=== PATIENT | female | born 1945 | race Caucasian/White ===

== ENCOUNTER 2020-11-10 02:08 | Observation (INO) | payer MEDICARE ==
[~2020-11-10] VITALS: Ht 170.2 cm; Wt 83.6 kg
[2020-11-10 05:17] VITALS: BP 124/60
[2020-11-10] MEDS ORDERED: MULT-245 PO (06:04)
[2020-11-10] MEDS ORDERED: CEPH500C PO (06:04)
[2020-11-10] MEDS ORDERED: ACET325T9 PO (06:04)
[2020-11-10] MEDS ORDERED: IBUP400T99 PO (06:04)
[2020-11-10] MEDS ORDERED: CLOT15CR53 TP (06:04)
[2020-11-10] MEDS ORDERED: OMEG1CAP50 PO (06:04)
[2020-11-10 06:42] LABS: ALBUMIN/GLOBULIN RATIO 1.2 (1.0-1.7); CREATININE 0.8 mg/dL (0.6-1.0); GFR 69.7; MAGNESIUM 2.2 mg/dL (1.8-2.4); POTASSIUM 3.7 mmol/L (3.5-5.1); TOTAL BILIRUBIN 0.5 mg/dL (0.2-1.0); TOTAL PROTEIN 7.3 g/dL (6.4-8.2)
[2020-11-10 06:56] LABS: BASO % 1 % (0-3); EOS # 0.2 x10^3/uL (0.0-0.7); EOS % 4 % (0-3); HEMOGLOBIN 12.4 g/dL (12.0-15.5); LYMPH # 1.2 x10^3/uL (1.0-4.8); LYMPH % 23 % (24-48); MEAN CORPUSCULAR HEMOGLOBIN 31 pg (25-35); MEAN CORPUSCULAR HGB CONC 34 g/dL (31-37); MEAN CORPUSCULAR VOLUME 92 fL (79-100); MONO # 0.7 x10^3/uL (0.0-1.1); MONO % 13 % (0-9); NEUT # 3.1 x10^3uL (1.8-7.7); NEUT % 59 % (31-73); PLATELET COUNT 214 x10^3/uL (140-400); WHITE BLOOD COUNT 5.3 x10^3/uL (4.0-11.0)
--- NOTE | 2020-11-10 09:34 | HP ---
ADMIT DATE: 11/10/2020 ATTENDING PHYSICIAN: Dr. Macias. We are asked to see this patient for admission prior to going to the [facility]. HISTORY OF PRESENT ILLNESS: The patient is a 75-year-old female with profound dementia. She originally resided in [place], [place]. Daughter lives in [place]. I got an address area, which appears to be a longterm in [place]. She was sent to [facility] and then eventually contacted here for a Geriatric Neuropsych evaluation. The patient has been asking for parents hallucinating, repetitive speech, not oriented, incontinence, smearing her stool on the wall and tried to leave the house. Symptoms have been ongoing for at least 6 months now. PAST MEDICAL HISTORY: Gleaned from the chart. She has no history of diabetes or high blood pressure. CURRENT MEDICATIONS: Include cephalexin for UTI, clotrimazole, p.r.n. ibuprofen, multivitamin, omega 3 acid. ALLERGIES: She has no known drug allergies. SOCIAL HISTORY: She is a nonsmoker, nondrinker. FAMILY HISTORY: Unobtainable. REVIEW OF SYSTEMS: Unobtainable. PHYSICAL EXAMINATION: GENERAL: When I saw her, this is a pleasant, but confused female. She is not aware of where she is. INITIAL VITAL SIGNS: Showed a blood pressure 124/60, pulse is 78 and regular. She is afebrile. Oxygen saturation 97% on room air. HEENT: Head is without trauma. Pupils are reactive. Sclerae nonicteric. Oropharynx clear. NECK: Supple, no bruits. LUNGS: Clear. CARDIOVASCULAR: Showed regular heart tones. No gallops. ABDOMEN: Soft. EXTREMITIES: Without edema. NEUROLOGIC: Pleasantly confused. LABORATORY DATA: The hemoglobin is 12.4 g/dL with a white count 5300. Her chemistry panel is unremarkable with a nonfasting blood sugar 114. Electrolytes, BUN, creatinine, liver panel all within normal range. ASSESSMENT: 1. A 75-year-old female with profound dementia. 2. Behavioral issues. 3. Generalized debilitation. PLAN: 1. Admit to the medical floor. 2. We are awaiting her coronavirus swab. 3. Diet as tolerated. 4. Minimal home meds continued. 5. We will finish her antibiotic therapy for UTI. 6. She will be discharged to the [facility] Unit when the swab returns. DENG DR: Olivia TID: [id number] CC: KANDY WADE MD
[2020-11-10] MEDS ORDERED: MAGNESIUM CITRATE 296 ML SOLUTION. PO PRN (10:00)
--- NOTE | 2020-11-10 10:08 | EKG ---
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
[2020-11-10 10:49] VITALS: BP 100/57
[2020-11-10 12:55] LABS: FREE T4 0.82 ng/dL (0.76-1.46); THYROID STIM HORMONE (TSH) 2.024 uIU/mL (0.358-3.740)
[2020-11-10] MEDS ORDERED: HYDR-2155 PO (16:59)
--- NOTE | 2020-11-10 20:28 | DS ---
ATTENDING PHYSICIAN: Dr. Macias. FINAL DISCHARGE DIAGNOSES: 1. Profound dementia. 2. Aggressive behavior. 3. Mild hypertension. 4. Degenerative arthritis. HISTORY AND PHYSICAL: The patient had been in a facility in [place], [place]. She was becoming more agitated, forgetful, smearing her own stool on the acosta, escaping from her home at night. She was slated to go to the [facility] Behavioral Unit. She was sent here for observation and to rule out COVID infection. PHYSICAL EXAMINATION: Please see the dictated note. PERTINENT LABORATORY AND X-RAY STUDIES: Normal CBC, chemistry panel, and electrolytes. Her COVID coronavirus swab came back as negative. COURSE IN THE HOSPITAL: The patient was admitted. She had her labs drawn, screened for COVID. Diet advanced. She had very little home meds except for p.r.n. psych meds including Seroquel and risperidone. When the report was negative, she was discharged from the medical floor and sent to the [facility] Unit for further treatment and evaluation. She was discharged in stable condition with explicit and followup care. JOHANNE/LIGIA/THIERRY DR: Olivia TID: [id number] CC: KANDY WADE MD
[2020-11-11 05:37] LABS: HEMOGLOBIN A1C 5.4 % (4.8-5.6)
== END 2020-11-10 14:40 ==
LOC: 1 SOUTH 04:27
PROVIDERS: ADMIT Hospitalist; ATTEND Hospitalist
DX: F03.91 Unspecified dementia, unspecified severity, with behavioral disturbance (principal); Z20.822 Contact with and (suspected) exposure to COVID-19; I10 Essential (primary) hypertension; M19.90 Unspecified osteoarthritis, unspecified site; R53.81 Other malaise; Z79.899 Other long term (current) drug therapy; Z98.890 Other specified postprocedural states
CPT/HCPCS: 36415; 80053; 80061; 82306; 82607; 83036; 83540; 83550; 83735; 84439; 84443; 84481; 85025; 93005; G0378; G0379; U0003

== ENCOUNTER 2020-11-10 14:40 | Inpatient (IN) | payer MEDICARE ==
[~2020-11-10] VITALS: Ht 172.7 cm; Wt 80.7 kg
[~2020-11-10 14:40] MED LIST: ACET325T9 PO; CEPH500C PO; CLOT15CR53 TP; IBUP400T99 PO; MULT-245 PO; OMEG1CAP50 PO
[2020-11-10] MEDS ORDERED: METHYL SALICYLATE/MENTHOL TOPICAL OINTMENT 57GM TUBE. TP PRN (15:30)
[2020-11-10] MEDS ORDERED: MAG HYDROX/AL HYDROX/SIMETH 30 ML ORAL.SUSP PO PRN (15:30)
[2020-11-10] MEDS ORDERED: MAGNESIUM HYDROXIDE 2,400 MG/30 ML ORAL.SUSP. PO PRN (15:30)
[2020-11-10 16:06] VITALS: BP 116/76
--- NOTE | 2020-11-10 16:41 | NUR ---
Admission Note with Justification for Admission to [facility] Patient admitted to [facility] for protective oversight for emergency stabilization of acute psychiatric crisis. Pt admitted from: [address] Mode of arrival: Ambulate Accompanied By: [facility] Staff Precipitating behaviors that initiated intake and admission: AMS, hallucinating, asking for parents, repetitive, STM defect, taking off clothes, incontinent, smearing feces on wall, attempting to leave house at night, poor hygiene Description of failure of out patient attempts at stabilization in previous setting list behavior and medication trials: ER visit, ABT for UTI, CT scan Behaviors and assessment findings upon admission: Cooperative and polite. Confused, forgetful, anxiety. A&O to self only. Wandering. Asking to use phone to call her parents who are "on a trip overseas." Delusional. Wants to leave and go home. Plan: Admit for protective oversight for adjustment and stabilization of medications, behaviors and mood. Intense treatment regimen including groups, medication adjustments, therapy, consistent regimen for ADL's, self care, and sleep hygiene. Daily monitoring by Inpatient staff, Psychiatry, and Medical Physician.
[2020-11-10] MEDS ORDERED: HYDR-2155 PO (16:59)
--- NOTE | 2020-11-10 17:07 | NUR ---
Pt was admitted with home medications (Cephalexin and Clortimazole cream). Medications bagged and sent to Pharmacy for storage.
[2020-11-10] MEDS: CEPHALEXIN 250 MG CAPSULE PO SCH (20:22)
[2020-11-10] MEDS: CLOTRIMAZOLE 1% TOPICAL CREAM 30GM TUBE. TP SCH (20:35)
[2020-11-10] MEDS: traZODone 50 MG TABLET. PO PRN ×2 (22:30→23:33)
--- NOTE | 2020-11-10 23:38 | NUR ---
Pt highly anxious and disorganized this evening. Pt wandering unit, door checking, and exit seeking. 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 PRN Zyprexa administered with HS medications. Pt continued to be restless once placed in bed. Pt witnessed having a full blown conversation with herself in the mirror. When asked who she was talking to, pt stated "we go to middle school together." Dr. Sue paged and orders received. PRN Trazodone administered at 2230. PRN not effective. Pt continues to be restless and was found in her room going through her trash bag. Repeat Trazodone and Zydis administered at 2330. Pt currently awake in bed. Will continue to monitor.
[2020-11-11 06:47] VITALS: BP 135/74
[2020-11-11] MEDS: ACETAMINOPHEN 325 MG TABLET PO PRN (08:40)
[2020-11-11] MEDS: CEPHALEXIN 250 MG CAPSULE PO SCH ×2 (08:40→14:00)
[2020-11-11] MEDS: CLOTRIMAZOLE 1% TOPICAL CREAM 30GM TUBE. TP SCH ×2 (08:42→21:00)
--- NOTE | 2020-11-11 12:48 | HP ---
ADMIT DATE: 11/10/2020 PSYCHIATRIC ADMISSION HISTORY/EVALUATION This is a late entry, date of service 11/10/2020, covers elements not covered in my initial note of 11/10/2020. I met with the patient on the evening of 11/10/2020 for this evaluation. Previously discussed with nursing staff and Steph Cox veterans' coordinator IDENTIFYING DATA: The patient is a 75-year-old female referred to us from [facility] where she was referred from home after she presented due to increased confusion, hallucinations, asking for her parents. She was extremely repetitive, persistent, having acute mental status changes, short short-term memory deficits. She was undressing herself, incontinence, smearing feces on the wall. She tried to leave the house at night. Behaviors were deemed dangerous, unmanageable. Hygiene was extremely poor. She had failed outpatient psychiatric interventions, referred for inpatient psychiatric stabilization. CHIEF COMPLAINT: "I don't know." The patient responded after I attempted to gather historical information from her. HISTORY OF PRESENT ILLNESS: The patient has a history of dementia, Alzheimer's, vascular type. She has been residing at home, progressively getting more confused, agitated, paranoid, psychotic, attempting to elope from the house. She has failed outpatient psychiatric interventions. No clear history of bipolar disorder. PAST PSYCHIATRIC HISTORY: As above. MEDICAL HISTORY: Bladder prolapse. She does have a UTI, history of shingles, history of migraines. Ambulates up ad iron. CODE STATUS: Full code. ALLERGIES: Negative. Takes medications ___. Diet is regular. Accu-Cheks not applicable. UA is positive on Keflex from [facility]. CURRENT PSYCHOTROPICS: Zyprexa was added p.r.n. 2.5 mg every 2 hours, max 7.5 mg in 24 hours. FAMILY HISTORY: Noncontributory. SOCIAL HISTORY: No history of alcohol, drug abuse, physical, sexual or elder abuse. She is not known to be a perpetrator. Reaction to hospitalization, the patient oblivious of this. ASSETS: Supportive family. REVIEW OF SYSTEMS: No CV, , pulmonary, eyes, ENT system symptoms on review. Reliability poor. MENTAL STATUS EXAM: Oriented to herself. Insight, judgment, recent and remote memory, attention, concentration, fund of knowledge poor, consistent with her diagnosis. IMPRESSION: Major neurocognitive disorder, Alzheimer, vascular with delusion, depression, behavioral disturbance, anxiety disorder, unspecified; impulse control disorder, unspecified. Rest unchanged from above. PLAN: Admit to Geropsychiatry unit, [facility]. I will see the patient daily individually from a psychiatric standpoint. Medical followup with Dr. Graham/Dr. Macias. Continue current psychotropics. Observe baseline, stabilize sleep. Treat the UTI. Adjust psychotropics as clinically indicated. Consider SSRIs for mood and anxiety symptoms. ESTIMATED LENGTH OF STAY: 10 to 12 days. DISPOSITION PLANS: Either home or may need placement depending on her progress during the stabilization. JESSICA DR: Timur TID: [id number]
[2020-11-11 15:55] VITALS: BP 104/60
[2020-11-12] MEDS: CEPHALEXIN 250 MG CAPSULE PO SCH ×4 (00:28→19:22)
[2020-11-12] MEDS: MIRTAZAPINE 7.5 MG TABLET. PO SCH ×2 (00:28→19:21)
--- NOTE | 2020-11-12 00:44 | NUR ---
Pt sleeping soundly in bed at shift change and throughout the evening. It was reported by day shift that pt fell asleep at breakfast and slept through the entire day. Pt did not eat any meals. Pt awoke this evening and was highly disorganized, anxious, tearful and delusional. Pt stated that she needs to get home to her mom and dad. Pt had been incontinent of urine so bedding and gown were changed. Pt irritable, sarcastic and argumentative during ADLs. Pt resistive to HS medications at this time, however was eventually compliant with coaxing. Pt currently laying in bed awake with bed alarm on. Will continue to monitor.
[2020-11-12 06:05] VITALS: BP 105/64
[2020-11-12] MEDS: CLOTRIMAZOLE 1% TOPICAL CREAM 30GM TUBE. TP SCH ×2 (09:00→19:38)
--- NOTE | 2020-11-12 10:37 | NUR ---
Call placed to [facility] to obtain authorization. MIK spoke to Nehemias who reported Cara to have a "Medicare PFFS" plan that does not require an authorization or concurrent reviews. Call reference number is [id number].
--- NOTE | 2020-11-12 11:35 | NUR ---
WEEKLY ACTIVITY THERAPY NOTE Date of Admission: 11/10/20 Date of AT Assessment: TBD Precipitating behaviors that initiated intake and admission: AMS, hallucinating, asking for parents, repetitive, STM defect, taking off clothes, incontinent, smearing feces on wall, attempting to leave house at night, poor hygiene Goal aimed: TBD Initial Goal: TBD Weekly progress towards goal: NA Group participation level: NA Weekly highlights: arrived on [facility] Behaviors observed: new patient Plan: meet/assess pt Beneficial adaptations:
--- NOTE | 2020-11-12 13:43 | NUR ---
Nursing Note Patient has been calm in the morning but after lunch became more irritable asking around for her children, pacing hallway, hitting chair in day room, then hit CALL OUT CLERK with magazine. Patient was escorted to her room to de-escalate. PRN medication administered. Patient otherwise medication compliant.
[2020-11-12 15:46] VITALS: BP 126/78
--- NOTE | 2020-11-12 15:58 | NUR ---
PSYCHOSOCIAL ASSESSMENT ADMISSION DATE: 11/10/20 CONTACT INFORMATION: DPOA/Guardian Contact Name: Janeen Lovelace Contact Address: [address] [place] [address]; [place] [address] Contact Phone #: ETHNIC ORIGIN: REASONS FOR ADMISSION: Confusion/Disoriented Hallucinations Poor impulse control Other ADDITIONAL ADMISSION COMMENTS: According to the intake, pt is hallucinating, asking to see her parents, repetitive, altered mental status (displaying STM deficits), taking off her clothes, smearing feces on the wall, tried to leave the house at night and poor hygiene. REASON FOR ADMISSION IN PATIENT/FAMILY'S OWN WORDS: Assuming this is the UTI because this has all happened so sudden PATIENT/FAMILY EXPECTATIONS FOR ADMISSION: Medication and behavioral management; diagnosis clarification LIVING SITUATION: Patient lives with: Child/children Other living arrangements: Lives with dtr and her family Contact Name: Janeen Lovelace Contact Address: [address] [place] [address]; [place] [address] Contact Phone #: Contact Fax #: FAMILY RELATIONS: Marital Status: # of Marriages: 1 # of Children: 1 [facility] Family Support: Concerned Cooperative Involved in DC Planning Additional Comments r/t Family: Pt had been to her for over 25 years; however, their relationship in the beginning was very tumultuous. Pt heavily used ETOH to the point where he would not come home or would come home so inebriated and belligerent. Together the two had one child (Janeen). Pt in 2014. SIGNIFICANT PSYCHIATRIC/MEDICAL HISTORY: Psychiatric/Treatment History: This is pt first psychiatric stay to [facility]. Pt does not have any previous dx according to the dtr. Pertinent Family History: Pt mother had Dementia; paternal grandfather also had Dementia. HISTORICAL DATA: Childhood Environment: Supportive Childhood Environment Additional Comments: Pt dtr reports that pt grew up in a loving and supportive home. The passing of her parents hit pt really hard; especially her mother as her mother was her best friend who in 2012. Trauma History: None Is Trauma: Additional Comments: No abuse noted per dtr. 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 Pt does have an associates degree Past/Present Interests/Hobbies: Pt loves reading, music, being around kids, movies Financial support/resources: Longterm/Pension Social Security Monthly income: Person handling finances: Pt handles her own finances with dtr oversight Do you have a history of legal problems: N Cultural considerations: None SOCIAL RELATIONSHIPS-CURRENT/PAST: Psychiatrist: [facility] PCP: Chris Lowry Counselor/Therapist: None Veterans' Administration: None Support Group: None Therapeutic Radiologist/Mgmt Specialist: None Other relationships: None STRENGTHS & WEAKNESSES: Patient's strengths: Good family support Ambulatory Other patient strengths: Patient's weaknesses: Lack of resources Impulsive Other patient weaknesses: PRELIMINARY PLAN OF TREATMENT: Preliminary plan: Dec. Hallucination/Delus Promote Coping Skill Medication Stabilization Control abnormal behavior Other preliminary treatment comments: DISCHARGE PLANNING: Discharge planning/disposition: Current Living Arrange. Additional discharge needs identified: Resources for continued mental health services ADDITIONAL INFORMATION: Other Pertinent Data: MIK completed PSA with pt dtr, Janeen, who had a few questions about the process and how the evaluation is completed. Pt dtr reports that pt has never been diagnosed with Dementia. Pt dtr did note that in the last 6 months pt hygiene has declined in not wanting to shower as often, or do her hair. Pt dtr mentioned trying to get pt to cut her toenails and she refused to do them or let her daughter cut them. Pt dtr then noted in the last 3 months pt appeared to be more depressed. However, it has been within the last couple weeks pt has started talking to herself in the mirror and mentioning the loss of her parents and . In the beginning of October pt had finalized the sale of her mother's estate 8 years after her passing and reports pt took care of everything with no assistance to needing assistance with everything. Pt dtr is concerned that pt would be labeled with Dementia but in her training, there has not been anything indicative such as HBP, CVA, diabetes. Pt is in great health overall. MIK questioned pt migraines in which pt dtr mentioned she hasn't had migraines in over 20 years and have been controlled. Pt does not have a fall history. SW questioned the potential of MDD with psychosis and pt dtr would like for the psychiatrist to explore that option versus her admitting diagnosis of Dementia as pt has never been evaluated for Dementia.
[2020-11-12] MEDS: SERTRALINE 25 MG TABLET. PO SCH (17:16)
--- NOTE | 2020-11-12 22:15 | PDOC ---
Exam Note: Abdirashid Note: Please also refer to the separate dictated note~for this date of service dictated separately.~Patient seen individually. Discussed the patient with Nursing staff reviewed the chart.~Reviewed interim history and current functioning. Reviewed vital signs,~Labs/ Radiology~and current medications noted below. Continue current treatment with the changes noted in the dictated addendum note Assessment: Vital Signs/I&O: Vital Signs Date Time Temp Pulse Resp B/P (MAP) Pulse Ox O2 Delivery O2 Flow Rate FiO2 11/12/20 15:46 98.4 92 18 126/78 (94) 98 11/11/20 15:55 Room Air I & O 11/11/20 11/11/20 11/12/20 15:00 23:00 07:00 Intake Total 0 ml 0 ml Balance 0 ml 0 ml Current Medications: Meds: Current Medications Medications (Trade) Dose Ordered Sig/Rach Route PRN Reason Start Time Stop Time Status Last Admin Dose Admin Clotrimazole (Lotrimin) 1 kathi BID TP 11/10/20 21:00 Cephalexin HCl (Keflex) 500 mg TID PO 11/10/20 21:00 11/13/20 22:00 11/12/20 19:22 Acetaminophen (Tylenol) 650 mg PRN Q6HRS PRN PO MILD PAIN / TEMP > 100.3'F 11/10/20 15:30 11/11/20 08:40 Multi-Ingredient Ointment (Analgesic [place]) 1 kathi PRN QID PRN TP MUSCLE PAIN 11/10/20 15:30 Al Hydroxide/Mg Hydroxide (Mylanta Plus Xs) 15 ml PRN AFTMEALHC PRN PO DYSPEPSIA 11/10/20 15:30 Magnesium Hydroxide (Milk Of Magnesia) 2,400 mg PRN QHS PRN PO CONSTIPATION 11/10/20 15:30 Acetaminophen/ Hydrocodone Bitart (Lortab 5/325) 1 tab PRN Q6HRS PRN PO PAIN 11/10/20 17:00 Olanzapine (ZyPREXA ZYDIS) 2.5 mg PRN Q2HR PRN PO PSYCHOSIS 11/10/20 17:15 11/12/20 19:22 Trazodone HCl (Desyrel) 50 mg QHS PRN PO INSOMNIA, MAY REPEAT X1 11/10/20 22:30 11/10/20 23:33 Mirtazapine (Remeron) 7.5 mg QHS PO 11/11/20 21:00 11/12/20 19:21 Sertraline HCl (Zoloft) 25 mg DAILY PO 11/12/20 17:00 11/14/20 18:00 11/12/20 17:16 Sertraline HCl (Zoloft) 50 mg DAILY PO 11/15/20 17:00 Current Medications Medications (Trade) Dose Ordered Sig/Rach Route PRN Reason Start Time Stop Time Status Last Admin Dose Admin Sertraline HCl (Zoloft) 25 mg DAILY PO 11/12/20 17:00 11/14/20 18:00 11/12/20 17:16 I have reviewed the current psychotropics carefully including drug interactions. Risk benefit ratio favors no change other than as noted in my dictated progress note. Diagnosis: Problems: (1) Major neurocognitive disorder (2) Dementia in Alzheimer's disease with delusions (3) Dementia in Alzheimer's disease with depression (4) Dementia of the Alzheimer's type with early onset with behavioral distur bance (5) Dementia, vascular, with depression (6) Dementia, vascular, with delusions (7) Anxiety disorder, unspecified (8) Impulse control disorder, unspecified KANDY WADE MD Nov 12, 2020 22:15
--- NOTE | 2020-11-12 22:37 | NUR ---
Pt located in dayroom this evening. Pt highly anxious, restless and delusional. Pt stating that the troops are downstairs. Her is coming home so she needs to go downstairs and greet him. Pt repeatedly looking out the window for her mom and dad's car because they don't know where she is. Pt seen trying to sampler pickup invisible items off of the floor. Pt witnessed carrying on a conversation with herself in the mirror, stating she was talking to her daughter. Pt compliant with whole medications. PRN Zyprexa administered with HS medications.
[2020-11-12] MEDS: traZODone 50 MG TABLET. PO PRN (23:48)
[2020-11-13 05:55] VITALS: BP 128/94
[2020-11-13] MEDS: SERTRALINE 25 MG TABLET. PO SCH (08:15)
[2020-11-13] MEDS: CEPHALEXIN 250 MG CAPSULE PO SCH ×3 (08:15→20:55)
[2020-11-13] MEDS: CLOTRIMAZOLE 1% TOPICAL CREAM 30GM TUBE. TP SCH ×2 (08:34→20:56)
--- NOTE | 2020-11-13 09:50 | PDOC ---
Exam Note: Abdirashid Note: This note is a late entry for 11/11/2020 covers elements not covered in my initial note. Subjective: The patient was seen on telehealth rounds in the afternoon of 11/11/2020 with the nursing staff taking the telehealth camera to each patient, which was on a secure portal, discussed and reviewed the chart with Issac DAILY. The patient slept poorly 3-1/4 hours previous night. The day before the patient was actively hallucinating, talking to her parents, somewhat delusional. Review of Systems: No CV, , pulmonary, eye, ENT system symptoms on review. Reliability poor. Mental Status Exam: The patient is oriented to herself. Insight and judgment, recent and remote memory, attention and concentration is poor consistent with her diagnoses. Laboratory Data: Reviewed. Impression: Major neurocognitive disorder, Alzheimer vascular with depression, delusions, behavioral disturbance. Impulse control disorder. Anxiety disorder unspecified. Plan: The patient slept poorly and so we will go ahead and start Remeron 7.5 mg p.o. h.s. Maintain rest of the psychotropics unchanged and she remains on Zyprexa p.r.n. Assessment: Vital Signs/I&O: Vital Signs Date Time Temp Pulse Resp B/P (MAP) Pulse Ox O2 Delivery O2 Flow Rate FiO2 11/13/20 05:55 97.4 96 20 128/94 (105) 98 11/11/20 15:55 Room Air I & O 11/12/20 11/12/20 11/13/20 15:00 23:00 07:00 Intake Total 1140 ml 460 ml Balance 1140 ml 460 ml Current Medications: Meds: Current Medications Medications (Trade) Dose Ordered Sig/Rach Route PRN Reason Start Time Stop Time Status Last Admin Dose Admin Clotrimazole (Lotrimin) 1 kathi BID TP 11/10/20 21:00 11/13/20 08:34 Cephalexin HCl (Keflex) 500 mg TID PO 11/10/20 21:00 11/13/20 22:00 11/13/20 08:15 Acetaminophen (Tylenol) 650 mg PRN Q6HRS PRN PO MILD PAIN / TEMP > 100.3'F 11/10/20 15:30 11/11/20 08:40 Multi-Ingredient Ointment (Analgesic [place]) 1 kathi PRN QID PRN TP MUSCLE PAIN 11/10/20 15:30 Al Hydroxide/Mg Hydroxide (Mylanta Plus Xs) 15 ml PRN AFTMEALHC PRN PO DYSPEPSIA 11/10/20 15:30 Magnesium Hydroxide (Milk Of Magnesia) 2,400 mg PRN QHS PRN PO CONSTIPATION 11/10/20 15:30 Acetaminophen/ Hydrocodone Bitart (Lortab 5/325) 1 tab PRN Q6HRS PRN PO PAIN 11/10/20 17:00 Olanzapine (ZyPREXA ZYDIS) 2.5 mg PRN Q2HR PRN PO PSYCHOSIS 11/10/20 17:15 11/12/20 19:22 Trazodone HCl (Desyrel) 50 mg QHS PRN PO INSOMNIA, MAY REPEAT X1 11/10/20 22:30 11/12/20 23:48 Mirtazapine (Remeron) 7.5 mg QHS PO 11/11/20 21:00 11/12/20 19:21 Sertraline HCl (Zoloft) 25 mg DAILY PO 11/12/20 17:00 11/14/20 18:00 11/13/20 08:15 Sertraline HCl (Zoloft) 50 mg DAILY PO 11/15/20 17:00 Current Medications Medications (Trade) Dose Ordered Sig/Rach Route PRN Reason Start Time Stop Time Status Last Admin Dose Admin Sertraline HCl (Zoloft) 25 mg DAILY PO 11/12/20 17:00 11/14/20 18:00 11/13/20 08:15 I have reviewed the current psychotropics carefully including drug interactions. Risk benefit ratio favors no change other than as noted in my dictated progress note. Diagnosis: Problems: (1) Impulse control disorder, unspecified (2) Anxiety disorder, unspecified (3) Dementia, vascular, with depression (4) Dementia, vascular, with delusions (5) Dementia in Alzheimer's disease with depression (6) Dementia in Alzheimer's disease with delusions (7) Dementia of the Alzheimer's type with early onset with behavioral disturbance (8) Major neurocognitive disorder KANDY WADE MD Nov 13, 2020 09:50
--- NOTE | 2020-11-13 10:19 | PDOC ---
Exam Note: Abdirashid Note: This note is a late entry for 11/12/2020 covers elements not covered in my initial note. Subjective: The patient was reviewed on telehealth rounds in the afternoon of 11/12/2020 for a treatment team meeting with Steph Myers, Chio Menchaca (social welfare research worker), Anamaria, activity therapy and Tee DAILY, discussed and reviewed the chart. The patient slept 9 hours previous night. She is compliant with medications, remains confused, frequently talking to her mother and father. Review of Systems: No CV, , pulmonary, eye, ENT system symptoms on review. Reliability poor. Mental Status Exam: The patient is oriented to herself. During the individual rounds, I asked her how she was doing and she said she was on vacation from school and when I questioned her about which grade she was in she said 10th grad e and on further questioning she said she was restudying literature and other subjects. Insight and judgment, recent and remote memory, attention and concentration is poor consistent with her diagnoses. Laboratory Data: Reviewed. Impression: Major neurocognitive disorder, Alzheimer vascular with depression, delusions, behavioral disturbance. Impulse control disorder. Anxiety disorder unspecified. UTI. Plan: Maintain rest of the psychotropics unchanged. We will start the patient on Zoloft 25 mg a day for 3 days and 50 mg a day for her mood and anxiety symptoms. Maintain Remeron 7.5 mg h.s. Once the UTI resolves and if paranoia persists, we may add low dose Risperdal. Adjust further as clinically indicated. Assessment: Vital Signs/I&O: Vital Signs Date Time Temp Pulse Resp B/P (MAP) Pulse Ox O2 Delivery O2 Flow Rate FiO2 11/13/20 05:55 97.4 96 20 128/94 (105) 98 11/11/20 15:55 Room Air I & O 11/12/20 11/12/20 11/13/20 15:00 23:00 07:00 Intake Total 1140 ml 460 ml Balance 1140 ml 460 ml Current Medications: Meds: Current Medications Medications (Trade) Dose Ordered Sig/Rach Route PRN Reason Start Time Stop Time Status Last Admin Dose Admin Clotrimazole (Lotrimin) 1 kathi BID TP 11/10/20 21:00 11/13/20 08:34 Cephalexin HCl (Keflex) 500 mg TID PO 11/10/20 21:00 11/13/20 22:00 11/13/20 08:15 Acetaminophen (Tylenol) 650 mg PRN Q6HRS PRN PO MILD PAIN / TEMP > 100.3'F 11/10/20 15:30 11/11/20 08:40 Multi-Ingredient Ointment (Analgesic [place]) 1 kathi PRN QID PRN TP MUSCLE PAIN 11/10/20 15:30 Al Hydroxide/Mg Hydroxide (Mylanta Plus Xs) 15 ml PRN AFTMEALHC PRN PO DYSPEPSIA 11/10/20 15:30 Magnesium Hydroxide (Milk Of Magnesia) 2,400 mg PRN QHS PRN PO CONSTIPATION 11/10/20 15:30 Acetaminophen/ Hydrocodone Bitart (Lortab 5/325) 1 tab PRN Q6HRS PRN PO PAIN 11/10/20 17:00 Olanzapine (ZyPREXA ZYDIS) 2.5 mg PRN Q2HR PRN PO PSYCHOSIS 11/10/20 17:15 11/12/20 19:22 Trazodone HCl (Desyrel) 50 mg QHS PRN PO INSOMNIA, MAY REPEAT X1 11/10/20 22:30 11/12/20 23:48 Mirtazapine (Remeron) 7.5 mg QHS PO 11/11/20 21:00 11/12/20 19:21 Sertraline HCl (Zoloft) 25 mg DAILY PO 11/12/20 17:00 11/14/20 18:00 11/13/20 08:15 Sertraline HCl (Zoloft) 50 mg DAILY PO 11/15/20 17:00 Current Medications Medications (Trade) Dose Ordered Sig/Rach Route PRN Reason Start Time Stop Time Status Last Admin Dose Admin Sertraline HCl (Zoloft) 25 mg DAILY PO 11/12/20 17:00 11/14/20 18:00 11/13/20 08:15 I have reviewed the current psychotropics carefully including drug interactions. Risk benefit ratio favors no change other than as noted in my dictated progress note. Diagnosis: Problems: (1) Impulse control disorder, unspecified (2) Anxiety disorder, unspecified (3) Dementia, vascular, with depression (4) Dementia, vascular, with delusions (5) Dementia in Alzheimer's disease with depression (6) Dementia in Alzheimer's disease with delusions (7) Dementia of the Alzheimer's type with early onset with behavioral disturbance (8) Major neurocognitive disorder KANDY WADE MD Nov 13, 2020 10:19
--- NOTE | 2020-11-13 12:28 | TX PLAN ---
Interdisciplinary Tx Plan Admission Information Nov 10, 2020 at 14:40 Legal Status (on Admission): Voluntary DPOA/Guardian Name: Janeen Lovelace Contact Other Contact Name: Janeen Lovelace Other Contact Verified Code Status: Full Code Allergies: Coded Allergies: No Known Drug Allergies (Unverified , 11/10/20) Diagnoses Primary Diagnosis: Dementia with BD Reasons for Admission: Hallucinations, Confusion/Disoriented, Poor impulse control, Other Problem in Patient's Words: Assuming this is the UTI because this has all happened so sudden Additional Admission Comments: According to the intake, pt is hallucinating, asking to see her parents, repetitive, altered mental status (displaying STM deficits), taking off her clothes, smearing feces on the wall, tried to leave the house at night and poor hygeine. Problems Active Problems: delusional restless/anxious hallucinating Inactive Problems: medication compliant Pt Strengths/Limitations Ability for [place]: Poor Cognitive Functioning/Ability: Fair Communication Skills/Ability: Fair Financial Resources: Fair Insight/Judgement: Poor Intellectual Ability: Fair Physical Health: Fair Social Skills: Fair Stability in Family: Good Stability in School/Work: Poor Verbal Skills: Fair Discharge Criteria Discharge Criteria: No need for close observ., Adequate arrangements @DC, Impr mary behavior, Improved mood/thought Preliminary Discharge Plan Preliminary DC Plan: Current Living Arrange. Special Precautions Fall Risk: Low Initial D/C Plan Pt will plan to discharge back home with family. Identified Discharge Needs: Resources for continued mental health services Currently Utilized Resources Currently Utilized Resources/P: Primary care physician Referrals Community Resources: referrals for psychiatry Identified Problems/Hx/Goals Objectives/Short-Term Goals Short Term Goals: Control abnormal behavior, Dec. Hallucination/Delus, Medication Stabilization, Promote Coping Skill Short Term Goals in Patient's: N/a Interventions/Frequency Staff Interventions/Frequency&: Psychiatrist to assess pt at least 3x per week for medication management. Social Work to assess pt at least 2x per week to identify barriers to care and discharge planning. Nursing to assess medication effects, behavior modification and completion of 15 minute checks daily. Encourage participation in group activities (if applicable) or 1:1 engagement based off activity dept goals. 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 Pt does have an associates degree Community Follow-up PCP psychiatry referral Community Provider/Family Inpu: She has never been diagnosed with anything and I worry about a Dementia diagnosis as this is a sudden onset and she had not issues until this month or <6 weeks ago. Treatment Plan Explained Patient/Airbrush Artist had this treatment plan explained to him/her as indicated by the signature below and has been given the opportunity to ask questions and make suggestions: Date: Patient/Airbrush Artist Signature: Patient/Airbrush Artist Decline: No (Pt dtr is highly involved in pt care.) ONUR RAMOS Nov 13, 2020 12:28
--- NOTE | 2020-11-13 13:45 | NUR ---
ACTIVITY THERAPY ASSESSMENT completed based on notes, observation and interview. Pt was sitting in the day room amongst peers. Pt was willing to answer assessment questions. Pt was calm and pleasant during time of assessment. AT asked pt what activities she enjoyed and she said kids, magic, arts/crafts,and music. Pt said that she took piano lessons as a kid. Pt needed some assistance when naming leisure activities. Pt was able to recall some facts and details. Pt said it was the 60s or 70s. Throughout assessment pt referred to her parents and said that she lived with them. Pt needed some redirection at times as she struggles to stay on topic. AT asked pt about her family and she said that she was and had six children. Per notes pt only has one child. Pt said that she has good contact with her family. Pt believes she is still young as she said that her and her friends go to school and sometimes go to the [employer]. AT redirected pt and asked pt if she was stressed. Pt said that she does not feel stress at this time but she parish with stress by watching TV for awhile. Pt said that she can sometimes be a brat when she is stressed as she laughed. AT asked pt if she gets around okay or has any pain. Pt did not report any pain. Per notes pt has been restless at times, and is looking for children. Pt has participated in Activity Therapy groups and was pleasant and appropriate. Initial goal aimed to increase engagement and socialization. Pt will participate in at least three individual or group Activity Therapy sessions per week. Addendum: 11/20/20 at 1358 by GORDON FAUST ACT Goal changed 11/20: Pt will participate in at least five individual or group Activity Therapy sessions per week Addendum: 11/26/20 at 1558 by GORDON FAUST ACT Goal changed 11/26:Pt will participate in at all Activity Therapy groups per week. Addendum: 12/17/20 at 1322 by GORDON FAUST ACT Goal changed 12/17:Pt will participate in at least three group Activity Therapy a sessions fully per week.
--- NOTE | 2020-11-13 14:41 | NUR ---
NURSING NOTE Alert and oriented x2. Able to make needs known. Affect flat early in the day, but by lunch is conversational with proper tone and inflection. Denies pain in any location. Wandering behavior present, but no exit seeking behavior seen. Compliant with medications, calm et cooperative with cares.
[2020-11-13 16:09] VITALS: BP 137/77
--- NOTE | 2020-11-13 17:22 | NUR ---
MIK returned call to pt dtr who had concerns about not being able to speak to pt. Pt dtr, Janeen, reports that she was finally able to speak with pt but noted that the phone consistently rang or was told to call back. MIK informed Janeen of good times to call back for phone calls. Janeen is very appreciative of the care pt is getting and noted that her mother seemed a bit more alert. She was less delusional and noted that she is a bit confused and was a bit made for coming in but doing better. Janeen also noted that her mother was able to process her behaviors which lead her to come on [facility]. MIK tentatively scheduled a visit for November 15 at 1030. Pt dtr will plan to confirm that with MIK tomorrow.
[2020-11-13] MEDS: QUEtiapine 25 MG TABLET. PO SCH (20:55)
--- NOTE | 2020-11-13 22:12 | PDOC ---
Exam Note: Abdirashid Note: Please also refer to the separate dictated note~for this date of service dictated separately.~Patient seen individually. Discussed the patient with Nursing staff reviewed the chart.~Reviewed interim history and current functioning. Reviewed vital signs,~Labs/ Radiology~and current medications noted below. Continue current treatment with the changes noted in the dictated addendum note Assessment: Vital Signs/I&O: Vital Signs Date Time Temp Pulse Resp B/P (MAP) Pulse Ox O2 Delivery O2 Flow Rate FiO2 11/13/20 16:09 98.1 71 18 137/77 (97) 95 11/11/20 15:55 Room Air I & O 11/12/20 11/12/20 11/13/20 15:00 23:00 07:00 Intake Total 1140 ml 460 ml Balance 1140 ml 460 ml Current Medications: Meds: Current Medications Medications (Trade) Dose Ordered Sig/Rach Route PRN Reason Start Time Stop Time Status Last Admin Dose Admin Clotrimazole (Lotrimin) 1 kathi BID TP 11/10/20 21:00 11/13/20 20:56 Cephalexin HCl (Keflex) 500 mg TID PO 11/10/20 21:00 11/13/20 22:00 DC 11/13/20 20:55 Acetaminophen (Tylenol) 650 mg PRN Q6HRS PRN PO MILD PAIN / TEMP > 100.3'F 11/10/20 15:30 11/11/20 08:40 Multi-Ingredient Ointment (Analgesic [place]) 1 kathi PRN QID PRN TP MUSCLE PAIN 11/10/20 15:30 Al Hydroxide/Mg Hydroxide (Mylanta Plus Xs) 15 ml PRN AFTMEALHC PRN PO DYSPEPSIA 11/10/20 15:30 Magnesium Hydroxide (Milk Of Magnesia) 2,400 mg PRN QHS PRN PO CONSTIPATION 11/10/20 15:30 Acetaminophen/ Hydrocodone Bitart (Lortab 5/325) 1 tab PRN Q6HRS PRN PO PAIN 11/10/20 17:00 Olanzapine (ZyPREXA ZYDIS) 2.5 mg PRN Q2HR PRN PO PSYCHOSIS 11/10/20 17:15 11/12/20 19:22 Trazodone HCl (Desyrel) 50 mg QHS PRN PO INSOMNIA, MAY REPEAT X1 11/10/20 22:30 11/12/20 23:48 Mirtazapine (Remeron) 7.5 mg QHS PO 11/11/20 21:00 11/13/20 15:41 DC 11/12/20 19:21 Sertraline HCl (Zoloft) 25 mg DAILY PO 11/12/20 17:00 11/14/20 18:00 11/13/20 08:15 Sertraline HCl (Zoloft) 50 mg DAILY PO 11/15/20 17:00 Quetiapine Fumarate (SEROquel) 25 mg QHS PO 11/13/20 21:00 11/13/20 20:55 Current Medications Medications (Trade) Dose Ordered Sig/Rach Route PRN Reason Start Time Stop Time Status Last Admin Dose Admin Quetiapine Fumarate (SEROquel) 25 mg QHS PO 11/13/20 21:00 11/13/20 20:55 I have reviewed the current psychotropics carefully including drug interactions. Risk benefit ratio favors no change other than as noted in my dictated progress note. Diagnosis: Problems: (1) Impulse control disorder, unspecified (2) Anxiety disorder, unspecified (3) Dementia, vascular, with depression (4) Dementia, vascular, with delusions (5) Dementia in Alzheimer's disease with depression (6) Dementia in Alzheimer's disease with delusions (7) Dementia of the Alzheimer's type with early onset with behavioral disturbance (8) Major neurocognitive disorder KANDY WADE MD Nov 13, 2020 22:12
--- NOTE | 2020-11-14 05:28 | NUR ---
Patient is confused with a labile mood that changes easily without warning. She is alert to self and spent time talking to herself believing she is talking with her son and . She was compliant with her medications and ate some snacks with no signs of nausea and/or vomiting. She denies pain. After staying in the TV room for about three hours, patient was helped to her room and her wet and dirty diaper was changed, and that triggered a change in her mood, making her agitated and angry. Patient was also leaving her room and trying to go into other residents' rooms, and was reported to have attempted lashing out on staff who tried re-directing her. Nurse was notified and a dose of prn Zyprexa was administered after nurse helped re-direct patient back to her room. Nurse then helped patient into bed, where she remained for the remainder of the night, resting with eyes closed and breathing normally. Patient has edema in her bilateral lower extremities and her left leg is red and warm to the touch. She has been added to the consult list for Dr. Graham in the morning.
[2020-11-14 05:58] VITALS: BP 127/70
[2020-11-14] MEDS: SERTRALINE 25 MG TABLET. PO SCH (08:44)
[2020-11-14] MEDS: CLOTRIMAZOLE 1% TOPICAL CREAM 30GM TUBE. TP SCH ×2 (08:44→21:00)
--- NOTE | 2020-11-14 14:13 | RAD ---
EXAM: CT HEAD WITHOUT CONTRAST. HISTORY: Dementia. TECHNIQUE: Computed tomography of the head was performed without intravenous contrast. One or more of the following individualized dose reduction techniques were utilized for this examination: 1. Automated exposure control. 2. Adjustment of the mA and/or kV according to patient size. 3. Use of iterative reconstruction technique. COMPARISON: None. FINDINGS: There is no intracranial hemorrhage. Hypoattenuation within the periventricular white matte r indicates mild to moderate chronic microangiopathic change. Moderate atrophy appears to most severe ly involve the temporal and parietal lobes. The visualized paranasal sinuses appear clear. The orbits are unremarkable. The temporal bones are un remarkable. The calvarium reveals no suspicious lesions. IMPRESSION: 1. Moderate atrophy most severely involves the temporal and parietal lobes. 2. Mild to moderate chronic microangiopathic white matter change. Electronically signed by: Mihir Browne MD (11/14/2020 2:11 PM) [id number]
[2020-11-14 16:23] VITALS: BP 120/72
[2020-11-14] MEDS: QUEtiapine 25 MG TABLET. PO SCH (21:00)
--- NOTE | 2020-11-14 22:51 | PDOC ---
Exam Note: Abdirashid Note: Please also refer to the separate dictated note~for this date of service dictated separately.~Patient seen individually. Discussed the patient with Nursing staff reviewed the chart.~Reviewed interim history and current functioning. Reviewed vital signs,~Labs/ Radiology~and current medications noted below. Continue current treatment with the changes noted in the dictated addendum note Assessment: Vital Signs/I&O: Vital Signs Date Time Temp Pulse Resp B/P (MAP) Pulse Ox O2 Delivery O2 Flow Rate FiO2 11/14/20 16:23 97.9 86 16 120/72 (88) 94 Room Air I & O 11/13/20 11/13/20 11/14/20 15:00 23:00 07:00 Intake Total 480 ml 600 ml Balance 480 ml 600 ml Current Medications: Meds: Current Medications Medications (Trade) Dose Ordered Sig/Rach Route PRN Reason Start Time Stop Time Status Last Admin Dose Admin Clotrimazole (Lotrimin) 1 kathi BID TP 11/10/20 21:00 11/14/20 08:44 Cephalexin HCl (Keflex) 500 mg TID PO 11/10/20 21:00 11/13/20 22:00 DC 11/13/20 20:55 Acetaminophen (Tylenol) 650 mg PRN Q6HRS PRN PO MILD PAIN / TEMP > 100.3'F 11/10/20 15:30 11/11/20 08:40 Multi-Ingredient Ointment (Analgesic [place]) 1 kathi PRN QID PRN TP MUSCLE PAIN 11/10/20 15:30 Al Hydroxide/Mg Hydroxide (Mylanta Plus Xs) 15 ml PRN AFTMEALHC PRN PO DYSPEPSIA 11/10/20 15:30 Magnesium Hydroxide (Milk Of Magnesia) 2,400 mg PRN QHS PRN PO CONSTIPATION 11/10/20 15:30 Acetaminophen/ Hydrocodone Bitart (Lortab 5/325) 1 tab PRN Q6HRS PRN PO MOD-SEV PAIN 11/10/20 17:00 Olanzapine (ZyPREXA ZYDIS) 2.5 mg PRN Q2HR PRN PO PSYCHOSIS 11/10/20 17:15 11/12/20 19:22 Trazodone HCl (Desyrel) 50 mg QHS PRN PO INSOMNIA, MAY REPEAT X1 6/26/21 22:30 11/12/20 23:48 Mirtazapine (Remeron) 7.5 mg QHS PO 11/11/20 21:00 11/13/20 15:41 DC 11/12/20 19:21 Sertraline HCl (Zoloft) 25 mg DAILY PO 11/12/20 17:00 11/14/20 18:00 DC 11/14/20 08:44 Sertraline HCl (Zoloft) 50 mg DAILY PO 11/15/20 17:00 Quetiapine Fumarate (SEROquel) 25 mg QHS PO 11/13/20 21:00 11/14/20 21:00 I have reviewed the current psychotropics carefully including drug interactions. Risk benefit ratio favors no change other than as noted in my dictated progress note. Diagnosis: Problems: (1) Impulse control disorder, unspecified (2) Anxiety disorder, unspecified (3) Dementia, vascular, with depression (4) Dementia, vascular, with delusions (5) Dementia in Alzheimer's disease with depression (6) Dementia in Alzheimer's disease with delusions (7) Dementia of the Alzheimer's type with early onset with behavioral disturbance (8) Major neurocognitive disorder KANDY WADE MD Nov 14, 2020 22:51
--- NOTE | 2020-11-15 02:05 | PN ---
DATE: 11/14/2020 SUBJECTIVE: The patient is a 75-year-old female patient who was seen today as the nursing staff are concerned about swelling and redness involving her left leg. The patient has herself denied any pain. Denied any chills, rigors or fever. Apparently, she has only recently completed a course of Keflex for UTI. PHYSICAL EXAMINATION: GENERAL: When I examined her, she looked well and was clearly in no apparent respiratory distress. No pallor, jaundice, cyanosis, or thyromegaly. No jugular venous distention with mild bilateral lower limb edema. VITAL SIGNS: Her heart rate was 84, blood pressure 127/70, temperature was 98.1, respiratory rate was 18 and oxygen saturation was 94%. HEAD, EYES, EARS, NOSE, AND THROAT: Normocephalic, atraumatic. NECK: Supple. HEART: Showed normal first and second heart sounds, no gallop or murmur. CHEST: Clear to auscultation, no crepitation or rhonchi. ABDOMEN: Distended, soft, nontender. NEUROLOGIC: She seems to be grossly intact. ASSESSMENT: Left lower extremity cellulitis. PLAN: My plan is to check her lab work including CBC, CMP and procalcitonin and I will start her also on oral doxycycline. Follow her closely. ZAKI/EKT DR: ZAKI/abigail TID: [id number]
--- NOTE | 2020-11-15 05:40 | NUR ---
Patient was delusional, talking to herself and believing she is discussing with her son and . Her mood is labile and changes without warning. Patient spent her awake time on a wheelchair, wheeling herself around the hallways and TV room, intermittently agitated, but calm for the most part. She had a shower at night and showed some resistance during the process, shouting at staff helping her, but the process was tolerated well. Patient returned to her room after shower and remained in bed resting, breathing normally and showing no signs of distress.
[2020-11-15 06:04] VITALS: BP 123/73
[2020-11-15] MEDS: ACETAMINOPHEN 325 MG TABLET PO PRN (06:37)
[2020-11-15] MEDS: CLOTRIMAZOLE 1% TOPICAL CREAM 30GM TUBE. TP SCH ×2 (09:00→21:10)
--- NOTE | 2020-11-15 09:29 | PDOC ---
Exam Note: Abdirashid Note: This note is a late entry for 11/13/2020 covers elements not covered in my initial note. Subjective: The patient was seen on telehealth rounds in the afternoon of 11/13/2020 with the nursing staff taking the telehealth camera to each patient, which was on a secure portal, discussed and reviewed the chart with Ava DAILY. The patient did not sleep at all previous night ambulating on her own, agitated in the evening. Appetite is 75%. She is pleasant. I received an email from [facility], social service staff that family denies there was any prior history of dementia. The patient had acute mental status changes with depression and the UTI. Her UTI is being treated last year with Keflex. Confusion persists and we may need CT head as further workup of incipient dementia which could have been worsened with the UTI or perhaps primary mood disorder and major depressive disorder with psychotic features. I responded back to Chio regarding the differential diagnosis via email. Review of Systems: No CV, , pulmonary, eye, ENT system symptoms on review. Reliability poor. Mental Status Exam: The patient is oriented to herself. She is quite pleasant, cooperative, smiling but forgetful, distractible. No suicidal or homicidal ideation. Attention span short. Language function intact. Laboratory Data: Reviewed. Impression: Major depressive disorder with psychotic features versus major neurocognitive disorder, Alzheimer vascular with depression, delusions, behavioral disturbance versus psychotic disorder unspecified. UTI. Plan: We will start the patient on Seroquel 25 mg h.s. to help with insomnia and some of her psychotic symptoms. Zoloft is being increase to 50 mg a day on 11/15. We will make further adjustments as clinically indicated. Consider CT head. Assessment: Vital Signs/I&O: Vital Signs Date Time Temp Pulse Resp B/P (MAP) Pulse Ox O2 Delivery O2 Flow Rate FiO2 11/15/20 06:04 98.0 97 16 123/73 (90) 98 Room Air I & O 11/14/20 11/14/20 11/15/20 15:00 23:00 07:00 Intake Total 120 ml 360 ml Balance 120 ml 360 ml Current Medications: Meds: Current Medications Medications (Trade) Dose Ordered Sig/Rach Route PRN Reason Start Time Stop Time Status Last Admin Dose Admin Clotrimazole (Lotrimin) 1 kathi BID TP 11/10/20 21:00 11/14/20 08:44 Cephalexin HCl (Keflex) 500 mg TID PO 11/10/20 21:00 11/13/20 22:00 DC 11/13/20 20:55 Acetaminophen (Tylenol) 650 mg PRN Q6HRS PRN PO MILD PAIN / TEMP > 100.3'F 11/10/20 15:30 11/15/20 06:37 Multi-Ingredient Ointment (Analgesic [place]) 1 kathi PRN QID PRN TP MUSCLE PAIN 11/10/20 15:30 Al Hydroxide/Mg Hydroxide (Mylanta Plus Xs) 15 ml PRN AFTMEALHC PRN PO DYSPEPSIA 11/10/20 15:30 Magnesium Hydroxide (Milk Of Magnesia) 2,400 mg PRN QHS PRN PO CONSTIPATION 11/10/20 15:30 Acetaminophen/ Hydrocodone Bitart (Lortab 5/325) 1 tab PRN Q6HRS PRN PO MOD-SEV PAIN 11/10/20 17:00 Olanzapine (ZyPREXA ZYDIS) 2.5 mg PRN Q2HR PRN PO PSYCHOSIS 11/10/20 17:15 11/12/20 19:22 Trazodone HCl (Desyrel) 50 mg QHS PRN PO INSOMNIA, MAY REPEAT X1 11/10/20 22:30 11/12/20 23:48 Mirtazapine (Remeron) 7.5 mg QHS PO 11/11/20 21:00 11/13/20 15:41 DC 11/12/20 19:21 Sertraline HCl (Zoloft) 25 mg DAILY PO 11/12/20 17:00 11/14/20 18:00 DC 11/14/20 08:44 Sertraline HCl (Zoloft) 50 mg DAILY PO 11/15/20 17:00 Quetiapine Fumarate (SEROquel) 25 mg QHS PO 11/13/20 21:00 11/14/20 21:00 I have reviewed the current psychotropics carefully including drug interactions. Risk benefit ratio favors no change other than as noted in my dictated progress note. Diagnosis: Problems: (1) Impulse control disorder, unspecified (2) Anxiety disorder, unspecified (3) Dementia, vascular, with depression (4) Dementia, vascular, with delusions (5) Dementia in Alzheimer's disease with depression (6) Dementia in Alzheimer's disease with delusions (7) Dementia of the Alzheimer's type with early onset with behavioral disturbance (8) Major neurocognitive disorder KANDY WADE MD Nov 15, 2020 09:29
--- NOTE | 2020-11-15 12:53 | RAD ---
Left Leg Venous Doppler Ultrasound, 11/15/2020 11:19 AM Indication: Left lower extremity swelling Comparison: None available Procedure: Real-time grayscale, color flow color duplex Doppler and spectral analysis are obtained w ith and without compression in the area of the common femoral vein, superficial femoral vein - femora l vein junction, main femoral vein (superficial femoral vein) and popliteal vein. Veins of the proxim al calf are also imaged. Findings: There is normal duplex flow, color flow and compressibility of all visualized vein segment s. No evidence of deep venous thrombus is present. There is a 2.6 x 2.0 x 1.5 cm left groin lymph nod e. Impression: Negative venous Doppler of left lower extremity Electronically signed by: Gogo Srinivasan MD (11/15/2020 12:51 PM) [facility]
--- NOTE | 2020-11-15 16:40 | NUR ---
PATIENT IS AWAKE WONDERING THE HALLWAY UPON ASSESSMENT, DENIED ANY PAIN CURRENTLY, PLEASANTLY CONFUSED, STATED SHE WOULD NEED TO GET TO THE MIDDLE SCHOOL WHERE HER PARENTS SHOULD PICK HER UP. PATIENT OBSERVED LATER THIS AFTERNOON IN A HALLWAY CONVERSING WITH PEERS, NO ADVERSE BEHAVIOR NOTED.
[2020-11-15 16:52] VITALS: BP 99/65
[2020-11-15 16:57] VITALS: BP 127/84
[2020-11-15] MEDS: SERTRALINE 50 MG TABLET. PO SCH (17:19)
[2020-11-15] MEDS: DOXYCYCLINE HYCLATE 100 MG TABLET PO SCH (21:09)
[2020-11-15] MEDS: QUEtiapine 25 MG TABLET. PO SCH (21:09)
[2020-11-15] MEDS: LACTOBACILLUS RHAMNOSUS GG 1 CAPSULE. PO SCH (21:09)
[2020-11-15] MEDS: traZODone 50 MG TABLET. PO PRN (21:09)
--- NOTE | 2020-11-15 22:16 | PDOC ---
Exam Note: Abdirashid Note: Please also refer to the separate dictated note~for this date of service dictated separately.~Patient seen individually. Discussed the patient with Nursing staff reviewed the chart.~Reviewed interim history and current functioning. Reviewed vital signs,~Labs/ Radiology~and current medications noted below. Continue current treatment with the changes noted in the dictated addendum note Assessment: Vital Signs/I&O: Vital Signs Date Time Temp Pulse Resp B/P (MAP) Pulse Ox O2 Delivery O2 Flow Rate FiO2 11/15/20 16:57 98.1 108 18 127/84 (98) 98 Room Air I & O 11/14/20 11/14/20 11/15/20 15:00 23:00 07:00 Intake Total 120 ml 360 ml Balance 120 ml 360 ml Current Medications: Meds: Current Medications Medications (Trade) Dose Ordered Sig/Rach Route PRN Reason Start Time Stop Time Status Last Admin Dose Admin Clotrimazole (Lotrimin) 1 kathi BID TP 11/10/20 21:00 11/15/20 21:10 Cephalexin HCl (Keflex) 500 mg TID PO 11/10/20 21:00 11/13/20 22:00 DC 11/13/20 20:55 Acetaminophen (Tylenol) 650 mg PRN Q6HRS PRN PO MILD PAIN / TEMP > 100.3'F 11/10/20 15:30 11/15/20 06:37 Multi-Ingredient Ointment (Analgesic [place]) 1 kathi PRN QID PRN TP MUSCLE PAIN 11/10/20 15:30 Al Hydroxide/Mg Hydroxide (Mylanta Plus Xs) 15 ml PRN AFTMEALHC PRN PO DYSPEPSIA 11/10/20 15:30 Magnesium Hydroxide (Milk Of Magnesia) 2,400 mg PRN QHS PRN PO CONSTIPATION 11/10/20 15:30 Acetaminophen/ Hydrocodone Bitart (Lortab 5/325) 1 tab PRN Q6HRS PRN PO MOD-SEV PAIN 11/10/20 17:00 Olanzapine (ZyPREXA ZYDIS) 2.5 mg PRN Q2HR PRN PO PSYCHOSIS 11/10/20 17:15 11/12/20 19:22 Trazodone HCl (Desyrel) 50 mg QHS PRN PO INSOMNIA, MAY REPEAT X1 11/10/20 22:30 11/15/20 21:09 Mirtazapine (Remeron) 7.5 mg QHS PO 11/11/20 21:00 11/13/20 15:41 DC 11/12/20 19:21 Sertraline HCl (Zoloft) 25 mg DAILY PO 11/12/20 17:00 11/14/20 18:00 DC 11/14/20 08:44 Sertraline HCl (Zoloft) 50 mg DAILY PO 11/15/20 17:00 11/15/20 17:19 Quetiapine Fumarate (SEROquel) 25 mg QHS PO 11/13/20 21:00 11/15/20 21:09 Doxycycline Hyclate (Vibra-Tab) 100 mg BID PO 11/15/20 21:00 11/24/20 22:00 11/15/20 21:09 Lactobacillus Rhamnosus (Culturelle) 1 cap BID PO 11/15/20 21:00 11/15/20 21:09 Current Medications Medications (Trade) Dose Ordered Sig/Rach Route PRN Reason Start Time Stop Time Status Last Admin Dose Admin Sertraline HCl (Zoloft) 50 mg DAILY PO 11/15/20 17:00 11/15/20 17:19 Doxycycline Hyclate (Vibra-Tab) 100 mg BID PO 11/15/20 21:00 11/24/20 22:00 11/15/20 21:09 Lactobacillus Rhamnosus (Culturelle) 1 cap BID PO 11/15/20 21:00 11/15/20 21:09 I have reviewed the current psychotropics carefully including drug interactions. Risk benefit ratio favors no change other than as noted in my dictated progress note. Diagnosis: Problems: (1) Impulse control disorder, unspecified (2) Anxiety disorder, unspecified (3) Dementia, vascular, with depression (4) Dementia, vascular, with delusions (5) Dementia in Alzheimer's disease with depression (6) Dementia in Alzheimer's disease with delusions (7) Dementia of the Alzheimer's type with early onset with behavioral disturbance (8) Major neurocognitive disorder KANDY WADE MD Nov 15, 2020 22:16
[2020-11-16 05:50] VITALS: BP 134/77
[2020-11-16] MEDS: LACTOBACILLUS RHAMNOSUS GG 1 CAPSULE. PO SCH ×2 (08:31→20:53)
[2020-11-16] MEDS: DOXYCYCLINE HYCLATE 100 MG TABLET PO SCH ×2 (08:31→20:53)
[2020-11-16] MEDS: SERTRALINE 50 MG TABLET. PO SCH (08:32)
[2020-11-16] MEDS: CLOTRIMAZOLE 1% TOPICAL CREAM 30GM TUBE. TP SCH ×2 (08:33→20:53)
[2020-11-16 16:10] VITALS: BP 127/76
--- NOTE | 2020-11-16 16:54 | NUR ---
PATIENT HAD A GOOD DAY , OBSERVED BY THIS NURSE SITTING IN A DAY ROOM VISITING WITH OTHER PEERS, WONDERING IN THE HALLWAY, COOPERATIVE AND PLEASANT, COMPLIANT WITH MEDS TAKEN WHOLE, SMILES TALKING ABOUT HER CHILDREN OR PARENTS, NO AGITATED BEHAVIOR NOTED.
[2020-11-16] MEDS: QUEtiapine 25 MG TABLET. PO SCH (20:53)
--- NOTE | 2020-11-16 22:20 | PDOC ---
Exam Note: Abdirashid Note: This note is a late entry for 11/14/2020 covers elements not covered in my initial note. Subjective: The patient was seen on telehealth rounds in the afternoon of 11/14/2020 as an option during the COVID-19 pandemic period with Cynthia DAILY, discussed and reviewed the chart. The patient slept 6-1/4 hours previous night. No behaviors noted. She remains confused, somewhat anxious previous night, slept through breakfast. We will check her CT head. Review of Systems: No CV, , pulmonary, eye, ENT system symptoms on review. Reliability poor. Mental Status Exam: The patient is oriented to herself. I assessed her memory during individual visit. She felt the year was 1999, was unaware of who the President was. Appetite is fair. She is asking for her mother and father. Family had noted that she would have never been diagnosed with dementia. Nevertheless, she did have UTI which could explain the worsening confusion but she probably had early onset of dementia worsened by the above but we will continue to reassess and see how she does as the UTI totally stays resolved. No suicidal or homicidal ideation. Attention span short. Language function intact. Laboratory Data: Reviewed. Impression: Major depressive disorder with psychotic features versus major neurocognitive disorder, Alzheimer vascular with depression, delusions, behavioral disturbance versus psychotic disorder unspecified. Plan: As mentioned above. Assessment: Vital Signs/I&O: Vital Signs Date Time Temp Pulse Resp B/P (MAP) Pulse Ox O2 Delivery O2 Flow Rate FiO2 11/16/20 16:10 98.0 80 20 127/76 (93) 98 11/16/20 05:50 Room Air I & O 0 11/15/20 11/15/20 11/16/20 15:00 23:00 07:00 Intake Total 480 ml 240 ml 240 ml Balance 480 ml 240 ml 240 ml Current Medications: Meds: Current Medications Medications (Trade) Dose Ordered Sig/Rach Route PRN Reason Start Time Stop Time Status Last Admin Dose Admin Clotrimazole (Lotrimin) 1 kathi BID TP 11/10/20 21:00 11/16/20 20:53 Cephalexin HCl (Keflex) 500 mg TID PO 11/10/20 21:00 11/13/20 22:00 DC 11/13/20 20:55 Acetaminophen (Tylenol) 650 mg PRN Q6HRS PRN PO MILD PAIN / TEMP > 100.3'F 11/10/20 15:30 11/15/20 06:37 Multi-Ingredient Ointment (Analgesic [place]) 1 kathi PRN QID PRN TP MUSCLE PAIN 11/10/20 15:30 Al Hydroxide/Mg Hydroxide (Mylanta Plus Xs) 15 ml PRN AFTMEALHC PRN PO DYSPEPSIA 11/10/20 15:30 Magnesium Hydroxide (Milk Of Magnesia) 2,400 mg PRN QHS PRN PO CONSTIPATION 11/10/20 15:30 Acetaminophen/ Hydrocodone Bitart (Lortab 5/325) 1 tab PRN Q6HRS PRN PO MOD-SEV PAIN 11/10/20 17:00 Olanzapine (ZyPREXA ZYDIS) 2.5 mg PRN Q2HR PRN PO PSYCHOSIS 11/10/20 17:15 11/12/20 19:22 Trazodone HCl (Desyrel) 50 mg QHS PRN PO INSOMNIA, MAY REPEAT X1 11/10/20 22:30 11/15/20 21:09 Mirtazapine (Remeron) 7.5 mg QHS PO 11/11/20 21:00 11/13/20 15:41 DC 11/12/20 19:21 Sertraline HCl (Zoloft) 25 mg DAILY PO 11/12/20 17:00 11/14/20 18:00 DC 11/14/20 08:44 Sertraline HCl (Zoloft) 50 mg DAILY PO 11/15/20 17:00 11/16/20 08:32 Quetiapine Fumarate (SEROquel) 25 mg QHS PO 11/13/20 21:00 11/16/20 20:53 Doxycycline Hyclate (Vibra-Tab) 100 mg BID PO 11/15/20 21:00 11/24/20 22:00 11/16/20 20:53 Lactobacillus Rhamnosus (Culturelle) 1 cap BID PO 11/15/20 21:00 11/16/20 20:53 I have reviewed the current psychotropics carefully including drug interactions. Risk benefit ratio favors no change other than as noted in my dictated progress note. Diagnosis: Problems: (1) Impulse control disorder, unspecified (2) Anxiety disorder, unspecified (3) Dementia, vascular, with depression (4) Dementia, vascular, with delusions (5) Dementia in Alzheimer's disease with depression (6) Dementia in Alzheimer's disease with delusions (7) Dementia of the Alzheimer's type with early onset with behavioral dis turbance (8) Major neurocognitive disorder KANDY WADE MD Nov 16, 2020 22:20
--- NOTE | 2020-11-16 22:46 | PDOC ---
Exam Note: Abdirashid Note: This note is a late entry for 11/15/2020 covers elements not covered in my initial note. Subjective: The patient was seen on telehealth rounds in the afternoon of 11/15/2020 as an option during the COVID-19 pandemic period with Cynthia DAILY, discussed and reviewed the chart. The patient slept 7 hours previous night. She remains confused. She has cellulitis in left lower extremity and is on antibiotics. She feels she has got to go to middle school and has her parents pick her up there. She states she is from [place] as I met with her on telehealth rounds. Review of Systems: No CV, , pulmonary, eye, ENT system symptoms on review. Reliability poor. Mental Status Exam: The patient is oriented to herself. Speech coherent. Abstraction fair. Computation impaired. No suicidal or homicidal ideation. Attention span short. Language function intact. Laboratory Data: Reviewed. Impression: Major depressive disorder with psychotic features versus major neurocognitive disorder, Alzheimer vascular with depression, delusions, behavioral disturbance versus psychotic disorder unspecified. Assessment: Vital Signs/I&O: Vital Signs Date Time Temp Pulse Resp B/P (MAP) Pulse Ox O2 Delivery O2 Flow Rate FiO2 11/16/20 16:10 98.0 80 20 127/76 (93) 98 11/16/20 05:50 Room Air I & O 11/15/20 11/15/20 11/16/20 14:59 22:59 06:59 Intake Total 480 ml 240 ml 240 ml Balance 480 ml 240 ml 240 ml Current Medications: Meds: Current Medications Medications (Trade) Dose Ordered Sig/Rach Route PRN Reason Start Time Stop Time Status Last Admin Dose Admin Clotrimazole (Lotrimin) 1 kathi BID TP 11/10/20 21:00 11/16/20 20:53 Cephalexin HCl (Keflex) 500 mg TID PO 11/10/20 21:00 11/13/20 22:00 DC 11/13/20 20:55 Acetaminophen (Tylenol) 650 mg PRN Q6HRS PRN PO MILD PAIN / TEMP > 100.3'F 11/10/20 15:30 11/15/20 06:37 Multi-Ingredient Ointment (Analgesic [place]) 1 kathi PRN QID PRN TP MUSCLE PAIN 11/10/20 15:30 Al Hydroxide/Mg Hydroxide (Mylanta Plus Xs) 15 ml PRN AFTMEALHC PRN PO DYSPEPSIA 11/10/20 15:30 Magnesium Hydroxide (Milk Of Magnesia) 2,400 mg PRN QHS PRN PO CONSTIPATION 11/10/20 15:30 Acetaminophen/ Hydrocodone Bitart (Lortab 5/325) 1 tab PRN Q6HRS PRN PO MOD-SEV PAIN 11/10/20 17:00 Olanzapine (ZyPREXA ZYDIS) 2.5 mg PRN Q2HR PRN PO PSYCHOSIS 11/10/20 17:15 11/12/20 19:22 Trazodone HCl (Desyrel) 50 mg QHS PRN PO INSOMNIA, MAY REPEAT X1 11/10/20 22:30 11/15/20 21:09 Mirtazapine (Remeron) 7.5 mg QHS PO 11/11/20 21:00 11/13/20 15:41 DC 11/12/20 19:21 Sertraline HCl (Zoloft) 25 mg DAILY PO 11/12/20 17:00 11/14/20 18:00 DC 11/14/20 08:44 Sertraline HCl (Zoloft) 50 mg DAILY PO 11/15/20 17:00 11/16/20 08:32 Quetiapine Fumarate (SEROquel) 25 mg QHS PO 11/13/20 21:00 11/16/20 20:53 Doxycycline Hyclate (Vibra-Tab) 100 mg BID PO 11/15/20 21:00 11/24/20 22:00 11/16/20 20:53 Lactobacillus Rhamnosus (Culturelle) 1 cap BID PO 11/15/20 21:00 11/16/20 20:53 I have reviewed the current psychotropics carefully including drug interactions. Risk benefit ratio favors no change other than as noted in my dictated progress note. Diagnosis: Problems: (1) Impulse control disorder, unspecified (2) Anxiety disorder, unspecified (3) Dementia, vascular, with depression (4) Dementia, vascular, with delusions (5) Dementia in Alzheimer's disease with depression (6) Dementia in Alzheimer's disease with delusions (7) Dementia of the Alzheimer's type with early onset with behavioral disturbance (8) Major neurocognitive disorder KANDY WADE MD Nov 16, 2020 22:46
--- NOTE | 2020-11-16 22:57 | PDOC ---
Exam Note: Abdirashid Note: Please also refer to the separate dictated note~for this date of service dictated separately.~Patient seen individually. Discussed the patient with Nursing staff reviewed the chart.~Reviewed interim history and current functioning. Reviewed vital signs,~Labs/ Radiology~and current medications noted below. Continue current treatment with the changes noted in the dictated addendum note Assessment: Vital Signs/I&O: Vital Signs Date Time Temp Pulse Resp B/P (MAP) Pulse Ox O2 Delivery O2 Flow Rate FiO2 11/16/20 16:10 98.0 80 20 127/76 (93) 98 11/16/20 05:50 Room Air I & O 11/15/20 11/15/20 11/16/20 14:59 22:59 06:59 Intake Total 480 ml 240 ml 240 ml Balance 480 ml 240 ml 240 ml Current Medications: I have reviewed the current psychotropics carefully including drug interactions. Risk benefit ratio favors no change other than as noted in my dictated progress note. Diagnosis: Problems: (1) Impulse control disorder, unspecified (2) Anxiety disorder, unspecified (3) Dementia, vascular, with depression (4) Dementia, vascular, with delusions (5) Dementia in Alzheimer's disease with depression (6) Dementia in Alzheimer's disease with delusions (7) Dementia of the Alzheimer's type with early onset with behavioral disturbance (8) Major neurocognitive disorder KANDY WADE MD Nov 16, 2020 22:57
--- NOTE | 2020-11-17 04:57 | NUR ---
Nursing Note The patient was located in the day room for her assessment and medication pass. The patient took her medication whole and was pleasant and interactive with peers and staff. The patient was alert to self only. The patient is currently sleeping in her room.
[2020-11-17 06:21] VITALS: BP 145/78
[2020-11-17] MEDS: LACTOBACILLUS RHAMNOSUS GG 1 CAPSULE. PO SCH ×2 (08:50→20:55)
[2020-11-17] MEDS: SERTRALINE 50 MG TABLET. PO SCH (08:50)
[2020-11-17] MEDS: DOXYCYCLINE HYCLATE 100 MG TABLET PO SCH ×2 (08:50→20:55)
[2020-11-17] MEDS: CLOTRIMAZOLE 1% TOPICAL CREAM 30GM TUBE. TP SCH ×2 (09:00→20:56)
[2020-11-17 15:51] VITALS: BP 111/71
--- NOTE | 2020-11-17 18:04 | NUR ---
Pt up adl for meals and in day room. Very disorganized. Tearful this jonas. Thinks her parent are about to . Has been compliant with meds and cares.
[2020-11-17] MEDS: QUEtiapine 25 MG TABLET. PO SCH (20:55)
--- NOTE | 2020-11-17 22:37 | PDOC ---
Exam Note: Abdirashid Note: Please also refer to the separate dictated note~for this date of service dictated separately.~Patient seen individually. Discussed the patient with Nursing staff reviewed the chart.~Reviewed interim history and current functioning. Reviewed vital signs,~Labs/ Radiology~and current medications noted below. Continue current treatment with the changes noted in the dictated addendum note Assessment: Vital Signs/I&O: Vital Signs Date Time Temp Pulse Resp B/P (MAP) Pulse Ox O2 Delivery O2 Flow Rate FiO2 11/17/20 15:51 97.6 79 17 111/71 (84) 97 11/17/20 06:21 Room Air I & O 11/16/20 11/16/20 11/17/20 15:00 23:00 07:00 Intake Total 840 ml 360 ml Balance 840 ml 360 ml Labs: Laboratory Tests Test 11/17/20 05:42 SARS-CoV-2 (PCR) Negative (NEGATIVE) Current Medications: I have reviewed the current psychotropics carefully including drug interactions. Risk benefit ratio favors no change other than as noted in my dictated progress note. Diagnosis: Problems: (1) Impulse control disorder, unspecified (2) Anxiety disorder, unspecified (3) Dementia, vascular, with depression (4) Dementia, vascular, with delusions (5) Dementia in Alzheimer's disease with depression (6) Dementia in Alzheimer's disease with delusions (7) Dementia of the Alzheimer's type with early onset with behavioral disturbance (8) Major neurocognitive disorder KANDY WADE MD Nov 17, 2020 22:37
[2020-11-18] MEDS: traZODone 50 MG TABLET. PO PRN ×2 (01:05→20:13)
--- NOTE | 2020-11-18 02:39 | NUR ---
Nursing Note The patient was located in her room for her assessment. The patient took her medications whole. The patient was alert to name only during her assessment. The patient remains delusional at this time. The patient continues to have delusions in which she is a child in school. The patient awoke after HS and declined to accept that it was night time and instead stated that it was time for breakfast. The patient was given PRN Trazodone per PRN order. The patient is currently sleeping in her room.
[2020-11-18 05:54] VITALS: BP 130/72
[2020-11-18 07:21] LABS: BASO % 1 % (0-3); EOS # 0.2 x10^3/uL (0.0-0.7); EOS % 5 % (0-3); HEMATOCRIT 36.1 % (36.0-47.0); HEMOGLOBIN 12.1 g/dL (12.0-15.5); LYMPH # 0.8 x10^3/uL (1.0-4.8); LYMPH % 26 % (24-48); MEAN CORPUSCULAR HEMOGLOBIN 31 pg (25-35); MEAN CORPUSCULAR HGB CONC 33 g/dL (31-37); MEAN CORPUSCULAR VOLUME 93 fL (79-100); MONO # 0.4 x10^3/uL (0.0-1.1); MONO % 14 % (0-9); NEUT # 1.7 x10^3uL (1.8-7.7); NEUT % 54 % (31-73); PLATELET COUNT 255 x10^3/uL (140-400); RED CELL DISTRIBUTION WIDTH 13.8 % (11.5-14.5); WHITE BLOOD COUNT 3.1 x10^3/uL (4.0-11.0)
[2020-11-18 07:48] LABS: ALBUMIN 3.6 g/dL (3.4-5.0); CALCIUM 9.3 mg/dL (8.5-10.1); CREATININE 0.8 mg/dL (0.6-1.0); GFR 69.7; TOTAL BILIRUBIN 0.2 mg/dL (0.2-1.0); TOTAL PROTEIN 7.3 g/dL (6.4-8.2)
[2020-11-18] MEDS: SERTRALINE 50 MG TABLET. PO SCH (08:33)
[2020-11-18] MEDS: DOXYCYCLINE HYCLATE 100 MG TABLET PO SCH ×2 (08:33→20:13)
[2020-11-18] MEDS: CLOTRIMAZOLE 1% TOPICAL CREAM 30GM TUBE. TP SCH ×2 (08:33→20:14)
[2020-11-18] MEDS: LACTOBACILLUS RHAMNOSUS GG 1 CAPSULE. PO SCH ×2 (08:33→20:13)
--- NOTE | 2020-11-18 09:38 | PDOC ---
Exam Note: Abdirashid Note: This note is a late entry for 11/16/2020 covers elements not covered in my initial note. Subjective: The patient was seen on telehealth rounds in the afternoon of 11/16/2020 as an option during the COVID-19 pandemic period with Cynthia DAILY, discussed and reviewed the chart. The patient slept 3-1/2 hours previous night. She remains confused, talking about children, stating her daughter is 15 years old, sits frequently in wheelchair with eyes closed, talking to herself. Her vision is poor. Review of Systems: No CV, , pulmonary, eye, ENT system symptoms on review. Reliability poor. Mental Status Exam: The patient is oriented to herself. Speech coherent. Abstraction fair. Computation impaired. No suicidal or homicidal ideation. Attention span short. Language function intact. Mood and affect anxious. Laboratory Data: Reviewed. Impression: Major depressive disorder with psychotic features versus major neurocognitive disorder, Alzheimer vascular with depression, delusions, behavioral disturbance versus psychotic disorder unspecified. Plan: No change from initial note. Assessment: Vital Signs/I&O: Vital Signs Date Time Temp Pulse Resp B/P (MAP) Pulse Ox O2 Delivery O2 Flow Rate FiO2 11/18/20 05:54 97.6 63 20 130/72 (91) 97 11/17/20 06:21 Room Air I & O 11/17/20 11/17/20 11/18/20 14:59 22:59 06:59 Intake Total 960 ml 600 ml Balance 960 ml 600 ml Labs: Laboratory Tests Test 11/18/20 06:55 White Blood Count 3.1 x10^3/uL (4.0-11.0) L Red Blood Count 3.90 x10^6/uL (3.50-5.40) Hemoglobin 12.1 g/dL (12.0-15.5) Hematocrit 36.1 % (36.0-47.0) Mean Corpuscular Volume 93 fL (79-100) Mean Corpuscular Hemoglobin 31 pg (25-35) Mean Corpuscular Hemoglobin Concent 33 g/dL (31-37) Red Cell Distribution Width 13.8 % (11.5-14.5) Platelet Count 255 x10^3/uL (140-400) Neutrophils (%) (Auto) 54 % (31-73) Lymphocytes (%) (Auto) 26 % (24-48) Monocytes (%) (Auto) 14 % (0-9) H Eosinophils (%) (Auto) 5 % (0-3) H Basophils (%) (Auto) 1 % (0-3) Neutrophils # (Auto) 1.7 x10^3uL (1.8-7.7) L Lymphocytes # (Auto) 0.8 x10^3/uL (1.0-4.8) L Monocytes # (Auto) 0.4 x10^3/uL (0.0-1.1) Eosinophils # (Auto) 0.2 x10^3/uL (0.0-0.7) Basophils # (Auto) 0.0 x10^3/uL (0.0-0.2) Sodium Level 144 mmol/L (136-145) Potassium Level 4.0 mmol/L (3.5-5.1) Chloride Level 106 mmol/L (98-107) Carbon Dioxide Level 29 mmol/L (21-32) Anion Gap 9 (6-14) Blood Urea Nitrogen 26 mg/dL (7-20) H Creatinine 0.8 mg/dL (0.6-1.0) Estimated GFR (Cockcroft-Gault) 69.7 BUN/Creatinine Ratio 33 (6-20) H Glucose Level 92 mg/dL (70-99) Calcium Level 9.3 mg/dL (8.5-10.1) Total Bilirubin 0.2 mg/dL (0.2-1.0) Aspartate Amino Transferase (AST) 20 U/L (15-37) Alanine Aminotransferase (ALT) 28 U/L (14-59) Alkaline Phosphatase 54 U/L (46-116) Total Protein 7.3 g/dL (6.4-8.2) Albumin 3.6 g/dL (3.4-5.0) Albumin/Globulin Ratio 1.0 (1.0-1.7) Current Medications: Meds: Laboratory Tests Test 11/18/20 06:55 White Blood Count 3.1 x10^3/uL Red Blood Count 3.90 x10^6/uL Hemoglobin 12.1 g/dL Hematocrit 36.1 % Mean Corpuscular Volume 93 fL Mean Corpuscular Hemoglobin 31 pg Mean Corpuscular Hemoglobin Concent 33 g/dL Red Cell Distribution Width 13.8 % Platelet Count 255 x10^3/uL Neutrophils (%) (Auto) 54 % Lymphocytes (%) (Auto) 26 % Monocytes (%) (Auto) 14 % Eosinophils (%) (Auto) 5 % Basophils (%) (Auto) 1 % Neutrophils # (Auto) 1.7 x10^3uL Lymphocytes # (Auto) 0.8 x10^3/uL Monocytes # (Auto) 0.4 x10^3/uL Eosinophils # (Auto) 0.2 x10^3/uL Basophils # (Auto) 0.0 x10^3/uL Sodium Level 144 mmol/L Potassium Level 4.0 mmol/L Chloride Level 106 mmol/L Carbon Dioxide Level 29 mmol/L Anion Gap 9 Blood Urea Nitrogen 26 mg/dL Creatinine 0.8 mg/dL Estimated GFR (Cockcroft-Gault) 69.7 BUN/Creatinine Ratio 33 Glucose Level 92 mg/dL Calcium Level 9.3 mg/dL Total Bilirubin 0.2 mg/dL Aspartate Amino Transf (AST/SGOT) 20 U/L Alanine Aminotransferase (ALT/SGPT) 28 U/L Alkaline Phosphatase 54 U/L Total Protein 7.3 g/dL Albumin 3.6 g/dL Albumin/Globulin Ratio 1.0 Current Medications Medications (Trade) Dose Ordered Sig/Rach Route PRN Reason Start Time Stop Time Status Last Admin Dose Admin Clotrimazole (Lotrimin) 1 kathi BID TP 11/10/20 21:00 11/18/20 08:33 Cephalexin HCl (Keflex) 500 mg TID PO 11/10/20 21:00 11/13/20 22:00 DC 11/13/20 20:55 Acetaminophen (Tylenol) 650 mg PRN Q6HRS PRN PO MILD PAIN / TEMP > 100.3'F 11/10/20 15:30 11/15/20 06:37 Multi-Ingredient Ointment (Analgesic [place]) 1 kathi PRN QID PRN TP MUSCLE PAIN 11/10/20 15:30 Al Hydroxide/Mg Hydroxide (Mylanta Plus Xs) 15 ml PRN AFTMEALHC PRN PO DYSPEPSIA 11/10/20 15:30 Magnesium Hydroxide (Milk Of Magnesia) 2,400 mg PRN QHS PRN PO CONSTIPATION 11/10/20 15:30 Acetaminophen/ Hydrocodone Bitart (Lortab 5/325) 1 tab PRN Q6HRS PRN PO MOD-SEV PAIN 11/10/20 17:00 Olanzapine (ZyPREXA ZYDIS) 2.5 mg PRN Q2HR PRN PO PSYCHOSIS 11/10/20 17:15 11/12/20 19:22 Trazodone HCl (Desyrel) 50 mg QHS PRN PO INSOMNIA, MAY REPEAT X1 11/10/20 22:30 11/18/20 01:05 Mirtazapine (Remeron) 7.5 mg QHS PO 11/11/20 21:00 11/13/20 15:41 DC 11/12/20 19:21 Sertraline HCl (Zoloft) 25 mg DAILY PO 11/12/20 17:00 11/14/20 18:00 DC 11/14/20 08:44 Sertraline HCl (Zoloft) 50 mg DAILY PO 11/15/20 17:00 11/18/20 08:33 Quetiapine Fumarate (SEROquel) 25 mg QHS PO 11/13/20 21:00 11/17/20 20:55 Doxycycline Hyclate (Vibra-Tab) 100 mg BID PO 11/15/20 21:00 11/24/20 22:00 11/18/20 08:33 Lactobacillus Rhamnosus (Culturelle) 1 cap BID PO 11/15/20 21:00 11/18/20 08:33 I have reviewed the current psychotropics carefully including drug interactions. Risk benefit ratio favors no change other than as noted in my dictated progress note. Diagnosis: Problems: (1) Impulse control disorder, unspecified (2) Anxiety disorder, unspecified (3) Dementia, vascular, with depression (4) Dementia, vascular, with delusions (5) Dementia in Alzheimer's disease with depression (6) Dementia in Alzheimer's disease with delusions (7) Dementia of the Alzheimer's type with early onset with behavioral disturbance (8) Major neurocognitive disorder KANDY WADE MD Nov 18, 2020 09:38
--- NOTE | 2020-11-18 09:57 | PDOC ---
Exam Note: Abdirashid Note: This note is a late entry for 11/17/2020 covers elements not covered in my initial note. Subjective: The patient was seen on telehealth rounds in the afternoon of 11/17/2020 as an option during the COVID-19 pandemic period with [place] DAILY, discussed and reviewed the chart. The patient slept 7 hours previous night. She remains disorganized, not aggressive. Family had expressed concern that she has never had diagnosis of dementia. She has been treated for UTI but this has been completed and level of confusion persists which might well be reflective of her dementia. Review of Systems: No CV, , pulmonary, eye, ENT system symptoms on review. Reliability poor. Mental Status Exam: The patient is oriented to herself. During individual visit I specifically questioned her about orientation, she was unaware of the year or who the President was. He was getting confused, between her sister and her daughters and confusing their names. Speech coherent. Abstraction fair. Computation impaired. No suicidal or homicidal ideation. Attention span short. Language function intact. Laboratory Data: Reviewed. Impression: Major depressive disorder with psychotic features versus major neurocognitive disorder, Alzheimer vascular with depression, delusions, behavioral disturbance versus psychotic disorder unspecified. Plan: No change from initial note. Assessment: Vital Signs/I&O: Vital Signs Date Time Temp Pulse Resp B/P (MAP) Pulse Ox O2 Delivery O2 Flow Rate FiO2 11/18/20 05:54 97.6 63 20 130/72 (91) 97 11/17/20 06:21 Room Air I & O 11/17/20 11/17/20 11/18/20 14:59 22:59 06:59 Intake Total 960 ml 600 ml Balance 960 ml 600 ml Labs: Laboratory Tests Test 11/18/20 06:55 White Blood Count 3.1 x10^3/uL (4.0-11.0) L Red Blood Count 3.90 x10^6/uL (3.50-5.40) Hemoglobin 12.1 g/dL (12.0-15.5) Hematocrit 36.1 % (36.0-47.0) Mean Corpuscular Volume 93 fL (79-100) Mean Corpuscular Hemoglobin 31 pg (25-35) Mean Corpuscular Hemoglobin Concent 33 g/dL (31-37) Red Cell Distribution Width 13.8 % (11.5-14.5) Platelet Count 255 x10^3/uL (140-400) Neutrophils (%) (Auto) 54 % (31-73) Lymphocytes (%) (Auto) 26 % (24-48) Monocytes (%) (Auto) 14 % (0-9) H Eosinophils (%) (Auto) 5 % (0-3) H Basophils (%) (Auto) 1 % (0-3) Neutrophils # (Auto) 1.7 x10^3uL (1.8-7.7) L Lymphocytes # (Auto) 0.8 x10^3/uL (1.0-4.8) L Monocytes # (Auto) 0.4 x10^3/uL (0.0-1.1) Eosinophils # (Auto) 0.2 x10^3/uL (0.0-0.7) Basophils # (Auto) 0.0 x10^3/uL (0.0-0.2) Sodium Level 144 mmol/L (136-145) Potassium Level 4.0 mmol/L (3.5-5.1) Chloride Level 106 mmol/L (98-107) Carbon Dioxide Level 29 mmol/L (21-32) Anion Gap 9 (6-14) Blood Urea Nitrogen 26 mg/dL (7-20) H Creatinine 0.8 mg/dL (0.6-1.0) Estimated GFR (Cockcroft-Gault) 69.7 BUN/Creatinine Ratio 33 (6-20) H Glucose Level 92 mg/dL (70-99) Calcium Level 9.3 mg/dL (8.5-10.1) Total Bilirubin 0.2 mg/dL (0.2-1.0) Aspartate Amino Transferase (AST) 20 U/L (15-37) Alanine Aminotransferase (ALT) 28 U/L (14-59) Alkaline Phosphatase 54 U/L (46-116) Total Protein 7.3 g/dL (6.4-8.2) Albumin 3.6 g/dL (3.4-5.0) Albumin/Globulin Ratio 1.0 (1.0-1.7) Current Medications: Meds: Laboratory Tests Test 11/18/20 06:55 White Blood Count 3.1 x10^3/uL Red Blood Count 3.90 x10^6/uL Hemoglobin 12.1 g/dL Hematocrit 36.1 % Mean Corpuscular Volume 93 fL Mean Corpuscular Hemoglobin 31 pg Mean Corpuscular Hemoglobin Concent 33 g/dL Red Cell Distribution Width 13.8 % Platelet Count 255 x10^3/uL Neutrophils (%) (Auto) 54 % Lymphocytes (%) (Auto) 26 % Monocytes (%) (Auto) 14 % Eosinophils (%) (Auto) 5 % Basophils (%) (Auto) 1 % Neutrophils # (Auto) 1.7 x10^3uL Lymphocytes # (Auto) 0.8 x10^3/uL Monocytes # (Auto) 0.4 x10^3/uL Eosinophils # (Auto) 0.2 x10^3/uL Basophils # (Auto) 0.0 x10^3/uL Sodium Level 144 mmol/L Potassium Level 4.0 mmol/L Chloride Level 106 mmol/L Carbon Dioxide Level 29 mmol/L Anion Gap 9 Blood Urea Nitrogen 26 mg/dL Creatinine 0.8 mg/dL Estimated GFR (Cockcroft-Gault) 69.7 BUN/Creatinine Ratio 33 Glucose Level 92 mg/dL Calcium Level 9.3 mg/dL Total Bilirubin 0.2 mg/dL Aspartate Amino Transf (AST/SGOT) 20 U/L Alanine Aminotransferase (ALT/SGPT) 28 U/L Alkaline Phosphatase 54 U/L Total Protein 7.3 g/dL Albumin 3.6 g/dL Albumin/Globulin Ratio 1.0 Current Medications Medications (Trade) Dose Ordered Sig/Rach Route PRN Reason Start Time Stop Time Status Last Admin Dose Admin Clotrimazole (Lotrimin) 1 kathi BID TP 11/10/20 21:00 11/18/20 08:33 Cephalexin HCl (Keflex) 500 mg TID PO 11/10/20 21:00 11/13/20 22:00 DC 11/13/20 20:55 Acetaminophen (Tylenol) 650 mg PRN Q6HRS PRN PO MILD PAIN / TEMP > 100.3'F 11/10/20 15:30 11/15/20 06:37 Multi-Ingredient Ointment (Analgesic [place]) 1 kathi PRN QID PRN TP MUSCLE PAIN 11/10/20 15:30 Al Hydroxide/Mg Hydroxide (Mylanta Plus Xs) 15 ml PRN AFTMEALHC PRN PO DYSPEPSIA 11/10/20 15:30 Magnesium Hydroxide (Milk Of Magnesia) 2,400 mg PRN QHS PRN PO CONSTIPATION 11/10/20 15:30 Acetaminophen/ Hydrocodone Bitart (Lortab 5/325) 1 tab PRN Q6HRS PRN PO MOD-SEV PAIN 11/10/20 17:00 Olanzapine (ZyPREXA ZYDIS) 2.5 mg PRN Q2HR PRN PO PSYCHOSIS 11/10/20 17:15 11/12/20 19:22 Trazodone HCl (Desyrel) 50 mg QHS PRN PO INSOMNIA, MAY REPEAT X1 11/10/20 22:30 11/18/20 01:05 Mirtazapine (Remeron) 7.5 mg QHS PO 11/11/20 21:00 11/13/20 15:41 DC 11/12/20 19:21 Sertraline HCl (Zoloft) 25 mg DAILY PO 11/12/20 17:00 11/14/20 18:00 DC 11/14/20 08:44 Sertraline HCl (Zoloft) 50 mg DAILY PO 11/15/20 17:00 11/18/20 08:33 Quetiapine Fumarate (SEROquel) 25 mg QHS PO 11/13/20 21:00 11/17/20 20:55 Doxycycline Hyclate (Vibra-Tab) 100 mg BID PO 11/15/20 21:00 11/24/20 22:00 11/18/20 08:33 Lactobacillus Rhamnosus (Culturelle) 1 cap BID PO 11/15/20 21:00 11/18/20 08:33 I have reviewed the current psychotropics carefully including drug interactions. Risk benefit ratio favors no change other than as noted in my dictated progress note. Diagnosis: Problems: (1) Impulse control disorder, unspecified (2) Anxiety disorder, unspecified (3) Dementia, vascular, with depression (4) Dementia, vascular, with delusions (5) Dementia in Alzheimer's disease with depression (6) Dementia in Alzheimer's disease with delusions (7) Dementia of the Alzheimer's type with early onset with behavioral disturbance (8) Major neurocognitive disorder KANDY WADE MD Nov 18, 2020 09:57
--- NOTE | 2020-11-18 16:20 | NUR ---
Patient has been increasingly agitated and delusional, believing that her parents have left her alone in [place] and leaving the country with a group of girl pivot end polisher. Patient also believes that she is still in school. prn medication provided per eMAR, will continue to monitor.
[2020-11-18 16:42] VITALS: BP 119/73
[2020-11-18] MEDS: QUEtiapine 25 MG TABLET. PO SCH (20:13)
--- NOTE | 2020-11-18 22:06 | PDOC ---
Exam Note: Abdirashid Note: Please also refer to the separate dictated note~for this date of service dictated separately.~Patient seen individually. Discussed the patient with Nursing staff reviewed the chart.~Reviewed interim history and current functioning. Reviewed vital signs,~Labs/ Radiology~and current medications noted below. Continue current treatment with the changes noted in the dictated addendum note Assessment: Vital Signs/I&O: Vital Signs Date Time Temp Pulse Resp B/P (MAP) Pulse Ox O2 Delivery O2 Flow Rate FiO2 11/18/20 16:42 98.3 86 16 119/73 (88) 96 11/17/20 06:21 Room Air I & O 11/17/20 11/17/20 11/18/20 15:00 23:00 07:00 Intake Total 960 ml 600 ml Balance 960 ml 600 ml Labs: Laboratory Tests Test 11/18/20 06:55 White Blood Count 3.1 x10^3/uL (4.0-11.0) L Red Blood Count 3.90 x10^6/uL (3.50-5.40) Hemoglobin 12.1 g/dL (12.0-15.5) Hematocrit 36.1 % (36.0-47.0) Mean Corpuscular Volume 93 fL (79-100) Mean Corpuscular Hemoglobin 31 pg (25-35) Mean Corpuscular Hemoglobin Concent 33 g/dL (31-37) Red Cell Distribution Width 13.8 % (11.5-14.5) Platelet Count 255 x10^3/uL (140-400) Neutrophils (%) (Auto) 54 % (31-73) Lymphocytes (%) (Auto) 26 % (24-48) Monocytes (%) (Auto) 14 % (0-9) H Eosinophils (%) (Auto) 5 % (0-3) H Basophils (%) (Auto) 1 % (0-3) Neutrophils # (Auto) 1.7 x10^3uL (1.8-7.7) L Lymphocytes # (Auto) 0.8 x10^3/uL (1.0-4.8) L Monocytes # (Auto) 0.4 x10^3/uL (0.0-1.1) Eosinophils # (Auto) 0.2 x10^3/uL (0.0-0.7) Basophils # (Auto) 0.0 x10^3/uL (0.0-0.2) Sodium Level 144 mmol/L (136-145) Potassium Level 4.0 mmol/L (3.5-5.1) Chloride Level 106 mmol/L (98-107) Carbon Dioxide Level 29 mmol/L (21-32) Anion Gap 9 (6-14) Blood Urea Nitrogen 26 mg/dL (7-20) H Creatinine 0.8 mg/dL (0.6-1.0) Estimated GFR (Cockcroft-Gault) 69.7 BUN/Creatinine Ratio 33 (6-20) H Glucose Level 92 mg/dL (70-99) Calcium Level 9.3 mg/dL (8.5-10.1) Total Bilirubin 0.2 mg/dL (0.2-1.0) Aspartate Amino Transferase (AST) 20 U/L (15-37) Alanine Aminotransferase (ALT) 28 U/L (14-59) Alkaline Phosphatase 54 U/L (46-116) Total Protein 7.3 g/dL (6.4-8.2) Albumin 3.6 g/dL (3.4-5.0) Albumin/Globulin Ratio 1.0 (1.0-1.7) Current Medications: Meds: Laboratory Tests Test 11/18/20 06:55 White Blood Count 3.1 x10^3/uL Red Blood Count 3.90 x10^6/uL Hemoglobin 12.1 g/dL Hematocrit 36.1 % Mean Corpuscular Volume 93 fL Mean Corpuscular Hemoglobin 31 pg Mean Corpuscular Hemoglobin Concent 33 g/dL Red Cell Distribution Width 13.8 % Platelet Count 255 x10^3/uL Neutrophils (%) (Auto) 54 % Lymphocytes (%) (Auto) 26 % Monocytes (%) (Auto) 14 % Eosinophils (%) (Auto) 5 % Basophils (%) (Auto) 1 % Neutrophils # (Auto) 1.7 x10^3uL Lymphocytes # (Auto) 0.8 x10^3/uL Monocytes # (Auto) 0.4 x10^3/uL Eosinophils # (Auto) 0.2 x10^3/uL Basophils # (Auto) 0.0 x10^3/uL Sodium Level 144 mmol/L Potassium Level 4.0 mmol/L Chloride Level 106 mmol/L Carbon Dioxide Level 29 mmol/L Anion Gap 9 Blood Urea Nitrogen 26 mg/dL Creatinine 0.8 mg/dL Estimated GFR (Cockcroft-Gault) 69.7 BUN/Creatinine Ratio 33 Glucose Level 92 mg/dL Calcium Level 9.3 mg/dL Total Bilirubin 0.2 mg/dL Aspartate Amino Transf (AST/SGOT) 20 U/L Alanine Aminotransferase (ALT/SGPT) 28 U/L Alkaline Phosphatase 54 U/L Total Protein 7.3 g/dL Albumin 3.6 g/dL Albumin/Globulin Ratio 1.0 Current Medications Medications (Trade) Dose Ordered Sig/Rach Route PRN Reason Start Time Stop Time Status Last Admin Dose Admin Clotrimazole (Lotrimin) 1 kathi BID TP 11/10/20 21:00 11/18/20 20:14 Cephalexin HCl (Keflex) 500 mg TID PO 11/10/20 21:00 11/13/20 22:00 DC 11/13/20 20:55 Acetaminophen (Tylenol) 650 mg PRN Q6HRS PRN PO MILD PAIN / TEMP > 100.3'F 11/10/20 15:30 11/15/20 06:37 Multi-Ingredient Ointment (Analgesic [place]) 1 kathi PRN QID PRN TP MUSCLE PAIN 11/10/20 15:30 Al Hydroxide/Mg Hydroxide (Mylanta Plus Xs) 15 ml PRN AFTMEALHC PRN PO DYSPEPSIA 11/10/20 15:30 Magnesium Hydroxide (Milk Of Magnesia) 2,400 mg PRN QHS PRN PO CONSTIPATION 11/10/20 15:30 Acetaminophen/ Hydrocodone Bitart (Lortab 5/325) 1 tab PRN Q6HRS PRN PO MOD-SEV PAIN 11/10/20 17:00 Olanzapine (ZyPREXA ZYDIS) 2.5 mg PRN Q2HR PRN PO PSYCHOSIS 11/10/20 17:15 11/18/20 16:20 Trazodone HCl (Desyrel) 50 mg QHS PRN PO INSOMNIA, MAY REPEAT X1 11/10/20 22:30 11/18/20 20:13 Mirtazapine (Remeron) 7.5 mg QHS PO 11/11/20 21:00 11/13/20 15:41 DC 11/12/20 19:21 Sertraline HCl (Zoloft) 25 mg DAILY PO 11/12/20 17:00 11/14/20 18:00 DC 11/14/20 08:44 Sertraline HCl (Zoloft) 50 mg DAILY PO 11/15/20 17:00 11/18/20 08:33 Quetiapine Fumarate (SEROquel) 25 mg QHS PO 11/13/20 21:00 11/18/20 20:13 Doxycycline Hyclate (Vibra-Tab) 100 mg BID PO 11/15/20 21:00 11/24/20 22:00 11/18/20 20:13 Lactobacillus Rhamnosus (Culturelle) 1 cap BID PO 11/15/20 21:00 11/18/20 20:13 I have reviewed the current psychotropics carefully including drug interactions. Risk benefit ratio favors no change other than as noted in my dictated progress note. Diagnosis: Problems: (1) Impulse control disorder, unspecified (2) Anxiety disorder, unspecified (3) Dementia, vascular, with depression (4) Dementia, vascular, with delusions (5) Dementia in Alzheimer's disease with depression (6) Dementia in Alzheimer's disease with delusions (7) Dementia of the Alzheimer's type with early onset with behavioral disturbance (8) Major neurocognitive disorder KANDY WADE MD Nov 18, 2020 22:06
--- NOTE | 2020-11-18 23:54 | NUR ---
Pt wandering in the day room when approached. Pt confused, disorganized, and delusional. Pt stated, "these chairs belong to my mom and dad" referring to chairs in the day room. Pt cooperative with assessment and compliant with medications administered whole. Pt became resistive and argumentative when approached for her shower this evening. Staff x3 needed to assist with showering pt. Afterwards, pt stated, "I'm not going to school tomorrow". PRN Trazodone administered with HS medications.
[2020-11-19 05:35] VITALS: BP 120/75
[2020-11-19] MEDS: LACTOBACILLUS RHAMNOSUS GG 1 CAPSULE. PO SCH ×2 (07:45→20:37)
[2020-11-19] MEDS: DOXYCYCLINE HYCLATE 100 MG TABLET PO SCH ×2 (07:45→20:37)
[2020-11-19] MEDS: SERTRALINE 50 MG TABLET. PO SCH (07:45)
[2020-11-19] MEDS: CLOTRIMAZOLE 1% TOPICAL CREAM 30GM TUBE. TP SCH ×2 (07:48→20:37)
--- NOTE | 2020-11-19 09:09 | PDOC ---
Exam Note: Abdirashid Note: This note is a late entry for 11/18/2020 covers elements not covered in my initial note. Subjective: The patient was seen individually in the evening of 11/18/2020 with [place] DAILY, discussed and reviewed the chart. The patient slept 3-1/2 hours previous night. She remains confused. She believes she is in middle school. She states she needs to get back home to a [place]. She did receive trazodone [address] head shows moderate atrophy in the temporal parietal lobe with microangiopathy, small-vessel ischemic disease. She is compliant with her medications. Prior to my visit she was on the phone with her family. Review of Systems: No CV, , pulmonary, eye, ENT system symptoms on review. Reliability poor. Mental Status Exam: The patient is oriented to herself. Speech coherent. Abstraction fair. Computation impaired. No suicidal or homicidal ideation. Attention span short. Language function intact. Laboratory Data: Reviewed. Impression: Major depressive disorder with psychotic features versus major neurocognitive disorder, Alzheimer vascular with depression, delusions, behavioral disturbance versus psychotic disorder unspecified. Plan: No change from initial note. Assessment: Vital Signs/I&O: Vital Signs Date Time Temp Pulse Resp B/P (MAP) Pulse Ox O2 Delivery O2 Flow Rate FiO2 11/19/20 05:35 97.7 82 18 120/75 (90) 97 11/17/20 06:21 Room Air I & O 11/18/20 11/18/20 11/19/20 15:00 23:00 07:00 Intake Total 840 ml 720 ml Balance 840 ml 720 ml Current Medications: Meds: Current Medications Medications (Trade) Dose Ordered Sig/Rach Route PRN Reason Start Time Stop Time Status Last Admin Dose Admin Clotrimazole (Lotrimin) 1 kathi BID TP 11/10/20 21:00 11/19/20 07:48 Cephalexin HCl (Keflex) 500 mg TID PO 11/10/20 21:00 11/13/20 22:00 DC 11/13/20 20:55 Acetaminophen (Tylenol) 650 mg PRN Q6HRS PRN PO MILD PAIN / TEMP > 100.3'F 11/10/20 15:30 11/15/20 06:37 Multi-Ingredient Ointment (Analgesic [place]) 1 kathi PRN QID PRN TP MUSCLE PAIN 11/10/20 15:30 Al Hydroxide/Mg Hydroxide (Mylanta Plus Xs) 15 ml PRN AFTMEALHC PRN PO DYSPEPSIA 11/10/20 15:30 Magnesium Hydroxide (Milk Of Magnesia) 2,400 mg PRN QHS PRN PO CONSTIPATION 11/10/20 15:30 Acetaminophen/ Hydrocodone Bitart (Lortab 5/325) 1 tab PRN Q6HRS PRN PO MOD-SEV PAIN 11/10/20 17:00 Olanzapine (ZyPREXA ZYDIS) 2.5 mg PRN Q2HR PRN PO PSYCHOSIS 11/10/20 17:15 11/18/20 16:20 Trazodone HCl (Desyrel) 50 mg QHS PRN PO INSOMNIA, MAY REPEAT X1 11/10/20 22:30 11/18/20 20:13 Mirtazapine (Remeron) 7.5 mg QHS PO 11/11/20 21:00 11/13/20 15:41 DC 11/12/20 19:21 Sertraline HCl (Zoloft) 25 mg DAILY PO 11/12/20 17:00 11/14/20 18:00 DC 11/14/20 08:44 Sertraline HCl (Zoloft) 50 mg DAILY PO 11/15/20 17:00 11/19/20 07:45 Quetiapine Fumarate (SEROquel) 25 mg QHS PO 11/13/20 21:00 11/18/20 20:13 Doxycycline Hyclate (Vibra-Tab) 100 mg BID PO 11/15/20 21:00 11/24/20 22:00 11/19/20 07:45 Lactobacillus Rhamnosus (Culturelle) 1 cap BID PO 11/15/20 21:00 11/19/20 07:45 I have reviewed the current psychotropics carefully including drug interactions. Risk benefit ratio favors no change other than as noted in my dictated progress note. Diagnosis: Problems: (1) Impulse control disorder, unspecified (2) Anxiety disorder, unspecified (3) Dementia, vascular, with depression (4) Dementia, vascular, with delusions (5) Dementia in Alzheimer's disease with depression (6) Dementia in Alzheimer's disease with delusions (7) Dementia of the Alzheimer's type with early onset with behavioral disturbance (8) Major neurocognitive disorder KANDY WADE MD Nov 19, 2020 09:09
[2020-11-19 16:20] VITALS: BP 102/77
--- NOTE | 2020-11-19 16:45 | NUR ---
Patient has been becoming more agitated, tearful, and delusional. Patient is asking when the troops will be returning because her dad is suppose dto be with them. PRN medication provided per eMAR, will continue to monitor.
[2020-11-19] MEDS: traZODone 50 MG TABLET. PO PRN (20:37)
[2020-11-19] MEDS: QUEtiapine 25 MG TABLET. PO SCH (20:37)
--- NOTE | 2020-11-19 22:07 | PDOC ---
Exam Note: Abdirashid Note: Please also refer to the separate dictated note~for this date of service dictated separately.~Patient seen individually. Discussed the patient with Nursing staff reviewed the chart.~Reviewed interim history and current functioning. Reviewed vital signs,~Labs/ Radiology~and current medications noted below. Continue current treatment with the changes noted in the dictated addendum note Assessment: Vital Signs/I&O: Vital Signs Date Time Temp Pulse Resp B/P (MAP) Pulse Ox O2 Delivery O2 Flow Rate FiO2 11/19/20 16:20 98.4 90 20 102/77 (85) 98 11/17/20 06:21 Room Air I & O 11/18/20 11/18/20 11/19/20 14:59 22:59 06:59 Intake Total 840 ml 720 ml Balance 840 ml 720 ml Current Medications: Meds: Current Medications Medications (Trade) Dose Ordered Sig/Rach Route PRN Reason Start Time Stop Time Status Last Admin Dose Admin Clotrimazole (Lotrimin) 1 kathi BID TP 11/10/20 21:00 11/19/20 20:37 Cephalexin HCl (Keflex) 500 mg TID PO 11/10/20 21:00 11/13/20 22:00 DC 11/13/20 20:55 Acetaminophen (Tylenol) 650 mg PRN Q6HRS PRN PO MILD PAIN / TEMP > 100.3'F 11/10/20 15:30 11/15/20 06:37 Multi-Ingredient Ointment (Analgesic [place]) 1 kathi PRN QID PRN TP MUSCLE PAIN 11/10/20 15:30 Al Hydroxide/Mg Hydroxide (Mylanta Plus Xs) 15 ml PRN AFTMEALHC PRN PO DYSPEPSIA 11/10/20 15:30 Magnesium Hydroxide (Milk Of Magnesia) 2,400 mg PRN QHS PRN PO CONSTIPATION 11/10/20 15:30 Acetaminophen/ Hydrocodone Bitart (Lortab 5/325) 1 tab PRN Q6HRS PRN PO MOD-SEV PAIN 11/10/20 17:00 Olanzapine (ZyPREXA ZYDIS) 2.5 mg PRN Q2HR PRN PO PSYCHOSIS 11/10/20 17:15 11/19/20 17:01 Trazodone HCl (Desyrel) 50 mg QHS PRN PO INSOMNIA, MAY REPEAT X1 11/10/20 22:30 11/19/20 20:37 Mirtazapine (Remeron) 7.5 mg QHS PO 11/11/20 21:00 11/13/20 15:41 DC 11/12/20 19:21 Sertraline HCl (Zoloft) 25 mg DAILY PO 11/12/20 17:00 11/14/20 18:00 DC 11/14/20 08:44 Sertraline HCl (Zoloft) 50 mg DAILY PO 11/15/20 17:00 11/19/20 07:45 Quetiapine Fumarate (SEROquel) 25 mg QHS PO 11/13/20 21:00 11/19/20 20:37 Doxycycline Hyclate (Vibra-Tab) 100 mg BID PO 11/15/20 21:00 11/24/20 22:00 11/19/20 20:37 Lactobacillus Rhamnosus (Culturelle) 1 cap BID PO 11/15/20 21:00 11/19/20 20:37 I have reviewed the current psychotropics carefully including drug interactions. Risk benefit ratio favors no change other than as noted in my dictated progress note. Diagnosis: Problems: (1) Impulse control disorder, unspecified (2) Anxiety disorder, unspecified (3) Dementia, vascular, with depression (4) Dementia, vascular, with delusions (5) Dementia in Alzheimer's disease with depression (6) Dementia in Alzheimer's disease with delusions (7) Dementia of the Alzheimer's type with early onset with behavioral disturbance (8) Major neurocognitive disorder KANDY WADE MD Nov 19, 2020 22:07
--- NOTE | 2020-11-19 23:20 | NUR ---
Pt sitting in day room, socializing with peer when approached. Pt calm, pleasantly confused, and disorganized. Pt cooperative with assessment and compliant with medications administered whole. No delusions, agitation, or aggression noted thus far this evening.
[2020-11-20 05:56] VITALS: BP 149/89
--- NOTE | 2020-11-20 06:40 | PDOC ---
Exam Note: Abdirashid Note: This note is a late entry for 11/19/2020 covers elements not covered in my initial note. Subjective: The patient was seen individually in the evening of 11/19/2020 with [place] DAILY, discussed and reviewed the chart. The patient slept 6 hours previous night. She has been calm , cooperative. No aggression noted. I met with her in the dayroom. Review of Systems: Ambulation impaired in wheelchair. No CV, , pulmonary, eye system symptoms on review. Mental Status Exam: The patient is oriented to herself and situation. Speech coherent. Abstraction fair. Computation impaired. Language function intact. Attention span short. Mood and affect withdrawn. Laboratory Data: Reviewed. Impression: Major depressive disorder recurrent with psychotic features. Mild cognitive impairment versus major neurocognitive disorder, probably vascular with depression, delusions. Impulse control disorder. Plan: Continue current psychotropics. Assessment: Vital Signs/I&O: Vital Signs Date Time Temp Pulse Resp B/P (MAP) Pulse Ox O2 Delivery O2 Flow Rate FiO2 11/20/20 05:56 97.5 82 18 149/89 (109) 99 Room Air I & O 11/19/20 11/19/20 11/20/20 15:00 23:00 07:00 Intake Total 600 ml 240 ml Balance 600 ml 240 ml Current Medications: Meds: Current Medications Medications (Trade) Dose Ordered Sig/Rach Route PRN Reason Start Time Stop Time Status Last Admin Dose Admin Clotrimazole (Lotrimin) 1 kathi BID TP 11/10/20 21:00 11/19/20 20:37 Cephalexin HCl (Keflex) 500 mg TID PO 11/10/20 21:00 11/13/20 22:00 DC 11/13/20 20:55 Acetaminophen (Tylenol) 650 mg PRN Q6HRS PRN PO MILD PAIN / TEMP > 100.3'F 11/10/20 15:30 11/15/20 06:37 Multi-Ingredient Ointment (Analgesic [place]) 1 kathi PRN QID PRN TP MUSCLE PAIN 11/10/20 15:30 Al Hydroxide/Mg Hydroxide (Mylanta Plus Xs) 15 ml PRN AFTMEALHC PRN PO DYSPEPSIA 11/10/20 15:30 Magnesium Hydroxide (Milk Of Magnesia) 2,400 mg PRN QHS PRN PO CONSTIPATION 11/10/20 15:30 Acetaminophen/ Hydrocodone Bitart (Lortab 5/325) 1 tab PRN Q6HRS PRN PO MOD-SEV PAIN 11/10/20 17:00 Olanzapine (ZyPREXA ZYDIS) 2.5 mg PRN Q2HR PRN PO PSYCHOSIS 11/10/20 17:15 11/19/20 17:01 Trazodone HCl (Desyrel) 50 mg QHS PRN PO INSOMNIA, MAY REPEAT X1 11/10/20 22:30 11/19/20 20:37 Mirtazapine (Remeron) 7.5 mg QHS PO 11/11/20 21:00 11/13/20 15:41 DC 11/12/20 19:21 Sertraline HCl (Zoloft) 25 mg DAILY PO 11/12/20 17:00 11/14/20 18:00 DC 11/14/20 08:44 Sertraline HCl (Zoloft) 50 mg DAILY PO 11/15/20 17:00 11/19/20 07:45 Quetiapine Fumarate (SEROquel) 25 mg QHS PO 11/13/20 21:00 11/19/20 20:37 Doxycycline Hyclate (Vibra-Tab) 100 mg BID PO 11/15/20 21:00 11/24/20 22:00 11/19/20 20:37 Lactobacillus Rhamnosus (Culturelle) 1 cap BID PO 11/15/20 21:00 11/19/20 20:37 I have reviewed the current psychotropics carefully including drug interactions. Risk benefit ratio favors no change other than as noted in my dictated progress note. Diagnosis: Problems: (1) Impulse control disorder, unspecified (2) Anxiety disorder, unspecified (3) Dementia, vascular, with depression (4) Dementia, vascular, with delusions (5) Dementia in Alzheimer's disease with depression (6) Dementia in Alzheimer's disease with delusions (7) Dementia of the Alzheimer's type with early onset with behavioral disturbance (8) Major neurocognitive disorder KANDY WADE MD Nov 20, 2020 06:40
--- NOTE | 2020-11-20 06:47 | PDOC ---
Exam Note: Abdirashid Note: The note for 11/19/2020 is an error, please ignore. The corrected noted will follow..Please also refer to the separate dictated note~for this date of service dictated separately.~Patient seen individually. Discussed the patient with Nursing staff reviewed the chart.~Reviewed interim history and current functioning. Reviewed vital signs,~Labs/ Radiology~and current medications noted below. Continue current treatment with the changes noted in the dictated addendum note Assessment: Vital Signs/I&O: Vital Signs Date Time Temp Pulse Resp B/P (MAP) Pulse Ox O2 Delivery O2 Flow Rate FiO2 11/20/20 05:56 97.5 82 18 149/89 (109) 99 Room Air I & O 11/19/20 11/19/20 11/20/20 15:00 23:00 07:00 Intake Total 600 ml 240 ml Balance 600 ml 240 ml Current Medications: I have reviewed the current psychotropics carefully including drug interactions. Risk benefit ratio favors no change other than as noted in my dictated progress note. Diagnosis: Problems: (1) Impulse control disorder, unspecified (2) Anxiety disorder, unspecified (3) Dementia, vascular, with depression (4) Dementia, vascular, with delusions (5) Dementia in Alzheimer's disease with depression (6) Dementia in Alzheimer's disease with delusions (7) Dementia of the Alzheimer's type with early onset with behavioral disturb ance (8) Major neurocognitive disorder KANDY WADE MD Nov 20, 2020 06:47
--- NOTE | 2020-11-20 06:48 | PDOC ---
Exam Note: Abdirashid Note: This is the corrected noted for 11/19/2020. This note is a late entry for 11/19/2020 covers elements not covered in my initial note. Subjective: The patient was seen individually in the evening of 11/19/2020 with Brown DAILY, discussed and reviewed the chart. The patient slept 4-1/4 hours previous night. She is resistive to medications and in showers. She is delusional, believes she needs to go to school in [place]. Reportedly daughter spoke to the patient yesterday and per nursing staff is coming around to the fact of the patients dementia. Review of Systems: No CV, , pulmonary, eye, ENT system symptoms on review. Reliability poor. Mental Status Exam: The patient is oriented to herself. She is quite animated, verbal. Speech coherent. Abstraction fair. Computation impaired. No suicidal or homicidal ideation. Attention span short. Language function intact. Laboratory Data: Reviewed. Impression: Major depressive disorder with psychotic features versus major neurocognitive disorder, Alzheimer vascular with depression, delusions, behavioral disturbance versus psychotic disorder unspecified. Plan: No change from initial note. Assessment: Vital Signs/I&O: Vital Signs Date Time Temp Pulse Resp B/P (MAP) Pulse Ox O2 Delivery O2 Flow Rate FiO2 11/20/20 05:56 97.5 82 18 149/89 (109) 99 Room Air I & O 11/19/20 11/19/20 11/20/20 15:00 23:00 07:00 Intake Total 600 ml 240 ml Balance 600 ml 240 ml Current Medications: Meds: Current Medications Medications (Trade) Dose Ordered Sig/Rach Route PRN Reason Start Time Stop Time Status Last Admin Dose Admin Clotrimazole (Lotrimin) 1 kathi BID TP 11/10/20 21:00 11/19/20 20:37 Cephalexin HCl (Keflex) 500 mg TID PO 11/10/20 21:00 11/13/20 22:00 DC 11/13/20 20:55 Acetaminophen (Tylenol) 650 mg PRN Q6HRS PRN PO MILD PAIN / TEMP > 100.3'F 11/10/20 15:30 11/15/20 06:37 Multi-Ingredient Ointment (Analgesic [place]) 1 kathi PRN QID PRN TP MUSCLE PAIN 11/10/20 15:30 Al Hydroxide/Mg Hydroxide (Mylanta Plus Xs) 15 ml PRN AFTMEALHC PRN PO DYSPEPSIA 11/10/20 15:30 Magnesium Hydroxide (Milk Of Magnesia) 2,400 mg PRN QHS PRN PO CONSTIPATION 11/10/20 15:30 Acetaminophen/ Hydrocodone Bitart (Lortab 5/325) 1 tab PRN Q6HRS PRN PO MOD-SEV PAIN 11/10/20 17:00 Olanzapine (ZyPREXA ZYDIS) 2.5 mg PRN Q2HR PRN PO PSYCHOSIS 11/10/20 17:15 11/19/20 17:01 Trazodone HCl (Desyrel) 50 mg QHS PRN PO INSOMNIA, MAY REPEAT X1 11/10/20 22:30 11/19/20 20:37 Mirtazapine (Remeron) 7.5 mg QHS PO 11/11/20 21:00 11/13/20 15:41 DC 11/12/20 19:21 Sertraline HCl (Zoloft) 25 mg DAILY PO 11/12/20 17:00 11/14/20 18:00 DC 11/14/20 08:44 Sertraline HCl (Zoloft) 50 mg DAILY PO 11/15/20 17:00 11/19/20 07:45 Quetiapine Fumarate (SEROquel) 25 mg QHS PO 11/13/20 21:00 11/19/20 20:37 Doxycycline Hyclate (Vibra-Tab) 100 mg BID PO 11/15/20 21:00 11/24/20 22:00 11/19/20 20:37 Lactobacillus Rhamnosus (Culturelle) 1 cap BID PO 11/15/20 21:00 11/19/20 20:37 I have reviewed the current psychotropics carefully including drug interactions. Risk benefit ratio favors no change other than as noted in my dictated progress note. Diagnosis: Problems: (1) Impulse control disorder, unspecified (2) Anxiety disorder, unspecified (3) Dementia, vascular, with depression (4) Dementia, vascular, with delusions (5) Dementia in Alzheimer's disease with depression (6) Dementia in Alzheimer's disease with delusions (7) Dementia of the Alzheimer's type with early onset with behavioral disturbance (8) Major neurocognitive disorder KANDY WADE MD Nov 20, 2020 06:48
[2020-11-20] MEDS: LACTOBACILLUS RHAMNOSUS GG 1 CAPSULE. PO SCH ×2 (08:30→19:57)
[2020-11-20] MEDS: DOXYCYCLINE HYCLATE 100 MG TABLET PO SCH ×2 (08:31→19:57)
[2020-11-20] MEDS: SERTRALINE 50 MG TABLET. PO SCH (08:31)
[2020-11-20] MEDS: CLOTRIMAZOLE 1% TOPICAL CREAM 30GM TUBE. TP SCH ×2 (09:00→19:57)
--- NOTE | 2020-11-20 13:46 | NUR ---
WEEKLY ACTIVITY THERAPY NOTE Date of Admission: 11/10/20 Date of AT Assessment: 11/13 Precipitating behaviors that initiated intake and admission: AMS, hallucinating, asking for parents, repetitive, STM defect, taking off clothes, incontinent, smearing feces on wall, attempting to leave house at night, poor hygiene Goal aimed: increase engagement and socialization Initial Goal: Pt will participate in at least three individual or group Activity Therapy sessions per week Weekly progress towards goal: achieved, 09/17 Group participation level: 3 min, 2 mod Weekly highlights: exercises Thursday, dancing and singing during music group Thursday, pool noodle exercise , 18 of November snack Thursday Behaviors observed: pleasant, wandering, encouragement needed, anxious Plan: change goal to: Pt will participate in at least five individual or group Activity Therapy sessions per week Beneficial adaptations: music
[2020-11-20 13:55] LABS: BILIRUBIN,URINE NEG (NEG); CLARITY,URINE CLEAR; COLOR,URINE YELLOW; GLUCOSE,URINE NEG (NEG); NITRITE,URINE NEG (NEG); UROBILINOGEN,URINE 0.2 mg/dL (0.2 mg/dL)
[2020-11-20 13:57] LABS: BACTERIA,URINE FEW /HPF (0-FEW); RBC,URINE OCC /HPF (0-2); SQUAMOUS EPITHELIAL CELL,UR OCC /LPF; WBC,URINE OCC /HPF (0-4)
--- NOTE | 2020-11-20 14:50 | NUR ---
Treatment team update: Pt dtr, Janeen, participated in tx team via phone. Pt is eating 100% of meals and sleeping on average 5 hours per night. Pt is mostly calm and compliant with staff direction, cares and medications. Pt continues to be very delusional in that she waiting for the troops to come home because she is waiting for her Dad. Pt will have her UA checked to ensure the UTI has been officially treated. Pt has attended 5 groups this last week with encouragement and did need redirection for some noted anxious behavior. Pt dtr asked multiple questions concerning pt diagnosis and next steps as pt lives as home with her dtr. Setting pt up with neurocognitive testing on an outpt basis once released from the hospital was discussed. SW will continue to work with pt family on all discharge plans.
--- NOTE | 2020-11-20 15:07 | TX PLAN ---
Interdisciplinary Tx Plan Admission Information Nov 10, 2020 at 14:40 Legal Status (on Admission): Voluntary DPOA/Guardian Name: Janeen Lovelace Contact Other Contact Name: Janeen Lovelace Other Contact Verified Code Status: Full Code Allergies: Coded Allergies: No Known Drug Allergies (Unverified , 11/10/20) Diagnoses Primary Diagnosis: Dementia with BD Reasons for Admission: Hallucinations, Confusion/Disoriented, Poor impulse control, Other Problem in Patient's Words: Assuming this is the UTI because this has all happened so sudden Additional Admission Comments: According to the intake, pt is hallucinating, asking to see her parents, repetitive, altered mental status (displaying STM deficits), taking off her clothes, smearing feces on the wall, tried to leave the house at night and poor hygeine. Problems Active Problems: delusional restless/anxious hallucinating Inactive Problems: medication compliant Pt Strengths/Limitations Ability for [place]: Poor Cognitive Functioning/Ability: Fair Communication Skills/Ability: Fair Financial Resources: Fair Insight/Judgement: Poor Intellectual Ability: Fair Physical Health: Fair Social Skills: Fair Stability in Family: Good Stability in School/Work: Poor Verbal Skills: Fair Discharge Criteria Discharge Criteria: No need for close observ., Adequate arrangements @DC, Impr mary behavior, Improved mood/thought Preliminary Discharge Plan Preliminary DC Plan: Current Living Arrange. Special Precautions Fall Risk: Low Initial D/C Plan Pt will plan to discharge back home with family. Identified Discharge Needs: Resources for continued mental health services Currently Utilized Resources Currently Utilized Resources/P: Primary care physician Referrals Community Resources: referrals for psychiatry Identified Problems/Hx/Goals Objectives/Short-Term Goals Short Term Goals: Control abnormal behavior, Dec. Hallucination/Delus, Medication Stabilization, Promote Coping Skill Short Term Goals in Patient's: N/a Interventions/Frequency Staff Interventions/Frequency&: Psychiatrist to assess pt at least 3x per week for medication management. Social Work to assess pt at least 2x per week to identify barriers to care and discharge planning. Nursing to assess medication effects, behavior modification and completion of 15 minute checks daily. Encourage participation in group activities (if applicable) or 1:1 engagement based off activity dept goals. 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 Pt does have an associates degree Community Follow-up PCP psychiatry referral Community Provider/Family Inpu: She has never been diagnosed with anything and I worry about a Dementia diagnosis as this is a sudden onset and she had not issues until this month or <6 weeks ago. 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 Pt is eating 100% of meals and sleeping on average 5 hours per night. Pt is mostly calm and compliant with staff direction, cares and medications. Pt continues to be very delusional in that she waiting for the troops to come home because she is waiting for her Dad. Pt will have her UA checked to ensure the UTI has been officially treated. Pt has attended 5 groups this last week with encouragement and did need redirection for some noted anxious behavior. Pt dtr asked multiple questions concerning pt diagnosis and next steps as pt lives as home with her dtr. Setting pt up with neurocognitive testing on an outpt basis once released from the hospital was discussed. SW will continue to work with pt family on all discharge plans. ONUR RAMOS Nov 20, 2020 15:07
[2020-11-20 15:55] VITALS: BP 110/65
--- NOTE | 2020-11-20 15:59 | NUR ---
Patient sitting in the day room when she became agitated with her peers and staff. She has continued to talk about the troops coming home.Patient continue to be aggressive and was given Zydis 2.5 mg prn
[2020-11-20] MEDS: traZODone 50 MG TABLET. PO PRN (19:57)
[2020-11-20] MEDS: QUEtiapine 25 MG TABLET. PO SCH (19:57)
--- NOTE | 2020-11-20 22:11 | PDOC ---
Exam Note: Abdirashid Note: Please also refer to the separate dictated note~for this date of service dictated separately.~Patient seen individually. Discussed the patient with Nursing staff reviewed the chart.~Reviewed interim history and current functioning. Reviewed vital signs,~Labs/ Radiology~and current medications noted below. Continue current treatment with the changes noted in the dictated addendum note Assessment: Vital Signs/I&O: Vital Signs Date Time Temp Pulse Resp B/P (MAP) Pulse Ox O2 Delivery O2 Flow Rate FiO2 11/20/20 15:55 97.6 83 18 110/65 (80) 93 Room Air I & O 11/19/20 11/19/20 11/20/20 14:59 22:59 06:59 Intake Total 600 ml 240 ml Balance 600 ml 240 ml Labs: Laboratory Tests Test 11/20/20 13:40 Urine Collection Type Unknown Urine Color Yellow Urine Clarity Clear Urine pH 5.5 Urine Specific [place] 1.010 Urine Protein Neg (NEG-TRACE) Urine Glucose (UA) Neg mg/dL (NEG) Urine Ketones (Stick) Neg mg/dL (NEG) Urine Blood Neg (NEG) Urine Nitrite Neg (NEG) Urine Bilirubin Neg (NEG) Urine Urobilinogen Dipstick 0.2 mg/dL (0.2 mg/dL) Urine Leukocyte Esterase Neg (NEG) Urine RBC Occ /HPF (0-2) Urine WBC Occ /HPF (0-4) Urine Squamous Epithelial Cells Occ /LPF Urine Bacteria Few /HPF (0-FEW) Urine Mucus Slight /LPF Current Medications: Meds: Laboratory Tests Test 11/20/20 13:40 Urine Collection Type Unknown Urine Color Yellow Urine Clarity Clear Urine pH 5.5 Urine Specific [place] 1.010 Urine Protein Neg Urine Glucose (UA) Neg mg/dL Urine Ketones (Stick) Neg mg/dL Urine Blood Neg Urine Nitrite Neg Urine Bilirubin Neg Urine Urobilinogen Dipstick 0.2 mg/dL Urine Leukocyte Esterase Neg Urine RBC Occ /HPF Urine WBC Occ /HPF Urine Squamous Epithelial Cells Occ /LPF Urine Bacteria Few /HPF Urine Mucus Slight /LPF Current Medications Medications (Trade) Dose Ordered Sig/Rach Route PRN Reason Start Time Stop Time Status Last Admin Dose Admin Clotrimazole (Lotrimin) 1 kathi BID TP 11/10/20 21:00 11/20/20 09:00 Cephalexin HCl (Keflex) 500 mg TID PO 11/10/20 21:00 11/13/20 22:00 DC 11/13/20 20:55 Acetaminophen (Tylenol) 650 mg PRN Q6HRS PRN PO MILD PAIN / TEMP > 100.3'F 11/10/20 15:30 11/15/20 06:37 Multi-Ingredient Ointment (Analgesic [place]) 1 kathi PRN QID PRN TP MUSCLE PAIN 11/10/20 15:30 Al Hydroxide/Mg Hydroxide (Mylanta Plus Xs) 15 ml PRN AFTMEALHC PRN PO DYSPEPSIA 11/10/20 15:30 Magnesium Hydroxide (Milk Of Magnesia) 2,400 mg PRN QHS PRN PO CONSTIPATION 11/10/20 15:30 Acetaminophen/ Hydrocodone Bitart (Lortab 5/325) 1 tab PRN Q6HRS PRN PO MOD-SEV PAIN 11/10/20 17:00 Olanzapine (ZyPREXA ZYDIS) 2.5 mg PRN Q2HR PRN PO PSYCHOSIS 11/10/20 17:15 11/20/20 19:57 Trazodone HCl (Desyrel) 50 mg QHS PRN PO INSOMNIA, MAY REPEAT X1 11/10/20 22:30 11/20/20 19:57 Mirtazapine (Remeron) 7.5 mg QHS PO 11/11/20 21:00 11/13/20 15:41 DC 11/12/20 19:21 Sertraline HCl (Zoloft) 25 mg DAILY PO 11/12/20 17:00 11/14/20 18:00 DC 11/14/20 08:44 Sertraline HCl (Zoloft) 50 mg DAILY PO 11/15/20 17:00 11/20/20 08:31 Quetiapine Fumarate (SEROquel) 25 mg QHS PO 11/13/20 21:00 11/20/20 19:57 Doxycycline Hyclate (Vibra-Tab) 100 mg BID PO 11/15/20 21:00 11/24/20 22:00 11/20/20 19:57 Lactobacillus Rhamnosus (Culturelle) 1 cap BID PO 11/15/20 21:00 11/20/20 19:57 I have reviewed the current psychotropics carefully including drug interactions. Risk benefit ratio favors no change other than as noted in my dictated progress note. Diagnosis: Problems: (1) Impulse control disorder, unspecified (2) Anxiety disorder, unspecified (3) Dementia, vascular, with depression (4) Dementia, vascular, with delusions (5) Dementia in Alzheimer's disease with depression (6) Dementia in Alzheimer's disease with delusions (7) Dementia of the Alzheimer's type with early onset with behavioral disturbance (8) Major neurocognitive disorder KANDY WADE MD Nov 20, 2020 22:10
--- NOTE | 2020-11-20 23:22 | NUR ---
Pt wandering halls with peers when approached. Pt irritable, tearful, and delusional. Pt looking for her parents, states that they are helping the troops. Pt cooperative with assessment and compliant with medications administered whole. After her shower, pt agitation increased. Pt wandering into other pt rooms and becoming resistive and combative, trying to strike staff, when removed. PRN Trazodone and Zydis administered as ordered.
[2020-11-21 06:00] VITALS: BP 155/78
[2020-11-21] MEDS: SERTRALINE 50 MG TABLET. PO SCH (08:38)
[2020-11-21] MEDS: LACTOBACILLUS RHAMNOSUS GG 1 CAPSULE. PO SCH ×2 (08:38→20:20)
[2020-11-21] MEDS: DOXYCYCLINE HYCLATE 100 MG TABLET PO SCH ×2 (08:38→20:20)
[2020-11-21] MEDS: CLOTRIMAZOLE 1% TOPICAL CREAM 30GM TUBE. TP SCH ×2 (09:00→20:20)
--- NOTE | 2020-11-21 09:02 | PDOC ---
Exam Note: Abdirashid Note: This note is a late entry for 11/20/2020 covers elements not covered in my initial note. Subjective: The patient was seen individually in the morning of 11/20/2020 for a treatment team meeting with Cyndi Manuel (social media marketing specialist), Anamaria, activity therapy and Brown discussed and reviewed the chart. The patient slept 5-3/4 hours previous night. The patients daughter Stephanie who is an elder law civil rights attorney also joined the treatment team meeting. She remains confused. Daughter explained how the patients cognition had deteriorated very rapidly in just a few weeks. There is nothing clearly to account for this but we will go ahead and repeat UA to make sure the UTI is resolved and at the time of this dictation UA returned is normal. She has had no crying spells today but as I met with her she was waiting for troops to come home. She was agitated in the morning, had to be from another patient who she felt was her sister. She has attended 5 groups in the past one week. At 3.30 she was upset, delusional. Received Zyprexa p.r.n. Review of Systems: No CV, , pulmonary, eye, ENT system symptoms on review. Reliability poor. Mental Status Exam: The patient is oriented to herself. She is quite animated, verbal. Speech coherent. Abstraction fair. Computation impaired. No suicidal or homicidal ideation. Attention span short. Language function intact. Laboratory Data: Reviewed. Impression: Major depressive disorder with psychotic features versus major neurocognitive disorder, Alzheimer vascular with depression, delusions, behavioral disturbance versus psychotic disorder unspecified. Plan: No change from initial note. We will increase Zoloft gradually currently at 50 mg a day. Assessment: Vital Signs/I&O: Vital Signs Date Time Temp Pulse Resp B/P (MAP) Pulse Ox O2 Delivery O2 Flow Rate FiO2 11/21/20 06:00 97.6 67 18 155/78 (103) 97 Room Air I & O 11/20/20 11/20/20 11/21/20 15:00 23:00 07:00 Intake Total 720 ml 240 ml 120 ml Balance 720 ml 240 ml 120 ml Labs: Laboratory Tests Test 11/20/20 13:40 Urine Collection Type Unknown Urine Color Yellow Urine Clarity Clear Urine pH 5.5 Urine Specific [place] 1.010 Urine Protein Neg (NEG-TRACE) Urine Glucose (UA) Neg mg/dL (NEG) Urine Ketones (Stick) Neg mg/dL (NEG) Urine Blood Neg (NEG) Urine Nitrite Neg (NEG) Urine Bilirubin Neg (NEG) Urine Urobilinogen Dipstick 0.2 mg/dL (0.2 mg/dL) Urine Leukocyte Esterase Neg (NEG) Urine RBC Occ /HPF (0-2) Urine WBC Occ /HPF (0-4) Urine Squamous Epithelial Cells Occ /LPF Urine Bacteria Few /HPF (0-FEW) Urine Mucus Slight /LPF Current Medications: Meds: Laboratory Tests Test 11/20/20 13:40 Urine Collection Type Unknown Urine Color Yellow Urine Clarity Clear Urine pH 5.5 Urine Specific [place] 1.010 Urine Protein Neg Urine Glucose (UA) Neg mg/dL Urine Ketones (Stick) Neg mg/dL Urine Blood Neg Urine Nitrite Neg Urine Bilirubin Neg Urine Urobilinogen Dipstick 0.2 mg/dL Urine Leukocyte Esterase Neg Urine RBC Occ /HPF Urine WBC Occ /HPF Urine Squamous Epithelial Cells Occ /LPF Urine Bacteria Few /HPF Urine Mucus Slight /LPF Current Medications Medications (Trade) Dose Ordered Sig/Rach Route PRN Reason Start Time Stop Time Status Last Admin Dose Admin Clotrimazole (Lotrimin) 1 kathi BID TP 11/10/20 21:00 11/20/20 09:00 Cephalexin HCl (Keflex) 500 mg TID PO 11/10/20 21:00 11/13/20 22:00 DC 11/13/20 20:55 Acetaminophen (Tylenol) 650 mg PRN Q6HRS PRN PO MILD PAIN / TEMP > 100.3'F 11/10/20 15:30 11/15/20 06:37 Multi-Ingredient Ointment (Analgesic [place]) 1 kathi PRN QID PRN TP MUSCLE PAIN 11/10/20 15:30 Al Hydroxide/Mg Hydroxide (Mylanta Plus Xs) 15 ml PRN AFTMEALHC PRN PO DYSPEPSIA 11/10/20 15:30 Magnesium Hydroxide (Milk Of Magnesia) 2,400 mg PRN QHS PRN PO CONSTIPATION 11/10/20 15:30 Acetaminophen/ Hydrocodone Bitart (Lortab 5/325) 1 tab PRN Q6HRS PRN PO MOD-SEV PAIN 11/10/20 17:00 Olanzapine (ZyPREXA ZYDIS) 2.5 mg PRN Q2HR PRN PO PSYCHOSIS 11/10/20 17:15 11/20/20 19:57 Trazodone HCl (Desyrel) 50 mg QHS PRN PO INSOMNIA, MAY REPEAT X1 11/10/20 22:30 11/20/20 19:57 Mirtazapine (Remeron) 7.5 mg QHS PO 11/11/20 21:00 11/13/20 15:41 DC 11/12/20 19:21 Sertraline HCl (Zoloft) 25 mg DAILY PO 11/12/20 17:00 11/14/20 18:00 DC 11/14/20 08:44 Sertraline HCl (Zoloft) 50 mg DAILY PO 11/15/20 17:00 11/21/20 08:38 Quetiapine Fumarate (SEROquel) 25 mg QHS PO 11/13/20 21:00 11/20/20 19:57 Doxycycline Hyclate (Vibra-Tab) 100 mg BID PO 11/15/20 21:00 11/24/20 22:00 11/21/20 08:38 Lactobacillus Rhamnosus (Culturelle) 1 cap BID PO 11/15/20 21:00 11/21/20 08:38 I have reviewed the current psychotropics carefully including drug interactions. Risk benefit ratio favors no change other than as noted in my dictated progress note. Diagnosis: Problems: (1) Impulse control disorder, unspecified (2) Anxiety disorder, unspecified (3) Dementia, vascular, with depression (4) Dementia, vascular, with delusions (5) Dementia in Alzheimer's disease with depression (6) Dementia in Alzheimer's disease with delusions (7) Dementia of the Alzheimer's type with early onset with behavioral disturbance (8) Major neurocognitive disorder KANDY WADE MD Nov 21, 2020 09:02
--- NOTE | 2020-11-21 10:47 | NUR ---
This patient wandering in hallway, compliant with medication. Pleasantly confused, alert o self. Continue to be delirious at times looking for her " small kids" and repeating he troops ae coming home soon. Appetite adequate and moderate asist with ADLs.
[2020-11-21 16:26] VITALS: BP 132/80
[2020-11-21] MEDS: traZODone 50 MG TABLET. PO PRN (20:20)
[2020-11-21] MEDS: QUEtiapine 25 MG TABLET. PO SCH (20:20)
--- NOTE | 2020-11-21 21:49 | PDOC ---
Exam Note: Abdirashid Note: Please also refer to the separate dictated note~for this date of service dictated separately.~Patient seen individually. Discussed the patient with Nursing staff reviewed the chart.~Reviewed interim history and current functioning. Reviewed vital signs,~Labs/ Radiology~and current medications noted below. Continue current treatment with the changes noted in the dictated addendum note Assessment: Vital Signs/I&O: Vital Signs Date Time Temp Pulse Resp B/P (MAP) Pulse Ox O2 Delivery O2 Flow Rate FiO2 11/21/20 16:26 98.2 101 18 132/80 (97) 98 11/21/20 06:00 Room Air I & O 11/20/20 11/20/20 11/21/20 15:00 23:00 07:00 Intake Total 720 ml 240 ml 120 ml Balance 720 ml 240 ml 120 ml Current Medications: Meds: Current Medications Medications (Trade) Dose Ordered Sig/Rach Route PRN Reason Start Time Stop Time Status Last Admin Dose Admin Clotrimazole (Lotrimin) 1 kathi BID TP 11/10/20 21:00 11/21/20 20:20 Cephalexin HCl (Keflex) 500 mg TID PO 11/10/20 21:00 11/13/20 22:00 DC 11/13/20 20:55 Acetaminophen (Tylenol) 650 mg PRN Q6HRS PRN PO MILD PAIN / TEMP > 100.3'F 11/10/20 15:30 11/15/20 06:37 Multi-Ingredient Ointment (Analgesic [place]) 1 kathi PRN QID PRN TP MUSCLE PAIN 11/10/20 15:30 Al Hydroxide/Mg Hydroxide (Mylanta Plus Xs) 15 ml PRN AFTMEALHC PRN PO DYSPEPSIA 11/10/20 15:30 Magnesium Hydroxide (Milk Of Magnesia) 2,400 mg PRN QHS PRN PO CONSTIPATION 11/10/20 15:30 Acetaminophen/ Hydrocodone Bitart (Lortab 5/325) 1 tab PRN Q6HRS PRN PO MOD-SEV PAIN 11/10/20 17:00 Olanzapine (ZyPREXA ZYDIS) 2.5 mg PRN Q2HR PRN PO PSYCHOSIS 11/10/20 17:15 11/20/20 19:57 Trazodone HCl (Desyrel) 50 mg QHS PRN PO INSOMNIA, MAY REPEAT X1 11/10/20 22:30 11/21/20 20:20 Mirtazapine (Remeron) 7.5 mg QHS PO 11/11/20 21:00 11/13/20 15:41 DC 11/12/20 19:21 Sertraline HCl (Zoloft) 25 mg DAILY PO 11/12/20 17:00 11/14/20 18:00 DC 11/14/20 08:44 Sertraline HCl (Zoloft) 50 mg DAILY PO 11/15/20 17:00 11/21/20 17:12 DC 11/21/20 08:38 Quetiapine Fumarate (SEROquel) 25 mg QHS PO 11/13/20 21:00 11/21/20 20:20 Doxycycline Hyclate (Vibra-Tab) 100 mg BID PO 11/15/20 21:00 11/24/20 22:00 11/21/20 20:20 Lactobacillus Rhamnosus (Culturelle) 1 cap BID PO 11/15/20 21:00 11/21/20 20:20 Sertraline HCl (Zoloft) 75 mg DAILY PO 11/22/20 09:00 I have reviewed the current psychotropics carefully including drug interactions. Risk benefit ratio favors no change other than as noted in my dictated progress note. Diagnosis: Problems: (1) Impulse control disorder, unspecified (2) Anxiety disorder, unspecified (3) Dementia, vascular, with depression (4) Dementia, vascular, with delusions (5) Dementia in Alzheimer's disease with depression (6) Dementia in Alzheimer's disease with delusions (7) Dementia of the Alzheimer's type with early onset with behavioral disturbance (8) Major neurocognitive disorder KANDY WADE MD Nov 21, 2020 21:49
--- NOTE | 2020-11-22 00:58 | NUR ---
Pt sitting in day room, interacting with peer when approached. Pt calm, pleasantly confused, disorganized, and delusional- pt believes that she is leaving tonight and does not believe that she is in the hospital. Pt cooperative with assessment and compliant with medications administered whole. Pt became agitated, combative, and was yelling and screaming during HS cares, however was able to calm once she was escorted to her bed.
[2020-11-22 06:06] VITALS: BP 132/75
--- NOTE | 2020-11-22 06:48 | PDOC ---
Exam Note: Abdirashid Note: This note is a late entry for 11/21/2020 covers elements not covered in my initial note. Subjective: The patient was seen individually in the evening of 11/21/2020 with Nydia DAILY, discussed and reviewed the chart. The patient slept 5-1/4 hours previous night. She remains confused, agitated at times, wandering the hallways, looking for her children. She received trazodone and Zyprexa p.r.n. previous night to help with insomnia and agitation but more redirectable today. Review of Systems: No CV, , pulmonary, eye, ENT system symptoms on review. Reliability poor. Mental Status Exam: The patient is oriented to herself. Speech coherent. Abstraction fair. Computation impaired. No suicidal or homicidal ideation. Attention span short. Language function intact. Laboratory Data: Reviewed. Impression: Major depressive disorder with psychotic features versus major neurocognitive disorder, Alzheimer vascular with depression, delusions, behavioral disturbance versus psychotic disorder unspecified. Plan: No change from initial note. We will go ahead and increase Zoloft from 50 mg a day to 75 mg a day. Continue rest psychotropics unchanged. Assessment: Vital Signs/I&O: Vital Signs Date Time Temp Pulse Resp B/P (MAP) Pulse Ox O2 Delivery O2 Flow Rate FiO2 11/22/20 06:06 97.3 84 20 132/75 (94) 100 Room Air I & O 11/21/20 11/21/20 11/22/20 15:00 23:00 07:00 Intake Total 560 ml 360 ml Balance 560 ml 360 ml Current Medications: Meds: Current Medications Medications (Trade) Dose Ordered Sig/Rach Route PRN Reason Start Time Stop Time Status Last Admin Dose Admin Clotrimazole (Lotrimin) 1 kathi BID TP 11/10/20 21:00 11/21/20 20:20 Cephalexin HCl (Keflex) 500 mg TID PO 11/10/20 21:00 11/13/20 22:00 DC 11/13/20 20:55 Acetaminophen (Tylenol) 650 mg PRN Q6HRS PRN PO MILD PAIN / TEMP > 100.3'F 11/10/20 15:30 11/15/20 06:37 Multi-Ingredient Ointment (Analgesic [place]) 1 kathi PRN QID PRN TP MUSCLE PAIN 11/10/20 15:30 Al Hydroxide/Mg Hydroxide (Mylanta Plus Xs) 15 ml PRN AFTMEALHC PRN PO DYSPEPSIA 11/10/20 15:30 Magnesium Hydroxide (Milk Of Magnesia) 2,400 mg PRN QHS PRN PO CONSTIPATION 11/10/20 15:30 Acetaminophen/ Hydrocodone Bitart (Lortab 5/325) 1 tab PRN Q6HRS PRN PO MOD-SEV PAIN 11/10/20 17:00 Olanzapine (ZyPREXA ZYDIS) 2.5 mg PRN Q2HR PRN PO PSYCHOSIS 11/10/20 17:15 11/20/20 19:57 Trazodone HCl (Desyrel) 50 mg QHS PRN PO INSOMNIA, MAY REPEAT X1 11/10/20 22:30 11/21/20 20:20 Mirtazapine (Remeron) 7.5 mg QHS PO 11/11/20 21:00 11/13/20 15:41 DC 11/12/20 19:21 Sertraline HCl (Zoloft) 25 mg DAILY PO 11/12/20 17:00 11/14/20 18:00 DC 11/14/20 08:44 Sertraline HCl (Zoloft) 50 mg DAILY PO 11/15/20 17:00 11/21/20 17:12 DC 11/21/20 08:38 Quetiapine Fumarate (SEROquel) 25 mg QHS PO 11/13/20 21:00 11/21/20 20:20 Doxycycline Hyclate (Vibra-Tab) 100 mg BID PO 11/15/20 21:00 11/24/20 22:00 11/21/20 20:20 Lactobacillus Rhamnosus (Culturelle) 1 cap BID PO 11/15/20 21:00 11/21/20 20:20 Sertraline HCl (Zoloft) 75 mg DAILY PO 11/22/20 09:00 I have reviewed the current psychotropics carefully including drug interactions. Risk benefit ratio favors no change other than as noted in my dictated progress note. Diagnosis: Problems: (1) Impulse control disorder, unspecified (2) Anxiety disorder, unspecified (3) Dementia, vascular, with depression (4) Dementia, vascular, with delusions (5) Dementia in Alzheimer's disease with depression (6) Dementia in Alzheimer's disease with delusions (7) Dementia of the Alzheimer's type with early onset with behavioral disturbance (8) Major neurocognitive disorder KANDY WADE MD Nov 22, 2020 06:48
[2020-11-22] MEDS: LACTOBACILLUS RHAMNOSUS GG 1 CAPSULE. PO SCH ×2 (08:19→20:58)
[2020-11-22] MEDS: DOXYCYCLINE HYCLATE 100 MG TABLET PO SCH ×2 (08:19→20:58)
[2020-11-22] MEDS: SERTRALINE 50 MG TABLET. PO SCH (08:19)
[2020-11-22] MEDS: CLOTRIMAZOLE 1% TOPICAL CREAM 30GM TUBE. TP SCH ×2 (08:21→21:10)
--- NOTE | 2020-11-22 13:59 | NUR ---
PATIENT IS AWAKE EATING BREAKFAST UPON ASSESSMENT. PATIENT IS COOPERATIVE WITH ASSESSMENT, COMPLIANT WITH MEDS TAKEN WHOLE. PATIENT IS CONFUSED, TALKING ABOUT HER PARENT ARE HERE SOMEWHERE AND SHE NEEDS TO FIND THEM. PATIENT WAS IN A DAY ROOM LATER CONVERSING WITH PEERS DURING GROUP SESSION. PATIENT IS CURRENTLY WONDERING THE HALLWAY ALONG WITH OTHER FEMALE RESIDENT.
[2020-11-22 16:17] VITALS: BP 121/76
--- NOTE | 2020-11-22 18:14 | NUR ---
PATIENT WONDERING THE HALLWAY , ANXIOUS AND TEARFUL, LOOKING FOR HIS PARENTS. ZYDIS PRN GIVEN TO DECREASE ANXIETY.
[2020-11-22] MEDS: QUEtiapine 25 MG TABLET. PO SCH (20:58)
--- NOTE | 2020-11-22 22:21 | PDOC ---
Exam Note: Abdirashid Note: Please also refer to the separate dictated note~for this date of service dictated separately.~Patient seen individually. Discussed the patient with Nursing staff reviewed the chart.~Reviewed interim history and current functioning. Reviewed vital signs,~Labs/ Radiology~and current medications noted below. Continue current treatment with the changes noted in the dictated addendum note Assessment: Vital Signs/I&O: Vital Signs Date Time Temp Pulse Resp B/P (MAP) Pulse Ox O2 Delivery O2 Flow Rate FiO2 11/22/20 16:17 97.9 77 15 121/76 (91) 98 11/22/20 06:06 Room Air I & O 11/21/20 11/21/20 11/22/20 15:00 23:00 07:00 Intake Total 560 ml 360 ml Balance 560 ml 360 ml Current Medications: Meds: Current Medications Medications (Trade) Dose Ordered Sig/Rach Route PRN Reason Start Time Stop Time Status Last Admin Dose Admin Clotrimazole (Lotrimin) 1 kathi BID TP 11/10/20 21:00 11/22/20 21:10 Cephalexin HCl (Keflex) 500 mg TID PO 11/10/20 21:00 11/13/20 22:00 DC 11/13/20 20:55 Acetaminophen (Tylenol) 650 mg PRN Q6HRS PRN PO MILD PAIN / TEMP > 100.3'F 11/10/20 15:30 11/15/20 06:37 Multi-Ingredient Ointment (Analgesic [place]) 1 kathi PRN QID PRN TP MUSCLE PAIN 11/10/20 15:30 Al Hydroxide/Mg Hydroxide (Mylanta Plus Xs) 15 ml PRN AFTMEALHC PRN PO DYSPEPSIA 11/10/20 15:30 Magnesium Hydroxide (Milk Of Magnesia) 2,400 mg PRN QHS PRN PO CONSTIPATION 11/10/20 15:30 Acetaminophen/ Hydrocodone Bitart (Lortab 5/325) 1 tab PRN Q6HRS PRN PO MOD-SEV PAIN 11/10/20 17:00 Olanzapine (ZyPREXA ZYDIS) 2.5 mg PRN Q2HR PRN PO PSYCHOSIS 11/10/20 17:15 11/22/20 17:56 Trazodone HCl (Desyrel) 50 mg QHS PRN PO INSOMNIA, MAY REPEAT X1 11/10/20 22:30 11/21/20 20:20 Mirtazapine (Remeron) 7.5 mg QHS PO 11/11/20 21:00 11/13/20 15:41 DC 11/12/20 19:21 Sertraline HCl (Zoloft) 25 mg DAILY PO 11/12/20 17:00 11/14/20 18:00 DC 11/14/20 08:44 Sertraline HCl (Zoloft) 50 mg DAILY PO 11/15/20 17:00 11/21/20 17:12 DC 11/21/20 08:38 Quetiapine Fumarate (SEROquel) 25 mg QHS PO 11/13/20 21:00 11/22/20 20:58 Doxycycline Hyclate (Vibra-Tab) 100 mg BID PO 11/15/20 21:00 11/24/20 22:00 11/22/20 20:58 Lactobacillus Rhamnosus (Culturelle) 1 cap BID PO 11/15/20 21:00 11/22/20 20:58 Sertraline HCl (Zoloft) 75 mg DAILY PO 11/22/20 09:00 11/22/20 08:19 Current Medications Medications (Trade) Dose Ordered Sig/Rach Route PRN Reason Start Time Stop Time Status Last Admin Dose Admin Sertraline HCl (Zoloft) 75 mg DAILY PO 11/22/20 09:00 11/22/20 08:19 I have reviewed the current psychotropics carefully including drug interactions. Risk benefit ratio favors no change other than as noted in my dictated progress note. Diagnosis: Problems: (1) Impulse control disorder, unspecified (2) Anxiety disorder, unspecified (3) Dementia, vascular, with depression (4) Dementia, vascular, with delusions (5) Dementia in Alzheimer's disease with depression (6) Dementia in Alzheimer's disease with delusions (7) Dementia of the Alzheimer's type with early onset with behavioral disturbance (8) Major neurocognitive disorder KANDY WADE MD Nov 22, 2020 22:21
--- NOTE | 2020-11-23 00:56 | NUR ---
Last evening pt was in the day room and was social with peers. After going to bed HS meds were given and she took them whole without difficulty. She has been labile with staff demanding to see her parents.
[2020-11-23 06:39] VITALS: BP 130/64
--- NOTE | 2020-11-23 07:09 | PDOC ---
Exam Note: Abdirashid Note: This note is a late entry for 11/22/2020 covers elements not covered in my initial note. Subjective: The patient was seen individually in the evening of 11/22/2020 with Cynthia DAILY, discussed and reviewed the chart. The patient slept 5 hours previous night. She remains pleasant, confused, more anxious in the evening, attending groups. Review of Systems: No CV, , pulmonary, eye, ENT system symptoms on review. Reliability poor. Mental Status Exam: The patient is oriented to herself. Speech coherent. Abstraction fair. Computation impaired. No suicidal or homicidal ideation. Attention span short. Language function intact. Laboratory Data: Reviewed. Impression: Major depressive disorder with psychotic features versus major neurocognitive disorder, Alzheimer vascular with depression, delusions, behavior al disturbance versus psychotic disorder unspecified. Plan: No change from initial note. Assessment: Vital Signs/I&O: Vital Signs Date Time Temp Pulse Resp B/P (MAP) Pulse Ox O2 Delivery O2 Flow Rate FiO2 11/23/20 06:39 97.4 86 16 130/64 (86) 97 11/22/20 06:06 Room Air I & O 11/22/20 11/22/20 11/23/20 15:00 23:00 07:00 Intake Total 600 ml 720 ml Balance 600 ml 720 ml Current Medications: Meds: Current Medications Medications (Trade) Dose Ordered Sig/Rach Route PRN Reason Start Time Stop Time Status Last Admin Dose Admin Clotrimazole (Lotrimin) 1 kathi BID TP 11/10/20 21:00 11/22/20 21:10 Cephalexin HCl (Keflex) 500 mg TID PO 11/10/20 21:00 11/13/20 22:00 DC 11/13/20 20:55 Acetaminophen (Tylenol) 650 mg PRN Q6HRS PRN PO MILD PAIN / TEMP > 100.3'F 11/10/20 15:30 11/15/20 06:37 Multi-Ingredient Ointment (Analgesic [place]) 1 kathi PRN QID PRN TP MUSCLE PAIN 11/10/20 15:30 Al Hydroxide/Mg Hydroxide (Mylanta Plus Xs) 15 ml PRN AFTMEALHC PRN PO DYSPEPSIA 11/10/20 15:30 Magnesium Hydroxide (Milk Of Magnesia) 2,400 mg PRN QHS PRN PO CONSTIPATION 11/10/20 15:30 Acetaminophen/ Hydrocodone Bitart (Lortab 5/325) 1 tab PRN Q6HRS PRN PO MOD-SEV PAIN 11/10/20 17:00 Olanzapine (ZyPREXA ZYDIS) 2.5 mg PRN Q2HR PRN PO PSYCHOSIS 11/10/20 17:15 11/22/20 17:56 Trazodone HCl (Desyrel) 50 mg QHS PRN PO INSOMNIA, MAY REPEAT X1 11/10/20 22:30 11/21/20 20:20 Mirtazapine (Remeron) 7.5 mg QHS PO 11/11/20 21:00 11/13/20 15:41 DC 11/12/20 19:21 Sertraline HCl (Zoloft) 25 mg DAILY PO 11/12/20 17:00 11/14/20 18:00 DC 11/14/20 08:44 Sertraline HCl (Zoloft) 50 mg DAILY PO 11/15/20 17:00 11/21/20 17:12 DC 11/21/20 08:38 Quetiapine Fumarate (SEROquel) 25 mg QHS PO 11/13/20 21:00 11/22/20 20:58 Doxycycline Hyclate (Vibra-Tab) 100 mg BID PO 11/15/20 21:00 11/24/20 22:00 11/22/20 20:58 Lactobacillus Rhamnosus (Culturelle) 1 cap BID PO 11/15/20 21:00 11/22/20 20:58 Sertraline HCl (Zoloft) 75 mg DAILY PO 11/22/20 09:00 11/22/20 08:19 Current Medications Medications (Trade) Dose Ordered Sig/Rach Route PRN Reason Start Time Stop Time Status Last Admin Dose Admin Sertraline HCl (Zoloft) 75 mg DAILY PO 11/22/20 09:00 11/22/20 08:19 I have reviewed the current psychotropics carefully including drug interactions. Risk benefit ratio favors no change other than as noted in my dictated progress note. Diagnosis: Problems: (1) Impulse control disorder, unspecified (2) Anxiety disorder, unspecified (3) Dementia, vascular, with depression (4) Dementia, vascular, with delusions (5) Dementia in Alzheimer's disease with depression (6) Dementia in Alzheimer's disease with delusions (7) Dementia of the Alzheimer's type with early onset with behavioral disturbance (8) Major neurocognitive disorder KANDY WADE MD Nov 23, 2020 07:09
[2020-11-23] MEDS: SERTRALINE 50 MG TABLET. PO SCH (08:26)
[2020-11-23] MEDS: DOXYCYCLINE HYCLATE 100 MG TABLET PO SCH ×2 (08:26→21:26)
[2020-11-23] MEDS: LACTOBACILLUS RHAMNOSUS GG 1 CAPSULE. PO SCH ×2 (08:26→21:26)
[2020-11-23] MEDS: CLOTRIMAZOLE 1% TOPICAL CREAM 30GM TUBE. TP SCH ×2 (08:27→21:26)
[2020-11-23 15:59] VITALS: BP 107/68
--- NOTE | 2020-11-23 16:20 | NUR ---
Nursing note: Pt is disorganized, med compliant and cooperative. She was delusional and tearful after lunch stating "I'm going to be late for school if my parents don't hurry up and come back." She was unable to be redirected and was beginning to get other pt's worked up. PRN given with good effect. She is currently sitting quietly in the day room. Will continue to monitor.
[2020-11-23] MEDS: QUEtiapine 25 MG TABLET. PO SCH (21:26)
--- NOTE | 2020-11-23 22:08 | PDOC ---
Exam Note: Abdirashid Note: Please also refer to the separate dictated note~for this date of service dictated separately.~Patient seen individually. Discussed the patient with Nursing staff reviewed the chart.~Reviewed interim history and current functioning. Reviewed vital signs,~Labs/ Radiology~and current medications noted below. Continue current treatment with the changes noted in the dictated addendum note Assessment: Vital Signs/I&O: Vital Signs Date Time Temp Pulse Resp B/P (MAP) Pulse Ox O2 Delivery O2 Flow Rate FiO2 11/23/20 15:59 97.6 87 20 107/68 (81) 96 11/22/20 06:06 Room Air I & O 11/22/20 11/22/20 11/23/20 15:00 23:00 07:00 Intake Total 600 ml 720 ml Balance 600 ml 720 ml Current Medications: Meds: Current Medications Medications (Trade) Dose Ordered Sig/Rach Route PRN Reason Start Time Stop Time Status Last Admin Dose Admin Clotrimazole (Lotrimin) 1 kathi BID TP 11/10/20 21:00 11/23/20 21:26 Cephalexin HCl (Keflex) 500 mg TID PO 11/10/20 21:00 11/13/20 22:00 DC 11/13/20 20:55 Acetaminophen (Tylenol) 650 mg PRN Q6HRS PRN PO MILD PAIN / TEMP > 100.3'F 11/10/20 15:30 11/15/20 06:37 Multi-Ingredient Ointment (Analgesic [place]) 1 kathi PRN QID PRN TP MUSCLE PAIN 11/10/20 15:30 Al Hydroxide/Mg Hydroxide (Mylanta Plus Xs) 15 ml PRN AFTMEALHC PRN PO DYSPEPSIA 11/10/20 15:30 Magnesium Hydroxide (Milk Of Magnesia) 2,400 mg PRN QHS PRN PO CONSTIPATION 11/10/20 15:30 Acetaminophen/ Hydrocodone Bitart (Lortab 5/325) 1 tab PRN Q6HRS PRN PO MOD-SEV PAIN 11/10/20 17:00 Olanzapine (ZyPREXA ZYDIS) 2.5 mg PRN Q2HR PRN PO PSYCHOSIS 11/10/20 17:15 11/23/20 13:07 Trazodone HCl (Desyrel) 50 mg QHS PRN PO INSOMNIA, MAY REPEAT X1 11/10/20 22:30 11/21/20 20:20 Mirtazapine (Remeron) 7.5 mg QHS PO 11/11/20 21:00 11/13/20 15:41 DC 11/12/20 19:21 Sertraline HCl (Zoloft) 25 mg DAILY PO 11/12/20 17:00 11/14/20 18:00 DC 11/14/20 08:44 Sertraline HCl (Zoloft) 50 mg DAILY PO 11/15/20 17:00 11/21/20 17:12 DC 11/21/20 08:38 Quetiapine Fumarate (SEROquel) 25 mg QHS PO 11/13/20 21:00 11/23/20 21:26 Doxycycline Hyclate (Vibra-Tab) 100 mg BID PO 11/15/20 21:00 11/24/20 22:00 11/23/20 21:26 Lactobacillus Rhamnosus (Culturelle) 1 cap BID PO 11/15/20 21:00 11/23/20 21:26 Sertraline HCl (Zoloft) 75 mg DAILY PO 11/22/20 09:00 11/23/20 08:26 I have reviewed the current psychotropics carefully including drug interactions. Risk benefit ratio favors no change other than as noted in my dictated progress note. Diagnosis: Problems: (1) Impulse control disorder, unspecified (2) Anxiety disorder, unspecified (3) Dementia, vascular, with depression (4) Dementia, vascular, with delusions (5) Dementia in Alzheimer's disease with depression (6) Dementia in Alzheimer's disease with delusions (7) Dementia of the Alzheimer's type with early onset with behavioral disturbance (8) Major neurocognitive disorder KANDY WADE MD Nov 23, 2020 22:08
--- NOTE | 2020-11-24 02:58 | NUR ---
Nursing Note The patient was disorganized but interactive with peers and staff. The patient was compliant with her medication and was able to take them whole. The patient was able to answer name only during her assessment. The patient is currently sleeping in her room.
[2020-11-24 06:29] VITALS: BP 155/81
[2020-11-24] MEDS: LACTOBACILLUS RHAMNOSUS GG 1 CAPSULE. PO SCH ×2 (08:35→19:47)
[2020-11-24] MEDS: DOXYCYCLINE HYCLATE 100 MG TABLET PO SCH ×2 (08:35→19:47)
[2020-11-24] MEDS: SERTRALINE 50 MG TABLET. PO SCH (08:35)
[2020-11-24] MEDS: CLOTRIMAZOLE 1% TOPICAL CREAM 30GM TUBE. TP SCH ×2 (09:00→19:48)
--- NOTE | 2020-11-24 09:24 | NUR ---
Pt has been present and visible on the unit. She is disorganized and confused, A&O to name. Her interactions with others are appropriate, no verbal/physical aggression noted. Absent of SI/HI/VH/AH/delusions at this time. She denies pain when asked. She is compliant with whole medications. Plan of care continues, will pass to next shift.
[2020-11-24 16:05] VITALS: BP 121/75
[2020-11-24] MEDS: traZODone 50 MG TABLET. PO PRN (19:47)
[2020-11-24] MEDS: QUEtiapine 25 MG TABLET. PO SCH (19:47)
[2020-11-24] MEDS: HYDROcodone/APAP 5/325MG 1 TAB TABLET PO PRN (21:18)
--- NOTE | 2020-11-24 22:20 | PDOC ---
Exam Note: Abdirashid Note: Please also refer to the separate dictated note~for this date of service dictated separately.~Patient seen individually. Discussed the patient with Nursing staff reviewed the chart.~Reviewed interim history and current functioning. Reviewed vital signs,~Labs/ Radiology~and current medications noted below. Continue current treatment with the changes noted in the dictated addendum note Assessment: Vital Signs/I&O: Vital Signs Date Time Temp Pulse Resp B/P (MAP) Pulse Ox O2 Delivery O2 Flow Rate FiO2 11/24/20 21:18 98 11/24/20 16:05 98.0 81 20 121/75 (90) 11/22/20 06:06 Room Air I & O 11/23/20 11/23/20 11/24/20 15:00 23:00 07:00 Intake Total 720 ml 480 ml Balance 720 ml 480 ml Current Medications: Meds: Current Medications Medications (Trade) Dose Ordered Sig/Rach Route PRN Reason Start Time Stop Time Status Last Admin Dose Admin Clotrimazole (Lotrimin) 1 kathi BID TP 11/10/20 21:00 11/24/20 19:48 Cephalexin HCl (Keflex) 500 mg TID PO 11/10/20 21:00 11/13/20 22:00 DC 11/13/20 20:55 Acetaminophen (Tylenol) 650 mg PRN Q6HRS PRN PO MILD PAIN / TEMP > 100.3'F 11/10/20 15:30 11/15/20 06:37 Multi-Ingredient Ointment (Analgesic [place]) 1 kathi PRN QID PRN TP MUSCLE PAIN 11/10/20 15:30 Al Hydroxide/Mg Hydroxide (Mylanta Plus Xs) 15 ml PRN AFTMEALHC PRN PO DYSPEPSIA 11/10/20 15:30 Magnesium Hydroxide (Milk Of Magnesia) 2,400 mg PRN QHS PRN PO CONSTIPATION 11/10/20 15:30 Acetaminophen/ Hydrocodone Bitart (Lortab 5/325) 1 tab PRN Q6HRS PRN PO MOD-SEV PAIN 11/10/20 17:00 11/24/20 21:18 Olanzapine (ZyPREXA ZYDIS) 2.5 mg PRN Q2HR PRN PO PSYCHOSIS 11/10/20 17:15 11/23/20 13:07 Trazodone HCl (Desyrel) 50 mg QHS PRN PO INSOMNIA, MAY REPEAT X1 11/10/20 22:30 11/24/20 19:47 Mirtazapine (Remeron) 7.5 mg QHS PO 11/11/20 21:00 11/13/20 15:41 DC 11/12/20 19:21 Sertraline HCl (Zoloft) 25 mg DAILY PO 11/12/20 17:00 11/14/20 18:00 DC 11/14/20 08:44 Sertraline HCl (Zoloft) 50 mg DAILY PO 11/15/20 17:00 11/21/20 17:12 DC 11/21/20 08:38 Quetiapine Fumarate (SEROquel) 25 mg QHS PO 11/13/20 21:00 11/24/20 19:47 Doxycycline Hyclate (Vibra-Tab) 100 mg BID PO 11/15/20 21:00 11/24/20 22:00 DC 11/24/20 19:47 Lactobacillus Rhamnosus (Culturelle) 1 cap BID PO 11/15/20 21:00 11/24/20 19:47 Sertraline HCl (Zoloft) 75 mg DAILY PO 11/22/20 09:00 11/24/20 08:35 I have reviewed the current psychotropics carefully including drug interactions. Risk benefit ratio favors no change other than as noted in my dictated progress note. Diagnosis: Problems: (1) Impulse control disorder, unspecified (2) Anxiety disorder, unspecified (3) Dementia, vascular, with depression (4) Dementia, vascular, with delusions (5) Dementia in Alzheimer's disease with depression (6) Dementia in Alzheimer's disease with delusions (7) Dementia of the Alzheimer's type with early onset with behavioral disturbance (8) Major neurocognitive disorder KANDY WADE MD Nov 24, 2020 22:20
--- NOTE | 2020-11-24 22:49 | NUR ---
Pt restless and disorganized this evening. Pt intrusive with other pts, attempting to "help" peers. Pt delusional; stating she is at work and is waiting for her parents. Compliant with whole medications. PRN Oxycodone administered r/t pt stating her R knee hurt. Pt currently sleeping in bed.
[2020-11-25 05:55] VITALS: BP 122/66
[2020-11-25 07:06] LABS: BASO % 1 % (0-3); EOS # 0.2 x10^3/uL (0.0-0.7); EOS % 3 % (0-3); HEMATOCRIT 35.4 % (36.0-47.0); HEMOGLOBIN 11.7 g/dL (12.0-15.5); LYMPH # 1.2 x10^3/uL (1.0-4.8); LYMPH % 22 % (24-48); MEAN CORPUSCULAR HEMOGLOBIN 31 pg (25-35); MEAN CORPUSCULAR HGB CONC 33 g/dL (31-37); MEAN CORPUSCULAR VOLUME 93 fL (79-100); MONO # 0.7 x10^3/uL (0.0-1.1); MONO % 13 % (0-9); NEUT # 3.4 x10^3uL (1.8-7.7); NEUT % 62 % (31-73); PLATELET COUNT 291 x10^3/uL (140-400); RED BLOOD COUNT 3.83 x10^6/uL (3.50-5.40); RED CELL DISTRIBUTION WIDTH 14.2 % (11.5-14.5); WHITE BLOOD COUNT 5.5 x10^3/uL (4.0-11.0)
[2020-11-25] MEDS: SERTRALINE 50 MG TABLET. PO SCH (07:44)
[2020-11-25] MEDS: CLOTRIMAZOLE 1% TOPICAL CREAM 30GM TUBE. TP SCH ×2 (07:44→19:58)
[2020-11-25] MEDS: LACTOBACILLUS RHAMNOSUS GG 1 CAPSULE. PO SCH ×2 (07:44→19:58)
--- NOTE | 2020-11-25 08:20 | PDOC ---
Exam Note: Abdirashid Note: This note is a late entry for 11/23/2020 covers elements not covered in my initial note. Subjective: The patient was seen individually in the evening of 11/23/2020 with Samira DAILY, discussed and reviewed the chart. The patient slept 7-1/4 hours previous night. She has been confused, remains on antibiotics for her UTI, takes medications whole. She was tearful after lunch. She was upset and anxious that parents were not back in time to get her to school. Review of Systems: No CV, , pulmonary, eye, ENT system symptoms on review. Reliability poor. Mental Status Exam: The patient is oriented to herself. She was quite pleasant, verbal, interactive, confused, was smiling and very surprised that I knew her name. Speech coherent. Abstraction fair. Computation impaired. No suicidal or homicidal ideation. Attention span short. Language function intact. Laboratory Data: Reviewed. Impression: Major depressive disorder with psychotic features versus major neurocognitive disorder, Alzheimer vascular with depression, delusions, behavioral disturbance versus psychotic disorder unspecified. Plan: No change from initial note. Assessment: Vital Signs/I&O: Vital Signs Date Time Temp Pulse Resp B/P (MAP) Pulse Ox O2 Delivery O2 Flow Rate FiO2 11/25/20 05:55 97.6 80 16 122/66 (84) 95 11/22/20 06:06 Room Air I & O 11/24/20 11/24/20 11/25/20 15:00 23:00 07:00 Intake Total 570 ml 240 ml Balance 570 ml 240 ml Labs: Laboratory Tests Test 11/24/20 14:50 11/25/20 06:30 SARS-CoV-2 (PCR) Negative (NEGATIVE) White Blood Count 5.5 x10^3/uL (4.0-11.0) Red Blood Count 3.83 x10^6/uL (3.50-5.40) Hemoglobin 11.7 g/dL (12.0-15.5) L Hematocrit 35.4 % (36.0-47.0) L Mean Corpuscular Volume 93 fL (79-100) Mean Corpuscular Hemoglobin 31 pg (25-35) Mean Corpuscular Hemoglobin Concent 33 g/dL (31-37) Red Cell Distribution Width 14.2 % (11.5-14.5) Platelet Count 291 x10^3/uL (140-400) Neutrophils (%) (Auto) 62 % (31-73) Lymphocytes (%) (Auto) 22 % (24-48) L Monocytes (%) (Auto) 13 % (0-9) H Eosinophils (%) (Auto) 3 % (0-3) Basophils (%) (Auto) 1 % (0-3) Neutrophils # (Auto) 3.4 x10^3uL (1.8-7.7) Lymphocytes # (Auto) 1.2 x10^3/uL (1.0-4.8) Monocytes # (Auto) 0.7 x10^3/uL (0.0-1.1) Eosinophils # (Auto) 0.2 x10^3/uL (0.0-0.7) Basophils # (Auto) 0.0 x10^3/uL (0.0-0.2) Current Medications: Meds: Laboratory Tests Test 11/24/20 14:50 11/25/20 06:30 Coronavirus (COVID-19)(PCR) Negative White Blood Count 5.5 x10^3/uL Red Blood Count 3.83 x10^6/uL Hemoglobin 11.7 g/dL Hematocrit 35.4 % Mean Corpuscular Volume 93 fL Mean Corpuscular Hemoglobin 31 pg Mean Corpuscular Hemoglobin Concent 33 g/dL Red Cell Distribution Width 14.2 % Platelet Count 291 x10^3/uL Neutrophils (%) (Auto) 62 % Lymphocytes (%) (Auto) 22 % Monocytes (%) (Auto) 13 % Eosinophils (%) (Auto) 3 % Basophils (%) (Auto) 1 % Neutrophils # (Auto) 3.4 x10^3uL Lymphocytes # (Auto) 1.2 x10^3/uL Monocytes # (Auto) 0.7 x10^3/uL Eosinophils # (Auto) 0.2 x10^3/uL Basophils # (Auto) 0.0 x10^3/uL Current Medications Medications (Trade) Dose Ordered Sig/Rach Route PRN Reason Start Time Stop Time Status Last Admin Dose Admin Clotrimazole (Lotrimin) 1 kathi BID TP 11/10/20 21:00 11/25/20 07:44 Cephalexin HCl (Keflex) 500 mg TID PO 11/10/20 21:00 6/29/21 22:00 DC 11/13/20 20:55 Acetaminophen (Tylenol) 650 mg PRN Q6HRS PRN PO MILD PAIN / TEMP > 100.3'F 11/10/20 15:30 11/15/20 06:37 Multi-Ingredient Ointment (Analgesic [place]) 1 kathi PRN QID PRN TP MUSCLE PAIN 11/10/20 15:30 Al Hydroxide/Mg Hydroxide (Mylanta Plus Xs) 15 ml PRN AFTMEALHC PRN PO DYSPEPSIA 11/10/20 15:30 Magnesium Hydroxide (Milk Of Magnesia) 2,400 mg PRN QHS PRN PO CONSTIPATION 11/10/20 15:30 Acetaminophen/ Hydrocodone Bitart (Lortab 5/325) 1 tab PRN Q6HRS PRN PO MOD-SEV PAIN 11/10/20 17:00 11/24/20 21:18 Olanzapine (ZyPREXA ZYDIS) 2.5 mg PRN Q2HR PRN PO PSYCHOSIS 11/10/20 17:15 11/23/20 13:07 Trazodone HCl (Desyrel) 50 mg QHS PRN PO INSOMNIA, MAY REPEAT X1 11/10/20 22:30 11/24/20 19:47 Mirtazapine (Remeron) 7.5 mg QHS PO 11/11/20 21:00 11/13/20 15:41 DC 11/12/20 19:21 Sertraline HCl (Zoloft) 25 mg DAILY PO 11/12/20 17:00 11/14/20 18:00 DC 11/14/20 08:44 Sertraline HCl (Zoloft) 50 mg DAILY PO 11/15/20 17:00 11/21/20 17:12 DC 11/21/20 08:38 Quetiapine Fumarate (SEROquel) 25 mg QHS PO 11/13/20 21:00 11/24/20 19:47 Doxycycline Hyclate (Vibra-Tab) 100 mg BID PO 11/15/20 21:00 11/24/20 22:00 DC 11/24/20 19:47 Lactobacillus Rhamnosus (Culturelle) 1 cap BID PO 11/15/20 21:00 11/25/20 07:44 Sertraline HCl (Zoloft) 75 mg DAILY PO 11/22/20 09:00 11/25/20 07:44 I have reviewed the current psychotropics carefully including drug interactions. Risk benefit ratio favors no change other than as noted in my dictated progress note. Diagnosis: Problems: (1) Impulse control disorder, unspecified (2) Anxiety disorder, unspecified (3) Dementia, vascular, with depression (4) Dementia, vascular, with delusions (5) Dementia in Alzheimer's disease with depression (6) Dementia in Alzheimer's disease with delusions (7) Dementia of the Alzheimer's type with early onset with behavioral disturbance (8) Major neurocognitive disorder KANDY WADE MD Nov 25, 2020 08:19
--- NOTE | 2020-11-25 08:42 | PDOC ---
Exam Note: Abdirashid Note: This note is a late entry for 11/24/2020 covers elements not covered in my initial note. Subjective: The patient was seen individually in the evening of 11/24/2020 with Emi DAILY, discussed and reviewed the chart. The patient slept 7-1/4 hours previous night. She has been confused, calm, compliant with medications, somewhat delusional in the evening, refused her medications, looking for her parents. Review of Systems: No CV, , pulmonary, eye, ENT system symptoms on review. Reliability poor. Gait is steady. Mental Status Exam: The patient is oriented to herself. Insight and judgment, recent and remote memory, attention and concentration is poor consistent with her diagnoses. Laboratory Data: Reviewed. Impression: Major depressive disorder with psychotic features versus major neurocognitive disorder, Alzheimer vascular with depression, delusions, behavioral disturbance versus psychotic disorder unspecified. Plan: No change from initial note. Assessment: Vital Signs/I&O: Vital Signs Date Time Temp Pulse Resp B/P (MAP) Pulse Ox O2 Delivery O2 Flow Rate FiO2 11/25/20 05:55 97.6 80 16 122/66 (84) 95 11/22/20 06:06 Room Air I & O 11/24/20 11/24/20 11/25/20 15:00 23:00 07:00 Intake Total 570 ml 240 ml Balance 570 ml 240 ml Labs: Laboratory Tests Test 11/24/20 14:50 11/25/20 06:30 SARS-CoV-2 (PCR) Negative (NEGATIVE) White Blood Count 5.5 x10^3/uL (4.0-11.0) Red Blood Count 3.83 x10^6/uL (3.50-5.40) Hemoglobin 11.7 g/dL (12.0-15.5) L Hematocrit 35.4 % (36.0-47.0) L Mean Corpuscular Volume 93 fL (79-100) Mean Corpuscular Hemoglobin 31 pg (25-35) Mean Corpuscular Hemoglobin Concent 33 g/dL (31-37) Red Cell Distribution Width 14.2 % (11.5-14.5) Platelet Count 291 x10^3/uL (140-400) Neutrophils (%) (Auto) 62 % (31-73) Lymphocytes (%) (Auto) 22 % (24-48) L Monocytes (%) (Auto) 13 % (0-9) H Eosinophils (%) (Auto) 3 % (0-3) Basophils (%) (Auto) 1 % (0-3) Neutrophils # (Auto) 3.4 x10^3uL (1.8-7.7) Lymphocytes # (Auto) 1.2 x10^3/uL (1.0-4.8) Monocytes # (Auto) 0.7 x10^3/uL (0.0-1.1) Eosinophils # (Auto) 0.2 x10^3/uL (0.0-0.7) Basophils # (Auto) 0.0 x10^3/uL (0.0-0.2) Current Medications: Meds: Laboratory Tests Test 11/24/20 14:50 11/25/20 06:30 Coronavirus (COVID-19)(PCR) Negative White Blood Count 5.5 x10^3/uL Red Blood Count 3.83 x10^6/uL Hemoglobin 11.7 g/dL Hematocrit 35.4 % Mean Corpuscular Volume 93 fL Mean Corpuscular Hemoglobin 31 pg Mean Corpuscular Hemoglobin Concent 33 g/dL Red Cell Distribution Width 14.2 % Platelet Count 291 x10^3/uL Neutrophils (%) (Auto) 62 % Lymphocytes (%) (Auto) 22 % Monocytes (%) (Auto) 13 % Eosinophils (%) (Auto) 3 % Basophils (%) (Auto) 1 % Neutrophils # (Auto) 3.4 x10^3uL Lymphocytes # (Auto) 1.2 x10^3/uL Monocytes # (Auto) 0.7 x10^3/uL Eosinophils # (Auto) 0.2 x10^3/uL Basophils # (Auto) 0.0 x10^3/uL Current Medications Medications (Trade) Dose Ordered Sig/Rach Route PRN Reason Start Time Stop Time Status Last Admin Dose Admin Clotrimazole (Lotrimin) 1 kathi BID TP 11/10/20 21:00 11/25/20 07:44 Cephalexin HCl (Keflex) 500 mg TID PO 11/10/20 21:00 11/13/20 22:00 DC 11/13/20 20:55 Acetaminophen (Tylenol) 650 mg PRN Q6HRS PRN PO MILD PAIN / TEMP > 100.3'F 11/10/20 15:30 11/15/20 06:37 Multi-Ingredient Ointment (Analgesic [place]) 1 kathi PRN QID PRN TP MUSCLE PAIN 11/10/20 15:30 Al Hydroxide/Mg Hydroxide (Mylanta Plus Xs) 15 ml PRN AFTMEALHC PRN PO DYSPEPSIA 11/10/20 15:30 Magnesium Hydroxide (Milk Of Magnesia) 2,400 mg PRN QHS PRN PO CONSTIPATION 11/10/20 15:30 Acetaminophen/ Hydrocodone Bitart (Lortab 5/325) 1 tab PRN Q6HRS PRN PO MOD-SEV PAIN 11/10/20 17:00 11/24/20 21:18 Olanzapine (ZyPREXA ZYDIS) 2.5 mg PRN Q2HR PRN PO PSYCHOSIS 11/10/20 17:15 11/23/20 13:07 Trazodone HCl (Desyrel) 50 mg QHS PRN PO INSOMNIA, MAY REPEAT X1 11/10/20 22:30 11/24/20 19:47 Mirtazapine (Remeron) 7.5 mg QHS PO 11/11/20 21:00 11/13/20 15:41 DC 11/12/20 19:21 Sertraline HCl (Zoloft) 25 mg DAILY PO 11/12/20 17:00 11/14/20 18:00 DC 11/14/20 08:44 Sertraline HCl (Zoloft) 50 mg DAILY PO 11/15/20 17:00 11/21/20 17:12 DC 11/21/20 08:38 Quetiapine Fumarate (SEROquel) 25 mg QHS PO 11/13/20 21:00 11/24/20 19:47 Doxycycline Hyclate (Vibra-Tab) 100 mg BID PO 11/15/20 21:00 11/24/20 22:00 DC 11/24/20 19:47 Lactobacillus Rhamnosus (Culturelle) 1 cap BID PO 11/15/20 21:00 11/25/20 07:44 Sertraline HCl (Zoloft) 75 mg DAILY PO 11/22/20 09:00 11/25/20 07:44 I have reviewed the current psychotropics carefully including drug interactions. Risk benefit ratio favors no change other than as noted in my dictated progress note. Diagnosis: Problems: (1) Impulse control disorder, unspecified (2) Anxiety disorder, unspecified (3) Dementia, vascular, with depression (4) Dementia, vascular, with delusions (5) Dementia in Alzheimer's disease with depression (6) Dementia in Alzheimer's disease with delusions (7) Dementia of the Alzheimer's type with early onset with behavioral disturbance (8) Major neurocognitive disorder KANDY WADE MD Nov 25, 2020 08:42
[2020-11-25 09:13] LABS: TOTAL PROTEIN 6.5 g/dL (6.4-8.2)
[2020-11-25 09:14] LABS: ALBUMIN 3.2 g/dL (3.4-5.0); CALCIUM 8.8 mg/dL (8.5-10.1); CREATININE 0.7 mg/dL (0.6-1.0); GFR 81.4; POTASSIUM 4.3 mmol/L (3.5-5.1); TOTAL BILIRUBIN 0.3 mg/dL (0.2-1.0)
--- NOTE | 2020-11-25 12:19 | NUR ---
Nursing note: Pt in day room at time of AM med pass and assessment. She was med compliant and cooperative. Pt has been very tearful this shift because "my parents left me here". Pt has also been looking for a couple kids that "have been running around here". She is currently in the dining room for lunch. Will continue to monitor.
--- NOTE | 2020-11-25 15:15 | NUR ---
Nursing note: Pt becoming increasingly tearful and agitated about not finding her parents. She has begun to get other pt's worked up. PRN administered. Will continue to monitor.
[2020-11-25 16:09] VITALS: BP 127/73
[2020-11-25] MEDS: traZODone 50 MG TABLET. PO PRN (19:58)
[2020-11-25] MEDS: QUEtiapine 25 MG TABLET. PO SCH (19:58)
--- NOTE | 2020-11-25 22:14 | PDOC ---
Exam Note: Abdirashid Note: Please also refer to the separate dictated note~for this date of service dictated separately.~Patient seen individually. Discussed the patient with Nursing staff reviewed the chart.~Reviewed interim history and current functioning. Reviewed vital signs,~Labs/ Radiology~and current medications noted below. Continue current treatment with the changes noted in the dictated addendum note Assessment: Vital Signs/I&O: Vital Signs Date Time Temp Pulse Resp B/P (MAP) Pulse Ox O2 Delivery O2 Flow Rate FiO2 11/25/20 16:09 97.6 85 18 127/73 (91) 96 11/22/20 06:06 Room Air I & O 11/24/20 11/24/20 11/25/20 14:59 22:59 06:59 Intake Total 570 ml 240 ml Balance 570 ml 240 ml Labs: Laboratory Tests Test 11/25/20 06:30 White Blood Count 5.5 x10^3/uL (4.0-11.0) Red Blood Count 3.83 x10^6/uL (3.50-5.40) Hemoglobin 11.7 g/dL (12.0-15.5) L Hematocrit 35.4 % (36.0-47.0) L Mean Corpuscular Volume 93 fL (79-100) Mean Corpuscular Hemoglobin 31 pg (25-35) Mean Corpuscular Hemoglobin Concent 33 g/dL (31-37) Red Cell Distribution Width 14.2 % (11.5-14.5) Platelet Count 291 x10^3/uL (140-400) Neutrophils (%) (Auto) 62 % (31-73) Lymphocytes (%) (Auto) 22 % (24-48) L Monocytes (%) (Auto) 13 % (0-9) H Eosinophils (%) (Auto) 3 % (0-3) Basophils (%) (Auto) 1 % (0-3) Neutrophils # (Auto) 3.4 x10^3uL (1.8-7.7) Lymphocytes # (Auto) 1.2 x10^3/uL (1.0-4.8) Monocytes # (Auto) 0.7 x10^3/uL (0.0-1.1) Eosinophils # (Auto) 0.2 x10^3/uL (0.0-0.7) Basophils # (Auto) 0.0 x10^3/uL (0.0-0.2) Sodium Level 144 mmol/L (136-145) Potassium Level 4.3 mmol/L (3.5-5.1) Chloride Level 105 mmol/L (98-107) Carbon Dioxide Level 29 mmol/L (21-32) Anion Gap 10 (6-14) Blood Urea Nitrogen 24 mg/dL (7-20) H Creatinine 0.7 mg/dL (0.6-1.0) Estimated GFR (Cockcroft-Gault) 81.4 BUN/Creatinine Ratio 34 (6-20) H Glucose Level 79 mg/dL (70-99) Calcium Level 8.8 mg/dL (8.5-10.1) Total Bilirubin 0.3 mg/dL (0.2-1.0) Aspartate Amino Transferase (AST) 19 U/L (15-37) Alanine Aminotransferase (ALT) 25 U/L (14-59) Alkaline Phosphatase 53 U/L (46-116) Total Protein 6.5 g/dL (6.4-8.2) Albumin 3.2 g/dL (3.4-5.0) L Albumin/Globulin Ratio 1.0 (1.0-1.7) Current Medications: Meds: Laboratory Tests Test 11/25/20 06:30 White Blood Count 5.5 x10^3/uL Red Blood Count 3.83 x10^6/uL Hemoglobin 11.7 g/dL Hematocrit 35.4 % Mean Corpuscular Volume 93 fL Mean Corpuscular Hemoglobin 31 pg Mean Corpuscular Hemoglobin Concent 33 g/dL Red Cell Distribution Width 14.2 % Platelet Count 291 x10^3/uL Neutrophils (%) (Auto) 62 % Lymphocytes (%) (Auto) 22 % Monocytes (%) (Auto) 13 % Eosinophils (%) (Auto) 3 % Basophils (%) (Auto) 1 % Neutrophils # (Auto) 3.4 x10^3uL Lymphocytes # (Auto) 1.2 x10^3/uL Monocytes # (Auto) 0.7 x10^3/uL Eosinophils # (Auto) 0.2 x10^3/uL Basophils # (Auto) 0.0 x10^3/uL Sodium Level 144 mmol/L Potassium Level 4.3 mmol/L Chloride Level 105 mmol/L Carbon Dioxide Level 29 mmol/L Anion Gap 10 Blood Urea Nitrogen 24 mg/dL Creatinine 0.7 mg/dL Estimated GFR (Cockcroft-Gault) 81.4 BUN/Creatinine Ratio 34 Glucose Level 79 mg/dL Calcium Level 8.8 mg/dL Total Bilirubin 0.3 mg/dL Aspartate Amino Transf (AST/SGOT) 19 U/L Alanine Aminotransferase (ALT/SGPT) 25 U/L Alkaline Phosphatase 53 U/L Total Protein 6.5 g/dL Albumin 3.2 g/dL Albumin/Globulin Ratio 1.0 Current Medications Medications (Trade) Dose Ordered Sig/Rach Route PRN Reason Start Time Stop Time Status Last Admin Dose Admin Clotrimazole (Lotrimin) 1 kathi BID TP 11/10/20 21:00 11/25/20 19:58 Cephalexin HCl (Keflex) 500 mg TID PO 11/10/20 21:00 11/13/20 22:00 DC 11/13/20 20:55 Acetaminophen (Tylenol) 650 mg PRN Q6HRS PRN PO MILD PAIN / TEMP > 100.3'F 11/10/20 15:30 11/15/20 06:37 Multi-Ingredient Ointment (Analgesic [place]) 1 kathi PRN QID PRN TP MUSCLE PAIN 11/10/20 15:30 Al Hydroxide/Mg Hydroxide (Mylanta Plus Xs) 15 ml PRN AFTMEALHC PRN PO DYSPEPSIA 11/10/20 15:30 Magnesium Hydroxide (Milk Of Magnesia) 2,400 mg PRN QHS PRN PO CONSTIPATION 11/10/20 15:30 Acetaminophen/ Hydrocodone Bitart (Lortab 5/325) 1 tab PRN Q6HRS PRN PO MOD-SEV PAIN 11/10/20 17:00 11/24/20 21:18 Olanzapine (ZyPREXA ZYDIS) 2.5 mg PRN Q2HR PRN PO PSYCHOSIS 11/10/20 17:15 11/25/20 15:14 Trazodone HCl (Desyrel) 50 mg QHS PRN PO INSOMNIA, MAY REPEAT X1 11/10/20 22:30 11/25/20 19:58 Mirtazapine (Remeron) 7.5 mg QHS PO 11/11/20 21:00 11/13/20 15:41 DC 11/12/20 19:21 Sertraline HCl (Zoloft) 25 mg DAILY PO 11/12/20 17:00 11/14/20 18:00 DC 11/14/20 08:44 Sertraline HCl (Zoloft) 50 mg DAILY PO 11/15/20 17:00 11/21/20 17:12 DC 11/21/20 08:38 Quetiapine Fumarate (SEROquel) 25 mg QHS PO 11/13/20 21:00 11/25/20 19:58 Doxycycline Hyclate (Vibra-Tab) 100 mg BID PO 11/15/20 21:00 11/24/20 22:00 DC 11/24/20 19:47 Lactobacillus Rhamnosus (Culturelle) 1 cap BID PO 11/15/20 21:00 11/25/20 19:58 Sertraline HCl (Zoloft) 75 mg DAILY PO 11/22/20 09:00 11/25/20 07:44 Quetiapine Fumarate (SEROquel) 12.5 mg DAILY PO 11/26/20 09:00 I have reviewed the current psychotropics carefully including drug interactions. Risk benefit ratio favors no change other than as noted in my dictated progress note. Diagnosis: Problems: (1) Impulse control disorder, unspecified (2) Anxiety disorder, unspecified (3) Dementia, vascular, with depression (4) Dementia, vascular, with delusions (5) Dementia in Alzheimer's disease with depression (6) Dementia in Alzheimer's disease with delusions (7) Dementia of the Alzheimer's type with early onset with behavioral disturbance (8) Major neurocognitive disorder KANDY WADE MD Nov 25, 2020 22:14
--- NOTE | 2020-11-25 22:20 | NUR ---
Pt anxious and disorganized this evening. Pt looking for her parents, stating she needs to leave. Pt tearful, unable to redirect. Compliant with whole medications. Pt very combative and agitated with shower. Pt yelling and attempting to hit throughout the shower. Pt currently awake in her room.
[2020-11-26 06:11] VITALS: BP 122/75
--- NOTE | 2020-11-26 06:57 | PDOC ---
Exam Note: Abdirashid Note: This note is a late entry for 11/25/2020 covers elements not covered in my initial note. Subjective: The patient was seen individually in the evening of 11/25/2020 with Samira DAILY, discussed and reviewed the chart. The patient slept 5-1/2 hours previous night. The patient has been delusional, tearful, looking for her parents. Received Seroquel at 12.59 p.m. She was fixated on the fact that she has to find her parents because she was rushed here and she was getting ready to go to school. Compliant with medications. Her daughter called her and she confused her daughter with her sister. Review of Systems: No CV, , pulmonary, eye, ENT system symptoms on review. Reliability poor. Mental Status Exam: The patient is oriented to herself. Insight and judgment, recent and remote memory, attention and concentration is poor consistent with her diagnoses. Laboratory Data: Reviewed. Impression: Major depressive disorder with psychotic features versus major neurocognitive disorder, Alzheimer vascular with depression, delusions, behavioral disturbance versus psychotic disorder unspecified. Plan: No change from initial note. Start Seroquel 12.5 mg at 9 a.m. Assessment: Vital Signs/I&O: Vital Signs Date Time Temp Pulse Resp B/P (MAP) Pulse Ox O2 Delivery O2 Flow Rate FiO2 11/26/20 06:11 98.4 73 18 122/75 (91) 97 11/22/20 06:06 Room Air I & O 11/25/20 11/25/20 11/26/20 15:00 23:00 07:00 Intake Total 720 ml 600 ml Balance 720 ml 600 ml Current Medications: Meds: Current Medications Medications (Trade) Dose Ordered Sig/Rach Route PRN Reason Start Time Stop Time Status Last Admin Dose Admin Clotrimazole (Lotrimin) 1 kathi BID TP 11/10/20 21:00 11/25/20 19:58 Cephalexin HCl (Keflex) 500 mg TID PO 11/10/20 21:00 11/13/20 22:00 DC 11/13/20 20:55 Acetaminophen (Tylenol) 650 mg PRN Q6HRS PRN PO MILD PAIN / TEMP > 100.3'F 11/10/20 15:30 11/15/20 06:37 Multi-Ingredient Ointment (Analgesic [place]) 1 kathi PRN QID PRN TP MUSCLE PAIN 11/10/20 15:30 Al Hydroxide/Mg Hydroxide (Mylanta Plus Xs) 15 ml PRN AFTMEALHC PRN PO DYSPEPSIA 11/10/20 15:30 Magnesium Hydroxide (Milk Of Magnesia) 2,400 mg PRN QHS PRN PO CONSTIPATION 11/10/20 15:30 Acetaminophen/ Hydrocodone Bitart (Lortab 5/325) 1 tab PRN Q6HRS PRN PO MOD-SEV PAIN 11/10/20 17:00 11/24/20 21:18 Olanzapine (ZyPREXA ZYDIS) 2.5 mg PRN Q2HR PRN PO PSYCHOSIS 11/10/20 17:15 11/25/20 15:14 Trazodone HCl (Desyrel) 50 mg QHS PRN PO INSOMNIA, MAY REPEAT X1 11/10/20 22:30 11/25/20 19:58 Mirtazapine (Remeron) 7.5 mg QHS PO 11/11/20 21:00 11/13/20 15:41 DC 11/12/20 19:21 Sertraline HCl (Zoloft) 25 mg DAILY PO 11/12/20 17:00 11/14/20 18:00 DC 11/14/20 08:44 Sertraline HCl (Zoloft) 50 mg DAILY PO 11/15/20 17:00 11/21/20 17:12 DC 11/21/20 08:38 Quetiapine Fumarate (SEROquel) 25 mg QHS PO 11/13/20 21:00 11/25/20 19:58 Doxycycline Hyclate (Vibra-Tab) 100 mg BID PO 11/15/20 21:00 11/24/20 22:00 DC 11/24/20 19:47 Lactobacillus Rhamnosus (Culturelle) 1 cap BID PO 11/15/20 21:00 11/25/20 19:58 Sertraline HCl (Zoloft) 75 mg DAILY PO 11/22/20 09:00 11/25/20 07:44 Quetiapine Fumarate (SEROquel) 12.5 mg DAILY PO 11/26/20 09:00 I have reviewed the current psychotropics carefully including drug interactions. Risk benefit ratio favors no change other than as noted in my dictated progress note. Diagnosis: Problems: (1) Impulse control disorder, unspecified (2) Anxiety disorder, unspecified (3) Dementia, vascular, with depression (4) Dementia, vascular, with delusions (5) Dementia in Alzheimer's disease with depression (6) Dementia in Alzheimer's disease with delusions (7) Dementia of the Alzheimer's type with early onset with behavioral disturbance (8) Major neurocognitive disorder KANDY WADE MD Nov 26, 2020 06:57
[2020-11-26] MEDS: SERTRALINE 50 MG TABLET. PO SCH (07:27)
[2020-11-26] MEDS: LACTOBACILLUS RHAMNOSUS GG 1 CAPSULE. PO SCH ×2 (07:27→20:02)
--- NOTE | 2020-11-26 07:37 | NUR ---
Nursing note: Pt in day room wandering around this AM. SAFETY INVESTIGATOR asked for pt's to sit back down and watch TV since breakfast was not quite ready yet. Cara was crying and screaming about having to sit back down as another pt was becoming combative with staff. Shoes were taken off other pt when she began kicking and Cara grabbed the shoes and began throwing them at staff. As staff was discussing incident, Cara was interrupting everything staff was saying and claiming "I said no such things." Cara was able to calm slightly and sit down in a chair in the day room. PRN administered with AM meds which she was compliant in taking. Will continue to monitor.
[2020-11-26] MEDS ORDERED: QUEtiapine 25 MG TABLET. PO SCH (09:00)
[2020-11-26] MEDS: CLOTRIMAZOLE 1% TOPICAL CREAM 30GM TUBE. TP SCH ×2 (09:00→20:02)
--- NOTE | 2020-11-26 12:20 | NUR ---
Treatment team note: Pt dtr Janeen participated in treatment team via phone. Pt is eating 100% of meals and sleeping on average 5.5 hours per night. Pt continues to be delusional looking for her parents and disorganized; she continues to be tearful at times but is able to be redirected. Pt was agitated this morning and threw her shoes at staff in which staff reports that pt may have been overstimulated with everything going on prior to breakfast. During group, pt appeared to be in better spirits and was dancing. Pt will have her Seroquel adjusted to 12.5mg at AM, noon and 25mg at HS. Pt dtr and SW will follow up on next steps (e.g. home vs placement) and what that will look like. GINA 7 days.
--- NOTE | 2020-11-26 14:33 | NUR ---
WEEKLY ACTIVITY THERAPY NOTE Date of Admission: 11/10/20 Date of AT Assessment: 11/13 Precipitating behaviors that initiated intake and admission: AMS, hallucinating, asking for parents, repetitive, STM defect, taking off clothes, incontinent, smearing feces on wall, attempting to leave house at night, poor hygiene Goal aimed: increase engagement and socialization Initial Goal: Pt will participate in at least three individual or group Activity Therapy sessions per week Goal changed 11/20: Pt will participate in at least five individual or group Activity Therapy sessions per week Weekly progress towards goal: achieved, 12/20 Group participation level: 1 min, 1 mod, 6 full Weekly highlights: clapped to music Thursday, exercises and finish the phrase Thursday, chocolate fun facts and milkshakes Thursday, horseshoes afternoon Behaviors observed: pleasant and calm, thought another pt was her daughter and was trying to leave afternoon Plan: change goal to: Pt will participate in at all Activity Therapy groups per week. Beneficial adaptations: music
[2020-11-26] MEDS: QUEtiapine 25 MG TABLET. PO SCH ×2 (14:40→20:02)
[2020-11-26 15:49] VITALS: BP 120/71
[2020-11-26] MEDS: traZODone 50 MG TABLET. PO PRN (20:02)
--- NOTE | 2020-11-26 22:18 | PDOC ---
Exam Note: Abdirashid Note: Please also refer to the separate dictated note~for this date of service dictated separately.~Patient seen individually. Discussed the patient with Nursing staff reviewed the chart.~Reviewed interim history and current functioning. Reviewed vital signs,~Labs/ Radiology~and current medications noted below. Continue current treatment with the changes noted in the dictated addendum note Assessment: Vital Signs/I&O: Vital Signs Date Time Temp Pulse Resp B/P (MAP) Pulse Ox O2 Delivery O2 Flow Rate FiO2 11/26/20 15:49 98.2 68 20 120/71 (87) 97 11/22/20 06:06 Room Air I & O 11/25/20 11/25/20 11/26/20 15:00 23:00 07:00 Intake Total 720 ml 600 ml Balance 720 ml 600 ml Current Medications: Meds: Current Medications Medications (Trade) Dose Ordered Sig/Rach Route PRN Reason Start Time Stop Time Status Last Admin Dose Admin Clotrimazole (Lotrimin) 1 kathi BID TP 11/10/20 21:00 11/26/20 09:00 Cephalexin HCl (Keflex) 500 mg TID PO 11/10/20 21:00 11/13/20 22:00 DC 11/13/20 20:55 Acetaminophen (Tylenol) 650 mg PRN Q6HRS PRN PO MILD PAIN / TEMP > 100.3'F 11/10/20 15:30 11/15/20 06:37 Multi-Ingredient Ointment (Analgesic [place]) 1 kathi PRN QID PRN TP MUSCLE PAIN 11/10/20 15:30 Al Hydroxide/Mg Hydroxide (Mylanta Plus Xs) 15 ml PRN AFTMEALHC PRN PO DYSPEPSIA 11/10/20 15:30 Magnesium Hydroxide (Milk Of Magnesia) 2,400 mg PRN QHS PRN PO CONSTIPATION 11/10/20 15:30 Acetaminophen/ Hydrocodone Bitart (Lortab 5/325) 1 tab PRN Q6HRS PRN PO MOD-SEV PAIN 11/10/20 17:00 11/24/20 21:18 Olanzapine (ZyPREXA ZYDIS) 2.5 mg PRN Q2HR PRN PO PSYCHOSIS 11/10/20 17:15 11/26/20 07:28 Trazodone HCl (Desyrel) 50 mg QHS PRN PO INSOMNIA, MAY REPEAT X1 11/10/20 22:30 11/26/20 20:02 Mirtazapine (Remeron) 7.5 mg QHS PO 11/11/20 21:00 11/13/20 15:41 DC 11/12/20 19:21 Sertraline HCl (Zoloft) 25 mg DAILY PO 11/12/20 17:00 11/14/20 18:00 DC 11/14/20 08:44 Sertraline HCl (Zoloft) 50 mg DAILY PO 11/15/20 17:00 11/21/20 17:12 DC 11/21/20 08:38 Quetiapine Fumarate (SEROquel) 25 mg QHS PO 11/13/20 21:00 11/26/20 20:02 Doxycycline Hyclate (Vibra-Tab) 100 mg BID PO 11/15/20 21:00 11/24/20 22:00 DC 11/24/20 19:47 Lactobacillus Rhamnosus (Culturelle) 1 cap BID PO 11/15/20 21:00 11/26/20 20:02 Sertraline HCl (Zoloft) 75 mg DAILY PO 11/22/20 09:00 11/26/20 07:27 Quetiapine Fumarate (SEROquel) 12.5 mg DAILY PO 11/26/20 09:00 11/26/20 14:20 DC 11/26/20 07:30 Quetiapine Fumarate (SEROquel) 12.5 mg 0900,1200 PO 11/26/20 14:30 11/26/20 14:40 Current Medications Medications (Trade) Dose Ordered Sig/Rach Route PRN Reason Start Time Stop Time Status Last Admin Dose Admin Quetiapine Fumarate (SEROquel) 12.5 mg DAILY PO 11/26/20 09:00 11/26/20 14:20 DC 11/26/20 07:30 Quetiapine Fumarate (SEROquel) 12.5 mg 0900,1200 PO 11/26/20 14:30 11/26/20 14:40 I have reviewed the current psychotropics carefully including drug interactions. Risk benefit ratio favors no change other than as noted in my dictated progress note. Diagnosis: Problems: (1) Impulse control disorder, unspecified (2) Anxiety disorder, unspecified (3) Dementia, vascular, with depression (4) Dementia, vascular, with delusions (5) Dementia in Alzheimer's disease with depression (6) Dementia in Alzheimer's disease with delusions (7) Dementia of the Alzheimer's type with early onset with behavioral disturbance (8) Major neurocognitive disorder KANDY WADE MD Nov 26, 2020 22:18
--- NOTE | 2020-11-26 23:42 | NUR ---
Pt wandering unit this evening. Pt restless and intrusive with other patients. Compliant with whole medications. No agitation or aggression.
--- NOTE | 2020-11-27 07:22 | PDOC ---
Exam Note: Abdirashid Note: This note is a late entry for 11/26/2020 covers elements not covered in my initial note. Subjective: The patient was seen individually in the morning of 11/26/2020 for a treatment team meeting with Steph Myers, Cyndi Manuel (perinatal social worker), Anamaria, activity therapy and Samira DAILY, discussed and reviewed the chart. The patient slept 6-1/2 hours previous night. The patients daughter Janeen attended the meeting. We had a lengthy discussion about the patients disorganization. Appetite is 100%. Average sleep 5-1/2 hours. She is restless, looking for her parents, more so in the evening. At times not very cooperative with cares. Previous night it took 4 staff to shower her. This morning she was tearful, screaming. There is lot of excess stimulation on the unit and a shoe was thrown by one of the demented patients and she picked it up and threw it back in the dayroom. Later she attended groups and has attended 8 in the past week including excise groups and was dancing in the group as well. Review of Systems: No CV, , pulmonary, eye, ENT system symptoms on review. Reliability poor. Mental Status Exam: The patient is oriented to herself. I met with her in the dayroom in the evening. Insight and judgment, recent and remote memory, attention and concentration is poor consistent with her diagnoses. Laboratory Data: Reviewed. Impression: Major depressive disorder with psychotic features versus major neurocognitive disorder, Alzheimer vascular with depression, delusions, behavioral disturbance versus psychotic disorder unspecified. Plan: I had lengthy discussion with the daughter about the patients diagnoses. UTI has resolved. Delusions persists, but she does have cellulitis for which she is on doxycycline which could explain some of this. We will go ahead and add an extra dosage of Seroquel to help with mood stability. Rest psychotropics unchanged for now. Assessment: Vital Signs/I&O: Vital Signs Date Time Temp Pulse Resp B/P (MAP) Pulse Ox O2 Delivery O2 Flow Rate FiO2 11/26/20 15:49 98.2 68 20 120/71 (87) 97 11/22/20 06:06 Room Air I & O 11/26/20 11/26/20 11/27/20 15:00 23:00 07:00 Intake Total 600 ml 360 ml Balance 600 ml 360 ml Current Medications: Meds: Current Medications Medications (Trade) Dose Ordered Sig/Rach Route PRN Reason Start Time Stop Time Status Last Admin Dose Admin Clotrimazole (Lotrimin) 1 kathi BID TP 11/10/20 21:00 11/26/20 09:00 Cephalexin HCl (Keflex) 500 mg TID PO 11/10/20 21:00 11/13/20 22:00 DC 11/13/20 20:55 Acetaminophen (Tylenol) 650 mg PRN Q6HRS PRN PO MILD PAIN / TEMP > 100.3'F 11/10/20 15:30 11/15/20 06:37 Multi-Ingredient Ointment (Analgesic [place]) 1 kathi PRN QID PRN TP MUSCLE PAIN 11/10/20 15:30 Al Hydroxide/Mg Hydroxide (Mylanta Plus Xs) 15 ml PRN AFTMEALHC PRN PO DYSPEPSIA 11/10/20 15:30 Magnesium Hydroxide (Milk Of Magnesia) 2,400 mg PRN QHS PRN PO CONSTIPATION 11/10/20 15:30 Acetaminophen/ Hydrocodone Bitart (Lortab 5/325) 1 tab PRN Q6HRS PRN PO MOD-SEV PAIN 11/10/20 17:00 11/24/20 21:18 Olanzapine (ZyPREXA ZYDIS) 2.5 mg PRN Q2HR PRN PO PSYCHOSIS 11/10/20 17:15 11/26/20 07:28 Trazodone HCl (Desyrel) 50 mg QHS PRN PO INSOMNIA, MAY REPEAT X1 11/10/20 22:30 11/26/20 20:02 Mirtazapine (Remeron) 7.5 mg QHS PO 11/11/20 21:00 11/13/20 15:41 DC 11/12/20 19:21 Sertraline HCl (Zoloft) 25 mg DAILY PO 11/12/20 17:00 11/14/20 18:00 DC 11/14/20 08:44 Sertraline HCl (Zoloft) 50 mg DAILY PO 11/15/20 17:00 11/21/20 17:12 DC 11/21/20 08:38 Quetiapine Fumarate (SEROquel) 25 mg QHS PO 11/13/20 21:00 7/12/21 20:02 Doxycycline Hyclate (Vibra-Tab) 100 mg BID PO 11/15/20 21:00 11/24/20 22:00 DC 11/24/20 19:47 Lactobacillus Rhamnosus (Culturelle) 1 cap BID PO 11/15/20 21:00 11/26/20 20:02 Sertraline HCl (Zoloft) 75 mg DAILY PO 11/22/20 09:00 11/26/20 07:27 Quetiapine Fumarate (SEROquel) 12.5 mg DAILY PO 11/26/20 09:00 11/26/20 14:20 DC 11/26/20 07:30 Quetiapine Fumarate (SEROquel) 12.5 mg 0900,1200 PO 11/26/20 14:30 11/26/20 14:40 Current Medications Medications (Trade) Dose Ordered Sig/Rach Route PRN Reason Start Time Stop Time Status Last Admin Dose Admin Quetiapine Fumarate (SEROquel) 12.5 mg DAILY PO 11/26/20 09:00 11/26/20 14:20 DC 11/26/20 07:30 Quetiapine Fumarate (SEROquel) 12.5 mg 0900,1200 PO 11/26/20 14:30 11/26/20 14:40 I have reviewed the current psychotropics carefully including drug interactions. Risk benefit ratio favors no change other than as noted in my dictated progress note. Diagnosis: Problems: (1) Impulse control disorder, unspecified (2) Anxiety disorder, unspecified (3) Dementia, vascular, with depression (4) Dementia, vascular, with delusions (5) Dementia in Alzheimer's disease with depression (6) Dementia in Alzheimer's disease with delusions (7) Dementia of the Alzheimer's type with early onset with behavioral disturbance (8) Major neurocognitive disorder KANDY WADE MD Nov 27, 2020 07:22
[2020-11-27] MEDS: LACTOBACILLUS RHAMNOSUS GG 1 CAPSULE. PO SCH ×2 (08:38→20:39)
[2020-11-27] MEDS: SERTRALINE 50 MG TABLET. PO SCH (08:38)
[2020-11-27] MEDS: QUEtiapine 25 MG TABLET. PO SCH ×3 (08:39→20:38)
[2020-11-27] MEDS: CLOTRIMAZOLE 1% TOPICAL CREAM 30GM TUBE. TP SCH ×2 (08:46→20:38)
[2020-11-27 09:28] VITALS: BP 134/82
--- NOTE | 2020-11-27 09:41 | NUR ---
MIK returned call to Janeen, pt dtr/DPOA, to go over next steps for discharge. MIK informed Janeen that she would need to look at if they would be able to maintain pt at home with and private duty or if looking towards SNF/Memory Care would be the safer option. Along with this is pt finances, in which pt dtr believes that pt has too many assets still to qualify for Medicaid. Janeen will look further into that option as well as look into her current [employer] coverage for SNF. MIK recommended a few placement options for discharge in the event she chooses Memory care and mentioned having a neuropsych appt scheduled at the time of discharge so that it can be followed up and Janeen could have more detailed information on pt diagnosis. Janeen will double check a few things and get back to MIK on options.
--- NOTE | 2020-11-27 10:51 | TX PLAN ---
Interdisciplinary Tx Plan Admission Information Nov 10, 2020 at 14:40 Legal Status (on Admission): Voluntary DPOA/Guardian Name: Janeen Lovelace Contact Other Contact Name: Janeen Lovelace Other Contact Verified Code Status: Full Code Allergies: Coded Allergies: No Known Drug Allergies (Unverified , 11/10/20) Diagnoses Primary Diagnosis: Dementia with BD Reasons for Admission: Hallucinations, Confusion/Disoriented, Poor impulse control, Other Problem in Patient's Words: Assuming this is the UTI because this has all happened so sudden Additional Admission Comments: According to the intake, pt is hallucinating, asking to see her parents, repetitive, altered mental status (displaying STM deficits), taking off her clothes, smearing feces on the wall, tried to leave the house at night and poor hygeine. Problems Active Problems: delusional restless/anxious hallucinating Inactive Problems: medication compliant Pt Strengths/Limitations Ability for [place]: Poor Cognitive Functioning/Ability: Fair Communication Skills/Ability: Fair Financial Resources: Fair Insight/Judgement: Poor Intellectual Ability: Fair Physical Health: Fair Social Skills: Fair Stability in Family: Good Stability in School/Work: Poor Verbal Skills: Fair Discharge Criteria Discharge Criteria: No need for close observ., Adequate arrangements @DC, Impr mary behavior, Improved mood/thought Preliminary Discharge Plan Preliminary DC Plan: Current Living Arrange. Special Precautions Fall Risk: Low Initial D/C Plan Pt will plan to discharge back home with family. Identified Discharge Needs: Resources for continued mental health services Currently Utilized Resources Currently Utilized Resources/P: Primary care physician Referrals Community Resources: referrals for psychiatry Identified Problems/Hx/Goals Objectives/Short-Term Goals Short Term Goals: Control abnormal behavior, Dec. Hallucination/Delus, Medication Stabilization, Promote Coping Skill Short Term Goals in Patient's: N/a Interventions/Frequency Staff Interventions/Frequency&: Psychiatrist to assess pt at least 3x per week for medication management. Social Work to assess pt at least 2x per week to identify barriers to care and discharge planning. Nursing to assess medication effects, behavior modification and completion of 15 minute checks daily. Encourage participation in group activities (if applicable) or 1:1 engagement based off activity dept goals. 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 Pt does have an associates degree Community Follow-up PCP psychiatry referral Community Provider/Family Inpu: She has never been diagnosed with anything and I worry about a Dementia diagnosis as this is a sudden onset and she had not issues until this month or <6 weeks ago. Treatment Plan Explained Patient/Samples And Repairs Preparer had this treatment plan explained to him/her as indicated by the signature below and has been given the opportunity to ask questions and make suggestions: Date: Patient/Samples And Repairs Preparer Signature: Status Update Update Pt dtr Janeen participated in treatment team via phone. Pt is eating 100% of meals and sleeping on average 5.5 hours per night. Pt continues to be delusional looking for her parents and disorganized; she continues to be tearful at times but is able to be redirected. Pt was agitated this morning and threw her shoes at staff in which staff reports that pt may have been overstimulated with everything going on prior to breakfast. During group, pt appeared to be in better spirits and was dancing. Pt will have her Seroquel adjusted to 12.5mg at AM, noon and 25mg at HS. Pt dtr and SW will follow up on next steps (e.g. home vs placement) and what that will look like. GINA 7 days. ONUR RAMOS Nov 27, 2020 10:51
--- NOTE | 2020-11-27 12:22 | NUR ---
Nursing note: Pt in dining room for AM med pass and assessment. She is pleasant, med compliant and cooperative. Pt denies having any pain/concerns. Pt has not been tearful this shift, though she does continue to mention that she needs to find her parents. She has been up walking around this shift, occasionally sitting in the day room. She is currently in the dining room for lunch. Will continue to monitor.
[2020-11-27 16:11] VITALS: BP 103/62
--- NOTE | 2020-11-27 18:02 | NUR ---
Nursing note: Pt very tearful, looking for her parents. Pt threatening to other pt's "I'm going to punch the fuck out of you." PRN administered with much encouragement. Will continue to monitor.
--- NOTE | 2020-11-27 22:11 | PDOC ---
Exam Note: Abdirashid Note: Please also refer to the separate dictated note~for this date of service dictated separately.~Patient seen individually. Discussed the patient with Nursing staff reviewed the chart.~Reviewed interim history and current functioning. Reviewed vital signs,~Labs/ Radiology~and current medications noted below. Continue current treatment with the changes noted in the dictated addendum note Assessment: Vital Signs/I&O: Vital Signs Date Time Temp Pulse Resp B/P (MAP) Pulse Ox O2 Delivery O2 Flow Rate FiO2 11/27/20 16:11 98.5 79 16 103/62 (76) 96 11/22/20 06:06 Room Air I & O 11/26/20 11/26/20 11/27/20 15:00 23:00 07:00 Intake Total 600 ml 360 ml Balance 600 ml 360 ml Current Medications: Meds: Current Medications Medications (Trade) Dose Ordered Sig/Rach Route PRN Reason Start Time Stop Time Status Last Admin Dose Admin Clotrimazole (Lotrimin) 1 kathi BID TP 11/10/20 21:00 11/27/20 20:38 Cephalexin HCl (Keflex) 500 mg TID PO 11/10/20 21:00 11/13/20 22:00 DC 11/13/20 20:55 Acetaminophen (Tylenol) 650 mg PRN Q6HRS PRN PO MILD PAIN / TEMP > 100.3'F 11/10/20 15:30 11/15/20 06:37 Multi-Ingredient Ointment (Analgesic [place]) 1 kathi PRN QID PRN TP MUSCLE PAIN 11/10/20 15:30 Al Hydroxide/Mg Hydroxide (Mylanta Plus Xs) 15 ml PRN AFTMEALHC PRN PO DYSPEPSIA 11/10/20 15:30 Magnesium Hydroxide (Milk Of Magnesia) 2,400 mg PRN QHS PRN PO CONSTIPATION 11/10/20 15:30 Acetaminophen/ Hydrocodone Bitart (Lortab 5/325) 1 tab PRN Q6HRS PRN PO MOD-SEV PAIN 11/10/20 17:00 11/24/20 21:18 Olanzapine (ZyPREXA ZYDIS) 2.5 mg PRN Q2HR PRN PO PSYCHOSIS 11/10/20 17:15 11/27/20 17:57 Trazodone HCl (Desyrel) 50 mg QHS PRN PO INSOMNIA, MAY REPEAT X1 11/10/20 22:30 11/26/20 20:02 Mirtazapine (Remeron) 7.5 mg QHS PO 11/11/20 21:00 11/13/20 15:41 DC 11/12/20 19:21 Sertraline HCl (Zoloft) 25 mg DAILY PO 11/12/20 17:00 11/14/20 18:00 DC 11/14/20 08:44 Sertraline HCl (Zoloft) 50 mg DAILY PO 11/15/20 17:00 11/21/20 17:12 DC 11/21/20 08:38 Quetiapine Fumarate (SEROquel) 25 mg QHS PO 11/13/20 21:00 11/27/20 20:38 Doxycycline Hyclate (Vibra-Tab) 100 mg BID PO 11/15/20 21:00 11/24/20 22:00 DC 11/24/20 19:47 Lactobacillus Rhamnosus (Culturelle) 1 cap BID PO 11/15/20 21:00 11/27/20 20:39 Sertraline HCl (Zoloft) 75 mg DAILY PO 11/22/20 09:00 11/27/20 08:38 Quetiapine Fumarate (SEROquel) 12.5 mg DAILY PO 11/26/20 09:00 11/26/20 14:20 DC 11/26/20 07:30 Quetiapine Fumarate (SEROquel) 12.5 mg 0900,1200 PO 11/26/20 14:30 11/27/20 12:10 I have reviewed the current psychotropics carefully including drug interactions. Risk benefit ratio favors no change other than as noted in my dictated progress note. Diagnosis: Problems: (1) Impulse control disorder, unspecified (2) Anxiety disorder, unspecified (3) Dementia, vascular, with depression (4) Dementia, vascular, with delusions (5) Dementia in Alzheimer's disease with depression (6) Dementia in Alzheimer's disease with delusions (7) Dementia of the Alzheimer's type with early onset with behavioral disturbance (8) Major neurocognitive disorder KANDY WADE MD Nov 27, 2020 22:11
--- NOTE | 2020-11-28 02:26 | NUR ---
Almas penn pt sa int he day room visiting with peers. She was pleasant and cooperative meds were taken whole and she has had no behaviors tonight.
[2020-11-28 06:33] VITALS: BP 135/79
--- NOTE | 2020-11-28 07:10 | PDOC ---
Exam Note: Abdirashid Note: This note is a late entry for 11/27/2020 covers elements not covered in my initial note. Subjective: The patient was seen individually in the evening of 11/27/2020 with Samira DAILY, discussed and reviewed the chart. The patient slept 3-1/4 hours previous night. Overall the patient is doing better, less tearful. She mentioned her parents that she had to go and meet them and post supper she was somewhat tearful. She went to the dayroom, agitated at times. Previously she had threatened to punch a staff. Received Zyprexa p.r.n. and did better after that. Review of Systems: No CV, , pulmonary, eye, ENT system symptoms on review. Reliability poor. Mental Status Exam: The patient is oriented to herself. Insight and judgment, recent and remote memory, attention and concentration is poor consistent with her diagnoses. Laboratory Data: Reviewed. Impression: Major depressive disorder with psychotic features versus major neurocognitive disorder, Alzheimer vascular with depression, delusions, behavioral disturbance versus psychotic disorder unspecified. Plan: Continue psychotropics unchanged for now. Assessment: Vital Signs/I&O: Vital Signs Date Time Temp Pulse Resp B/P (MAP) Pulse Ox O2 Delivery O2 Flow Rate FiO2 11/28/20 06:33 96.0 73 18 135/79 (97) 97 I & O 11/27/20 11/27/20 11/28/20 15:00 23:00 07:00 Intake Total 660 ml 360 ml 120 ml Balance 660 ml 360 ml 120 ml Current Medications: Meds: Current Medications Medications (Trade) Dose Ordered Sig/Rach Route PRN Reason Start Time Stop Time Status Last Admin Dose Admin Clotrimazole (Lotrimin) 1 kathi BID TP 11/10/20 21:00 11/27/20 20:38 Cephalexin HCl (Keflex) 500 mg TID PO 11/10/20 21:00 11/13/20 22:00 DC 11/13/20 20:55 Acetaminophen (Tylenol) 650 mg PRN Q6HRS PRN PO MILD PAIN / TEMP > 100.3'F 11/10/20 15:30 11/15/20 06:37 Multi-Ingredient Ointment (Analgesic [place]) 1 kathi PRN QID PRN TP MUSCLE PAIN 11/10/20 15:30 Al Hydroxide/Mg Hydroxide (Mylanta Plus Xs) 15 ml PRN AFTMEALHC PRN PO DYSPEPSIA 11/10/20 15:30 Magnesium Hydroxide (Milk Of Magnesia) 2,400 mg PRN QHS PRN PO CONSTIPATION 11/10/20 15:30 Acetaminophen/ Hydrocodone Bitart (Lortab 5/325) 1 tab PRN Q6HRS PRN PO MOD-SEV PAIN 11/10/20 17:00 11/24/20 21:18 Olanzapine (ZyPREXA ZYDIS) 2.5 mg PRN Q2HR PRN PO PSYCHOSIS 11/10/20 17:15 11/27/20 17:57 Trazodone HCl (Desyrel) 50 mg QHS PRN PO INSOMNIA, MAY REPEAT X1 11/10/20 22:30 11/26/20 20:02 Mirtazapine (Remeron) 7.5 mg QHS PO 11/11/20 21:00 11/13/20 15:41 DC 11/12/20 19:21 Sertraline HCl (Zoloft) 25 mg DAILY PO 11/12/20 17:00 11/14/20 18:00 DC 11/14/20 08:44 Sertraline HCl (Zoloft) 50 mg DAILY PO 11/15/20 17:00 11/21/20 17:12 DC 11/21/20 08:38 Quetiapine Fumarate (SEROquel) 25 mg QHS PO 11/13/20 21:00 11/27/20 20:38 Doxycycline Hyclate (Vibra-Tab) 100 mg BID PO 11/15/20 21:00 11/24/20 22:00 DC 11/24/20 19:47 Lactobacillus Rhamnosus (Culturelle) 1 cap BID PO 11/15/20 21:00 11/27/20 20:39 Sertraline HCl (Zoloft) 75 mg DAILY PO 11/22/20 09:00 11/27/20 08:38 Quetiapine Fumarate (SEROquel) 12.5 mg DAILY PO 11/26/20 09:00 11/26/20 14:20 DC 11/26/20 07:30 Quetiapine Fumarate (SEROquel) 12.5 mg 0900,1200 PO 11/26/20 14:30 7/13/21 12:10 I have reviewed the current psychotropics carefully including drug interactions. Risk benefit ratio favors no change other than as noted in my dictated progress note. Diagnosis: Problems: (1) Impulse control disorder, unspecified (2) Anxiety disorder, unspecified (3) Dementia, vascular, with depression (4) Dementia, vascular, with delusions (5) Dementia in Alzheimer's disease with depression (6) Dementia in Alzheimer's disease with delusions (7) Dementia of the Alzheimer's type with early onset with behavioral disturbance (8) Major neurocognitive disorder KANDY WADE MD Nov 28, 2020 07:10
[2020-11-28] MEDS: LACTOBACILLUS RHAMNOSUS GG 1 CAPSULE. PO SCH ×2 (08:34→20:06)
[2020-11-28] MEDS: SERTRALINE 50 MG TABLET. PO SCH (08:35)
[2020-11-28] MEDS: QUEtiapine 25 MG TABLET. PO SCH ×3 (08:35→20:07)
[2020-11-28] MEDS: CLOTRIMAZOLE 1% TOPICAL CREAM 30GM TUBE. TP SCH ×2 (08:36→20:07)
--- NOTE | 2020-11-28 13:51 | NUR ---
Nursing Note: Pt has been cooperative and medication compliant. She continues to have delusions stating she does not know where her parents are and that they left her here because of the war. She has been calm and in the day room in between meals. Pt has been visiting with others and watching a movie.
[2020-11-28 16:06] VITALS: BP 123/69
--- NOTE | 2020-11-28 18:14 | NUR ---
Nursing Note: Pt. became agitated and delusional before dinner time and started to yell at staff. She was being belligerent talking about all of the missing children and her missing parents that were [place]. She would not de-escalate with verbal cues, so nursing administered Zyprexa around 1600
--- NOTE | 2020-11-28 22:21 | PDOC ---
Exam Note: Abdirashid Note: Please also refer to the separate dictated note~for this date of service dictated separately.~Patient seen individually. Discussed the patient with Nursing staff reviewed the chart.~Reviewed interim history and current functioning. Reviewed vital signs,~Labs/ Radiology~and current medications noted below. Continue current treatment with the changes noted in the dictated addendum note Assessment: Vital Signs/I&O: Vital Signs Date Time Temp Pulse Resp B/P (MAP) Pulse Ox O2 Delivery O2 Flow Rate FiO2 11/28/20 16:06 97.8 101 18 123/69 (87) 97 I & O 11/27/20 11/27/20 11/28/20 15:00 23:00 07:00 Intake Total 660 ml 360 ml 120 ml Balance 660 ml 360 ml 120 ml Current Medications: Meds: Current Medications Medications (Trade) Dose Ordered Sig/Rach Route PRN Reason Start Time Stop Time Status Last Admin Dose Admin Clotrimazole (Lotrimin) 1 kathi BID TP 11/10/20 21:00 11/28/20 20:07 Cephalexin HCl (Keflex) 500 mg TID PO 11/10/20 21:00 11/13/20 22:00 DC 11/13/20 20:55 Acetaminophen (Tylenol) 650 mg PRN Q6HRS PRN PO MILD PAIN / TEMP > 100.3'F 11/10/20 15:30 11/15/20 06:37 Multi-Ingredient Ointment (Analgesic [place]) 1 kathi PRN QID PRN TP MUSCLE PAIN 11/10/20 15:30 Al Hydroxide/Mg Hydroxide (Mylanta Plus Xs) 15 ml PRN AFTMEALHC PRN PO DYSPEPSIA 11/10/20 15:30 Magnesium Hydroxide (Milk Of Magnesia) 2,400 mg PRN QHS PRN PO CONSTIPATION 11/10/20 15:30 Acetaminophen/ Hydrocodone Bitart (Lortab 5/325) 1 tab PRN Q6HRS PRN PO MOD-SEV PAIN 11/10/20 17:00 11/24/20 21:18 Olanzapine (ZyPREXA ZYDIS) 2.5 mg PRN Q2HR PRN PO PSYCHOSIS 11/10/20 17:15 11/27/20 17:57 Trazodone HCl (Desyrel) 50 mg QHS PRN PO INSOMNIA, MAY REPEAT X1 11/10/20 22:30 11/26/20 20:02 Mirtazapine (Remeron) 7.5 mg QHS PO 11/11/20 21:00 11/13/20 15:41 DC 11/12/20 19:21 Sertraline HCl (Zoloft) 25 mg DAILY PO 11/12/20 17:00 11/14/20 18:00 DC 11/14/20 08:44 Sertraline HCl (Zoloft) 50 mg DAILY PO 11/15/20 17:00 11/21/20 17:12 DC 11/21/20 08:38 Quetiapine Fumarate (SEROquel) 25 mg QHS PO 11/13/20 21:00 11/28/20 20:07 Doxycycline Hyclate (Vibra-Tab) 100 mg BID PO 11/15/20 21:00 11/24/20 22:00 DC 11/24/20 19:47 Lactobacillus Rhamnosus (Culturelle) 1 cap BID PO 11/15/20 21:00 11/28/20 20:06 Sertraline HCl (Zoloft) 75 mg DAILY PO 11/22/20 09:00 11/28/20 08:35 Quetiapine Fumarate (SEROquel) 12.5 mg DAILY PO 11/26/20 09:00 11/26/20 14:20 DC 11/26/20 07:30 Quetiapine Fumarate (SEROquel) 12.5 mg 0900,1200 PO 11/26/20 14:30 11/28/20 12:10 I have reviewed the current psychotropics carefully including drug interactions. Risk benefit ratio favors no change other than as noted in my dictated progress note. Diagnosis: Problems: (1) Impulse control disorder, unspecified (2) Anxiety disorder, unspecified (3) Dementia, vascular, with depression (4) Dementia, vascular, with delusions (5) Dementia in Alzheimer's disease with depression (6) Dementia in Alzheimer's disease with delusions (7) Dementia of the Alzheimer's type with early onset with behavioral disturbance (8) Major neurocognitive disorder KANDY WADE MD Nov 28, 2020 22:21
--- NOTE | 2020-11-29 00:39 | NUR ---
Last evening pt sat quietly in the day room and was social and cooperative. She took meds whole with some prompting. She remains very confused and asked that we make sure her parents know she is here. She has had no behaviors tonight.
[2020-11-29 06:39] VITALS: BP 132/71
[2020-11-29] MEDS: LACTOBACILLUS RHAMNOSUS GG 1 CAPSULE. PO SCH ×2 (08:12→20:08)
[2020-11-29] MEDS: SERTRALINE 50 MG TABLET. PO SCH (08:13)
[2020-11-29] MEDS: QUEtiapine 25 MG TABLET. PO SCH ×3 (08:13→20:08)
[2020-11-29] MEDS: CLOTRIMAZOLE 1% TOPICAL CREAM 30GM TUBE. TP SCH ×2 (08:13→20:08)
--- NOTE | 2020-11-29 08:24 | PDOC ---
Exam Note: Abdirashid Note: This note is a late entry for 11/28/2020 covers elements not covered in my initial note. Subjective: The patient was seen individually in the evening of 11/28/2020 with Isaías DAILY, discussed and reviewed the chart. The patient slept 4-3/4 hours previous night. She is looking for her parents, quite paranoid this evening, restless, anxious, verbally abrasive. Received Zyprexa at 6 p.m. and then was wandering less. Scheduled Seroquel was increased. We may have to increase it further depending on her paranoia. Review of Systems: No CV, , pulmonary, eye, ENT system symptoms on review. Reliability poor. Mental Status Exam: The patient is oriented to herself. Insight and judgment, recent and remote memory, attention and concentration is poor consistent with her diagnoses. Laboratory Data: Reviewed. Impression: Major depressive disorder with psychotic features versus major neurocognitive disorder, Alzheimer vascular with depression, delusions, behavioral disturbance versus psychotic disorder unspecified. Plan: Continue psychotropics unchanged for now. Assessment: Vital Signs/I&O: Vital Signs Date Time Temp Pulse Resp B/P (MAP) Pulse Ox O2 Delivery O2 Flow Rate FiO2 11/29/20 06:39 97.5 92 20 132/71 (91) 97 Room Air I & O 11/28/20 11/28/20 11/29/20 15:00 23:00 07:00 Intake Total 700 ml 360 ml Balance 700 ml 360 ml Current Medications: Meds: Current Medications Medications (Trade) Dose Ordered Sig/Rach Route PRN Reason Start Time Stop Time Status Last Admin Dose Admin Clotrimazole (Lotrimin) 1 kathi BID TP 11/10/20 21:00 11/29/20 08:13 Cephalexin HCl (Keflex) 500 mg TID PO 11/10/20 21:00 11/13/20 22:00 DC 11/13/20 20:55 Acetaminophen (Tylenol) 650 mg PRN Q6HRS PRN PO MILD PAIN / TEMP > 100.3'F 11/10/20 15:30 11/15/20 06:37 Multi-Ingredient Ointment (Analgesic [place]) 1 kathi PRN QID PRN TP MUSCLE PAIN 11/10/20 15:30 Al Hydroxide/Mg Hydroxide (Mylanta Plus Xs) 15 ml PRN AFTMEALHC PRN PO DYSPEPSIA 11/10/20 15:30 Magnesium Hydroxide (Milk Of Magnesia) 2,400 mg PRN QHS PRN PO CONSTIPATION 11/10/20 15:30 Acetaminophen/ Hydrocodone Bitart (Lortab 5/325) 1 tab PRN Q6HRS PRN PO MOD-SEV PAIN 11/10/20 17:00 11/24/20 21:18 Olanzapine (ZyPREXA ZYDIS) 2.5 mg PRN Q2HR PRN PO PSYCHOSIS 11/10/20 17:15 11/27/20 17:57 Trazodone HCl (Desyrel) 50 mg QHS PRN PO INSOMNIA, MAY REPEAT X1 11/10/20 22:30 11/26/20 20:02 Mirtazapine (Remeron) 7.5 mg QHS PO 11/11/20 21:00 11/13/20 15:41 DC 11/12/20 19:21 Sertraline HCl (Zoloft) 25 mg DAILY PO 11/12/20 17:00 11/14/20 18:00 DC 11/14/20 08:44 Sertraline HCl (Zoloft) 50 mg DAILY PO 11/15/20 17:00 11/21/20 17:12 DC 11/21/20 08:38 Quetiapine Fumarate (SEROquel) 25 mg QHS PO 11/13/20 21:00 11/28/20 20:07 Doxycycline Hyclate (Vibra-Tab) 100 mg BID PO 11/15/20 21:00 11/24/20 22:00 DC 11/24/20 19:47 Lactobacillus Rhamnosus (Culturelle) 1 cap BID PO 11/15/20 21:00 11/29/20 08:12 Sertraline HCl (Zoloft) 75 mg DAILY PO 11/22/20 09:00 11/29/20 08:13 Quetiapine Fumarate (SEROquel) 12.5 mg DAILY PO 11/26/20 09:00 11/26/20 14:20 DC 11/26/20 07:30 Quetiapine Fumarate (SEROquel) 12.5 mg 0900,1200 PO 11/26/20 14:30 11/29/20 08:13 I have reviewed the current psychotropics carefully including drug interactions. Risk benefit ratio favors no change other than as noted in my dictated progress note. Diagnosis: Problems: (1) Impulse control disorder, unspecified (2) Anxiety disorder, unspecified (3) Dementia, vascular, with depression (4) Dementia, vascular, with delusions (5) Dementia in Alzheimer's disease with depression (6) Dementia in Alzheimer's disease with delusions (7) Dementia of the Alzheimer's type with early onset with behavioral disturbance (8) Major neurocognitive disorder KANDY WADE MD Nov 29, 2020 08:24
--- NOTE | 2020-11-29 14:25 | NUR ---
Patient alert to self, ambulating in hallway and room. Patient pleasantly confused, asking everyone at breakfast " if we saw the little boy he needs a home." Patient redirected with minor attempts by patient. appetite adequate makes needs known. Take medication whole.
[2020-11-29 15:59] VITALS: BP 116/72
[2020-11-29] MEDS: QUEtiapine 50 MG TABLET. PO SCH (20:11)
--- NOTE | 2020-11-29 22:18 | PDOC ---
Exam Note: Abdirashid Note: Please also refer to the separate dictated note~for this date of service dictated separately.~Patient seen individually. Discussed the patient with Nursing staff reviewed the chart.~Reviewed interim history and current functioning. Reviewed vital signs,~Labs/ Radiology~and current medications noted below. Continue current treatment with the changes noted in the dictated addendum note Assessment: Vital Signs/I&O: Vital Signs Date Time Temp Pulse Resp B/P (MAP) Pulse Ox O2 Delivery O2 Flow Rate FiO2 11/29/20 15:59 98.1 85 16 116/72 (87) 96 11/29/20 06:39 Room Air I & O 11/28/20 11/28/20 11/29/20 15:00 23:00 07:00 Intake Total 700 ml 360 ml Balance 700 ml 360 ml Current Medications: Meds: Current Medications Medications (Trade) Dose Ordered Sig/Rach Route PRN Reason Start Time Stop Time Status Last Admin Dose Admin Clotrimazole (Lotrimin) 1 kathi BID TP 11/10/20 21:00 11/29/20 20:08 Cephalexin HCl (Keflex) 500 mg TID PO 11/10/20 21:00 11/13/20 22:00 DC 11/13/20 20:55 Acetaminophen (Tylenol) 650 mg PRN Q6HRS PRN PO MILD PAIN / TEMP > 100.3'F 11/10/20 15:30 11/15/20 06:37 Multi-Ingredient Ointment (Analgesic [place]) 1 kathi PRN QID PRN TP MUSCLE PAIN 11/10/20 15:30 Al Hydroxide/Mg Hydroxide (Mylanta Plus Xs) 15 ml PRN AFTMEALHC PRN PO DYSPEPSIA 11/10/20 15:30 Magnesium Hydroxide (Milk Of Magnesia) 2,400 mg PRN QHS PRN PO CONSTIPATION 11/10/20 15:30 Acetaminophen/ Hydrocodone Bitart (Lortab 5/325) 1 tab PRN Q6HRS PRN PO MOD-SEV PAIN 11/10/20 17:00 11/24/20 21:18 Olanzapine (ZyPREXA ZYDIS) 2.5 mg PRN Q2HR PRN PO PSYCHOSIS 11/10/20 17:15 11/27/20 17:57 Trazodone HCl (Desyrel) 50 mg QHS PRN PO INSOMNIA, MAY REPEAT X1 11/10/20 22:30 11/26/20 20:02 Mirtazapine (Remeron) 7.5 mg QHS PO 11/11/20 21:00 11/13/20 15:41 DC 11/12/20 19:21 Sertraline HCl (Zoloft) 25 mg DAILY PO 11/12/20 17:00 11/14/20 18:00 DC 11/14/20 08:44 Sertraline HCl (Zoloft) 50 mg DAILY PO 11/15/20 17:00 11/21/20 17:12 DC 11/21/20 08:38 Quetiapine Fumarate (SEROquel) 25 mg QHS PO 11/13/20 21:00 11/29/20 18:15 DC 11/28/20 20:07 Doxycycline Hyclate (Vibra-Tab) 100 mg BID PO 11/15/20 21:00 11/24/20 22:00 DC 11/24/20 19:47 Lactobacillus Rhamnosus (Culturelle) 1 cap BID PO 11/15/20 21:00 11/29/20 20:08 Sertraline HCl (Zoloft) 75 mg DAILY PO 11/22/20 09:00 11/29/20 08:13 Quetiapine Fumarate (SEROquel) 12.5 mg DAILY PO 11/26/20 09:00 11/26/20 14:20 DC 11/26/20 07:30 Quetiapine Fumarate (SEROquel) 12.5 mg 0900,1200 PO 11/26/20 14:30 11/29/20 12:24 Quetiapine Fumarate (SEROquel) 50 mg QHS PO 11/29/20 21:00 11/29/20 20:11 Current Medications Medications (Trade) Dose Ordered Sig/Rach Route PRN Reason Start Time Stop Time Status Last Admin Dose Admin Quetiapine Fumarate (SEROquel) 50 mg QHS PO 11/29/20 21:00 11/29/20 20:11 I have reviewed the current psychotropics carefully including drug interactions. Risk benefit ratio favors no change other than as noted in my dictated progress note. Diagnosis: Problems: (1) Impulse control disorder, unspecified (2) Anxiety disorder, unspecified (3) Dementia, vascular, with depression (4) Dementia, vascular, with delusions (5) Dementia in Alzheimer's disease with depression (6) Dementia in Alzheimer's disease with delusions (7) Dementia of the Alzheimer's type with early onset with behavioral disturbance (8) Major neurocognitive disorder KANDY WADE MD Nov 29, 2020 22:17
--- NOTE | 2020-11-30 02:51 | NUR ---
Last evening pt was in the day room until going to bed. She has been social and cooperative with staff and took meds whole. She said that her parents are on a overseas trip that she had known nothing about. She said she didn't understand why they had not told herabout their trip but swas not agitated or seem overly concerned. She has been cooperative with staff and has been sleeping .
[2020-11-30 06:34] VITALS: BP 137/73
[2020-11-30] MEDS: LACTOBACILLUS RHAMNOSUS GG 1 CAPSULE. PO SCH ×2 (08:12→21:17)
[2020-11-30] MEDS: QUEtiapine 25 MG TABLET. PO SCH ×2 (08:12→12:27)
[2020-11-30] MEDS: SERTRALINE 50 MG TABLET. PO SCH (08:12)
[2020-11-30] MEDS: CLOTRIMAZOLE 1% TOPICAL CREAM 30GM TUBE. TP SCH ×2 (08:13→21:17)
--- NOTE | 2020-11-30 14:56 | NUR ---
Nurse Note Patient in day room for group, socializing with patients and staff.Patient does say that she is look ing for her parents. Patient is cooperative with staff. Patient has not been tearful at this time, is confused and disorganized. Ambulates around hallway. Patient is medication compliant takes them whole.
[2020-11-30 16:16] VITALS: BP 115/67
[2020-11-30] MEDS: QUEtiapine 50 MG TABLET. PO SCH (21:17)
--- NOTE | 2020-11-30 22:11 | PDOC ---
Exam Note: Abdirashid Note: Please also refer to the separate dictated note~for this date of service dictated separately.~Patient seen individually. Discussed the patient with Nursing staff reviewed the chart.~Reviewed interim history and current functioning. Reviewed vital signs,~Labs/ Radiology~and current medications noted below. Continue current treatment with the changes noted in the dictated addendum note Assessment: Vital Signs/I&O: Vital Signs Date Time Temp Pulse Resp B/P (MAP) Pulse Ox O2 Delivery O2 Flow Rate FiO2 11/30/20 16:16 97.2 86 20 115/67 (83) 95 11/29/20 06:39 Room Air I & O 11/29/20 11/29/20 11/30/20 15:00 23:00 07:00 Intake Total 840 ml 360 ml Balance 840 ml 360 ml Current Medications: Meds: Current Medications Medications (Trade) Dose Ordered Sig/Rach Route PRN Reason Start Time Stop Time Status Last Admin Dose Admin Clotrimazole (Lotrimin) 1 kathi BID TP 11/10/20 21:00 11/30/20 21:17 Cephalexin HCl (Keflex) 500 mg TID PO 11/10/20 21:00 11/13/20 22:00 DC 11/13/20 20:55 Acetaminophen (Tylenol) 650 mg PRN Q6HRS PRN PO MILD PAIN / TEMP > 100.3'F 11/10/20 15:30 11/15/20 06:37 Multi-Ingredient Ointment (Analgesic [place]) 1 kathi PRN QID PRN TP MUSCLE PAIN 11/10/20 15:30 Al Hydroxide/Mg Hydroxide (Mylanta Plus Xs) 15 ml PRN AFTMEALHC PRN PO DYSPEPSIA 11/10/20 15:30 Magnesium Hydroxide (Milk Of Magnesia) 2,400 mg PRN QHS PRN PO CONSTIPATION 11/10/20 15:30 Acetaminophen/ Hydrocodone Bitart (Lortab 5/325) 1 tab PRN Q6HRS PRN PO MOD-SEV PAIN 11/10/20 17:00 11/24/20 21:18 Olanzapine (ZyPREXA ZYDIS) 2.5 mg PRN Q2HR PRN PO PSYCHOSIS 11/10/20 17:15 11/27/20 17:57 Trazodone HCl (Desyrel) 50 mg QHS PRN PO INSOMNIA, MAY REPEAT X1 11/10/20 22:30 11/26/20 20:02 Mirtazapine (Remeron) 7.5 mg QHS PO 11/11/20 21:00 11/13/20 15:41 DC 11/12/20 19:21 Sertraline HCl (Zoloft) 25 mg DAILY PO 11/12/20 17:00 11/14/20 18:00 DC 11/14/20 08:44 Sertraline HCl (Zoloft) 50 mg DAILY PO 11/15/20 17:00 11/21/20 17:12 DC 11/21/20 08:38 Quetiapine Fumarate (SEROquel) 25 mg QHS PO 11/13/20 21:00 11/29/20 18:15 DC 11/28/20 20:07 Doxycycline Hyclate (Vibra-Tab) 100 mg BID PO 11/15/20 21:00 11/24/20 22:00 DC 11/24/20 19:47 Lactobacillus Rhamnosus (Culturelle) 1 cap BID PO 11/15/20 21:00 11/30/20 21:17 Sertraline HCl (Zoloft) 75 mg DAILY PO 11/22/20 09:00 11/30/20 08:12 Quetiapine Fumarate (SEROquel) 12.5 mg DAILY PO 11/26/20 09:00 11/26/20 14:20 DC 11/26/20 07:30 Quetiapine Fumarate (SEROquel) 12.5 mg 0900,1200 PO 11/26/20 14:30 11/30/20 12:27 Quetiapine Fumarate (SEROquel) 50 mg QHS PO 11/29/20 21:00 11/30/20 21:17 I have reviewed the current psychotropics carefully including drug interactions. Risk benefit ratio favors no change other than as noted in my dictated progress note. Diagnosis: Problems: (1) Impulse control disorder, unspecified (2) Anxiety disorder, unspecified (3) Dementia, vascular, with depression (4) Dementia, vascular, with delusions (5) Dementia in Alzheimer's disease with depression (6) Dementia in Alzheimer's disease with delusions (7) Dementia of the Alzheimer's type with early onset with behavioral distu rbance (8) Major neurocognitive disorder MAURO,MAN M MD Nov 30, 2020 22:11
--- NOTE | 2020-12-01 04:30 | NUR ---
Patient spent most of the time she was awake in the TV room interacting pleasantly with staff and peers. she ate some snacks and did not complain of nausea, vomiting or pain. Patient was noticeably asking continuously for her parents and confused about where they were. She was delusional a few times about one of the peers or staff being in school with her, an inexistent relationship or that she was home and her parents were coming to see her. Patient retired to her room after a few hours and remained in bed where she rested with eyes closed, showing no signs of distress.
[2020-12-01 05:31] VITALS: BP 130/68
[2020-12-01] MEDS: SERTRALINE 50 MG TABLET. PO SCH (08:09)
[2020-12-01] MEDS: LACTOBACILLUS RHAMNOSUS GG 1 CAPSULE. PO SCH ×2 (08:09→20:43)
[2020-12-01] MEDS: QUEtiapine 25 MG TABLET. PO SCH ×2 (08:09→12:26)
[2020-12-01] MEDS: CLOTRIMAZOLE 1% TOPICAL CREAM 30GM TUBE. TP SCH ×2 (08:09→20:47)
--- NOTE | 2020-12-01 09:15 | PDOC ---
Exam Note: Abdirashid Note: This note is a late entry for 11/29/2020 covers elements not covered in my initial note. Subjective: The patient was seen individually in the evening of 11/29/2020 with Nydia DAILY, discussed and reviewed the chart. The patient slept 6-1/2 hours previous night. She has been intermittently tearful at times, looking for her parents, gets more confused in the evening but redirectable. Review of Systems: No CV, , pulmonary, eye, ENT system symptoms on review. Reliability poor. Mental Status Exam: The patient is oriented to herself. She was less tearful during the visit today but somewhat distractible, walking away almost as we talked. Insight and judgment, recent and remote memory, attention and concentration is poor consistent with her diagnoses. Laboratory Data: Reviewed. Impression: Major depressive disorder with psychotic features versus major neurocognitive disorder, Alzheimer vascular with depression, delusions, behavioral disturbance versus psychotic disorder unspecified. Plan: Increase the h.s. Seroquel from 25 mg to 50 mg to help with some of her paranoia, anxiety, and mood stabilization. Maintain Zoloft unchanged and rest of the psychotropics unchanged for now. Assessment: Vital Signs/I&O: Vital Signs Date Time Temp Pulse Resp B/P (MAP) Pulse Ox O2 Delivery O2 Flow Rate FiO2 12/01/20 05:31 98.1 84 18 130/68 (88) 99 Room Air I & O 0 11/30/20 11/30/20 12/01/20 15:00 23:00 07:00 Intake Total 720 ml 480 ml 240 ml Balance 720 ml 480 ml 240 ml Current Medications: Meds: Current Medications Medications (Trade) Dose Ordered Sig/Rach Route PRN Reason Start Time Stop Time Status Last Admin Dose Admin Clotrimazole (Lotrimin) 1 kathi BID TP 11/10/20 21:00 12/01/20 08:09 Cephalexin HCl (Keflex) 500 mg TID PO 11/10/20 21:00 11/13/20 22:00 DC 11/13/20 20:55 Acetaminophen (Tylenol) 650 mg PRN Q6HRS PRN PO MILD PAIN / TEMP > 100.3'F 11/10/20 15:30 11/15/20 06:37 Multi-Ingredient Ointment (Analgesic [place]) 1 kathi PRN QID PRN TP MUSCLE PAIN 11/10/20 15:30 Al Hydroxide/Mg Hydroxide (Mylanta Plus Xs) 15 ml PRN AFTMEALHC PRN PO DYSPEPSIA 11/10/20 15:30 Magnesium Hydroxide (Milk Of Magnesia) 2,400 mg PRN QHS PRN PO CONSTIPATION 11/10/20 15:30 Acetaminophen/ Hydrocodone Bitart (Lortab 5/325) 1 tab PRN Q6HRS PRN PO MOD-SEV PAIN 11/10/20 17:00 11/24/20 21:18 Olanzapine (ZyPREXA ZYDIS) 2.5 mg PRN Q2HR PRN PO PSYCHOSIS 11/10/20 17:15 11/27/20 17:57 Trazodone HCl (Desyrel) 50 mg QHS PRN PO INSOMNIA, MAY REPEAT X1 11/10/20 22:30 11/26/20 20:02 Mirtazapine (Remeron) 7.5 mg QHS PO 11/11/20 21:00 11/13/20 15:41 DC 11/12/20 19:21 Sertraline HCl (Zoloft) 25 mg DAILY PO 11/12/20 17:00 11/14/20 18:00 DC 11/14/20 08:44 Sertraline HCl (Zoloft) 50 mg DAILY PO 11/15/20 17:00 11/21/20 17:12 DC 11/21/20 08:38 Quetiapine Fumarate (SEROquel) 25 mg QHS PO 11/13/20 21:00 11/29/20 18:15 DC 11/28/20 20:07 Doxycycline Hyclate (Vibra-Tab) 100 mg BID PO 11/15/20 21:00 11/24/20 22:00 DC 11/24/20 19:47 Lactobacillus Rhamnosus (Culturelle) 1 cap BID PO 11/15/20 21:00 12/01/20 08:09 Sertraline HCl (Zoloft) 75 mg DAILY PO 11/22/20 09:00 12/01/20 08:09 Quetiapine Fumarate (SEROquel) 12.5 mg DAILY PO 11/26/20 09:00 11/26/20 14:20 DC 11/26/20 07:30 Quetiapine Fumarate (SEROquel) 12.5 mg 0900,1200 PO 11/26/20 14:30 12/01/20 08:09 Quetiapine Fumarate (SEROquel) 50 mg QHS PO 11/29/20 21:00 11/30/20 21:17 I have reviewed the current psychotropics carefully including drug interactions. Risk benefit ratio favors no change other than as noted in my dictated progress note. Diagnosis: Problems: (1) Impulse control disorder, unspecified (2) Anxiety disorder, unspecified (3) Dementia, vascular, with depression (4) Dementia, vascular, with delusions (5) Dementia in Alzheimer's disease with depression (6) Dementia in Alzheimer's disease with delusions (7) Dementia of the Alzheimer's type with early onset with behavioral disturbance (8) Major neurocognitive disorder KANDY WADE MD Dec 01, 2020 09:15
[2020-12-01 16:26] VITALS: BP 117/68
[2020-12-01] MEDS: QUEtiapine 50 MG TABLET. PO SCH (20:43)
[2020-12-01] MEDS: traZODone 50 MG TABLET. PO PRN (20:43)
--- NOTE | 2020-12-01 22:11 | PDOC ---
Exam Note: Abdirashid Note: Please also refer to the separate dictated note~for this date of service dictated separately.~Patient seen individually. Discussed the patient with Nursing staff reviewed the chart.~Reviewed interim history and current functioning. Reviewed vital signs,~Labs/ Radiology~and current medications noted below. Continue current treatment with the changes noted in the dictated addendum note Assessment: Vital Signs/I&O: Vital Signs Date Time Temp Pulse Resp B/P (MAP) Pulse Ox O2 Delivery O2 Flow Rate FiO2 12/01/20 16:26 98.0 80 16 117/68 (84) 96 12/01/20 05:31 Room Air I & O 11/30/20 11/30/20 12/01/20 14:59 22:59 06:59 Intake Total 720 ml 480 ml 240 ml Balance 720 ml 480 ml 240 ml Labs: Laboratory Tests Test 12/01/20 09:10 SARS-CoV-2 (PCR) Negative (NEGATIVE) Current Medications: Meds: Laboratory Tests Test 12/01/20 09:10 Coronavirus (COVID-19)(PCR) Negative Current Medications Medications (Trade) Dose Ordered Sig/Rach Route PRN Reason Start Time Stop Time Status Last Admin Dose Admin Clotrimazole (Lotrimin) 1 kathi BID TP 11/10/20 21:00 12/01/20 20:47 Cephalexin HCl (Keflex) 500 mg TID PO 11/10/20 21:00 11/13/20 22:00 DC 11/13/20 20:55 Acetaminophen (Tylenol) 650 mg PRN Q6HRS PRN PO MILD PAIN / TEMP > 100.3'F 11/10/20 15:30 11/15/20 06:37 Multi-Ingredient Ointment (Analgesic [place]) 1 kathi PRN QID PRN TP MUSCLE PAIN 11/10/20 15:30 Al Hydroxide/Mg Hydroxide (Mylanta Plus Xs) 15 ml PRN AFTMEALHC PRN PO DYSPEPSIA 11/10/20 15:30 Magnesium Hydroxide (Milk Of Magnesia) 2,400 mg PRN QHS PRN PO CONSTIPATION 11/10/20 15:30 Acetaminophen/ Hydrocodone Bitart (Lortab 5/325) 1 tab PRN Q6HRS PRN PO MOD-SEV PAIN 11/10/20 17:00 11/24/20 21:18 Olanzapine (ZyPREXA ZYDIS) 2.5 mg PRN Q2HR PRN PO PSYCHOSIS 11/10/20 17:15 11/27/20 17:57 Trazodone HCl (Desyrel) 50 mg QHS PRN PO INSOMNIA, MAY REPEAT X1 11/10/20 22:30 12/01/20 20:43 Mirtazapine (Remeron) 7.5 mg QHS PO 11/11/20 21:00 11/13/20 15:41 DC 11/12/20 19:21 Sertraline HCl (Zoloft) 25 mg DAILY PO 11/12/20 17:00 11/14/20 18:00 DC 11/14/20 08:44 Sertraline HCl (Zoloft) 50 mg DAILY PO 11/15/20 17:00 11/21/20 17:12 DC 11/21/20 08:38 Quetiapine Fumarate (SEROquel) 25 mg QHS PO 11/13/20 21:00 11/29/20 18:15 DC 11/28/20 20:07 Doxycycline Hyclate (Vibra-Tab) 100 mg BID PO 11/15/20 21:00 11/24/20 22:00 DC 11/24/20 19:47 Lactobacillus Rhamnosus (Culturelle) 1 cap BID PO 11/15/20 21:00 12/01/20 20:43 Sertraline HCl (Zoloft) 75 mg DAILY PO 11/22/20 09:00 12/01/20 08:09 Quetiapine Fumarate (SEROquel) 12.5 mg DAILY PO 11/26/20 09:00 11/26/20 14:20 DC 11/26/20 07:30 Quetiapine Fumarate (SEROquel) 12.5 mg 0900,1200 PO 11/26/20 14:30 12/01/20 12:26 Quetiapine Fumarate (SEROquel) 50 mg QHS PO 11/29/20 21:00 12/01/20 20:43 I have reviewed the current psychotropics carefully including drug interactions. Risk benefit ratio favors no change other than as noted in my dictated progress note. Diagnosis: Problems: (1) Impulse control disorder, unspecified (2) Anxiety disorder, unspecified (3) Dementia, vascular, with depression (4) Dementia, vascular, with delusions (5) Dementia in Alzheimer's disease with depression (6) Dementia in Alzheimer's disease with delusions (7) Dementia of the Alzheimer's type with early onset with behavioral disturbance (8) Major neurocognitive disorder KANDY WADE MD Dec 01, 2020 22:11
[2020-12-01] MEDS: HYDROcodone/APAP 5/325MG 1 TAB TABLET PO PRN (22:45)
--- NOTE | 2020-12-01 23:50 | NUR ---
Patient started the shift quiet and pleasant in the main [facility] and interacting with staff and peers appropriately. She denied any pain and did not indicate any nausea and/or vomiting. Patient was compliant with all her bedtime medications and had snacks with all her peers at the TV room, with no signs of tears or delusions. Patient retired to her room after a couple of hours stayed there for about an hour before coming back to the hallway holding two paper bags (Thrash bags from her room) and stating that she has to go to school. Patient got more agitated and exhibited frustration and anger each time staff tried to redirect her. At one point she started being tearful and asking for her parents or talking to herself. Upon assessment, patient also indicated to nurse she is having pain in her legs and feet with intensity of 6-7/10. Nurse administered PRN medications for pain and agitation with some chocolate pudding, and had a conversation with patient to calm her down. Patient eventually lay down on her bed, where she remained with eyes closed, breathing normally an showing no signs of distress. Addendum: 12/02/20 at 0300 by EZEKIEL WHEELER RN Patient has come out of her room and is quietly sitting on a chair beside her door and was noticed scratching her feet continuously. Upon assessment some dryness was noted. moisturizing cream was applied and patient was educated against scratching which may cause wounds and bruises.
[2020-12-02 05:29] VITALS: BP 127/76
[2020-12-02] MEDS: LACTOBACILLUS RHAMNOSUS GG 1 CAPSULE. PO SCH ×2 (08:29→21:23)
[2020-12-02] MEDS: SERTRALINE 50 MG TABLET. PO SCH (08:29)
[2020-12-02] MEDS: CLOTRIMAZOLE 1% TOPICAL CREAM 30GM TUBE. TP SCH ×2 (08:30→21:23)
[2020-12-02] MEDS: QUEtiapine 25 MG TABLET. PO SCH ×2 (08:30→13:13)
--- NOTE | 2020-12-02 09:17 | PDOC ---
Exam Note: Abdirashid Note: This note is a late entry for 11/30/2020 covers elements not covered in my initial note. Subjective: The patient was seen individually in the evening of 11/30/2020 with Brown DAILY, discussed and reviewed the chart. The patient slept 6-1/2 hours previous night. She has been delusional all day, somewhat labile in her mood, upset that her parents have left her and gone out of the country. She is wandering, social. Review of Systems: No CV, , pulmonary, eye, ENT system symptoms on review. Reliability poor. Mental Status Exam: The patient is oriented to herself. Insight and judgment, recent and remote memory, attention and concentration is poor consistent with her diagnoses. Laboratory Data: Reviewed. Impression: Major depressive disorder with psychotic features versus major neurocognitive disorder, Alzheimer vascular with depression, delusions, behavioral disturbance versus psychotic disorder unspecified. Plan: No change from initial note. Assessment: Vital Signs/I&O: Vital Signs Date Time Temp Pulse Resp B/P (MAP) Pulse Ox O2 Delivery O2 Flow Rate FiO2 12/02/20 05:29 97.7 65 16 127/76 (93) 98 12/01/20 23:15 Room Air I & O 12/01/20 12/01/20 12/02/20 14:59 22:59 06:59 Intake Total 600 ml 720 ml Balance 600 ml 720 ml Current Medications: Meds: Current Medications Medications (Trade) Dose Ordered Sig/Rach Route PRN Reason Start Time Stop Time Status Last Admin Dose Admin Clotrimazole (Lotrimin) 1 kathi BID TP 11/10/20 21:00 12/02/20 08:30 Cephalexin HCl (Keflex) 500 mg TID PO 11/10/20 21:00 11/13/20 22:00 DC 11/13/20 20:55 Acetaminophen (Tylenol) 650 mg PRN Q6HRS PRN PO MILD PAIN / TEMP > 100.3'F 11/10/20 15:30 11/15/20 06:37 Multi-Ingredient Ointment (Analgesic [place]) 1 kathi PRN QID PRN TP MUSCLE PAIN 11/10/20 15:30 Al Hydroxide/Mg Hydroxide (Mylanta Plus Xs) 15 ml PRN AFTMEALHC PRN PO DYSPEPSIA 11/10/20 15:30 Magnesium Hydroxide (Milk Of Magnesia) 2,400 mg PRN QHS PRN PO CONSTIPATION 11/10/20 15:30 Acetaminophen/ Hydrocodone Bitart (Lortab 5/325) 1 tab PRN Q6HRS PRN PO MOD-SEV PAIN 11/10/20 17:00 12/01/20 22:45 Olanzapine (ZyPREXA ZYDIS) 2.5 mg PRN Q2HR PRN PO PSYCHOSIS 11/10/20 17:15 12/01/20 22:43 Trazodone HCl (Desyrel) 50 mg QHS PRN PO INSOMNIA, MAY REPEAT X1 11/10/20 22:30 12/01/20 20:43 Mirtazapine (Remeron) 7.5 mg QHS PO 11/11/20 21:00 11/13/20 15:41 DC 11/12/20 19:21 Sertraline HCl (Zoloft) 25 mg DAILY PO 11/12/20 17:00 11/14/20 18:00 DC 11/14/20 08:44 Sertraline HCl (Zoloft) 50 mg DAILY PO 11/15/20 17:00 11/21/20 17:12 DC 11/21/20 08:38 Quetiapine Fumarate (SEROquel) 25 mg QHS PO 11/13/20 21:00 11/29/20 18:15 DC 11/28/20 20:07 Doxycycline Hyclate (Vibra-Tab) 100 mg BID PO 11/15/20 21:00 11/24/20 22:00 DC 11/24/20 19:47 Lactobacillus Rhamnosus (Culturelle) 1 cap BID PO 11/15/20 21:00 12/02/20 08:29 Sertraline HCl (Zoloft) 75 mg DAILY PO 11/22/20 09:00 12/02/20 08:29 Quetiapine Fumarate (SEROquel) 12.5 mg DAILY PO 11/26/20 09:00 11/26/20 14:20 DC 11/26/20 07:30 Quetiapine Fumarate (SEROquel) 12.5 mg 0900,1200 PO 11/26/20 14:30 12/02/20 08:30 Quetiapine Fumarate (SEROquel) 50 mg QHS PO 11/29/20 21:00 12/01/20 20:43 I have reviewed the current psychotropics carefully including drug interactions. Risk benefit ratio favors no change other than as noted in my dictated progress note. Diagnosis: Problems: (1) Impulse control disorder, unspecified (2) Anxiety disorder, unspecified (3) Dementia, vascular, with depression (4) Dementia, vascular, with delusions (5) Dementia in Alzheimer's disease with depression (6) Dementia in Alzheimer's disease with delusions (7) Dementia of the Alzheimer's type with early onset with behavioral disturbance (8) Major neurocognitive disorder KANDY WADE MD Dec 02, 2020 09:17
--- NOTE | 2020-12-02 15:05 | NUR ---
Nursing note: Pt in dining room at time of AM med pass and assessment. She is pleasant, med compliant and cooperative. Pt did have a moment of tearfulness this AM when her "parents left to go overseas and didn't even tell any of us goodbye". Pt was able to be redirected and has been in a better mood since. She is currently in the day room watching TV. Will continue to monitor.
[2020-12-02 16:20] VITALS: BP 105/60
[2020-12-02] MEDS: QUEtiapine 50 MG TABLET. PO SCH (21:23)
--- NOTE | 2020-12-02 22:07 | PDOC ---
Exam Note: Abdirashid Note: Please also refer to the separate dictated note~for this date of service dictated separately.~Patient seen individually. Discussed the patient with Nursing staff reviewed the chart.~Reviewed interim history and current functioning. Reviewed vital signs,~Labs/ Radiology~and current medications noted below. Continue current treatment with the changes noted in the dictated addendum note Assessment: Vital Signs/I&O: Vital Signs Date Time Temp Pulse Resp B/P (MAP) Pulse Ox O2 Delivery O2 Flow Rate FiO2 12/02/20 16:20 97.4 80 18 105/60 (75) 97 Room Air I & O 12/01/20 12/01/20 12/02/20 15:00 23:00 07:00 Intake Total 600 ml 720 ml Balance 600 ml 720 ml Current Medications: Meds: Current Medications Medications (Trade) Dose Ordered Sig/Rach Route PRN Reason Start Time Stop Time Status Last Admin Dose Admin Clotrimazole (Lotrimin) 1 kathi BID TP 11/10/20 21:00 12/02/20 21:23 Cephalexin HCl (Keflex) 500 mg TID PO 11/10/20 21:00 11/13/20 22:00 DC 11/13/20 20:55 Acetaminophen (Tylenol) 650 mg PRN Q6HRS PRN PO MILD PAIN / TEMP > 100.3'F 11/10/20 15:30 11/15/20 06:37 Multi-Ingredient Ointment (Analgesic [place]) 1 kathi PRN QID PRN TP MUSCLE PAIN 11/10/20 15:30 Al Hydroxide/Mg Hydroxide (Mylanta Plus Xs) 15 ml PRN AFTMEALHC PRN PO DYSPEPSIA 11/10/20 15:30 Magnesium Hydroxide (Milk Of Magnesia) 2,400 mg PRN QHS PRN PO CONSTIPATION 11/10/20 15:30 Acetaminophen/ Hydrocodone Bitart (Lortab 5/325) 1 tab PRN Q6HRS PRN PO MOD-SEV PAIN 11/10/20 17:00 12/01/20 22:45 Olanzapine (ZyPREXA ZYDIS) 2.5 mg PRN Q2HR PRN PO PSYCHOSIS 11/10/20 17:15 12/01/20 22:43 Trazodone HCl (Desyrel) 50 mg QHS PRN PO INSOMNIA, MAY REPEAT X1 11/10/20 22:30 12/01/20 20:43 Mirtazapine (Remeron) 7.5 mg QHS PO 11/11/20 21:00 11/13/20 15:41 DC 11/12/20 19:21 Sertraline HCl (Zoloft) 25 mg DAILY PO 11/12/20 17:00 11/14/20 18:00 DC 11/14/20 08:44 Sertraline HCl (Zoloft) 50 mg DAILY PO 11/15/20 17:00 11/21/20 17:12 DC 11/21/20 08:38 Quetiapine Fumarate (SEROquel) 25 mg QHS PO 11/13/20 21:00 11/29/20 18:15 DC 11/28/20 20:07 Doxycycline Hyclate (Vibra-Tab) 100 mg BID PO 11/15/20 21:00 11/24/20 22:00 DC 11/24/20 19:47 Lactobacillus Rhamnosus (Culturelle) 1 cap BID PO 11/15/20 21:00 12/02/20 21:23 Sertraline HCl (Zoloft) 75 mg DAILY PO 11/22/20 09:00 12/02/20 08:29 Quetiapine Fumarate (SEROquel) 12.5 mg DAILY PO 11/26/20 09:00 11/26/20 14:20 DC 11/26/20 07:30 Quetiapine Fumarate (SEROquel) 12.5 mg 0900,1200 PO 11/26/20 14:30 12/02/20 13:13 Quetiapine Fumarate (SEROquel) 50 mg QHS PO 11/29/20 21:00 12/02/20 21:23 I have reviewed the current psychotropics carefully including drug interactions. Risk benefit ratio favors no change other than as noted in my dictated progress note. Diagnosis: Problems: (1) Impulse control disorder, unspecified (2) Anxiety disorder, unspecified (3) Dementia, vascular, with depression (4) Dementia, vascular, with delusions (5) Dementia in Alzheimer's disease with depression (6) Dementia in Alzheimer's disease with delusions (7) Dementia of the Alzheimer's type with early onset with behavioral disturbance (8) Major neurocognitive disorder KANDY WADE MD Dec 02, 2020 22:07
--- NOTE | 2020-12-03 03:01 | NUR ---
Nursing Note The patient was interactive with peers but remains disorganized and labile with interactions with staff. The patient was alert to name only. The patient took her medication whole. The patient remains delusional talking about going to school and her parents picking her up. The patient is currently sleeping in her room.
[2020-12-03 05:48] VITALS: BP 133/72
[2020-12-03] MEDS: SERTRALINE 50 MG TABLET. PO SCH (08:29)
[2020-12-03] MEDS: LACTOBACILLUS RHAMNOSUS GG 1 CAPSULE. PO SCH ×2 (08:29→21:00)
[2020-12-03] MEDS: QUEtiapine 25 MG TABLET. PO SCH ×2 (08:29→12:53)
[2020-12-03] MEDS: CLOTRIMAZOLE 1% TOPICAL CREAM 30GM TUBE. TP SCH ×2 (08:30→21:00)
--- NOTE | 2020-12-03 09:25 | PDOC ---
Exam Note: Abdirashid Note: This note is a late entry for 12/01/2020 covers elements not covered in my initial note. Subjective: The patient was seen individually in the evening of 12/01/2020 with Nydia RN, discussed and reviewed the chart. The patient slept 5 hours previous night. She was somewhat tearful, anxious, confused, not talking about her parents, more social, ambulating better. Review of Systems: No CV, , pulmonary, eye, ENT system symptoms on review. Reliability poor. Mental Status Exam: The patient is oriented to herself. Insight and judgment, recent and remote memory, attention and concentration is poor consistent with her diagnoses. Laboratory Data: Reviewed. Impression: Major depressive disorder with psychotic features versus major neurocognitive disorder, Alzheimer vascular with depression, delusions, behavi oral disturbance versus psychotic disorder unspecified. Plan: No change from initial note. Assessment: Vital Signs/I&O: Vital Signs Date Time Temp Pulse Resp B/P (MAP) Pulse Ox O2 Delivery O2 Flow Rate FiO2 12/03/20 05:48 97.4 68 18 133/72 (92) 98 12/02/20 16:20 Room Air I & O 12/02/20 12/02/20 12/03/20 15:00 23:00 07:00 Intake Total 480 ml 240 ml 120 ml Balance 480 ml 240 ml 120 ml Current Medications: Meds: Current Medications Medications (Trade) Dose Ordered Sig/Rach Route PRN Reason Start Time Stop Time Status Last Admin Dose Admin Clotrimazole (Lotrimin) 1 kathi BID TP 11/10/20 21:00 12/03/20 08:30 Cephalexin HCl (Keflex) 500 mg TID PO 11/10/20 21:00 11/13/20 22:00 DC 11/13/20 20:55 Acetaminophen (Tylenol) 650 mg PRN Q6HRS PRN PO MILD PAIN / TEMP > 100.3'F 11/10/20 15:30 11/15/20 06:37 Multi-Ingredient Ointment (Analgesic [place]) 1 kathi PRN QID PRN TP MUSCLE PAIN 11/10/20 15:30 Al Hydroxide/Mg Hydroxide (Mylanta Plus Xs) 15 ml PRN AFTMEALHC PRN PO DYSPEPSIA 11/10/20 15:30 Magnesium Hydroxide (Milk Of Magnesia) 2,400 mg PRN QHS PRN PO CONSTIPATION 11/10/20 15:30 Acetaminophen/ Hydrocodone Bitart (Lortab 5/325) 1 tab PRN Q6HRS PRN PO MOD-SEV PAIN 11/10/20 17:00 12/01/20 22:45 Olanzapine (ZyPREXA ZYDIS) 2.5 mg PRN Q2HR PRN PO PSYCHOSIS 11/10/20 17:15 12/01/20 22:43 Trazodone HCl (Desyrel) 50 mg QHS PRN PO INSOMNIA, MAY REPEAT X1 11/10/20 22:30 12/01/20 20:43 Mirtazapine (Remeron) 7.5 mg QHS PO 11/11/20 21:00 11/13/20 15:41 DC 11/12/20 19:21 Sertraline HCl (Zoloft) 25 mg DAILY PO 11/12/20 17:00 11/14/20 18:00 DC 11/14/20 08:44 Sertraline HCl (Zoloft) 50 mg DAILY PO 11/15/20 17:00 11/21/20 17:12 DC 11/21/20 08:38 Quetiapine Fumarate (SEROquel) 25 mg QHS PO 11/13/20 21:00 11/29/20 18:15 DC 11/28/20 20:07 Doxycycline Hyclate (Vibra-Tab) 100 mg BID PO 11/15/20 21:00 11/24/20 22:00 DC 11/24/20 19:47 Lactobacillus Rhamnosus (Culturelle) 1 cap BID PO 11/15/20 21:00 12/03/20 08:29 Sertraline HCl (Zoloft) 75 mg DAILY PO 11/22/20 09:00 12/03/20 08:29 Quetiapine Fumarate (SEROquel) 12.5 mg DAILY PO 11/26/20 09:00 11/26/20 14:20 DC 11/26/20 07:30 Quetiapine Fumarate (SEROquel) 12.5 mg 0900,1200 PO 11/26/20 14:30 12/03/20 08:29 Quetiapine Fumarate (SEROquel) 50 mg QHS PO 11/29/20 21:00 12/02/20 21:23 I have reviewed the current psychotropics carefully including drug interactions. Risk benefit ratio favors no change other than as noted in my dictated progress note. Diagnosis: Problems: (1) Impulse control disorder, unspecified (2) Anxiety disorder, unspecified (3) Dementia, vascular, with depression (4) Dementia, vascular, with delusions (5) Dementia in Alzheimer's disease with depression (6) Dementia in Alzheimer's disease with delusions (7) Dementia of the Alzheimer's type with early onset with behavioral disturbance (8) Major neurocognitive disorder KANDY WADE MD Dec 03, 2020 09:25
--- NOTE | 2020-12-03 09:51 | PDOC ---
Exam Note: Abdirashid Note: This note is a late entry for 12/02/2020 covers elements not covered in my initial note. Subjective: The patient was seen individually in the evening of 12/02/2020 with Samira DAILY, discussed and reviewed the chart. The patient slept 4 hours previous night. She remains confused, has done well today. She was tearful after breakfast, stating her parents are gone overseas and left her here alone without telling her. I met with her in the dayroom. Review of Systems: No CV, , pulmonary, eye, ENT system symptoms on review. Reliability poor. Mental Status Exam: The patient is oriented to herself. She was pleasant, interactive, confused, shaking my hand, smiling. Insight and judgment, recent and remote memory, attention and concentration is poor consistent with her diagnoses. Laboratory Data: Reviewed. Impression: Major depressive disorder with psychotic features versus major neurocognitive disorder, Alzheimer vascular with depression, delusions, behavioral disturbance versus psychotic disorder unspecified. Plan: No change from initial note. Assessment: Vital Signs/I&O: Vital Signs Date Time Temp Pulse Resp B/P (MAP) Pulse Ox O2 Delivery O2 Flow Rate FiO2 12/03/20 05:48 97.4 68 18 133/72 (92) 98 12/02/20 16:20 Room Air I & O 12/02/20 12/02/20 12/03/20 15:00 23:00 07:00 Intake Total 480 ml 240 ml 120 ml Balance 480 ml 240 ml 120 ml Current Medications: Meds: Current Medications Medications (Trade) Dose Ordered Sig/Rach Route PRN Reason Start Time Stop Time Status Last Admin Dose Admin Clotrimazole (Lotrimin) 1 kathi BID TP 11/10/20 21:00 12/03/20 08:30 Cephalexin HCl (Keflex) 500 mg TID PO 11/10/20 21:00 11/13/20 22:00 DC 11/13/20 20:55 Acetaminophen (Tylenol) 650 mg PRN Q6HRS PRN PO MILD PAIN / TEMP > 100.3'F 11/10/20 15:30 11/15/20 06:37 Multi-Ingredient Ointment (Analgesic [place]) 1 kathi PRN QID PRN TP MUSCLE PAIN 11/10/20 15:30 Al Hydroxide/Mg Hydroxide (Mylanta Plus Xs) 15 ml PRN AFTMEALHC PRN PO DYSPEPSIA 11/10/20 15:30 Magnesium Hydroxide (Milk Of Magnesia) 2,400 mg PRN QHS PRN PO CONSTIPATION 11/10/20 15:30 Acetaminophen/ Hydrocodone Bitart (Lortab 5/325) 1 tab PRN Q6HRS PRN PO MOD-SEV PAIN 11/10/20 17:00 12/01/20 22:45 Olanzapine (ZyPREXA ZYDIS) 2.5 mg PRN Q2HR PRN PO PSYCHOSIS 11/10/20 17:15 12/01/20 22:43 Trazodone HCl (Desyrel) 50 mg QHS PRN PO INSOMNIA, MAY REPEAT X1 11/10/20 22:30 12/01/20 20:43 Mirtazapine (Remeron) 7.5 mg QHS PO 11/11/20 21:00 11/13/20 15:41 DC 11/12/20 19:21 Sertraline HCl (Zoloft) 25 mg DAILY PO 11/12/20 17:00 11/14/20 18:00 DC 11/14/20 08:44 Sertraline HCl (Zoloft) 50 mg DAILY PO 11/15/20 17:00 11/21/20 17:12 DC 11/21/20 08:38 Quetiapine Fumarate (SEROquel) 25 mg QHS PO 11/13/20 21:00 11/29/20 18:15 DC 11/28/20 20:07 Doxycycline Hyclate (Vibra-Tab) 100 mg BID PO 11/15/20 21:00 11/24/20 22:00 DC 11/24/20 19:47 Lactobacillus Rhamnosus (Culturelle) 1 cap BID PO 11/15/20 21:00 12/03/20 08:29 Sertraline HCl (Zoloft) 75 mg DAILY PO 11/22/20 09:00 12/03/20 08:29 Quetiapine Fumarate (SEROquel) 12.5 mg DAILY PO 11/26/20 09:00 11/26/20 14:20 DC 11/26/20 07:30 Quetiapine Fumarate (SEROquel) 12.5 mg 0900,1200 PO 11/26/20 14:30 12/03/20 08:29 Quetiapine Fumarate (SEROquel) 50 mg QHS PO 11/29/20 21:00 12/02/20 21:23 I have reviewed the current psychotropics carefully including drug interactions. Risk benefit ratio favors no change other than as noted in my dictated progress note. Diagnosis: Problems: (1) Impulse control disorder, unspecified (2) Anxiety disorder, unspecified (3) Dementia, vascular, with depression (4) Dementia, vascular, with delusions (5) Dementia in Alzheimer's disease with depression (6) Dementia in Alzheimer's disease with delusions (7) Dementia of the Alzheimer's type with early onset with behavioral disturbance (8) Major neurocognitive disorder KANDY WADE MD Dec 03, 2020 09:51
--- NOTE | 2020-12-03 12:20 | NUR ---
Treatment team note: Pt dtr, Janeen, participated in tx team via phone. Pt is eating 100% of meals and sleeping on average 5.5 hours per night. Pt is less tearful but continues to be delusional (e.g. looking for her parents, waiting to go to school and waiting for Dad to come back from being overseas). Pt appears to be less aggressive and has within the last 48-72 hours had better interactions with staff. Pt has attended 8 groups this last week with moderate to full participation; she even attempts to encourage others to participate in activities with her. Pt dtr questions if pt is getting better due to medications fully taking effect or due to her time on the unit and continues to look at pt financials to see if placement is an option or if she needs to apply for Medicaid. At this time, SW continues to work on discharge plans with pt dtr (e.g. home versus placement). MIK will follow up with pt dtr later this afternoon.
--- NOTE | 2020-12-03 12:56 | NUR ---
WEEKLY ACTIVITY THERAPY NOTE Date of Admission: 11/10/20 Date of AT Assessment: 11/13 Precipitating behaviors that initiated intake and admission: AMS, hallucinating, asking for parents, repetitive, STM defect, taking off clothes, incontinent, smearing feces on wall, attempting to leave house at night, poor hygiene Goal aimed: increase engagement and socialization Initial Goal: Pt will participate in at least three individual or group Activity Therapy sessions per week Goal changed 11/20: Pt will participate in at least five individual or group Activity Therapy sessions per week Goal changed 11/26:Pt will participate in at all Activity Therapy groups per week. Weekly progress towards goal: did not achieve, 12/25 Group participation level: 1 min, 3 mod, 4 full Weekly highlights: dancing Thursday, exercises and Name 5 Thursday, cow appreciation group , hot cocoa , sang and pauline her hand to music bingo Thursday Behaviors observed: direct prompting needed, tearful and wondering where her parents were Thursday Plan: no change to goal Beneficial adaptations: prompting, music
--- NOTE | 2020-12-03 13:34 | NUR ---
Nursing note: Pt in dining room at time of AM med pass and assessment. She is pleasant, med compliant and cooperative. She had an episode of tearfulness because she "can't find my parents." Pt able to be redirected. She is currently sitting on the [employer] for group. Will continue to monitor.
--- NOTE | 2020-12-03 15:13 | TX PLAN ---
Interdisciplinary Tx Plan Admission Information Nov 10, 2020 at 14:40 Legal Status (on Admission): Voluntary DPOA/Guardian Name: Janeen Lovelace Contact Other Contact Name: Janeen Lovelace Other Contact Verified Code Status: Full Code Allergies: Coded Allergies: No Known Drug Allergies (Unverified , 11/10/20) Diagnoses Primary Diagnosis: Dementia with BD Reasons for Admission: Hallucinations, Confusion/Disoriented, Poor impulse control, Other Problem in Patient's Words: Assuming this is the UTI because this has all happened so sudden Additional Admission Comments: According to the intake, pt is hallucinating, asking to see her parents, repetitive, altered mental status (displaying STM deficits), taking off her clothes, smearing feces on the wall, tried to leave the house at night and poor hygeine. Problems Active Problems: delusional restless/anxious hallucinating Inactive Problems: medication compliant Pt Strengths/Limitations Ability for [place]: Poor Cognitive Functioning/Ability: Fair Communication Skills/Ability: Fair Financial Resources: Fair Insight/Judgement: Poor Intellectual Ability: Fair Physical Health: Fair Social Skills: Fair Stability in Family: Good Stability in School/Work: Poor Verbal Skills: Fair Discharge Criteria Discharge Criteria: No need for close observ., Adequate arrangements @DC, Impr mary behavior, Improved mood/thought Preliminary Discharge Plan Preliminary DC Plan: Current Living Arrange. Special Precautions Fall Risk: Low Initial D/C Plan Pt will plan to discharge back home with family. Identified Discharge Needs: Resources for continued mental health services Currently Utilized Resources Currently Utilized Resources/P: Primary care physician Referrals Community Resources: referrals for psychiatry Identified Problems/Hx/Goals Objectives/Short-Term Goals Short Term Goals: Control abnormal behavior, Dec. Hallucination/Delus, Medication Stabilization, Promote Coping Skill Short Term Goals in Patient's: N/a Interventions/Frequency Staff Interventions/Frequency&: Psychiatrist to assess pt at least 3x per week for medication management. Social Work to assess pt at least 2x per week to identify barriers to care and discharge planning. Nursing to assess medication effects, behavior modification and completion of 15 minute checks daily. Encourage participation in group activities (if applicable) or 1:1 engagement based off activity dept goals. 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 Pt does have an associates degree Community Follow-up PCP psychiatry referral Community Provider/Family Inpu: She has never been diagnosed with anything and I worry about a Dementia diagnosis as this is a sudden onset and she had not issues until this month or <6 weeks ago. 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 Pt is eating 100% of meals and sleeping on average 5.5 hours per night. Pt is less tearful but continues to be delusional (e.g. looking for her parents, waiting to go to school and waiting for Dad to come back from being overseas). Pt appears to be less aggressive and has within the last 48-72 hours had better interactions with staff. Pt has attended 8 groups this last week with moderate to full participation; she even attempts to encourage others to participate in activities with her. Pt dtr questions if pt is getting better due to medications fully taking effect or due to her time on the unit and continues to look at pt financials to see if placement is an option or if she needs to apply for Medicaid. At this time, MIK continues to work on discharge plans with pt dtr (e.g. home versus placement). MIK will follow up with pt dtr later this afternoon. ONUR RAMOS Dec 03, 2020 15:13
[2020-12-03 16:22] VITALS: BP 116/64
[2020-12-03] MEDS: QUEtiapine 50 MG TABLET. PO SCH (21:00)
--- NOTE | 2020-12-03 22:20 | PDOC ---
Exam Note: Abdirashid Note: Please also refer to the separate dictated note~for this date of service dictated separately.~Patient seen individually. Discussed the patient with Nursing staff reviewed the chart.~Reviewed interim history and current functioning. Reviewed vital signs,~Labs/ Radiology~and current medications noted below. Continue current treatment with the changes noted in the dictated addendum note Assessment: Vital Signs/I&O: Vital Signs Date Time Temp Pulse Resp B/P (MAP) Pulse Ox O2 Delivery O2 Flow Rate FiO2 12/03/20 16:22 98.4 89 18 116/64 (81) 96 12/02/20 16:20 Room Air I & O 12/02/20 12/02/20 12/03/20 15:00 23:00 07:00 Intake Total 480 ml 240 ml 120 ml Balance 480 ml 240 ml 120 ml Current Medications: Meds: Current Medications Medications (Trade) Dose Ordered Sig/Rach Route PRN Reason Start Time Stop Time Status Last Admin Dose Admin Clotrimazole (Lotrimin) 1 kathi BID TP 11/10/20 21:00 12/03/20 21:00 Cephalexin HCl (Keflex) 500 mg TID PO 11/10/20 21:00 11/13/20 22:00 DC 11/13/20 20:55 Acetaminophen (Tylenol) 650 mg PRN Q6HRS PRN PO MILD PAIN / TEMP > 100.3'F 11/10/20 15:30 11/15/20 06:37 Multi-Ingredient Ointment (Analgesic [place]) 1 kathi PRN QID PRN TP MUSCLE PAIN 11/10/20 15:30 Al Hydroxide/Mg Hydroxide (Mylanta Plus Xs) 15 ml PRN AFTMEALHC PRN PO DYSPEPSIA 11/10/20 15:30 Magnesium Hydroxide (Milk Of Magnesia) 2,400 mg PRN QHS PRN PO CONSTIPATION 11/10/20 15:30 Acetaminophen/ Hydrocodone Bitart (Lortab 5/325) 1 tab PRN Q6HRS PRN PO MOD-SEV PAIN 11/10/20 17:00 12/01/20 22:45 Olanzapine (ZyPREXA ZYDIS) 2.5 mg PRN Q2HR PRN PO PSYCHOSIS 11/10/20 17:15 12/03/20 18:24 Trazodone HCl (Desyrel) 50 mg QHS PRN PO INSOMNIA, MAY REPEAT X1 11/10/20 22:30 12/01/20 20:43 Mirtazapine (Remeron) 7.5 mg QHS PO 11/11/20 21:00 11/13/20 15:41 DC 11/12/20 19:21 Sertraline HCl (Zoloft) 25 mg DAILY PO 11/12/20 17:00 11/14/20 18:00 DC 11/14/20 08:44 Sertraline HCl (Zoloft) 50 mg DAILY PO 11/15/20 17:00 11/21/20 17:12 DC 11/21/20 08:38 Quetiapine Fumarate (SEROquel) 25 mg QHS PO 11/13/20 21:00 11/29/20 18:15 DC 11/28/20 20:07 Doxycycline Hyclate (Vibra-Tab) 100 mg BID PO 11/15/20 21:00 11/24/20 22:00 DC 11/24/20 19:47 Lactobacillus Rhamnosus (Culturelle) 1 cap BID PO 11/15/20 21:00 12/03/20 21:00 Sertraline HCl (Zoloft) 75 mg DAILY PO 11/22/20 09:00 12/03/20 08:29 Quetiapine Fumarate (SEROquel) 12.5 mg DAILY PO 11/26/20 09:00 11/26/20 14:20 DC 11/26/20 07:30 Quetiapine Fumarate (SEROquel) 12.5 mg 0900,1200 PO 11/26/20 14:30 12/03/20 12:53 Quetiapine Fumarate (SEROquel) 50 mg QHS PO 11/29/20 21:00 12/03/20 21:00 I have reviewed the current psychotropics carefully including drug interactions. Risk benefit ratio favors no change other than as noted in my dictated progress note. Diagnosis: Problems: (1) Impulse control disorder, unspecified (2) Anxiety disorder, unspecified (3) Dementia, vascular, with depression (4) Dementia, vascular, with delusions (5) Dementia in Alzheimer's disease with depression (6) Dementia in Alzheimer's disease with delusions (7) Dementia of the Alzheimer's type with early onset with behavioral disturbance (8) Major neurocognitive disorder KANDY WADE MD Dec 03, 2020 22:19
--- NOTE | 2020-12-03 23:41 | NUR ---
Nursing Note The patient was located in the hallway for her assessment and medication pass. The patient was alert to name only and was irritable during interactions. The patient took her medication whole. The patient was agitated/aggressive while receiving her shower this evening. The patient is currently sleeping in her room.
[2020-12-04 05:52] VITALS: BP 128/77
[2020-12-04] MEDS: CLOTRIMAZOLE 1% TOPICAL CREAM 30GM TUBE. TP SCH ×2 (09:00→21:13)
[2020-12-04] MEDS: LACTOBACILLUS RHAMNOSUS GG 1 CAPSULE. PO SCH ×2 (09:15→21:13)
[2020-12-04] MEDS: QUEtiapine 25 MG TABLET. PO SCH ×2 (09:15→12:16)
[2020-12-04] MEDS: SERTRALINE 50 MG TABLET. PO SCH (09:15)
--- NOTE | 2020-12-04 11:23 | NUR ---
Nursing note: Pt in day room at time of AM med pass and assessment. She is pleasant, med compliant and cooperative. Pt denies having any pain/concerns. She has had no tearful moments or delusions as of yet this shift. Will continue to monitor.
[2020-12-04 15:42] VITALS: BP 102/60
[2020-12-04] MEDS: QUEtiapine 50 MG TABLET. PO SCH (21:13)
--- NOTE | 2020-12-04 22:04 | PDOC ---
Exam Note: Abdirashid Note: Please also refer to the separate dictated note~for this date of service dictated separately.~Patient seen individually. Discussed the patient with Nursing staff reviewed the chart.~Reviewed interim history and current functioning. Reviewed vital signs,~Labs/ Radiology~and current medications noted below. Continue current treatment with the changes noted in the dictated addendum note Assessment: Vital Signs/I&O: Vital Signs Date Time Temp Pulse Resp B/P (MAP) Pulse Ox O2 Delivery O2 Flow Rate FiO2 12/04/20 15:42 98.2 96 20 102/60 (74) 94 12/02/20 16:20 Room Air I & O 12/03/20 12/03/20 12/04/20 15:00 23:00 07:00 Intake Total 720 ml 480 ml Balance 720 ml 480 ml Current Medications: Meds: Current Medications Medications (Trade) Dose Ordered Sig/Rach Route PRN Reason Start Time Stop Time Status Last Admin Dose Admin Clotrimazole (Lotrimin) 1 kathi BID TP 11/10/20 21:00 12/04/20 21:13 Cephalexin HCl (Keflex) 500 mg TID PO 11/10/20 21:00 11/13/20 22:00 DC 11/13/20 20:55 Acetaminophen (Tylenol) 650 mg PRN Q6HRS PRN PO MILD PAIN / TEMP > 100.3'F 11/10/20 15:30 11/15/20 06:37 Multi-Ingredient Ointment (Analgesic [place]) 1 kathi PRN QID PRN TP MUSCLE PAIN 11/10/20 15:30 Al Hydroxide/Mg Hydroxide (Mylanta Plus Xs) 15 ml PRN AFTMEALHC PRN PO DYSPEPSIA 11/10/20 15:30 Magnesium Hydroxide (Milk Of Magnesia) 2,400 mg PRN QHS PRN PO CONSTIPATION 11/10/20 15:30 Acetaminophen/ Hydrocodone Bitart (Lortab 5/325) 1 tab PRN Q6HRS PRN PO MOD-SEV PAIN 11/10/20 17:00 12/01/20 22:45 Olanzapine (ZyPREXA ZYDIS) 2.5 mg PRN Q2HR PRN PO PSYCHOSIS 11/10/20 17:15 12/03/20 18:24 Trazodone HCl (Desyrel) 50 mg QHS PRN PO INSOMNIA, MAY REPEAT X1 11/10/20 22:30 12/01/20 20:43 Mirtazapine (Remeron) 7.5 mg QHS PO 11/11/20 21:00 11/13/20 15:41 DC 11/12/20 19:21 Sertraline HCl (Zoloft) 25 mg DAILY PO 11/12/20 17:00 11/14/20 18:00 DC 11/14/20 08:44 Sertraline HCl (Zoloft) 50 mg DAILY PO 11/15/20 17:00 11/21/20 17:12 DC 11/21/20 08:38 Quetiapine Fumarate (SEROquel) 25 mg QHS PO 11/13/20 21:00 11/29/20 18:15 DC 11/28/20 20:07 Doxycycline Hyclate (Vibra-Tab) 100 mg BID PO 11/15/20 21:00 11/24/20 22:00 DC 11/24/20 19:47 Lactobacillus Rhamnosus (Culturelle) 1 cap BID PO 11/15/20 21:00 12/04/20 21:13 Sertraline HCl (Zoloft) 75 mg DAILY PO 11/22/20 09:00 12/04/20 09:15 Quetiapine Fumarate (SEROquel) 12.5 mg DAILY PO 11/26/20 09:00 11/26/20 14:20 DC 11/26/20 07:30 Quetiapine Fumarate (SEROquel) 12.5 mg 0900,1200 PO 11/26/20 14:30 12/04/20 12:16 Quetiapine Fumarate (SEROquel) 50 mg QHS PO 11/29/20 21:00 12/04/20 21:13 I have reviewed the current psychotropics carefully including drug interactions. Risk benefit ratio favors no change other than as noted in my dictated progress note. Diagnosis: Problems: (1) Impulse control disorder, unspecified (2) Anxiety disorder, unspecified (3) Dementia, vascular, with depression (4) Dementia, vascular, with delusions (5) Dementia in Alzheimer's disease with depression (6) Dementia in Alzheimer's disease with delusions (7) Dementia of the Alzheimer's type with early onset with behavioral distu rbance (8) Major neurocognitive disorder KANDY WADE MD Dec 04, 2020 22:04
--- NOTE | 2020-12-04 22:28 | NUR ---
Nursing Note The patient was located in the day room for her assessment and medication pass. The patient took her medication whole. The patient was alert to name only during her assessment. The patient was interactive and appropriate with peers and staff. The patient was cooperative with HS cares. The patient is currently sleeping in her room.
[2020-12-05 06:14] VITALS: BP 133/80
--- NOTE | 2020-12-05 08:41 | PDOC ---
Exam Note: Abdirashid Note: This note is a late entry for 12/03/2020 covers elements not covered in my initial note. Subjective: The patient was seen individually in the morning of 12/03/2020 for a treatment team meeting with Steph Myers, Cyndi Manuel (social worker palliative care), Anamaria, activity therapy and Samira DAILY, discussed and reviewed the chart. The patient slept 5-3/4 hours previous night. The patients daughter Janeen attended the meeting. She remains confused, wandering, looking for her mother and father who she believes have left her. She had attended 8 groups in the past week and was dancing in groups and tapping her hands to music. Review of Systems: No CV, , pulmonary, eye, ENT system symptoms on review. Reliability poor. Mental Status Exam: The patient is oriented to herself. Insight and judgment, recent and remote memory, attention and concentration is poor consistent with her diagnoses. Laboratory Data: Reviewed. Impression: Major depressive disorder with psychotic features versus major neurocognitive disorder, Alzheimer vascular with depression, delusions, behavioral disturbance versus psychotic disorder unspecified. Plan: No change from initial note. Assessment: Vital Signs/I&O: Vital Signs Date Time Temp Pulse Resp B/P (MAP) Pulse Ox O2 Delivery O2 Flow Rate FiO2 12/05/20 06:14 97.5 67 16 133/80 (97) 98 12/02/20 16:20 Room Air I & O 0 12/04/20 12/04/20 12/05/20 15:00 23:00 07:00 Intake Total 1520 ml 360 ml 120 ml Balance 1520 ml 360 ml 120 ml Current Medications: Meds: Current Medications Medications (Trade) Dose Ordered Sig/Rach Route PRN Reason Start Time Stop Time Status Last Admin Dose Admin Clotrimazole (Lotrimin) 1 kathi BID TP 11/10/20 21:00 12/04/20 21:13 Cephalexin HCl (Keflex) 500 mg TID PO 11/10/20 21:00 11/13/20 22:00 DC 11/13/20 20:55 Acetaminophen (Tylenol) 650 mg PRN Q6HRS PRN PO MILD PAIN / TEMP > 100.3'F 11/10/20 15:30 11/15/20 06:37 Multi-Ingredient Ointment (Analgesic [place]) 1 kathi PRN QID PRN TP MUSCLE PAIN 11/10/20 15:30 Al Hydroxide/Mg Hydroxide (Mylanta Plus Xs) 15 ml PRN AFTMEALHC PRN PO DYSPEPSIA 11/10/20 15:30 Magnesium Hydroxide (Milk Of Magnesia) 2,400 mg PRN QHS PRN PO CONSTIPATION 11/10/20 15:30 Acetaminophen/ Hydrocodone Bitart (Lortab 5/325) 1 tab PRN Q6HRS PRN PO MOD-SEV PAIN 11/10/20 17:00 12/01/20 22:45 Olanzapine (ZyPREXA ZYDIS) 2.5 mg PRN Q2HR PRN PO PSYCHOSIS 11/10/20 17:15 12/03/20 18:24 Trazodone HCl (Desyrel) 50 mg QHS PRN PO INSOMNIA, MAY REPEAT X1 11/10/20 22:30 12/01/20 20:43 Mirtazapine (Remeron) 7.5 mg QHS PO 11/11/20 21:00 11/13/20 15:41 DC 11/12/20 19:21 Sertraline HCl (Zoloft) 25 mg DAILY PO 11/12/20 17:00 11/14/20 18:00 DC 11/14/20 08:44 Sertraline HCl (Zoloft) 50 mg DAILY PO 11/15/20 17:00 11/21/20 17:12 DC 11/21/20 08:38 Quetiapine Fumarate (SEROquel) 25 mg QHS PO 11/13/20 21:00 11/29/20 18:15 DC 11/28/20 20:07 Doxycycline Hyclate (Vibra-Tab) 100 mg BID PO 11/15/20 21:00 11/24/20 22:00 DC 11/24/20 19:47 Lactobacillus Rhamnosus (Culturelle) 1 cap BID PO 11/15/20 21:00 12/04/20 21:13 Sertraline HCl (Zoloft) 75 mg DAILY PO 11/22/20 09:00 12/04/20 09:15 Quetiapine Fumarate (SEROquel) 12.5 mg DAILY PO 11/26/20 09:00 11/26/20 14:20 DC 7/12/21 07:30 Quetiapine Fumarate (SEROquel) 12.5 mg 0900,1200 PO 11/26/20 14:30 12/04/20 12:16 Quetiapine Fumarate (SEROquel) 50 mg QHS PO 11/29/20 21:00 12/04/20 21:13 I have reviewed the current psychotropics carefully including drug interactions. Risk benefit ratio favors no change other than as noted in my dictated progress note. Diagnosis: Problems: (1) Impulse control disorder, unspecified (2) Anxiety disorder, unspecified (3) Dementia, vascular, with depression (4) Dementia, vascular, with delusions (5) Dementia in Alzheimer's disease with depression (6) Dementia in Alzheimer's disease with delusions (7) Dementia of the Alzheimer's type with early onset with behavioral disturbance (8) Major neurocognitive disorder KANDY WADE MD Dec 05, 2020 08:41
[2020-12-05] MEDS: QUEtiapine 25 MG TABLET. PO SCH ×2 (08:57→12:28)
[2020-12-05] MEDS: SERTRALINE 50 MG TABLET. PO SCH (08:57)
[2020-12-05] MEDS: LACTOBACILLUS RHAMNOSUS GG 1 CAPSULE. PO SCH ×2 (08:58→20:23)
[2020-12-05] MEDS: CLOTRIMAZOLE 1% TOPICAL CREAM 30GM TUBE. TP SCH ×2 (08:58→20:23)
--- NOTE | 2020-12-05 09:03 | PDOC ---
Exam Note: Abdirashid Note: This note is a late entry for 12/04/2020 covers elements not covered in my initial note. Subjective: The patient was seen individually in the evening of 12/04/2020 with Samira DAILY, discussed and reviewed the chart. The patient slept 6 hours previous night. She remains confused, somewhat tearful at times, irritable. She was agitated with showers last night, did better today. She still thinks her parents have left her here and she was talking about this as I met with her individually in the dayroom. Review of Systems: No CV, , pulmonary, eye, ENT system symptoms on review. Reliability poor. Mental Status Exam: The patient is oriented to herself. Insight and judgment, recent and remote memory, attention and concentration is poor consistent with her diagnoses. Laboratory Data: Reviewed. Impression: Major depressive disorder with psychotic features versus major neurocognitive disorder, Alzheimer vascular with depression, delusions, behavioral disturbance versus psychotic disorder unspecified. Plan: No change from initial note. Assessment: Vital Signs/I&O: Vital Signs Date Time Temp Pulse Resp B/P (MAP) Pulse Ox O2 Delivery O2 Flow Rate FiO2 12/05/20 06:14 97.5 67 16 133/80 (97) 98 12/02/20 16:20 Room Air I & O 12/04/20 12/04/20 12/05/20 15:00 23:00 07:00 Intake Total 1520 ml 360 ml 120 ml Balance 1520 ml 360 ml 120 ml Current Medications: Meds: Current Medications Medications (Trade) Dose Ordered Sig/Rach Route PRN Reason Start Time Stop Time Status Last Admin Dose Admin Clotrimazole (Lotrimin) 1 kathi BID TP 11/10/20 21:00 12/05/20 08:58 Cephalexin HCl (Keflex) 500 mg TID PO 11/10/20 21:00 11/13/20 22:00 DC 11/13/20 20:55 Acetaminophen (Tylenol) 650 mg PRN Q6HRS PRN PO MILD PAIN / TEMP > 100.3'F 11/10/20 15:30 11/15/20 06:37 Multi-Ingredient Ointment (Analgesic [place]) 1 kathi PRN QID PRN TP MUSCLE PAIN 11/10/20 15:30 Al Hydroxide/Mg Hydroxide (Mylanta Plus Xs) 15 ml PRN AFTMEALHC PRN PO DYSPEPSIA 11/10/20 15:30 Magnesium Hydroxide (Milk Of Magnesia) 2,400 mg PRN QHS PRN PO CONSTIPATION 11/10/20 15:30 Acetaminophen/ Hydrocodone Bitart (Lortab 5/325) 1 tab PRN Q6HRS PRN PO MOD-SEV PAIN 11/10/20 17:00 12/01/20 22:45 Olanzapine (ZyPREXA ZYDIS) 2.5 mg PRN Q2HR PRN PO PSYCHOSIS 11/10/20 17:15 12/03/20 18:24 Trazodone HCl (Desyrel) 50 mg QHS PRN PO INSOMNIA, MAY REPEAT X1 11/10/20 22:30 12/01/20 20:43 Mirtazapine (Remeron) 7.5 mg QHS PO 11/11/20 21:00 11/13/20 15:41 DC 11/12/20 19:21 Sertraline HCl (Zoloft) 25 mg DAILY PO 11/12/20 17:00 11/14/20 18:00 DC 11/14/20 08:44 Sertraline HCl (Zoloft) 50 mg DAILY PO 11/15/20 17:00 11/21/20 17:12 DC 11/21/20 08:38 Quetiapine Fumarate (SEROquel) 25 mg QHS PO 11/13/20 21:00 11/29/20 18:15 DC 11/28/20 20:07 Doxycycline Hyclate (Vibra-Tab) 100 mg BID PO 11/15/20 21:00 11/24/20 22:00 DC 11/24/20 19:47 Lactobacillus Rhamnosus (Culturelle) 1 cap BID PO 11/15/20 21:00 12/05/20 08:58 Sertraline HCl (Zoloft) 75 mg DAILY PO 11/22/20 09:00 12/05/20 08:57 Quetiapine Fumarate (SEROquel) 12.5 mg DAILY PO 11/26/20 09:00 11/26/20 14:20 DC 11/26/20 07:30 Quetiapine Fumarate (SEROquel) 12.5 mg 0900,1200 PO 11/26/20 14:30 12/05/20 08:57 Quetiapine Fumarate (SEROquel) 50 mg QHS PO 11/29/20 21:00 12/04/20 21:13 I have reviewed the current psychotropics carefully including drug interactions. Risk benefit ratio favors no change other than as noted in my dictated progress note. Diagnosis: Problems: (1) Impulse control disorder, unspecified (2) Anxiety disorder, unspecified (3) Dementia, vascular, with depression (4) Dementia, vascular, with delusions (5) Dementia in Alzheimer's disease with depression (6) Dementia in Alzheimer's disease with delusions (7) Dementia of the Alzheimer's type with early onset with behavioral disturbance (8) Major neurocognitive disorder KANDY WADE MD Dec 05, 2020 09:03
[2020-12-05 15:54] VITALS: BP 130/56
--- NOTE | 2020-12-05 18:30 | NUR ---
Patient has been increasingly agitated and delusional; she is wandering, looking for her parents, and tearful. She states her parents left the country without her and is being intrusive with other patients causing them to be upset. PRN medication provided per eMAR, will continue to monitor.
--- NOTE | 2020-12-05 18:43 | NUR ---
Pt increasing in agitation and verbal aggression towards both staff and other patients. She has also engaged in bullying and bossing other patients, being intrusive, and having delusions about her parents being overseas and children being present on the unit. She is not receptive to redirection from staff, and responds with breaking down hysterically crying. PRN Zyprexa 2.5 mg PO administered.
[2020-12-05] MEDS: QUEtiapine 50 MG TABLET. PO SCH (20:23)
--- NOTE | 2020-12-05 22:35 | PDOC ---
Exam Note: Abdirashid Note: Please also refer to the separate dictated note~for this date of service dictated separately.~Patient seen individually. Discussed the patient with Nursing staff reviewed the chart.~Reviewed interim history and current functioning. Reviewed vital signs,~Labs/ Radiology~and current medications noted below. Continue current treatment with the changes noted in the dictated addendum note Assessment: Vital Signs/I&O: Vital Signs Date Time Temp Pulse Resp B/P (MAP) Pulse Ox O2 Delivery O2 Flow Rate FiO2 12/05/20 15:54 97.4 89 18 130/56 (80) 94 12/02/20 16:20 Room Air I & O 12/04/20 12/04/20 12/05/20 15:00 23:00 07:00 Intake Total 1520 ml 360 ml 120 ml Balance 1520 ml 360 ml 120 ml Current Medications: Meds: Current Medications Medications (Trade) Dose Ordered Sig/Rach Route PRN Reason Start Time Stop Time Status Last Admin Dose Admin Clotrimazole (Lotrimin) 1 kathi BID TP 11/10/20 21:00 12/05/20 20:23 Cephalexin HCl (Keflex) 500 mg TID PO 11/10/20 21:00 11/13/20 22:00 DC 11/13/20 20:55 Acetaminophen (Tylenol) 650 mg PRN Q6HRS PRN PO MILD PAIN / TEMP > 100.3'F 11/10/20 15:30 11/15/20 06:37 Multi-Ingredient Ointment (Analgesic [place]) 1 kathi PRN QID PRN TP MUSCLE PAIN 11/10/20 15:30 Al Hydroxide/Mg Hydroxide (Mylanta Plus Xs) 15 ml PRN AFTMEALHC PRN PO DYSPEPSIA 11/10/20 15:30 Magnesium Hydroxide (Milk Of Magnesia) 2,400 mg PRN QHS PRN PO CONSTIPATION 11/10/20 15:30 Acetaminophen/ Hydrocodone Bitart (Lortab 5/325) 1 tab PRN Q6HRS PRN PO MOD-SEV PAIN 11/10/20 17:00 12/01/20 22:45 Olanzapine (ZyPREXA ZYDIS) 2.5 mg PRN Q2HR PRN PO PSYCHOSIS 11/10/20 17:15 12/05/20 18:43 Trazodone HCl (Desyrel) 50 mg QHS PRN PO INSOMNIA, MAY REPEAT X1 11/10/20 22:30 12/01/20 20:43 Mirtazapine (Remeron) 7.5 mg QHS PO 11/11/20 21:00 11/13/20 15:41 DC 11/12/20 19:21 Sertraline HCl (Zoloft) 25 mg DAILY PO 11/12/20 17:00 11/14/20 18:00 DC 11/14/20 08:44 Sertraline HCl (Zoloft) 50 mg DAILY PO 11/15/20 17:00 11/21/20 17:12 DC 11/21/20 08:38 Quetiapine Fumarate (SEROquel) 25 mg QHS PO 11/13/20 21:00 11/29/20 18:15 DC 11/28/20 20:07 Doxycycline Hyclate (Vibra-Tab) 100 mg BID PO 11/15/20 21:00 11/24/20 22:00 DC 11/24/20 19:47 Lactobacillus Rhamnosus (Culturelle) 1 cap BID PO 11/15/20 21:00 12/05/20 20:23 Sertraline HCl (Zoloft) 75 mg DAILY PO 11/22/20 09:00 12/05/20 08:57 Quetiapine Fumarate (SEROquel) 12.5 mg DAILY PO 11/26/20 09:00 11/26/20 14:20 DC 11/26/20 07:30 Quetiapine Fumarate (SEROquel) 12.5 mg 0900,1200 PO 11/26/20 14:30 12/05/20 19:33 DC 12/05/20 12:28 Quetiapine Fumarate (SEROquel) 50 mg QHS PO 11/29/20 21:00 12/05/20 20:23 Quetiapine Fumarate (SEROquel) 12.5 mg 0900,1300,1700 PO 12/06/20 09:00 I have reviewed the current psychotropics carefully including drug interactions. Risk benefit ratio favors no change other than as noted in my dictated progress note. Diagnosis: Problems: (1) Impulse control disorder, unspecified (2) Anxiety disorder, unspecified (3) Dementia, vascular, with depression (4) Dementia, vascular, with delusions (5) Dementia in Alzheimer's disease with depression (6) Dementia in Alzheimer's disease with delusions (7) Dementia of the Alzheimer's type with early onset with behavioral disturbance (8) Major neurocognitive disorder KANDY WADE MD Dec 05, 2020 22:35
[2020-12-06 05:57] VITALS: BP 149/84
[2020-12-06] MEDS: LACTOBACILLUS RHAMNOSUS GG 1 CAPSULE. PO SCH ×2 (08:45→20:37)
[2020-12-06] MEDS: QUEtiapine 25 MG TABLET. PO SCH ×3 (08:46→16:44)
[2020-12-06] MEDS: SERTRALINE 50 MG TABLET. PO SCH (08:46)
[2020-12-06] MEDS: CLOTRIMAZOLE 1% TOPICAL CREAM 30GM TUBE. TP SCH ×2 (09:00→20:39)
--- NOTE | 2020-12-06 13:23 | NUR ---
SW attempted to contact Janeen pt dtr/FRANCISCA, and ended up leaving a message for pt to contact MIK when possible.
[2020-12-06 16:01] VITALS: BP 106/65
--- NOTE | 2020-12-06 16:45 | NUR ---
Patient has been increasingly agitated and delusional; she is wandering, looking for her brother, and tearful. She states her sister left her and her brother her and she has to find him so they can go home. PRN medication provided per eMAR, will continue to monitor.
[2020-12-06] MEDS: QUEtiapine 50 MG TABLET. PO SCH (20:37)
--- NOTE | 2020-12-06 22:10 | PDOC ---
Exam Note: Abdirashid Note: Please also refer to the separate dictated note~for this date of service dictated separately.~Patient seen individually. Discussed the patient with Nursing staff reviewed the chart.~Reviewed interim history and current functioning. Reviewed vital signs,~Labs/ Radiology~and current medications noted below. Continue current treatment with the changes noted in the dictated addendum note Assessment: Vital Signs/I&O: Vital Signs Date Time Temp Pulse Resp B/P (MAP) Pulse Ox O2 Delivery O2 Flow Rate FiO2 12/06/20 16:01 98.0 85 16 106/65 (79) 96 12/02/20 16:20 Room Air I & O 12/05/20 12/05/20 12/06/20 15:00 23:00 07:00 Intake Total 920 ml 360 ml 360 ml Balance 920 ml 360 ml 360 ml Current Medications: Meds: Current Medications Medications (Trade) Dose Ordered Sig/Rach Route PRN Reason Start Time Stop Time Status Last Admin Dose Admin Clotrimazole (Lotrimin) 1 kathi BID TP 11/10/20 21:00 12/05/20 20:23 Cephalexin HCl (Keflex) 500 mg TID PO 11/10/20 21:00 11/13/20 22:00 DC 11/13/20 20:55 Acetaminophen (Tylenol) 650 mg PRN Q6HRS PRN PO MILD PAIN / TEMP > 100.3'F 11/10/20 15:30 11/15/20 06:37 Multi-Ingredient Ointment (Analgesic [place]) 1 kathi PRN QID PRN TP MUSCLE PAIN 11/10/20 15:30 Al Hydroxide/Mg Hydroxide (Mylanta Plus Xs) 15 ml PRN AFTMEALHC PRN PO DYSPEPSIA 11/10/20 15:30 Magnesium Hydroxide (Milk Of Magnesia) 2,400 mg PRN QHS PRN PO CONSTIPATION 11/10/20 15:30 Acetaminophen/ Hydrocodone Bitart (Lortab 5/325) 1 tab PRN Q6HRS PRN PO MOD-SEV PAIN 11/10/20 17:00 12/01/20 22:45 Olanzapine (ZyPREXA ZYDIS) 2.5 mg PRN Q2HR PRN PO PSYCHOSIS 11/10/20 17:15 12/06/20 16:44 Trazodone HCl (Desyrel) 50 mg QHS PRN PO INSOMNIA, MAY REPEAT X1 11/10/20 22:30 12/01/20 20:43 Mirtazapine (Remeron) 7.5 mg QHS PO 11/11/20 21:00 11/13/20 15:41 DC 11/12/20 19:21 Sertraline HCl (Zoloft) 25 mg DAILY PO 11/12/20 17:00 11/14/20 18:00 DC 11/14/20 08:44 Sertraline HCl (Zoloft) 50 mg DAILY PO 11/15/20 17:00 11/21/20 17:12 DC 11/21/20 08:38 Quetiapine Fumarate (SEROquel) 25 mg QHS PO 11/13/20 21:00 11/29/20 18:15 DC 11/28/20 20:07 Doxycycline Hyclate (Vibra-Tab) 100 mg BID PO 11/15/20 21:00 11/24/20 22:00 DC 11/24/20 19:47 Lactobacillus Rhamnosus (Culturelle) 1 cap BID PO 11/15/20 21:00 12/06/20 20:37 Sertraline HCl (Zoloft) 75 mg DAILY PO 11/22/20 09:00 12/06/20 08:46 Quetiapine Fumarate (SEROquel) 12.5 mg DAILY PO 11/26/20 09:00 11/26/20 14:20 DC 11/26/20 07:30 Quetiapine Fumarate (SEROquel) 12.5 mg 0900,1200 PO 11/26/20 14:30 12/05/20 19:33 DC 12/05/20 12:28 Quetiapine Fumarate (SEROquel) 50 mg QHS PO 11/29/20 21:00 12/06/20 20:04 DC 12/05/20 20:23 Quetiapine Fumarate (SEROquel) 12.5 mg 0900,1300,1700 PO 12/06/20 09:00 12/06/20 16:44 Selenium Sulfide (Selsun) 1 kathi QODAY TP 12/07/20 09:00 Quetiapine Fumarate (SEROquel) 75 mg QHS PO 12/06/20 21:00 12/06/20 20:37 Current Medications Medications (Trade) Dose Ordered Sig/Rach Route PRN Reason Start Time Stop Time Status Last Admin Dose Admin Quetiapine Fumarate (SEROquel) 12.5 mg 0900,1300,1700 PO 12/06/20 09:00 12/06/20 16:44 Quetiapine Fumarate (SEROquel) 75 mg QHS PO 12/06/20 21:00 12/06/20 20:37 I have reviewed the current psychotropics carefully including drug interactions. Risk benefit ratio favors no change other than as noted in my dictated progress note. Diagnosis: Problems: (1) Impulse control disorder, unspecified (2) Anxiety disorder, unspecified (3) Dementia, vascular, with depression (4) Dementia, vascular, with delusions (5) Dementia in Alzheimer's disease with depression (6) Dementia in Alzheimer's disease with delusions (7) Dementia of the Alzheimer's type with early onset with behavioral disturba nce (8) Major neurocognitive disorder KANDY WADE MD Dec 06, 2020 22:10
--- NOTE | 2020-12-06 23:16 | NUR ---
Patient is disorganized and forgetful. She stated that her family is here and she will be leaving pretty quick. Patient compliant with medications taken whole but had to be reminded to put them in her mouth several times. She had no difficulty swallowing them. Patient calm, cooperative and is sleeping at this time.
[2020-12-07 06:50] VITALS: BP 108/65
[2020-12-07 07:03] LABS: BASO % 1 % (0-3); EOS # 0.2 x10^3/uL (0.0-0.7); EOS % 4 % (0-3); LYMPH # 0.9 x10^3/uL (1.0-4.8); LYMPH % 19 % (24-48); MEAN CORPUSCULAR HEMOGLOBIN 31 pg (25-35); MEAN CORPUSCULAR HGB CONC 33 g/dL (31-37); MEAN CORPUSCULAR VOLUME 93 fL (79-100); MONO # 0.6 x10^3/uL (0.0-1.1); MONO % 12 % (0-9); NEUT % 65 % (31-73); PLATELET COUNT 227 x10^3/uL (140-400); RED BLOOD COUNT 3.86 x10^6/uL (3.50-5.40); RED CELL DISTRIBUTION WIDTH 14.2 % (11.5-14.5); WHITE BLOOD COUNT 4.6 x10^3/uL (4.0-11.0)
[2020-12-07 07:11] LABS: ALBUMIN 3.4 g/dL (3.4-5.0); CALCIUM 9.1 mg/dL (8.5-10.1); CREATININE 0.8 mg/dL (0.6-1.0); GFR 69.7; POTASSIUM 4.1 mmol/L (3.5-5.1); TOTAL BILIRUBIN 0.3 mg/dL (0.2-1.0); TOTAL PROTEIN 6.7 g/dL (6.4-8.2)
[2020-12-07] MEDS: QUEtiapine 25 MG TABLET. PO SCH ×3 (08:55→17:00)
[2020-12-07] MEDS: LACTOBACILLUS RHAMNOSUS GG 1 CAPSULE. PO SCH ×2 (08:55→20:54)
[2020-12-07] MEDS: SERTRALINE 50 MG TABLET. PO SCH (08:55)
[2020-12-07] MEDS: SELENIUM SULFIDE 1% TOPICAL SHAMPOO 207ML BOTTLE. TP SCH (08:56)
[2020-12-07] MEDS: CLOTRIMAZOLE 1% TOPICAL CREAM 30GM TUBE. TP SCH ×2 (08:56→20:57)
--- NOTE | 2020-12-07 09:01 | PDOC ---
Exam Note: Abdirashid Note: This note is a late entry for 12/05/2020 covers elements not covered in my initial note. Subjective: The patient was seen individually in the evening of 12/05/2020 with Brown DAILY, discussed and reviewed the chart. The patient slept 6-1/2 hours previous night. She has been less labile, less crying, still confused looking for her parents, believes they had gone out of the country and left her here. Review of Systems: No CV, , pulmonary, eye, ENT system symptoms on review. Reliability poor. Mental Status Exam: The patient is oriented to herself. Insight and judgment, recent and remote memory, attention and concentration is poor consistent with her diagnoses. Laboratory Data: Reviewed. Impression: Major depressive disorder with psychotic features versus major neurocognitive disorder, Alzheimer vascular with depression, delusions, behavioral disturbance versus psychotic disorder unspecified. Plan: Increase Seroquel from 12.5 mg a.m. and noon and 50 mg h.s. to12.5 mg 9 a.m., 1 p.m., 5 p.m. and 50 mg h.s. Maintain Zoloft 75 mg a day. We may need to increase this gradually. Maintain trazodone and Zyprexa p.r.n. Adjust further as clinically indicated. Assessment: Vital Signs/I&O: Vital Signs Date Time Temp Pulse Resp B/P (MAP) Pulse Ox O2 Delivery O2 Flow Rate FiO2 12/07/20 06:50 97.9 67 18 108/65 (79) 12/06/20 16:01 96 12/02/20 16:20 Room Air l I & O 12/06/20 12/06/20 12/07/20 15:00 23:00 07:00 Intake Total 840 ml 680 ml Balance 840 ml 680 ml Labs: Laboratory Tests Test 12/07/20 06:30 White Blood Count 4.6 x10^3/uL (4.0-11.0) Red Blood Count 3.86 x10^6/uL (3.50-5.40) Hemoglobin 12.0 g/dL (12.0-15.5) Hematocrit 36.0 % (36.0-47.0) Mean Corpuscular Volume 93 fL (79-100) Mean Corpuscular Hemoglobin 31 pg (25-35) Mean Corpuscular Hemoglobin Concent 33 g/dL (31-37) Red Cell Distribution Width 14.2 % (11.5-14.5) Platelet Count 227 x10^3/uL (140-400) Neutrophils (%) (Auto) 65 % (31-73) Lymphocytes (%) (Auto) 19 % (24-48) L Monocytes (%) (Auto) 12 % (0-9) H Eosinophils (%) (Auto) 4 % (0-3) H Basophils (%) (Auto) 1 % (0-3) Neutrophils # (Auto) 3.0 x10^3uL (1.8-7.7) Lymphocytes # (Auto) 0.9 x10^3/uL (1.0-4.8) L Monocytes # (Auto) 0.6 x10^3/uL (0.0-1.1) Eosinophils # (Auto) 0.2 x10^3/uL (0.0-0.7) Basophils # (Auto) 0.0 x10^3/uL (0.0-0.2) Sodium Level 147 mmol/L (136-145) H Potassium Level 4.1 mmol/L (3.5-5.1) Chloride Level 110 mmol/L (98-107) H Carbon Dioxide Level 30 mmol/L (21-32) Anion Gap 7 (6-14) Blood Urea Nitrogen 21 mg/dL (7-20) H Creatinine 0.8 mg/dL (0.6-1.0) Estimated GFR (Cockcroft-Gault) 69.7 BUN/Creatinine Ratio 26 (6-20) H Glucose Level 93 mg/dL (70-99) Calcium Level 9.1 mg/dL (8.5-10.1) Total Bilirubin 0.3 mg/dL (0.2-1.0) Aspartate Amino Transferase (AST) 29 U/L (15-37) Alanine Aminotransferase (ALT) 43 U/L (14-59) Alkaline Phosphatase 60 U/L (46-116) Total Protein 6.7 g/dL (6.4-8.2) Albumin 3.4 g/dL (3.4-5.0) Albumin/Globulin Ratio 1.0 (1.0-1.7) Current Medications: Meds: Laboratory Tests Test 12/07/20 06:30 White Blood Count 4.6 x10^3/uL Red Blood Count 3.86 x10^6/uL Hemoglobin 12.0 g/dL Hematocrit 36.0 % Mean Corpuscular Volume 93 fL Mean Corpuscular Hemoglobin 31 pg Mean Corpuscular Hemoglobin Concent 33 g/dL Red Cell Distribution Width 14.2 % Platelet Count 227 x10^3/uL Neutrophils (%) (Auto) 65 % Lymphocytes (%) (Auto) 19 % Monocytes (%) (Auto) 12 % Eosinophils (%) (Auto) 4 % Basophils (%) (Auto) 1 % Neutrophils # (Auto) 3.0 x10^3uL Lymphocytes # (Auto) 0.9 x10^3/uL Monocytes # (Auto) 0.6 x10^3/uL Eosinophils # (Auto) 0.2 x10^3/uL Basophils # (Auto) 0.0 x10^3/uL Sodium Level 147 mmol/L Potassium Level 4.1 mmol/L Chloride Level 110 mmol/L Carbon Dioxide Level 30 mmol/L Anion Gap 7 Blood Urea Nitrogen 21 mg/dL Creatinine 0.8 mg/dL Estimated GFR (Cockcroft-Gault) 69.7 BUN/Creatinine Ratio 26 Glucose Level 93 mg/dL Calcium Level 9.1 mg/dL Total Bilirubin 0.3 mg/dL Aspartate Amino Transf (AST/SGOT) 29 U/L Alanine Aminotransferase (ALT/SGPT) 43 U/L Alkaline Phosphatase 60 U/L Total Protein 6.7 g/dL Albumin 3.4 g/dL Albumin/Globulin Ratio 1.0 Current Medications Medications (Trade) Dose Ordered Sig/Rach Route PRN Reason Start Time Stop Time Status Last Admin Dose Admin Clotrimazole (Lotrimin) 1 kathi BID TP 11/10/20 21:00 12/07/20 08:56 Cephalexin HCl (Keflex) 500 mg TID PO 11/10/20 21:00 11/13/20 22:00 DC 11/13/20 20:55 Acetaminophen (Tylenol) 650 mg PRN Q6HRS PRN PO MILD PAIN / TEMP > 100.3'F 11/10/20 15:30 11/15/20 06:37 Multi-Ingredient Ointment (Analgesic [place]) 1 kathi PRN QID PRN TP MUSCLE PAIN 11/10/20 15:30 Al Hydroxide/Mg Hydroxide (Mylanta Plus Xs) 15 ml PRN AFTMEALHC PRN PO DYSPEPSIA 11/10/20 15:30 Magnesium Hydroxide (Milk Of Magnesia) 2,400 mg PRN QHS PRN PO CONSTIPATION 11/10/20 15:30 Acetaminophen/ Hydrocodone Bitart (Lortab 5/325) 1 tab PRN Q6HRS PRN PO MOD-SEV PAIN 11/10/20 17:00 12/01/20 22:45 Olanzapine (ZyPREXA ZYDIS) 2.5 mg PRN Q2HR PRN PO PSYCHOSIS 11/10/20 17:15 12/06/20 16:44 Trazodone HCl (Desyrel) 50 mg QHS PRN PO INSOMNIA, MAY REPEAT X1 11/10/20 22:30 12/01/20 20:43 Mirtazapine (Remeron) 7.5 mg QHS PO 11/11/20 21:00 11/13/20 15:41 DC 11/12/20 19:21 Sertraline HCl (Zoloft) 25 mg DAILY PO 11/12/20 17:00 11/14/20 18:00 DC 11/14/20 08:44 Sertraline HCl (Zoloft) 50 mg DAILY PO 11/15/20 17:00 11/21/20 17:12 DC 11/21/20 08:38 Quetiapine Fumarate (SEROquel) 25 mg QHS PO 11/13/20 21:00 11/29/20 18:15 DC 11/28/20 20:07 Doxycycline Hyclate (Vibra-Tab) 100 mg BID PO 11/15/20 21:00 11/24/20 22:00 DC 11/24/20 19:47 Lactobacillus Rhamnosus (Culturelle) 1 cap BID PO 11/15/20 21:00 12/07/20 08:55 Sertraline HCl (Zoloft) 75 mg DAILY PO 11/22/20 09:00 12/07/20 08:55 Quetiapine Fumarate (SEROquel) 12.5 mg DAILY PO 11/26/20 09:00 11/26/20 14:20 DC 11/26/20 07:30 Quetiapine Fumarate (SEROquel) 12.5 mg 0900,1200 PO 11/26/20 14:30 12/05/20 19:33 DC 12/05/20 12:28 Quetiapine Fumarate (SEROquel) 50 mg QHS PO 11/29/20 21:00 12/06/20 20:04 DC 12/05/20 20:23 Quetiapine Fumarate (SEROquel) 12.5 mg 0900,1300,1700 PO 12/06/20 09:00 12/07/20 08:55 Selenium Sulfide (Selsun) 1 kathi QODAY TP 12/07/20 09:00 12/07/20 08:56 Quetiapine Fumarate (SEROquel) 75 mg QHS PO 12/06/20 21:00 12/06/20 20:37 Current Medications Medications (Trade) Dose Ordered Sig/Rach Route PRN Reason Start Time Stop Time Status Last Admin Dose Admin Selenium Sulfide (Selsun) 1 kathi QODAY TP 12/07/20 09:00 12/07/20 08:56 Quetiapine Fumarate (SEROquel) 75 mg QHS PO 12/06/20 21:00 12/06/20 20:37 I have reviewed the current psychotropics carefully including drug interactions. Risk benefit ratio favors no change other than as noted in my dictated progress note. Diagnosis: Problems: (1) Impulse control disorder, unspecified (2) Anxiety disorder, unspecified (3) Dementia, vascular, with depression (4) Dementia, vascular, with delusions (5) Dementia in Alzheimer's disease with depression (6) Dementia in Alzheimer's disease with delusions (7) Dementia of the Alzheimer's type with early onset with behavioral disturbance (8) Major neurocognitive disorder KANDY WADE MD Dec 07, 2020 09:00
--- NOTE | 2020-12-07 09:31 | PDOC ---
Exam Note: Abdirashid Note: This note is a late entry for 12/06/2020 covers elements not covered in my initial note. Subjective: The patient was seen individually in the evening of 12/06/2020 with Brown DAILY, discussed and reviewed the chart. The patient slept 6 hours previous night. She remains confused, somewhat labile, tearful, delusional, looking for her parents. Review of Systems: No CV, , pulmonary, eye, ENT system symptoms on review. Reliability poor. Mental Status Exam: The patient is oriented to herself. Insight and judgment, recent and remote memory, attention and concentration is poor consistent with her diagnoses. Laboratory Data: Reviewed. Impression: Major depressive disorder with psychotic features versus major neurocognitive disorder, Alzheimer vascular with depression, delusions, behavioral disturbance versus psychotic disorder unspecified. Plan: The patient is currently on Seroquel 12.5 mg 0900, 1300, and 1700 hours and 50 mg h.s. We will increase 50 mg h.s. dosage to 75 mg. Maintain Zoloft 75 mg a day, trazodone and Zyprexa p.r.n. Adjust further as clinically indicated. Assessment: Vital Signs/I&O: Vital Signs Date Time Temp Pulse Resp B/P (MAP) Pulse Ox O2 Delivery O2 Flow Rate FiO2 12/07/20 06:50 97.9 67 18 108/65 (79) 12/06/20 16:01 96 12/02/20 16:20 Room Air I & O 12/06/20 12/06/20 12/07/20 15:00 23:00 07:00 Intake Total 840 ml 680 ml Balance 840 ml 680 ml Labs: Laboratory Tests Test 12/07/20 06:30 White Blood Count 4.6 x10^3/uL (4.0-11.0) Red Blood Count 3.86 x10^6/uL (3.50-5.40) Hemoglobin 12.0 g/dL (12.0-15.5) Hematocrit 36.0 % (36.0-47.0) Mean Corpuscular Volume 93 fL (79-100) Mean Corpuscular Hemoglobin 31 pg (25-35) Mean Corpuscular Hemoglobin Concent 33 g/dL (31-37) Red Cell Distribution Width 14.2 % (11.5-14.5) Platelet Count 227 x10^3/uL (140-400) Neutrophils (%) (Auto) 65 % (31-73) Lymphocytes (%) (Auto) 19 % (24-48) L Monocytes (%) (Auto) 12 % (0-9) H Eosinophils (%) (Auto) 4 % (0-3) H Basophils (%) (Auto) 1 % (0-3) Neutrophils # (Auto) 3.0 x10^3uL (1.8-7.7) Lymphocytes # (Auto) 0.9 x10^3/uL (1.0-4.8) L Monocytes # (Auto) 0.6 x10^3/uL (0.0-1.1) Eosinophils # (Auto) 0.2 x10^3/uL (0.0-0.7) Basophils # (Auto) 0.0 x10^3/uL (0.0-0.2) Sodium Level 147 mmol/L (136-145) H Potassium Level 4.1 mmol/L (3.5-5.1) Chloride Level 110 mmol/L (98-107) H Carbon Dioxide Level 30 mmol/L (21-32) Anion Gap 7 (6-14) Blood Urea Nitrogen 21 mg/dL (7-20) H Creatinine 0.8 mg/dL (0.6-1.0) Estimated GFR (Cockcroft-Gault) 69.7 BUN/Creatinine Ratio 26 (6-20) H Glucose Level 93 mg/dL (70-99) Calcium Level 9.1 mg/dL (8.5-10.1) Total Bilirubin 0.3 mg/dL (0.2-1.0) Aspartate Amino Transferase (AST) 29 U/L (15-37) Alanine Aminotransferase (ALT) 43 U/L (14-59) Alkaline Phosphatase 60 U/L (46-116) Total Protein 6.7 g/dL (6.4-8.2) Albumin 3.4 g/dL (3.4-5.0) Albumin/Globulin Ratio 1.0 (1.0-1.7) Current Medications: Meds: Laboratory Tests Test 12/07/20 06:30 White Blood Count 4.6 x10^3/uL Red Blood Count 3.86 x10^6/uL Hemoglobin 12.0 g/dL Hematocrit 36.0 % Mean Corpuscular Volume 93 fL Mean Corpuscular Hemoglobin 31 pg Mean Corpuscular Hemoglobin Concent 33 g/dL Red Cell Distribution Width 14.2 % Platelet Count 227 x10^3/uL Neutrophils (%) (Auto) 65 % Lymphocytes (%) (Auto) 19 % Monocytes (%) (Auto) 12 % Eosinophils (%) (Auto) 4 % Basophils (%) (Auto) 1 % Neutrophils # (Auto) 3.0 x10^3uL Lymphocytes # (Auto) 0.9 x10^3/uL Monocytes # (Auto) 0.6 x10^3/uL Eosinophils # (Auto) 0.2 x10^3/uL Basophils # (Auto) 0.0 x10^3/uL Sodium Level 147 mmol/L Potassium Level 4.1 mmol/L Chloride Level 110 mmol/L Carbon Dioxide Level 30 mmol/L Anion Gap 7 Blood Urea Nitrogen 21 mg/dL Creatinine 0.8 mg/dL Estimated GFR (Cockcroft-Gault) 69.7 BUN/Creatinine Ratio 26 Glucose Level 93 mg/dL Calcium Level 9.1 mg/dL Total Bilirubin 0.3 mg/dL Aspartate Amino Transf (AST/SGOT) 29 U/L Alanine Aminotransferase (ALT/SGPT) 43 U/L Alkaline Phosphatase 60 U/L Total Protein 6.7 g/dL Albumin 3.4 g/dL Albumin/Globulin Ratio 1.0 Current Medications Medications (Trade) Dose Ordered Sig/Rach Route PRN Reason Start Time Stop Time Status Last Admin Dose Admin Clotrimazole (Lotrimin) 1 kathi BID TP 11/10/20 21:00 12/07/20 08:56 Cephalexin HCl (Keflex) 500 mg TID PO 11/10/20 21:00 11/13/20 22:00 DC 11/13/20 20:55 Acetaminophen (Tylenol) 650 mg PRN Q6HRS PRN PO MILD PAIN / TEMP > 100.3'F 11/10/20 15:30 11/15/20 06:37 Multi-Ingredient Ointment (Analgesic [place]) 1 kathi PRN QID PRN TP MUSCLE PAIN 11/10/20 15:30 Al Hydroxide/Mg Hydroxide (Mylanta Plus Xs) 15 ml PRN AFTMEALHC PRN PO DYSPEPSIA 11/10/20 15:30 Magnesium Hydroxide (Milk Of Magnesia) 2,400 mg PRN QHS PRN PO CONSTIPATION 11/10/20 15:30 Acetaminophen/ Hydrocodone Bitart (Lortab 5/325) 1 tab PRN Q6HRS PRN PO MOD-SEV PAIN 11/10/20 17:00 12/01/20 22:45 Olanzapine (ZyPREXA ZYDIS) 2.5 mg PRN Q2HR PRN PO PSYCHOSIS 11/10/20 17:15 12/06/20 16:44 Trazodone HCl (Desyrel) 50 mg QHS PRN PO INSOMNIA, MAY REPEAT X1 11/10/20 22:30 12/01/20 20:43 Mirtazapine (Remeron) 7.5 mg QHS PO 11/11/20 21:00 11/13/20 15:41 DC 11/12/20 19:21 Sertraline HCl (Zoloft) 25 mg DAILY PO 11/12/20 17:00 11/14/20 18:00 DC 11/14/20 08:44 Sertraline HCl (Zoloft) 50 mg DAILY PO 11/15/20 17:00 11/21/20 17:12 DC 11/21/20 08:38 Quetiapine Fumarate (SEROquel) 25 mg QHS PO 11/13/20 21:00 11/29/20 18:15 DC 11/28/20 20:07 Doxycycline Hyclate (Vibra-Tab) 100 mg BID PO 11/15/20 21:00 11/24/20 22:00 DC 11/24/20 19:47 Lactobacillus Rhamnosus (Culturelle) 1 cap BID PO 11/15/20 21:00 12/07/20 08:55 Sertraline HCl (Zoloft) 75 mg DAILY PO 11/22/20 09:00 12/07/20 08:55 Quetiapine Fumarate (SEROquel) 12.5 mg DAILY PO 11/26/20 09:00 11/26/20 14:20 DC 11/26/20 07:30 Quetiapine Fumarate (SEROquel) 12.5 mg 0900,1200 PO 11/26/20 14:30 12/05/20 19:33 DC 12/05/20 12:28 Quetiapine Fumarate (SEROquel) 50 mg QHS PO 11/29/20 21:00 12/06/20 20:04 DC 12/05/20 20:23 Quetiapine Fumarate (SEROquel) 12.5 mg 0900,1300,1700 PO 12/06/20 09:00 12/07/20 08:55 Selenium Sulfide (Selsun) 1 kathi QODAY TP 12/07/20 09:00 12/07/20 08:56 Quetiapine Fumarate (SEROquel) 75 mg QHS PO 12/06/20 21:00 12/06/20 20:37 Current Medications Medications (Trade) Dose Ordered Sig/Rach Route PRN Reason Start Time Stop Time Status Last Admin Dose Admin Selenium Sulfide (Selsun) 1 kathi QODAY TP 12/07/20 09:00 12/07/20 08:56 Quetiapine Fumarate (SEROquel) 75 mg QHS PO 12/06/20 21:00 12/06/20 20:37 I have reviewed the current psychotropics carefully including drug interactions. Risk benefit ratio favors no change other than as noted in my dictated progress note. Diagnosis: Problems: (1) Impulse control disorder, unspecified (2) Anxiety disorder, unspecified (3) Dementia, vascular, with depression (4) Dementia, vascular, with delusions (5) Dementia in Alzheimer's disease with depression (6) Dementia in Alzheimer's disease with delusions (7) Dementia of the Alzheimer's type with early onset with behavioral disturbance (8) Major neurocognitive disorder KANDY WADE MD Dec 07, 2020 09:31
[2020-12-07 16:11] VITALS: BP 116/68
[2020-12-07] MEDS: QUEtiapine 50 MG TABLET. PO SCH (20:54)
[2020-12-07] MEDS: traZODone 50 MG TABLET. PO PRN (20:54)
--- NOTE | 2020-12-07 22:07 | NUR ---
Patient was in the day room sitting on the couch and appeared to be reading a book. She was cooperative with assessment and compliant with medications taken whole. Patient was socializing with peers, she is disorganized, tonight she is forgetful as well. Patient given PRN trazodone with HS medications, she did not sleep well last night. Patient was in bed asleep when nurse checked on her at a later time.
--- NOTE | 2020-12-07 22:17 | PDOC ---
Exam Note: Abdirashid Note: Please also refer to the separate dictated note~for this date of service dictated separately.~Patient seen individually. Discussed the patient with Nursing staff reviewed the chart.~Reviewed interim history and current functioning. Reviewed vital signs,~Labs/ Radiology~and current medications noted below. Continue current treatment with the changes noted in the dictated addendum note Assessment: Vital Signs/I&O: Vital Signs Date Time Temp Pulse Resp B/P (MAP) Pulse Ox O2 Delivery O2 Flow Rate FiO2 12/07/20 16:11 98.1 91 18 116/68 (84) 97 12/02/20 16:20 Room Air I & O 12/06/20 12/06/20 12/07/20 14:59 22:59 06:59 Intake Total 840 ml 680 ml Balance 840 ml 680 ml Labs: Laboratory Tests Test 12/07/20 06:30 White Blood Count 4.6 x10^3/uL (4.0-11.0) Red Blood Count 3.86 x10^6/uL (3.50-5.40) Hemoglobin 12.0 g/dL (12.0-15.5) Hematocrit 36.0 % (36.0-47.0) Mean Corpuscular Volume 93 fL (79-100) Mean Corpuscular Hemoglobin 31 pg (25-35) Mean Corpuscular Hemoglobin Concent 33 g/dL (31-37) Red Cell Distribution Width 14.2 % (11.5-14.5) Platelet Count 227 x10^3/uL (140-400) Neutrophils (%) (Auto) 65 % (31-73) Lymphocytes (%) (Auto) 19 % (24-48) L Monocytes (%) (Auto) 12 % (0-9) H Eosinophils (%) (Auto) 4 % (0-3) H Basophils (%) (Auto) 1 % (0-3) Neutrophils # (Auto) 3.0 x10^3uL (1.8-7.7) Lymphocytes # (Auto) 0.9 x10^3/uL (1.0-4.8) L Monocytes # (Auto) 0.6 x10^3/uL (0.0-1.1) Eosinophils # (Auto) 0.2 x10^3/uL (0.0-0.7) Basophils # (Auto) 0.0 x10^3/uL (0.0-0.2) Sodium Level 147 mmol/L (136-145) H Potassium Level 4.1 mmol/L (3.5-5.1) Chloride Level 110 mmol/L (98-107) H Carbon Dioxide Level 30 mmol/L (21-32) Anion Gap 7 (6-14) Blood Urea Nitrogen 21 mg/dL (7-20) H Creatinine 0.8 mg/dL (0.6-1.0) Estimated GFR (Cockcroft-Gault) 69.7 BUN/Creatinine Ratio 26 (6-20) H Glucose Level 93 mg/dL (70-99) Calcium Level 9.1 mg/dL (8.5-10.1) Total Bilirubin 0.3 mg/dL (0.2-1.0) Aspartate Amino Transferase (AST) 29 U/L (15-37) Alanine Aminotransferase (ALT) 43 U/L (14-59) Alkaline Phosphatase 60 U/L (46-116) Total Protein 6.7 g/dL (6.4-8.2) Albumin 3.4 g/dL (3.4-5.0) Albumin/Globulin Ratio 1.0 (1.0-1.7) Current Medications: Meds: Laboratory Tests Test 12/07/20 06:30 White Blood Count 4.6 x10^3/uL Red Blood Count 3.86 x10^6/uL Hemoglobin 12.0 g/dL Hematocrit 36.0 % Mean Corpuscular Volume 93 fL Mean Corpuscular Hemoglobin 31 pg Mean Corpuscular Hemoglobin Concent 33 g/dL Red Cell Distribution Width 14.2 % Platelet Count 227 x10^3/uL Neutrophils (%) (Auto) 65 % Lymphocytes (%) (Auto) 19 % Monocytes (%) (Auto) 12 % Eosinophils (%) (Auto) 4 % Basophils (%) (Auto) 1 % Neutrophils # (Auto) 3.0 x10^3uL Lymphocytes # (Auto) 0.9 x10^3/uL Monocytes # (Auto) 0.6 x10^3/uL Eosinophils # (Auto) 0.2 x10^3/uL Basophils # (Auto) 0.0 x10^3/uL Sodium Level 147 mmol/L Potassium Level 4.1 mmol/L Chloride Level 110 mmol/L Carbon Dioxide Level 30 mmol/L Anion Gap 7 Blood Urea Nitrogen 21 mg/dL Creatinine 0.8 mg/dL Estimated GFR (Cockcroft-Gault) 69.7 BUN/Creatinine Ratio 26 Glucose Level 93 mg/dL Calcium Level 9.1 mg/dL Total Bilirubin 0.3 mg/dL Aspartate Amino Transf (AST/SGOT) 29 U/L Alanine Aminotransferase (ALT/SGPT) 43 U/L Alkaline Phosphatase 60 U/L Total Protein 6.7 g/dL Albumin 3.4 g/dL Albumin/Globulin Ratio 1.0 Current Medications Medications (Trade) Dose Ordered Sig/Rach Route PRN Reason Start Time Stop Time Status Last Admin Dose Admin Clotrimazole (Lotrimin) 1 kathi BID TP 11/10/20 21:00 12/07/20 08:56 Cephalexin HCl (Keflex) 500 mg TID PO 11/10/20 21:00 11/13/20 22:00 DC 11/13/20 20:55 Acetaminophen (Tylenol) 650 mg PRN Q6HRS PRN PO MILD PAIN / TEMP > 100.3'F 11/10/20 15:30 11/15/20 06:37 Multi-Ingredient Ointment (Analgesic [place]) 1 kathi PRN QID PRN TP MUSCLE PAIN 11/10/20 15:30 Al Hydroxide/Mg Hydroxide (Mylanta Plus Xs) 15 ml PRN AFTMEALHC PRN PO DYSPEPSIA 11/10/20 15:30 Magnesium Hydroxide (Milk Of Magnesia) 2,400 mg PRN QHS PRN PO CONSTIPATION 11/10/20 15:30 Acetaminophen/ Hydrocodone Bitart (Lortab 5/325) 1 tab PRN Q6HRS PRN PO MOD-SEV PAIN 11/10/20 17:00 12/01/20 22:45 Olanzapine (ZyPREXA ZYDIS) 2.5 mg PRN Q2HR PRN PO PSYCHOSIS 11/10/20 17:15 12/07/20 18:09 Trazodone HCl (Desyrel) 50 mg QHS PRN PO INSOMNIA, MAY REPEAT X1 11/10/20 22:30 12/07/20 20:54 Mirtazapine (Remeron) 7.5 mg QHS PO 11/11/20 21:00 11/13/20 15:41 DC 11/12/20 19:21 Sertraline HCl (Zoloft) 25 mg DAILY PO 11/12/20 17:00 11/14/20 18:00 DC 11/14/20 08:44 Sertraline HCl (Zoloft) 50 mg DAILY PO 11/15/20 17:00 11/21/20 17:12 DC 11/21/20 08:38 Quetiapine Fumarate (SEROquel) 25 mg QHS PO 11/13/20 21:00 11/29/20 18:15 DC 11/28/20 20:07 Doxycycline Hyclate (Vibra-Tab) 100 mg BID PO 11/15/20 21:00 11/24/20 22:00 DC 11/24/20 19:47 Lactobacillus Rhamnosus (Culturelle) 1 cap BID PO 11/15/20 21:00 12/07/20 20:54 Sertraline HCl (Zoloft) 75 mg DAILY PO 11/22/20 09:00 12/07/20 08:55 Quetiapine Fumarate (SEROquel) 12.5 mg DAILY PO 11/26/20 09:00 11/26/20 14:20 DC 11/26/20 07:30 Quetiapine Fumarate (SEROquel) 12.5 mg 0900,1200 PO 11/26/20 14:30 12/05/20 19:33 DC 12/05/20 12:28 Quetiapine Fumarate (SEROquel) 50 mg QHS PO 11/29/20 21:00 12/06/20 20:04 DC 12/05/20 20:23 Quetiapine Fumarate (SEROquel) 12.5 mg 0900,1300,1700 PO 12/06/20 09:00 12/07/20 17:00 Selenium Sulfide (Selsun) 1 kathi QODAY TP 12/07/20 09:00 12/07/20 08:56 Quetiapine Fumarate (SEROquel) 75 mg QHS PO 12/06/20 21:00 12/07/20 20:54 Current Medications Medications (Trade) Dose Ordered Sig/Rach Route PRN Reason Start Time Stop Time Status Last Admin Dose Admin Selenium Sulfide (Selsun) 1 kathi QODAY TP 12/07/20 09:00 12/07/20 08:56 I have reviewed the current psychotropics carefully including drug interactions. Risk benefit ratio favors no change other than as noted in my dictated progress note. Diagnosis: Problems: (1) Impulse control disorder, unspecified (2) Anxiety disorder, unspecified (3) Dementia, vascular, with depression (4) Dementia, vascular, with delusions (5) Dementia in Alzheimer's disease with depression (6) Dementia in Alzheimer's disease with delusions (7) Dementia of the Alzheimer's type with early onset with behavioral disturbance (8) Major neurocognitive disorder KANDY WADE MD Dec 07, 2020 22:17
[2020-12-08 05:47] VITALS: BP 124/75
[2020-12-08] MEDS: SERTRALINE 50 MG TABLET. PO SCH (08:35)
[2020-12-08] MEDS: LACTOBACILLUS RHAMNOSUS GG 1 CAPSULE. PO SCH ×2 (08:35→20:14)
[2020-12-08] MEDS: QUEtiapine 25 MG TABLET. PO SCH ×3 (08:35→17:02)
[2020-12-08 16:00] VITALS: BP 199/73
--- NOTE | 2020-12-08 16:42 | NUR ---
Patient has been calm, compliant, disorganized, and pleasantly confused throughout this shift. She has been social with peers and staff. Will continue to monitor and report to oncoming shift.
[2020-12-08] MEDS: QUEtiapine 50 MG TABLET. PO SCH (20:14)
[2020-12-08] MEDS: traZODone 50 MG TABLET. PO PRN (20:16)
--- NOTE | 2020-12-08 22:09 | PDOC ---
Exam Note: Abdirashid Note: Please also refer to the separate dictated note~for this date of service dictated separately.~Patient seen individually. Discussed the patient with Nursing staff reviewed the chart.~Reviewed interim history and current functioning. Reviewed vital signs,~Labs/ Radiology~and current medications noted below. Continue current treatment with the changes noted in the dictated addendum note Assessment: Vital Signs/I&O: Vital Signs Date Time Temp Pulse Resp B/P (MAP) Pulse Ox O2 Delivery O2 Flow Rate FiO2 12/08/20 16:00 98.3 82 18 199/73 (115) 97 12/02/20 16:20 Room Air I & O 12/07/20 12/07/20 12/08/20 15:00 23:00 07:00 Intake Total 600 ml 480 ml Balance 600 ml 480 ml Current Medications: Meds: Current Medications Medications (Trade) Dose Ordered Sig/Rach Route PRN Reason Start Time Stop Time Status Last Admin Dose Admin Clotrimazole (Lotrimin) 1 kathi BID TP 11/10/20 21:00 12/08/20 06:03 DC 12/07/20 08:56 Cephalexin HCl (Keflex) 500 mg TID PO 11/10/20 21:00 11/13/20 22:00 DC 11/13/20 20:55 Acetaminophen (Tylenol) 650 mg PRN Q6HRS PRN PO MILD PAIN / TEMP > 100.3'F 11/10/20 15:30 11/15/20 06:37 Multi-Ingredient Ointment (Analgesic [place]) 1 kathi PRN QID PRN TP MUSCLE PAIN 11/10/20 15:30 Al Hydroxide/Mg Hydroxide (Mylanta Plus Xs) 15 ml PRN AFTMEALHC PRN PO DYSPEPSIA 11/10/20 15:30 Magnesium Hydroxide (Milk Of Magnesia) 2,400 mg PRN QHS PRN PO CONSTIPATION 11/10/20 15:30 Acetaminophen/ Hydrocodone Bitart (Lortab 5/325) 1 tab PRN Q6HRS PRN PO MOD-SEV PAIN 11/10/20 17:00 12/01/20 22:45 Olanzapine (ZyPREXA ZYDIS) 2.5 mg PRN Q2HR PRN PO PSYCHOSIS 11/10/20 17:15 12/07/20 18:09 Trazodone HCl (Desyrel) 50 mg QHS PRN PO INSOMNIA, MAY REPEAT X1 11/10/20 22:30 12/08/20 20:16 Mirtazapine (Remeron) 7.5 mg QHS PO 11/11/20 21:00 11/13/20 15:41 DC 11/12/20 19:21 Sertraline HCl (Zoloft) 25 mg DAILY PO 11/12/20 17:00 11/14/20 18:00 DC 11/14/20 08:44 Sertraline HCl (Zoloft) 50 mg DAILY PO 11/15/20 17:00 11/21/20 17:12 DC 11/21/20 08:38 Quetiapine Fumarate (SEROquel) 25 mg QHS PO 11/13/20 21:00 11/29/20 18:15 DC 11/28/20 20:07 Doxycycline Hyclate (Vibra-Tab) 100 mg BID PO 11/15/20 21:00 11/24/20 22:00 DC 11/24/20 19:47 Lactobacillus Rhamnosus (Culturelle) 1 cap BID PO 11/15/20 21:00 12/08/20 20:14 Sertraline HCl (Zoloft) 75 mg DAILY PO 11/22/20 09:00 12/08/20 08:35 Quetiapine Fumarate (SEROquel) 12.5 mg DAILY PO 11/26/20 09:00 11/26/20 14:20 DC 11/26/20 07:30 Quetiapine Fumarate (SEROquel) 12.5 mg 0900,1200 PO 11/26/20 14:30 12/05/20 19:33 DC 12/05/20 12:28 Quetiapine Fumarate (SEROquel) 50 mg QHS PO 11/29/20 21:00 12/06/20 20:04 DC 12/05/20 20:23 Quetiapine Fumarate (SEROquel) 12.5 mg 0900,1300,1700 PO 12/06/20 09:00 12/08/20 17:02 Selenium Sulfide (Selsun) 1 kathi QODAY TP 12/07/20 09:00 12/07/20 08:56 Quetiapine Fumarate (SEROquel) 75 mg QHS PO 12/06/20 21:00 12/08/20 20:14 I have reviewed the current psychotropics carefully including drug interactions. Risk benefit ratio favors no change other than as noted in my dictated progress note. Diagnosis: Problems: (1) Impulse control disorder, unspecified (2) Anxiety disorder, unspecified (3) Dementia, vascular, with depression (4) Dementia, vascular, with delusions (5) Dementia in Alzheimer's disease with depression (6) Dementia in Alzheimer's disease with delusions (7) Dementia of the Alzheimer's type with early onset with behavioral disturbance (8) Major neurocognitive disorder KANDY WADE MD Dec 08, 2020 22:09
--- NOTE | 2020-12-08 23:02 | NUR ---
Patient in the day room with a stack of 4 [employer] boxes. 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 Patient compliant with medications taken whole. She is disorganized, states it is 1976 and when her mom and dad get here she will be going home to the place with water around it. Patient given PRN Trazodone with HS meds.
[2020-12-09 06:33] VITALS: BP 128/78
[2020-12-09] MEDS: SELENIUM SULFIDE 1% TOPICAL SHAMPOO 207ML BOTTLE. TP SCH (08:19)
[2020-12-09] MEDS: QUEtiapine 25 MG TABLET. PO SCH ×3 (08:19→17:23)
[2020-12-09] MEDS: SERTRALINE 50 MG TABLET. PO SCH (08:19)
[2020-12-09] MEDS: LACTOBACILLUS RHAMNOSUS GG 1 CAPSULE. PO SCH ×2 (08:19→20:25)
--- NOTE | 2020-12-09 08:23 | PDOC ---
Exam Note: Abdirashid Note: This note is a late entry for 12/07/2020 covers elements not covered in my initial note. Subjective: The patient was reviewed on telehealth rounds on 12/07/2020 due to the COVID-19 pandemic. There have been 3 patients on the unit that have turned up positive today, 12/07 and they are being transitioned to the [facility] floor per Dr. Macias. There have also been 2 staff members that have turned up positive for COVID-19 and all the patients are going to be tested weekly for the COVID-19 along with every staff member going forward. I had not had the opportunity to be tested myself and will await completing this before considering [id number] rounds on the unit. Discussed with Brown DAILY and reviewed the chart. The patient slept 3-1/2 hours previous night. No p.r.n.s. were given. She was looking for a girl who was running reportedly according to her but no one was there. She is little better overall per nursing report. Review of Systems: No CV, , pulmonary, eye, ENT system symptoms on review. Reliability poor. Mental Status Exam: The patient is oriented to herself. Insight and judgment, recent and remote memory, attention and concentration is poor consistent with h er diagnoses. Laboratory Data: Reviewed. Impression: Major depressive disorder with psychotic features versus major neurocognitive disorder, Alzheimer vascular with depression, delusions, behavioral disturbance versus psychotic disorder unspecified. Plan: No change from initial note. Assessment: Vital Signs/I&O: Vital Signs Date Time Temp Pulse Resp B/P (MAP) Pulse Ox O2 Delivery O2 Flow Rate FiO2 12/09/20 06:33 97.9 70 20 128/78 (95) 96 I & O 12/08/20 12/08/20 12/09/20 14:59 22:59 06:59 Intake Total 720 ml 600 ml Balance 720 ml 600 ml Current Medications: Meds: Current Medications Medications (Trade) Dose Ordered Sig/Rach Route PRN Reason Start Time Stop Time Status Last Admin Dose Admin Clotrimazole (Lotrimin) 1 kathi BID TP 11/10/20 21:00 12/08/20 06:03 DC 12/07/20 08:56 Cephalexin HCl (Keflex) 500 mg TID PO 11/10/20 21:00 11/13/20 22:00 DC 11/13/20 20:55 Acetaminophen (Tylenol) 650 mg PRN Q6HRS PRN PO MILD PAIN / TEMP > 100.3'F 11/10/20 15:30 11/15/20 06:37 Multi-Ingredient Ointment (Analgesic [place]) 1 kathi PRN QID PRN TP MUSCLE PAIN 11/10/20 15:30 Al Hydroxide/Mg Hydroxide (Mylanta Plus Xs) 15 ml PRN AFTMEALHC PRN PO DYSPEPSIA 11/10/20 15:30 Magnesium Hydroxide (Milk Of Magnesia) 2,400 mg PRN QHS PRN PO CONSTIPATION 11/10/20 15:30 Acetaminophen/ Hydrocodone Bitart (Lortab 5/325) 1 tab PRN Q6HRS PRN PO MOD-SEV PAIN 11/10/20 17:00 12/01/20 22:45 Olanzapine (ZyPREXA ZYDIS) 2.5 mg PRN Q2HR PRN PO PSYCHOSIS 11/10/20 17:15 12/09/20 08:20 Trazodone HCl (Desyrel) 50 mg QHS PRN PO INSOMNIA, MAY REPEAT X1 11/10/20 22:30 12/08/20 20:16 Mirtazapine (Remeron) 7.5 mg QHS PO 11/11/20 21:00 11/13/20 15:41 DC 11/12/20 19:21 Sertraline HCl (Zoloft) 25 mg DAILY PO 11/12/20 17:00 11/14/20 18:00 DC 11/14/20 08:44 Sertraline HCl (Zoloft) 50 mg DAILY PO 11/15/20 17:00 11/21/20 17:12 DC 11/21/20 08:38 Quetiapine Fumarate (SEROquel) 25 mg QHS PO 11/13/20 21:00 11/29/20 18:15 DC 11/28/20 20:07 Doxycycline Hyclate (Vibra-Tab) 100 mg BID PO 11/15/20 21:00 11/24/20 22:00 DC 11/24/20 19:47 Lactobacillus Rhamnosus (Culturelle) 1 cap BID PO 11/15/20 21:00 12/09/20 08:19 Sertraline HCl (Zoloft) 75 mg DAILY PO 11/22/20 09:00 12/09/20 08:19 Quetiapine Fumarate (SEROquel) 12.5 mg DAILY PO 11/26/20 09:00 11/26/20 14:20 DC 11/26/20 07:30 Quetiapine Fumarate (SEROquel) 12.5 mg 0900,1200 PO 11/26/20 14:30 12/05/20 19:33 DC 12/05/20 12:28 Quetiapine Fumarate (SEROquel) 50 mg QHS PO 11/29/20 21:00 12/06/20 20:04 DC 12/05/20 20:23 Quetiapine Fumarate (SEROquel) 12.5 mg 0900,1300,1700 PO 12/06/20 09:00 12/09/20 08:19 Selenium Sulfide (Selsun) 1 kathi QODAY TP 12/07/20 09:00 12/09/20 08:19 Quetiapine Fumarate (SEROquel) 75 mg QHS PO 12/06/20 21:00 12/08/20 20:14 I have reviewed the current psychotropics carefully including drug interactions. Risk benefit ratio favors no change other than as noted in my dictated progress note. Diagnosis: Problems: (1) Impulse control disorder, unspecified (2) Anxiety disorder, unspecified (3) Dementia, vascular, with depression (4) Dementia, vascular, with delusions (5) Dementia in Alzheimer's disease with depression (6) Dementia in Alzheimer's disease with delusions (7) Dementia of the Alzheimer's type with early onset with behavioral disturbance (8) Major neurocognitive disorder KANDY WADE MD Dec 09, 2020 08:23
--- NOTE | 2020-12-09 08:51 | NUR ---
Nursing note: Pt eating breakfast in the group room this AM. She was med compliant and cooperative. Pt has been tearful this AM about her parents not being here. PRN administered with AM meds. Pt denies having any pain. Will continue to monitor.
--- NOTE | 2020-12-09 09:00 | PDOC ---
Exam Note: Abdirashid Note: This note is a late entry for 12/08/2020 covers elements not covered in my initial note. Subjective: The patient was reviewed on telehealth rounds on 12/08/2020 due to the COVID-19 pandemic. Discussed with Brown DAILY and reviewed the chart. The patient slept 6-1/4 hours previous night. She did take trazodone at night. She slept better, somewhat social, confused Review of Systems: No CV, , pulmonary, eye, ENT system symptoms on review. Reliability poor. Mental Status Exam: The patient is oriented to herself. Insight and judgment, recent and remote memory, attention and concentration is poor consistent with her diagnoses. Laboratory Data: Reviewed. Impression: Major depressive disorder with psychotic features versus major neurocognitive disorder, Alzheimer vascular with depression, delusions, behavio ral disturbance versus psychotic disorder unspecified. Plan: No change from initial note. Adjust further as clinically indicated. Assessment: Vital Signs/I&O: Vital Signs Date Time Temp Pulse Resp B/P (MAP) Pulse Ox O2 Delivery O2 Flow Rate FiO2 12/09/20 06:33 97.9 70 20 128/78 (95) 96 I & O 12/08/20 12/08/20 12/09/20 15:00 23:00 07:00 Intake Total 720 ml 600 ml Balance 720 ml 600 ml Current Medications: Meds: Current Medications Medications (Trade) Dose Ordered Sig/Rach Route PRN Reason Start Time Stop Time Status Last Admin Dose Admin Clotrimazole (Lotrimin) 1 kathi BID TP 11/10/20 21:00 12/08/20 06:03 DC 12/07/20 08:56 Cephalexin HCl (Keflex) 500 mg TID PO 11/10/20 21:00 11/13/20 22:00 DC 11/13/20 20:55 Acetaminophen (Tylenol) 650 mg PRN Q6HRS PRN PO MILD PAIN / TEMP > 100.3'F 11/10/20 15:30 11/15/20 06:37 Multi-Ingredient Ointment (Analgesic [place]) 1 kathi PRN QID PRN TP MUSCLE PAIN 11/10/20 15:30 Al Hydroxide/Mg Hydroxide (Mylanta Plus Xs) 15 ml PRN AFTMEALHC PRN PO DYSPEPSIA 11/10/20 15:30 Magnesium Hydroxide (Milk Of Magnesia) 2,400 mg PRN QHS PRN PO CONSTIPATION 11/10/20 15:30 Acetaminophen/ Hydrocodone Bitart (Lortab 5/325) 1 tab PRN Q6HRS PRN PO MOD-SEV PAIN 11/10/20 17:00 12/01/20 22:45 Olanzapine (ZyPREXA ZYDIS) 2.5 mg PRN Q2HR PRN PO PSYCHOSIS 11/10/20 17:15 12/09/20 08:20 Trazodone HCl (Desyrel) 50 mg QHS PRN PO INSOMNIA, MAY REPEAT X1 11/10/20 22:30 12/08/20 20:16 Mirtazapine (Remeron) 7.5 mg QHS PO 11/11/20 21:00 11/13/20 15:41 DC 11/12/20 19:21 Sertraline HCl (Zoloft) 25 mg DAILY PO 11/12/20 17:00 11/14/20 18:00 DC 11/14/20 08:44 Sertraline HCl (Zoloft) 50 mg DAILY PO 11/15/20 17:00 11/21/20 17:12 DC 11/21/20 08:38 Quetiapine Fumarate (SEROquel) 25 mg QHS PO 11/13/20 21:00 11/29/20 18:15 DC 11/28/20 20:07 Doxycycline Hyclate (Vibra-Tab) 100 mg BID PO 11/15/20 21:00 11/24/20 22:00 DC 11/24/20 19:47 Lactobacillus Rhamnosus (Culturelle) 1 cap BID PO 11/15/20 21:00 12/09/20 08:19 Sertraline HCl (Zoloft) 75 mg DAILY PO 11/22/20 09:00 12/09/20 08:19 Quetiapine Fumarate (SEROquel) 12.5 mg DAILY PO 11/26/20 09:00 11/26/20 14:20 DC 11/26/20 07:30 Quetiapine Fumarate (SEROquel) 12.5 mg 0900,1200 PO 11/26/20 14:30 12/05/20 19:33 DC 12/05/20 12:28 Quetiapine Fumarate (SEROquel) 50 mg QHS PO 11/29/20 21:00 12/06/20 20:04 DC 12/05/20 20:23 Quetiapine Fumarate (SEROquel) 12.5 mg 0900,1300,1700 PO 12/06/20 09:00 12/09/20 08:19 Selenium Sulfide (Selsun) 1 kathi QODAY TP 12/07/20 09:00 12/09/20 08:19 Quetiapine Fumarate (SEROquel) 75 mg QHS PO 12/06/20 21:00 12/08/20 20:14 I have reviewed the current psychotropics carefully including drug interactions. Risk benefit ratio favors no change other than as noted in my dictated progress note. Diagnosis: Problems: (1) Impulse control disorder, unspecified (2) Anxiety disorder, unspecified (3) Dementia, vascular, with depression (4) Dementia, vascular, with delusions (5) Dementia in Alzheimer's disease with depression (6) Dementia in Alzheimer's disease with delusions (7) Dementia of the Alzheimer's type with early onset with behavioral disturbance (8) Major neurocognitive disorder KANDY WADE MD Dec 09, 2020 08:59
[2020-12-09 16:33] VITALS: BP 132/76
[2020-12-09] MEDS: QUEtiapine 50 MG TABLET. PO SCH (20:26)
--- NOTE | 2020-12-09 22:04 | PDOC ---
Exam Note: Abdirashid Note: Please also refer to the separate dictated note~for this date of service dictated separately.~Patient seen individually. Discussed the patient with Nursing staff reviewed the chart.~Reviewed interim history and current functioning. Reviewed vital signs,~Labs/ Radiology~and current medications noted below. Continue current treatment with the changes noted in the dictated addendum note Assessment: Vital Signs/I&O: Vital Signs Date Time Temp Pulse Resp B/P (MAP) Pulse Ox O2 Delivery O2 Flow Rate FiO2 12/09/20 16:33 98.1 84 16 132/76 (94) 97 I & O 12/08/20 12/08/20 12/09/20 15:00 23:00 07:00 Intake Total 720 ml 600 ml Balance 720 ml 600 ml Current Medications: Meds: Current Medications Medications (Trade) Dose Ordered Sig/Rach Route PRN Reason Start Time Stop Time Status Last Admin Dose Admin Clotrimazole (Lotrimin) 1 kathi BID TP 11/10/20 21:00 12/08/20 06:03 DC 12/07/20 08:56 Cephalexin HCl (Keflex) 500 mg TID PO 11/10/20 21:00 11/13/20 22:00 DC 11/13/20 20:55 Acetaminophen (Tylenol) 650 mg PRN Q6HRS PRN PO MILD PAIN / TEMP > 100.3'F 11/10/20 15:30 11/15/20 06:37 Multi-Ingredient Ointment (Analgesic [place]) 1 kathi PRN QID PRN TP MUSCLE PAIN 11/10/20 15:30 Al Hydroxide/Mg Hydroxide (Mylanta Plus Xs) 15 ml PRN AFTMEALHC PRN PO DYSPEPSIA 11/10/20 15:30 Magnesium Hydroxide (Milk Of Magnesia) 2,400 mg PRN QHS PRN PO CONSTIPATION 11/10/20 15:30 Acetaminophen/ Hydrocodone Bitart (Lortab 5/325) 1 tab PRN Q6HRS PRN PO MOD-SEV PAIN 11/10/20 17:00 12/01/20 22:45 Olanzapine (ZyPREXA ZYDIS) 2.5 mg PRN Q2HR PRN PO PSYCHOSIS 11/10/20 17:15 12/09/20 08:20 Trazodone HCl (Desyrel) 50 mg QHS PRN PO INSOMNIA, MAY REPEAT X1 11/10/20 22:30 12/08/20 20:16 Mirtazapine (Remeron) 7.5 mg QHS PO 11/11/20 21:00 11/13/20 15:41 DC 11/12/20 19:21 Sertraline HCl (Zoloft) 25 mg DAILY PO 11/12/20 17:00 11/14/20 18:00 DC 11/14/20 08:44 Sertraline HCl (Zoloft) 50 mg DAILY PO 11/15/20 17:00 11/21/20 17:12 DC 11/21/20 08:38 Quetiapine Fumarate (SEROquel) 25 mg QHS PO 11/13/20 21:00 11/29/20 18:15 DC 11/28/20 20:07 Doxycycline Hyclate (Vibra-Tab) 100 mg BID PO 11/15/20 21:00 11/24/20 22:00 DC 11/24/20 19:47 Lactobacillus Rhamnosus (Culturelle) 1 cap BID PO 11/15/20 21:00 12/09/20 20:25 Sertraline HCl (Zoloft) 75 mg DAILY PO 11/22/20 09:00 12/09/20 16:54 DC 12/09/20 08:19 Quetiapine Fumarate (SEROquel) 12.5 mg DAILY PO 11/26/20 09:00 11/26/20 14:20 DC 11/26/20 07:30 Quetiapine Fumarate (SEROquel) 12.5 mg 0900,1200 PO 11/26/20 14:30 12/05/20 19:33 DC 12/05/20 12:28 Quetiapine Fumarate (SEROquel) 50 mg QHS PO 11/29/20 21:00 12/06/20 20:04 DC 12/05/20 20:23 Quetiapine Fumarate (SEROquel) 12.5 mg 0900,1300,1700 PO 12/06/20 09:00 12/09/20 17:23 Selenium Sulfide (Selsun) 1 kathi QODAY TP 12/07/20 09:00 12/09/20 08:19 Quetiapine Fumarate (SEROquel) 75 mg QHS PO 7/22/21 21:00 12/09/20 20:26 Sertraline HCl (Zoloft) 100 mg DAILY PO 12/10/20 09:00 I have reviewed the current psychotropics carefully including drug interactions. Risk benefit ratio favors no change other than as noted in my dictated progress note. Diagnosis: Problems: (1) Impulse control disorder, unspecified (2) Anxiety disorder, unspecified (3) Dementia, vascular, with depression (4) Dementia, vascular, with delusions (5) Dementia in Alzheimer's disease with depression (6) Dementia in Alzheimer's disease with delusions (7) Dementia of the Alzheimer's type with early onset with behavioral disturbance (8) Major neurocognitive disorder KANDY WADE MD Dec 09, 2020 22:04
--- NOTE | 2020-12-09 23:57 | NUR ---
Last evening pt sat in the day room sometimes interacting with peers or staff. She expressed concern about getting back to school so she can finish up the 10th grade and is also worried about her parents. She took meds whole and has been cooperative with cares and has had no behaviors tonight.
[2020-12-10 06:08] VITALS: BP 121/74
--- NOTE | 2020-12-10 06:49 | PDOC ---
Exam Note: Abdirashid Note: This note is a late entry for 12/09/2020 covers elements not covered in my initial note. Subjective: The patient was seen individually in the evening of 12/09/2020 with Samira DAILY, discussed and reviewed the chart. The patient slept 6 hours previous night. She thought one of the other demented patient on the unit was her daughter. She has been talking about being concerned that her parents have left her here and gone out of the city. Review of Systems: No CV, , pulmonary, eye, ENT system symptoms on review. Reliability poor. Mental Status Exam: The patient is oriented to herself. Insight and judgment, recent and remote memory, attention and concentration is poor consistent with her diagnoses. Laboratory Data: Reviewed. Impression: Major depressive disorder with psychotic features versus major neurocognitive disorder, Alzheimer vascular with depression, delusions, behavioral disturbance versus psychotic disorder unspecified. Plan: No change from initial note. Increase Zoloft from 75 mg a day to 100 mg a day. Assessment: Vital Signs/I&O: Vital Signs Date Time Temp Pulse Resp B/P (MAP) Pulse Ox O2 Delivery O2 Flow Rate FiO2 12/10/20 06:08 97.9 74 16 121/74 (90) 98 I & O 12/09/20 12/09/20 12/10/20 14:59 22:59 06:59 Intake Total 1200 ml 840 ml Balance 1200 ml 840 ml Current Medications: Meds: Current Medications Medications (Trade) Dose Ordered Sig/Rach Route PRN Reason Start Time Stop Time Status Last Admin Dose Admin Clotrimazole (Lotrimin) 1 kathi BID TP 11/10/20 21:00 12/08/20 06:03 DC 12/07/20 08:56 Cephalexin HCl (Keflex) 500 mg TID PO 11/10/20 21:00 11/13/20 22:00 DC 11/13/20 20:55 Acetaminophen (Tylenol) 650 mg PRN Q6HRS PRN PO MILD PAIN / TEMP > 100.3'F 11/10/20 15:30 11/15/20 06:37 Multi-Ingredient Ointment (Analgesic [place]) 1 kathi PRN QID PRN TP MUSCLE PAIN 11/10/20 15:30 Al Hydroxide/Mg Hydroxide (Mylanta Plus Xs) 15 ml PRN AFTMEALHC PRN PO DYSPEPSIA 11/10/20 15:30 Magnesium Hydroxide (Milk Of Magnesia) 2,400 mg PRN QHS PRN PO CONSTIPATION 11/10/20 15:30 Acetaminophen/ Hydrocodone Bitart (Lortab 5/325) 1 tab PRN Q6HRS PRN PO MOD-SEV PAIN 11/10/20 17:00 12/01/20 22:45 Olanzapine (ZyPREXA ZYDIS) 2.5 mg PRN Q2HR PRN PO PSYCHOSIS 11/10/20 17:15 12/09/20 08:20 Trazodone HCl (Desyrel) 50 mg QHS PRN PO INSOMNIA, MAY REPEAT X1 11/10/20 22:30 12/08/20 20:16 Mirtazapine (Remeron) 7.5 mg QHS PO 11/11/20 21:00 11/13/20 15:41 DC 11/12/20 19:21 Sertraline HCl (Zoloft) 25 mg DAILY PO 11/12/20 17:00 11/14/20 18:00 DC 11/14/20 08:44 Sertraline HCl (Zoloft) 50 mg DAILY PO 11/15/20 17:00 11/21/20 17:12 DC 11/21/20 08:38 Quetiapine Fumarate (SEROquel) 25 mg QHS PO 11/13/20 21:00 11/29/20 18:15 DC 11/28/20 20:07 Doxycycline Hyclate (Vibra-Tab) 100 mg BID PO 11/15/20 21:00 11/24/20 22:00 DC 11/24/20 19:47 Lactobacillus Rhamnosus (Culturelle) 1 cap BID PO 11/15/20 21:00 12/09/20 20:25 Sertraline HCl (Zoloft) 75 mg DAILY PO 11/22/20 09:00 12/09/20 16:54 DC 12/09/20 08:19 Quetiapine Fumarate (SEROquel) 12.5 mg DAILY PO 11/26/20 09:00 11/26/20 14:20 DC 11/26/20 07:30 Quetiapine Fumarate (SEROquel) 12.5 mg 0900,1200 PO 11/26/20 14:30 12/05/20 19:33 DC 12/05/20 12:28 Quetiapine Fumarate (SEROquel) 50 mg QHS PO 11/29/20 21:00 12/06/20 20:04 DC 12/05/20 20:23 Quetiapine Fumarate (SEROquel) 12.5 mg 0900,1300,1700 PO 12/06/20 09:00 12/09/20 17:23 Selenium Sulfide (Selsun) 1 kathi QODAY TP 12/07/20 09:00 12/09/20 08:19 Quetiapine Fumarate (SEROquel) 75 mg QHS PO 12/06/20 21:00 12/09/20 20:26 Sertraline HCl (Zoloft) 100 mg DAILY PO 12/10/20 09:00 I have reviewed the current psychotropics carefully including drug interactions. Risk benefit ratio favors no change other than as noted in my dictated progress note. Diagnosis: Problems: (1) Impulse control disorder, unspecified (2) Anxiety disorder, unspecified (3) Dementia, vascular, with depression (4) Dementia, vascular, with delusions (5) Dementia in Alzheimer's disease with depression (6) Dementia in Alzheimer's disease with delusions (7) Dementia of the Alzheimer's type with early onset with behavioral disturbance (8) Major neurocognitive disorder KANDY WADE MD Dec 10, 2020 06:49
[2020-12-10] MEDS: SERTRALINE 100 MG TABLET. PO SCH (09:29)
[2020-12-10] MEDS: LACTOBACILLUS RHAMNOSUS GG 1 CAPSULE. PO SCH ×2 (09:29→20:07)
[2020-12-10] MEDS: QUEtiapine 25 MG TABLET. PO SCH ×3 (09:30→17:13)
--- NOTE | 2020-12-10 10:44 | NUR ---
MIK returned call to pt dtr, Janeen to give her an update on pt and how she is doing. Pt dtr questioned if pt would be appropriate to come home versus placement and whether or not she is getting better. MIK explained to Janeen that pt current behaviors will be a new norm; therefore, pt will need assist with medications, cares, oversight on most things which means she and other family members will need to provide that for her. Pt dtr has requested to see if pt could be admitted to a SNF that could maintain her there until they can get Medicaid cared for. MIK explained that MIK would send referrals over to those who also have Memory Care units. The less disruption for the pt the better as having her go from one facility to the next could be of cause for decline. MIK will continue to keep Janeen updated and send out referrals for placement.
--- NOTE | 2020-12-10 12:20 | NUR ---
Treatment team note: Pt dtr, Janeen, participated in tx team via telephone. Pt is eating 100% of meals and sleeping on average 6 hours per night. 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 Pt also questioned if she was going to pass the 10th grade. Pt is medication compliant however, did have trouble with the shower this morning as it took two staff members to perform those cares. Pt dtr has requested that referrals be sent to SNF for the time of discharge as she continues to work on getting pt insurance settled. SW will continue to work with pt dtr on getting the referrals sent and discharge arrangements.
--- NOTE | 2020-12-10 12:47 | NUR ---
Nursing note: Pt in her room at time of AM med pass and assessment. She is pleasant, med compliant and cooperative. Pt has no complaints/concerns. She is currently eating lunch. Will continue to monitor
--- NOTE | 2020-12-10 13:03 | NUR ---
WEEKLY ACTIVITY THERAPY NOTE Date of Admission: 11/10/20 Date of AT Assessment: 11/13 Precipitating behaviors that initiated intake and admission: AMS, hallucinating, asking for parents, repetitive, STM defect, taking off clothes, incontinent, smearing feces on wall, attempting to leave house at night, poor hygiene Goal aimed: increase engagement and socialization Initial Goal: Pt will participate in at least three individual or group Activity Therapy sessions per week Goal changed 11/20: Pt will participate in at least five individual or group Activity Therapy sessions per week Goal changed 11/26:Pt will participate in at all Activity Therapy groups per week. Weekly progress towards goal: achieved, 02/24 Group participation level: 5 min, 2 mod, 3 full Weekly highlights: exercises and sentence starters Thursday, shared travel stories during songs and states Thursday, exercises and picture man Thursday Behaviors observed: tearful Thursday morning and afternoon, looking for her dads truck and tapping blanket like it was a baby afternoon, pleasantly confused Plan: no change to goal Beneficial adaptations: music, redirection
[2020-12-10 15:50] VITALS: BP 108/66
[2020-12-10] MEDS: QUEtiapine 50 MG TABLET. PO SCH (20:07)
--- NOTE | 2020-12-10 22:22 | PDOC ---
Exam Note: Abdirashid Note: Please also refer to the separate dictated note~for this date of service dictated separately.~Patient seen individually. Discussed the patient with Nursing staff reviewed the chart.~Reviewed interim history and current functioning. Reviewed vital signs,~Labs/ Radiology~and current medications noted below. Continue current treatment with the changes noted in the dictated addendum note Assessment: Vital Signs/I&O: Vital Signs Date Time Temp Pulse Resp B/P (MAP) Pulse Ox O2 Delivery O2 Flow Rate FiO2 12/10/20 15:50 98.1 60 18 108/66 (80) 96 I & O 12/09/20 12/09/20 12/10/20 15:00 23:00 07:00 Intake Total 1200 ml 840 ml Balance 1200 ml 840 ml Current Medications: Meds: Current Medications Medications (Trade) Dose Ordered Sig/Arch Route PRN Reason Start Time Stop Time Status Last Admin Dose Admin Clotrimazole (Lotrimin) 1 kathi BID TP 11/10/20 21:00 12/08/20 06:03 DC 12/07/20 08:56 Cephalexin HCl (Keflex) 500 mg TID PO 11/10/20 21:00 11/13/20 22:00 DC 11/13/20 20:55 Acetaminophen (Tylenol) 650 mg PRN Q6HRS PRN PO MILD PAIN / TEMP > 100.3'F 11/10/20 15:30 11/15/20 06:37 Multi-Ingredient Ointment (Analgesic [place]) 1 kathi PRN QID PRN TP MUSCLE PAIN 11/10/20 15:30 Al Hydroxide/Mg Hydroxide (Mylanta Plus Xs) 15 ml PRN AFTMEALHC PRN PO DYSPEPSIA 11/10/20 15:30 Magnesium Hydroxide (Milk Of Magnesia) 2,400 mg PRN QHS PRN PO CONSTIPATION 11/10/20 15:30 Acetaminophen/ Hydrocodone Bitart (Lortab 5/325) 1 tab PRN Q6HRS PRN PO MOD-SEV PAIN 11/10/20 17:00 12/01/20 22:45 Olanzapine (ZyPREXA ZYDIS) 2.5 mg PRN Q2HR PRN PO PSYCHOSIS 11/10/20 17:15 12/09/20 08:20 Trazodone HCl (Desyrel) 50 mg QHS PRN PO INSOMNIA, MAY REPEAT X1 11/10/20 22:30 12/08/20 20:16 Mirtazapine (Remeron) 7.5 mg QHS PO 11/11/20 21:00 11/13/20 15:41 DC 11/12/20 19:21 Sertraline HCl (Zoloft) 25 mg DAILY PO 11/12/20 17:00 11/14/20 18:00 DC 11/14/20 08:44 Sertraline HCl (Zoloft) 50 mg DAILY PO 11/15/20 17:00 11/21/20 17:12 DC 11/21/20 08:38 Quetiapine Fumarate (SEROquel) 25 mg QHS PO 11/13/20 21:00 11/29/20 18:15 DC 11/28/20 20:07 Doxycycline Hyclate (Vibra-Tab) 100 mg BID PO 11/15/20 21:00 11/24/20 22:00 DC 11/24/20 19:47 Lactobacillus Rhamnosus (Culturelle) 1 cap BID PO 11/15/20 21:00 12/10/20 20:07 Sertraline HCl (Zoloft) 75 mg DAILY PO 11/22/20 09:00 12/09/20 16:54 DC 12/09/20 08:19 Quetiapine Fumarate (SEROquel) 12.5 mg DAILY PO 11/26/20 09:00 11/26/20 14:20 DC 11/26/20 07:30 Quetiapine Fumarate (SEROquel) 12.5 mg 0900,1200 PO 11/26/20 14:30 12/05/20 19:33 DC 12/05/20 12:28 Quetiapine Fumarate (SEROquel) 50 mg QHS PO 11/29/20 21:00 12/06/20 20:04 DC 12/05/20 20:23 Quetiapine Fumarate (SEROquel) 12.5 mg 0900,1300,1700 PO 12/06/20 09:00 12/10/20 17:13 Selenium Sulfide (Selsun) 1 kathi QODAY TP 12/07/20 09:00 12/09/20 08:19 Quetiapine Fumarate (SEROquel) 75 mg QHS PO 12/06/20 21:00 12/10/20 20:07 Sertraline HCl (Zoloft) 100 mg DAILY PO 12/10/20 09:00 12/10/20 09:29 Current Medications Medications (Trade) Dose Ordered Sig/Rach Route PRN Reason Start Time Stop Time Status Last Admin Dose Admin Sertraline HCl (Zoloft) 100 mg DAILY PO 12/10/20 09:00 12/10/20 09:29 I have reviewed the current psychotropics carefully including drug interactions. Risk benefit ratio favors no change other than as noted in my dictated progress note. Diagnosis: Problems: (1) Impulse control disorder, unspecified (2) Anxiety disorder, unspecified (3) Dementia, vascular, with depression (4) Dementia, vascular, with delusions (5) Dementia in Alzheimer's disease with depression (6) Dementia in Alzheimer's disease with delusions (7) Dementia of the Alzheimer's type with early onset with behavioral disturbance (8) Major neurocognitive disorder KANDY WADE MD Dec 10, 2020 22:22
--- NOTE | 2020-12-11 03:25 | NUR ---
Last evening pt sat quietly in the day room. She took HS meds whole and has had no behaviorstonight. She was cooperative with cares and has been sleeping.
[2020-12-11 06:07] VITALS: BP 113/72
[2020-12-11] MEDS: SELENIUM SULFIDE 1% TOPICAL SHAMPOO 207ML BOTTLE. TP SCH (07:32)
[2020-12-11] MEDS: LACTOBACILLUS RHAMNOSUS GG 1 CAPSULE. PO SCH ×2 (09:20→19:39)
[2020-12-11] MEDS: SERTRALINE 100 MG TABLET. PO SCH (09:20)
[2020-12-11] MEDS: QUEtiapine 25 MG TABLET. PO SCH ×3 (09:21→16:29)
--- NOTE | 2020-12-11 11:14 | TX PLAN ---
Interdisciplinary Tx Plan Admission Information Nov 10, 2020 at 14:40 Legal Status (on Admission): Voluntary DPOA/Guardian Name: Janeen Lovelace Contact Other Contact Name: Janeen Lovelace Other Contact Verified Code Status: Full Code Allergies: Coded Allergies: No Known Drug Allergies (Unverified , 11/10/20) Diagnoses Primary Diagnosis: Dementia with BD Reasons for Admission: Hallucinations, Confusion/Disoriented, Poor impulse control, Other Problem in Patient's Words: Assuming this is the UTI because this has all happened so sudden Additional Admission Comments: According to the intake, pt is hallucinating, asking to see her parents, repetitive, altered mental status (displaying STM deficits), taking off her clothes, smearing feces on the wall, tried to leave the house at night and poor hygeine. Problems Active Problems: delusional restless/anxious hallucinating Inactive Problems: medication compliant Pt Strengths/Limitations Ability for [place]: Poor Cognitive Functioning/Ability: Fair Communication Skills/Ability: Fair Financial Resources: Fair Insight/Judgement: Poor Intellectual Ability: Fair Physical Health: Fair Social Skills: Fair Stability in Family: Good Stability in School/Work: Poor Verbal Skills: Fair Discharge Criteria Discharge Criteria: No need for close observ., Adequate arrangements @DC, Impr mary behavior, Improved mood/thought Preliminary Discharge Plan Preliminary DC Plan: Current Living Arrange. Special Precautions Fall Risk: Low Initial D/C Plan Pt will plan to discharge back home with family. Identified Discharge Needs: Resources for continued mental health services Currently Utilized Resources Currently Utilized Resources/P: Primary care physician Referrals Community Resources: referrals for psychiatry Identified Problems/Hx/Goals Objectives/Short-Term Goals Short Term Goals: Control abnormal behavior, Dec. Hallucination/Delus, Medication Stabilization, Promote Coping Skill Short Term Goals in Patient's: N/a Interventions/Frequency Staff Interventions/Frequency&: Psychiatrist to assess pt at least 3x per week for medication management. Social Work to assess pt at least 2x per week to identify barriers to care and discharge planning. Nursing to assess medication effects, behavior modification and completion of 15 minute checks daily. Encourage participation in group activities (if applicable) or 1:1 engagement based off activity dept goals. 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 Pt does have an associates degree Community Follow-up PCP psychiatry referral Community Provider/Family Inpu: She has never been diagnosed with anything and I worry about a Dementia diagnosis as this is a sudden onset and she had not issues until this month or <6 weeks ago. 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 Pt is eating 100% of meals and sleeping on average 6 hours per night. 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 Pt also questioned if she was going to pass the 10th grade. Pt is medication compliant however, did have trouble with the shower this morning as it took two staff members to perform those cares. Pt dtr has requested that referrals be sent to SNF for the time of discharge as she continues to work on getting pt insurance settled. SW will continue to work with pt dtr on getting the referrals sent and discharge arrangements. ONUR RAMOS Dec 11, 2020 11:14
[2020-12-11 15:40] VITALS: BP 105/60
--- NOTE | 2020-12-11 15:41 | NUR ---
Nursing note: Pt in day room at time of AM med pass and assessment. She is pleasant, med compliant and cooperative. Pt continues to worry about where her parents are located and becomes tearful at times. She is social with staff and peers. Pt is currently sitting quietly in the day room. Will continue to monitor.
--- NOTE | 2020-12-11 18:04 | NUR ---
Nursing note: Pt in day room whispering things to other pt's causing others to get worked up. Pt getting combative with redirection, yelling and swinging at staff. PRN given with no effect. Pt was taken to her room to be assisted in the bathroom and change into clean clothes and was laid in bed. Will continue to monitor.
[2020-12-11] MEDS: QUEtiapine 50 MG TABLET. PO SCH (19:38)
--- NOTE | 2020-12-11 22:21 | PDOC ---
Exam Note: Abdirashid Note: Please also refer to the separate dictated note~for this date of service dictated separately.~Patient seen individually. Discussed the patient with Nursing staff reviewed the chart.~Reviewed interim history and current functioning. Reviewed vital signs,~Labs/ Radiology~and current medications noted below. Continue current treatment with the changes noted in the dictated addendum note Assessment: Vital Signs/I&O: Vital Signs Date Time Temp Pulse Resp B/P (MAP) Pulse Ox O2 Delivery O2 Flow Rate FiO2 12/11/20 15:40 98.1 80 18 105/60 (75) 97 I & O 12/10/20 12/10/20 12/11/20 15:00 23:00 07:00 Intake Total 1240 ml 840 ml Balance 1240 ml 840 ml Current Medications: Meds: Current Medications Medications (Trade) Dose Ordered Sig/Rach Route PRN Reason Start Time Stop Time Status Last Admin Dose Admin Clotrimazole (Lotrimin) 1 kathi BID TP 11/10/20 21:00 12/08/20 06:03 DC 12/07/20 08:56 Cephalexin HCl (Keflex) 500 mg TID PO 11/10/20 21:00 11/13/20 22:00 DC 11/13/20 20:55 Acetaminophen (Tylenol) 650 mg PRN Q6HRS PRN PO MILD PAIN / TEMP > 100.3'F 11/10/20 15:30 11/15/20 06:37 Multi-Ingredient Ointment (Analgesic [place]) 1 kathi PRN QID PRN TP MUSCLE PAIN 11/10/20 15:30 Al Hydroxide/Mg Hydroxide (Mylanta Plus Xs) 15 ml PRN AFTMEALHC PRN PO DYSPEPSIA 11/10/20 15:30 Magnesium Hydroxide (Milk Of Magnesia) 2,400 mg PRN QHS PRN PO CONSTIPATION 11/10/20 15:30 Acetaminophen/ Hydrocodone Bitart (Lortab 5/325) 1 tab PRN Q6HRS PRN PO MOD-SEV PAIN 11/10/20 17:00 12/01/20 22:45 Olanzapine (ZyPREXA ZYDIS) 2.5 mg PRN Q2HR PRN PO PSYCHOSIS 11/10/20 17:15 12/11/20 16:29 Trazodone HCl (Desyrel) 50 mg QHS PRN PO INSOMNIA, MAY REPEAT X1 11/10/20 22:30 12/08/20 20:16 Mirtazapine (Remeron) 7.5 mg QHS PO 11/11/20 21:00 11/13/20 15:41 DC 11/12/20 19:21 Sertraline HCl (Zoloft) 25 mg DAILY PO 11/12/20 17:00 11/14/20 18:00 DC 11/14/20 08:44 Sertraline HCl (Zoloft) 50 mg DAILY PO 11/15/20 17:00 11/21/20 17:12 DC 11/21/20 08:38 Quetiapine Fumarate (SEROquel) 25 mg QHS PO 11/13/20 21:00 11/29/20 18:15 DC 11/28/20 20:07 Doxycycline Hyclate (Vibra-Tab) 100 mg BID PO 11/15/20 21:00 11/24/20 22:00 DC 11/24/20 19:47 Lactobacillus Rhamnosus (Culturelle) 1 cap BID PO 11/15/20 21:00 12/11/20 19:39 Sertraline HCl (Zoloft) 75 mg DAILY PO 11/22/20 09:00 12/09/20 16:54 DC 12/09/20 08:19 Quetiapine Fumarate (SEROquel) 12.5 mg DAILY PO 11/26/20 09:00 11/26/20 14:20 DC 11/26/20 07:30 Quetiapine Fumarate (SEROquel) 12.5 mg 0900,1200 PO 11/26/20 14:30 12/05/20 19:33 DC 12/05/20 12:28 Quetiapine Fumarate (SEROquel) 50 mg QHS PO 11/29/20 21:00 12/06/20 20:04 DC 12/05/20 20:23 Quetiapine Fumarate (SEROquel) 12.5 mg 0900,1300,1700 PO 12/06/20 09:00 12/11/20 16:29 Selenium Sulfide (Selsun) 1 kathi QODAY TP 12/07/20 09:00 12/11/20 07:32 Quetiapine Fumarate (SEROquel) 75 mg QHS PO 12/06/20 21:00 12/11/20 19:38 Sertraline HCl (Zoloft) 100 mg DAILY PO 12/10/20 09:00 12/11/20 09:20 Hydroxyzine HCl (Atarax) 25 mg PRN TID PRN PO ANXIETY / AGITATION 12/11/20 18:30 I have reviewed the current psychotropics carefully including drug interactions. Risk benefit ratio favors no change other than as noted in my dictated progress note. Diagnosis: Problems: (1) Impulse control disorder, unspecified (2) Anxiety disorder, unspecified (3) Dementia, vascular, with depression (4) Dementia, vascular, with delusions (5) Dementia in Alzheimer's disease with depression (6) Dementia in Alzheimer's disease with delusions (7) Dementia of the Alzheimer's type with early onset with behavioral disturbance (8) Major neurocognitive disorder KANDY WADE MD Dec 11, 2020 22:21
[2020-12-11 22:30] LABS: BACTERIA,URINE MOD /HPF (0-FEW); BILIRUBIN,URINE NEG (NEG); CLARITY,URINE HAZY; COLOR,URINE YELLOW; GLUCOSE,URINE NEG (NEG); NITRITE,URINE POS (NEG); RBC,URINE OCC /HPF (0-2); SQUAMOUS EPITHELIAL CELL,UR OCC /LPF; UROBILINOGEN,URINE 0.2 mg/dL (0.2 mg/dL)
[2020-12-12 05:55] VITALS: BP 138/70
[2020-12-12] MEDS: LACTOBACILLUS RHAMNOSUS GG 1 CAPSULE. PO SCH ×2 (07:49→19:34)
[2020-12-12] MEDS: QUEtiapine 25 MG TABLET. PO SCH ×3 (07:50→17:13)
[2020-12-12] MEDS: SERTRALINE 100 MG TABLET. PO SCH (07:50)
--- NOTE | 2020-12-12 09:21 | PDOC ---
Exam Note: Abdirashid Note: This note is a late entry for 12/10/2020 covers elements not covered in my initial note. Subjective: The patient was seen individually in the morning of 12/10/2020 for a treatment team meeting with Steph Myers, Cyndi Manuel (child protective services social worker), Anamaria, activity therapy and Nydia RN, discussed and reviewed the chart. The patient slept 5 hours previous night. Her daughter Janeen attended the meeting. Appetite is 100%. She was yelling after showers. Review of Systems: No CV, , pulmonary, eye, ENT system symptoms on review. Reliability poor. Mental Status Exam: The patient is oriented to herself. Insight and judgment, recent and remote memory, attention and concentration is poor consistent with her diagnoses. Laboratory Data: Reviewed. Impression: Major depressive disorder with psychotic features versus major neurocognitive disorder, Alzheimer vascular with depression, delusions, behavioral disturbance versus psychotic disorder unspecified. Plan: No change from initial note. Apparently group home placement of Memory care have being arranged for her. Assessment: Vital Signs/I&O: Vital Signs Date Time Temp Pulse Resp B/P (MAP) Pulse Ox O2 Delivery O2 Flow Rate FiO2 12/12/20 05:55 98.3 77 20 138/70 (92) 96 Room Air I & O 12/11/20 12/11/20 12/12/20 15:00 23:00 07:00 Intake Total 840 ml 240 ml Balance 840 ml 240 ml Labs: Laboratory Tests Test 12/11/20 21:40 Urine Collection Type Void Urine Color Yellow Urine Clarity Hazy Urine pH 5.0 Urine Specific [place] 1.010 Urine Protein Neg (NEG-TRACE) Urine Glucose (UA) Neg mg/dL (NEG) Urine Ketones (Stick) Neg mg/dL (NEG) Urine Blood Small (NEG) Urine Nitrite Pos (NEG) Urine Bilirubin Neg (NEG) Urine Urobilinogen Dipstick 0.2 mg/dL (0.2 mg/dL) Urine Leukocyte Esterase Small (NEG) Urine RBC Occ /HPF (0-2) Urine WBC 5-10 /HPF (0-4) Urine Squamous Epithelial Cells Occ /LPF Urine Bacteria Mod /HPF (0-FEW) Current Medications: Meds: Laboratory Tests Test 12/11/20 21:40 Urine Collection Type Void Urine Color Yellow Urine Clarity Hazy Urine pH 5.0 Urine Specific [place] 1.010 Urine Protein Neg Urine Glucose (UA) Neg mg/dL Urine Ketones (Stick) Neg mg/dL Urine Blood Small Urine Nitrite Pos Urine Bilirubin Neg Urine Urobilinogen Dipstick 0.2 mg/dL Urine Leukocyte Esterase Small Urine RBC Occ /HPF Urine WBC 5-10 /HPF Urine Squamous Epithelial Cells Occ /LPF Urine Bacteria Mod /HPF Current Medications Medications (Trade) Dose Ordered Sig/Rach Route PRN Reason Start Time Stop Time Status Last Admin Dose Admin Clotrimazole (Lotrimin) 1 kathi BID TP 11/10/20 21:00 12/08/20 06:03 DC 12/07/20 08:56 Cephalexin HCl (Keflex) 500 mg TID PO 11/10/20 21:00 11/13/20 22:00 DC 11/13/20 20:55 Acetaminophen (Tylenol) 650 mg PRN Q6HRS PRN PO MILD PAIN / TEMP > 100.3'F 11/10/20 15:30 11/15/20 06:37 Multi-Ingredient Ointment (Analgesic [place]) 1 kathi PRN QID PRN TP MUSCLE PAIN 11/10/20 15:30 Al Hydroxide/Mg Hydroxide (Mylanta Plus Xs) 15 ml PRN AFTMEALHC PRN PO DYSPEPSIA 11/10/20 15:30 Magnesium Hydroxide (Milk Of Magnesia) 2,400 mg PRN QHS PRN PO CONSTIPATION 11/10/20 15:30 Acetaminophen/ Hydrocodone Bitart (Lortab 5/325) 1 tab PRN Q6HRS PRN PO MOD-SEV PAIN 11/10/20 17:00 12/01/20 22:45 Olanzapine (ZyPREXA ZYDIS) 2.5 mg PRN Q2HR PRN PO PSYCHOSIS 11/10/20 17:15 12/12/20 08:54 Trazodone HCl (Desyrel) 50 mg QHS PRN PO INSOMNIA, MAY REPEAT X1 11/10/20 22:30 12/08/20 20:16 Mirtazapine (Remeron) 7.5 mg QHS PO 11/11/20 21:00 11/13/20 15:41 DC 11/12/20 19:21 Sertraline HCl (Zoloft) 25 mg DAILY PO 11/12/20 17:00 11/14/20 18:00 DC 11/14/20 08:44 Sertraline HCl (Zoloft) 50 mg DAILY PO 11/15/20 17:00 11/21/20 17:12 DC 11/21/20 08:38 Quetiapine Fumarate (SEROquel) 25 mg QHS PO 11/13/20 21:00 11/29/20 18:15 DC 11/28/20 20:07 Doxycycline Hyclate (Vibra-Tab) 100 mg BID PO 11/15/20 21:00 11/24/20 22:00 DC 11/24/20 19:47 Lactobacillus Rhamnosus (Culturelle) 1 cap BID PO 11/15/20 21:00 12/12/20 07:49 Sertraline HCl (Zoloft) 75 mg DAILY PO 11/22/20 09:00 12/09/20 16:54 DC 12/09/20 08:19 Quetiapine Fumarate (SEROquel) 12.5 mg DAILY PO 11/26/20 09:00 11/26/20 14:20 DC 11/26/20 07:30 Quetiapine Fumarate (SEROquel) 12.5 mg 0900,1200 PO 11/26/20 14:30 12/05/20 19:33 DC 12/05/20 12:28 Quetiapine Fumarate (SEROquel) 50 mg QHS PO 11/29/20 21:00 12/06/20 20:04 DC 12/05/20 20:23 Quetiapine Fumarate (SEROquel) 12.5 mg 0900,1300,1700 PO 12/06/20 09:00 12/12/20 07:50 Selenium Sulfide (Selsun) 1 kathi QODAY TP 12/07/20 09:00 12/11/20 07:32 Quetiapine Fumarate (SEROquel) 75 mg QHS PO 12/06/20 21:00 12/11/20 19:38 Sertraline HCl (Zoloft) 100 mg DAILY PO 12/10/20 09:00 12/12/20 07:50 Hydroxyzine HCl (Atarax) 25 mg PRN TID PRN PO ANXIETY / AGITATION 12/11/20 18:30 I have reviewed the current psychotropics carefully including drug interactions. Risk benefit ratio favors no change other than as noted in my dictated progress note. Diagnosis: Problems: (1) Impulse control disorder, unspecified (2) Anxiety disorder, unspecified (3) Dementia, vascular, with depression (4) Dementia, vascular, with delusions (5) Dementia in Alzheimer's disease with depression (6) Dementia in Alzheimer's disease with delusions (7) Dementia of the Alzheimer's type with early onset with behavioral disturbance (8) Major neurocognitive disorder KANDY WADE MD Dec 12, 2020 09:21
--- NOTE | 2020-12-12 09:40 | PDOC ---
Exam Note: Abdirashid Note: This note is a late entry for 12/11/2020 covers elements not covered in my initial note. Subjective: The patient was seen individually in the evening of 12/11/2020 with Samira DAILY, discussed and reviewed the chart. The patient slept 5-3/4 hours previous night. She has again had a difficult day. She was tearful in the morning. In the evening she was whispering in different patients ears, yelling, swinging out at staff. Received Zyprexa. She took 3 staff members to toilet her. We will check UA to make sure she does not have UTI contributing to her worsening confusion. We will also start hydroxyzine 25 mg t.i.d. p.r.n. anxiety. Review of Systems: No CV, , pulmonary, eye, ENT system symptoms on review. Reliability poor. Mental Status Exam: The patient is oriented to herself. Insight and judgment, recent and remote memory, attention and concentration is poor consistent with her diagnoses. Laboratory Data: Reviewed. Impression: Major depressive disorder with psychotic features versus major neurocognitive disorder, Alzheimer vascular with depression, delusions, behavioral disturbance versus psychotic disorder unspecified. Plan: No change from initial note. Assessment: Vital Signs/I&O: Vital Signs Date Time Temp Pulse Resp B/P (MAP) Pulse Ox O2 Delivery O2 Flow Rate FiO2 12/12/20 05:55 98.3 77 20 138/70 (92) 96 Room Air I & O 12/11/20 12/11/20 12/12/20 15:00 23:00 07:00 Intake Total 840 ml 240 ml Balance 840 ml 240 ml Labs: Laboratory Tests Test 12/11/20 21:40 Urine Collection Type Void Urine Color Yellow Urine Clarity Hazy Urine pH 5.0 Urine Specific [place] 1.010 Urine Protein Neg (NEG-TRACE) Urine Glucose (UA) Neg mg/dL (NEG) Urine Ketones (Stick) Neg mg/dL (NEG) Urine Blood Small (NEG) Urine Nitrite Pos (NEG) Urine Bilirubin Neg (NEG) Urine Urobilinogen Dipstick 0.2 mg/dL (0.2 mg/dL) Urine Leukocyte Esterase Small (NEG) Urine RBC Occ /HPF (0-2) Urine WBC 5-10 /HPF (0-4) Urine Squamous Epithelial Cells Occ /LPF Urine Bacteria Mod /HPF (0-FEW) Current Medications: Meds: Laboratory Tests Test 12/11/20 21:40 Urine Collection Type Void Urine Color Yellow Urine Clarity Hazy Urine pH 5.0 Urine Specific [place] 1.010 Urine Protein Neg Urine Glucose (UA) Neg mg/dL Urine Ketones (Stick) Neg mg/dL Urine Blood Small Urine Nitrite Pos Urine Bilirubin Neg Urine Urobilinogen Dipstick 0.2 mg/dL Urine Leukocyte Esterase Small Urine RBC Occ /HPF Urine WBC 5-10 /HPF Urine Squamous Epithelial Cells Occ /LPF Urine Bacteria Mod /HPF Current Medications Medications (Trade) Dose Ordered Sig/Rach Route PRN Reason Start Time Stop Time Status Last Admin Dose Admin Clotrimazole (Lotrimin) 1 kathi BID TP 11/10/20 21:00 12/08/20 06:03 DC 12/07/20 08:56 Cephalexin HCl (Keflex) 500 mg TID PO 11/10/20 21:00 11/13/20 22:00 DC 11/13/20 20:55 Acetaminophen (Tylenol) 650 mg PRN Q6HRS PRN PO MILD PAIN / TEMP > 100.3'F 11/10/20 15:30 11/15/20 06:37 Multi-Ingredient Ointment (Analgesic [place]) 1 kathi PRN QID PRN TP MUSCLE PAIN 11/10/20 15:30 Al Hydroxide/Mg Hydroxide (Mylanta Plus Xs) 15 ml PRN AFTMEALHC PRN PO DYSPEPSIA 11/10/20 15:30 Magnesium Hydroxide (Milk Of Magnesia) 2,400 mg PRN QHS PRN PO CONSTIPATION 11/10/20 15:30 Acetaminophen/ Hydrocodone Bitart (Lortab 5/325) 1 tab PRN Q6HRS PRN PO MOD-SEV PAIN 11/10/20 17:00 12/01/20 22:45 Olanzapine (ZyPREXA ZYDIS) 2.5 mg PRN Q2HR PRN PO PSYCHOSIS 11/10/20 17:15 12/12/20 08:54 Trazodone HCl (Desyrel) 50 mg QHS PRN PO INSOMNIA, MAY REPEAT X1 11/10/20 22:30 12/08/20 20:16 Mirtazapine (Remeron) 7.5 mg QHS PO 11/11/20 21:00 11/13/20 15:41 DC 11/12/20 19:21 Sertraline HCl (Zoloft) 25 mg DAILY PO 11/12/20 17:00 11/14/20 18:00 DC 11/14/20 08:44 Sertraline HCl (Zoloft) 50 mg DAILY PO 11/15/20 17:00 11/21/20 17:12 DC 11/21/20 08:38 Quetiapine Fumarate (SEROquel) 25 mg QHS PO 11/13/20 21:00 11/29/20 18:15 DC 11/28/20 20:07 Doxycycline Hyclate (Vibra-Tab) 100 mg BID PO 11/15/20 21:00 11/24/20 22:00 DC 11/24/20 19:47 Lactobacillus Rhamnosus (Culturelle) 1 cap BID PO 11/15/20 21:00 12/12/20 07:49 Sertraline HCl (Zoloft) 75 mg DAILY PO 11/22/20 09:00 12/09/20 16:54 DC 12/09/20 08:19 Quetiapine Fumarate (SEROquel) 12.5 mg DAILY PO 11/26/20 09:00 11/26/20 14:20 DC 11/26/20 07:30 Quetiapine Fumarate (SEROquel) 12.5 mg 0900,1200 PO 11/26/20 14:30 12/05/20 19:33 DC 12/05/20 12:28 Quetiapine Fumarate (SEROquel) 50 mg QHS PO 11/29/20 21:00 12/06/20 20:04 DC 12/05/20 20:23 Quetiapine Fumarate (SEROquel) 12.5 mg 0900,1300,1700 PO 12/06/20 09:00 12/12/20 07:50 Selenium Sulfide (Selsun) 1 kathi QODAY TP 12/07/20 09:00 12/11/20 07:32 Quetiapine Fumarate (SEROquel) 75 mg QHS PO 12/06/20 21:00 12/11/20 19:38 Sertraline HCl (Zoloft) 100 mg DAILY PO 12/10/20 09:00 12/12/20 07:50 Hydroxyzine HCl (Atarax) 25 mg PRN TID PRN PO ANXIETY / AGITATION 12/11/20 18:30 I have reviewed the current psychotropics carefully including drug interactions. Risk benefit ratio favors no change other than as noted in my dictated progress note. Diagnosis: Problems: (1) Impulse control disorder, unspecified (2) Anxiety disorder, unspecified (3) Dementia, vascular, with depression (4) Dementia, vascular, with delusions (5) Dementia in Alzheimer's disease with depression (6) Dementia in Alzheimer's disease with delusions (7) Dementia of the Alzheimer's type with early onset with behavioral disturbance (8) Major neurocognitive disorder KANDY WADE MD Dec 12, 2020 09:40
--- NOTE | 2020-12-12 10:34 | NUR ---
Nursing Note Pt was in the [place] outside the dining room crying for her parents, she tells me no one likes her anymore, that she doesn't know what else to do, "she gets good grades in school isn't that enough?" Pt continues to be tearful and distraught, Zyprexa given pt now smiling and happy. Pt in day room social with peers watching TV.
--- NOTE | 2020-12-12 15:38 | NUR ---
Nursing Note Pt confused and crying looking for the "children" in the hallway. Sobbing thinking that she lost them or that they escaped to the outside. Bryceis given PRN right after lunch. Now calm and cooperative.
[2020-12-12 15:47] VITALS: BP 104/63
[2020-12-12] MEDS: traZODone 50 MG TABLET. PO PRN (19:34)
[2020-12-12] MEDS: QUEtiapine 50 MG TABLET. PO SCH (19:35)
--- NOTE | 2020-12-12 22:09 | NUR ---
Nursing Note Pt medicated several times during the day for tearfulness, looking for kids, getting upset because the kids missed the bus etc. pt is calm now and cooperative with meds and assessment. In the day room watching tv and social with peers.
[2020-12-13 06:21] VITALS: BP 114/69
--- NOTE | 2020-12-13 06:52 | PDOC ---
Exam Note: Abdirashid Note: Late entry for 12/12/2020. Please also refer to the separate dictated note~for this date of service dictated separately.~Patient seen individually. Discussed the patient with Nursing staff reviewed the chart.~Reviewed interim history and current functioning. Reviewed vital signs,~Labs/ Radiology~and current medic ations noted below. Continue current treatment with the changes noted in the dictated addendum note Assessment: Vital Signs/I&O: Vital Signs Date Time Temp Pulse Resp B/P (MAP) Pulse Ox O2 Delivery O2 Flow Rate FiO2 12/13/20 06:21 97.5 77 18 114/69 (84) 98 Room Air I & O 12/12/20 12/12/20 12/13/20 15:00 23:00 07:00 Intake Total 960 ml 600 ml Balance 960 ml 600 ml Current Medications: Meds: Current Medications Medications (Trade) Dose Ordered Sig/Rach Route PRN Reason Start Time Stop Time Status Last Admin Dose Admin Clotrimazole (Lotrimin) 1 kathi BID TP 11/10/20 21:00 12/08/20 06:03 DC 12/07/20 08:56 Cephalexin HCl (Keflex) 500 mg TID PO 11/10/20 21:00 11/13/20 22:00 DC 11/13/20 20:55 Acetaminophen (Tylenol) 650 mg PRN Q6HRS PRN PO MILD PAIN / TEMP > 100.3'F 11/10/20 15:30 11/15/20 06:37 Multi-Ingredient Ointment (Analgesic [place]) 1 kathi PRN QID PRN TP MUSCLE PAIN 11/10/20 15:30 Al Hydroxide/Mg Hydroxide (Mylanta Plus Xs) 15 ml PRN AFTMEALHC PRN PO DYSPEPSIA 11/10/20 15:30 Magnesium Hydroxide (Milk Of Magnesia) 2,400 mg PRN QHS PRN PO CONSTIPATION 11/10/20 15:30 Acetaminophen/ Hydrocodone Bitart (Lortab 5/325) 1 tab PRN Q6HRS PRN PO MOD-SEV PAIN 11/10/20 17:00 12/01/20 22:45 Olanzapine (ZyPREXA ZYDIS) 2.5 mg PRN Q2HR PRN PO PSYCHOSIS 11/10/20 17:15 12/12/20 13:19 Trazodone HCl (Desyrel) 50 mg QHS PRN PO INSOMNIA, MAY REPEAT X1 11/10/20 22:30 12/12/20 19:34 Mirtazapine (Remeron) 7.5 mg QHS PO 11/11/20 21:00 11/13/20 15:41 DC 11/12/20 19:21 Sertraline HCl (Zoloft) 25 mg DAILY PO 11/12/20 17:00 11/14/20 18:00 DC 11/14/20 08:44 Sertraline HCl (Zoloft) 50 mg DAILY PO 11/15/20 17:00 11/21/20 17:12 DC 11/21/20 08:38 Quetiapine Fumarate (SEROquel) 25 mg QHS PO 11/13/20 21:00 11/29/20 18:15 DC 11/28/20 20:07 Doxycycline Hyclate (Vibra-Tab) 100 mg BID PO 11/15/20 21:00 11/24/20 22:00 DC 11/24/20 19:47 Lactobacillus Rhamnosus (Culturelle) 1 cap BID PO 11/15/20 21:00 12/12/20 19:34 Sertraline HCl (Zoloft) 75 mg DAILY PO 11/22/20 09:00 12/09/20 16:54 DC 12/09/20 08:19 Quetiapine Fumarate (SEROquel) 12.5 mg DAILY PO 11/26/20 09:00 11/26/20 14:20 DC 11/26/20 07:30 Quetiapine Fumarate (SEROquel) 12.5 mg 0900,1200 PO 11/26/20 14:30 12/05/20 19:33 DC 12/05/20 12:28 Quetiapine Fumarate (SEROquel) 50 mg QHS PO 11/29/20 21:00 12/06/20 20:04 DC 12/05/20 20:23 Quetiapine Fumarate (SEROquel) 12.5 mg 0900,1300,1700 PO 12/06/20 09:00 12/12/20 17:13 Selenium Sulfide (Selsun) 1 kathi QODAY TP 12/07/20 09:00 12/11/20 07:32 Quetiapine Fumarate (SEROquel) 75 mg QHS PO 12/06/20 21:00 12/12/20 19:35 Sertraline HCl (Zoloft) 100 mg DAILY PO 12/10/20 09:00 12/12/20 07:50 Hydroxyzine HCl (Atarax) 25 mg PRN TID PRN PO ANXIETY / AGITATION 12/11/20 18:30 I have reviewed the current psychotropics carefully including drug interactions. Risk benefit ratio favors no change other than as noted in my dictated progress note. Diagnosis: Problems: (1) Impulse control disorder, unspecified (2) Anxiety disorder, unspecified (3) Dementia, vascular, with depression (4) Dementia, vascular, with delusions (5) Dementia in Alzheimer's disease with depression (6) Dementia in Alzheimer's disease with delusions (7) Dementia of the Alzheimer's type with early onset with behavioral disturbance (8) Major neurocognitive disorder KANDY WADE MD Dec 13, 2020 06:52
[2020-12-13] MEDS: QUEtiapine 25 MG TABLET. PO SCH ×3 (08:47→17:32)
[2020-12-13] MEDS: LACTOBACILLUS RHAMNOSUS GG 1 CAPSULE. PO SCH ×2 (08:47→20:49)
[2020-12-13] MEDS: SERTRALINE 100 MG TABLET. PO SCH (08:47)
[2020-12-13] MEDS: SELENIUM SULFIDE 1% TOPICAL SHAMPOO 207ML BOTTLE. TP SCH (08:49)
--- NOTE | 2020-12-13 14:38 | NUR ---
MIK returned call to Janeen to give her an update on pt status. MIK informed Janeen that pt Covid test has not come back; MIK found out from the [facility] sales representative that the window for the 2nd Covid shot is actually closer to 6 weeks that she would have to get one completed. MIK and Janeen discussed the referrals and sending more out for placement with being able to extend the search area. Janeen has asked to be notified of pt Covid test either way. No other concerns have been noted.
[2020-12-13 15:44] VITALS: BP 122/73
--- NOTE | 2020-12-13 16:00 | NUR ---
Pt continues to look for the children on the unit and wants to know where they are and where we have put them. She gets slightly irritated at times when she does not get the response she wants, but has been able to be redirected. Pt has been visiting with other pts here and hanging out in the day room. She has been medication compliant.
[2020-12-13] MEDS: QUEtiapine 50 MG TABLET. PO SCH (20:49)
--- NOTE | 2020-12-14 02:31 | NUR ---
Nursing Note The patient was located in her room for her assessment and medication pass. The patient was disorganized during interactions. The patient was alert to name only. The patient took her medication whole. The patient is currently sleeping in her room.
[2020-12-14 06:23] VITALS: BP 144/53
--- NOTE | 2020-12-14 06:39 | PDOC ---
Exam Note: Abdirashid Note: This note is a late entry for 12/12/2020 covers elements not covered in my initial note. Subjective: The patient was seen individually in the evening of 12/12/2020 with Erin DAILY, discussed and reviewed the chart. The patient slept 5-1/2 hours previous night. UA has reflex to culture. We will await this. She is agitated after meals, afternoon and evening. She is confused, somewhat delusional, talking about her young children in their early teenage years. Review of Systems: No CV, , pulmonary, eye, ENT system symptoms on review. Reliability poor. Mental Status Exam: The patient is oriented to herself. Insight and judgment, recent and remote memory, attention and concentration is poor consistent with her diagnoses. Laboratory Data: Reviewed. Impression: Major depressive disorder with psychotic features versus major neurocognitive disorder, Alzheimer vascular with depression, delusions, behavioral disturbance versus psychotic disorder unspecified. Plan: No change from initial note. Assessment: Vital Signs/I&O: Vital Signs Date Time Temp Pulse Resp B/P (MAP) Pulse Ox O2 Delivery O2 Flow Rate FiO2 12/14/20 06:23 98.6 84 18 144/53 (83) 97 Room Air I & O 12/13/20 12/13/20 12/14/20 15:00 23:00 07:00 Intake Total 840 ml 120 ml Balance 840 ml 120 ml Current Medications: Meds: Current Medications Medications (Trade) Dose Ordered Sig/Rach Route PRN Reason Start Time Stop Time Status Last Admin Dose Admin Clotrimazole (Lotrimin) 1 kathi BID TP 11/10/20 21:00 12/08/20 06:03 DC 12/07/20 08:56 Cephalexin HCl (Keflex) 500 mg TID PO 11/10/20 21:00 11/13/20 22:00 DC 11/13/20 20:55 Acetaminophen (Tylenol) 650 mg PRN Q6HRS PRN PO MILD PAIN / TEMP > 100.3'F 11/10/20 15:30 11/15/20 06:37 Multi-Ingredient Ointment (Analgesic [place]) 1 kathi PRN QID PRN TP MUSCLE PAIN 11/10/20 15:30 Al Hydroxide/Mg Hydroxide (Mylanta Plus Xs) 15 ml PRN AFTMEALHC PRN PO DYSPEPSIA 11/10/20 15:30 Magnesium Hydroxide (Milk Of Magnesia) 2,400 mg PRN QHS PRN PO CONSTIPATION 11/10/20 15:30 Acetaminophen/ Hydrocodone Bitart (Lortab 5/325) 1 tab PRN Q6HRS PRN PO MOD-SEV PAIN 11/10/20 17:00 12/01/20 22:45 Olanzapine (ZyPREXA ZYDIS) 2.5 mg PRN Q2HR PRN PO PSYCHOSIS 11/10/20 17:15 12/12/20 13:19 Trazodone HCl (Desyrel) 50 mg QHS PRN PO INSOMNIA, MAY REPEAT X1 11/10/20 22:30 12/12/20 19:34 Mirtazapine (Remeron) 7.5 mg QHS PO 11/11/20 21:00 11/13/20 15:41 DC 11/12/20 19:21 Sertraline HCl (Zoloft) 25 mg DAILY PO 11/12/20 17:00 11/14/20 18:00 DC 11/14/20 08:44 Sertraline HCl (Zoloft) 50 mg DAILY PO 11/15/20 17:00 11/21/20 17:12 DC 11/21/20 08:38 Quetiapine Fumarate (SEROquel) 25 mg QHS PO 11/13/20 21:00 11/29/20 18:15 DC 11/28/20 20:07 Doxycycline Hyclate (Vibra-Tab) 100 mg BID PO 11/15/20 21:00 11/24/20 22:00 DC 11/24/20 19:47 Lactobacillus Rhamnosus (Culturelle) 1 cap BID PO 11/15/20 21:00 12/13/20 20:49 Sertraline HCl (Zoloft) 75 mg DAILY PO 11/22/20 09:00 12/09/20 16:54 DC 12/09/20 08:19 Quetiapine Fumarate (SEROquel) 12.5 mg DAILY PO 11/26/20 09:00 11/26/20 14:20 DC 11/26/20 07:30 Quetiapine Fumarate (SEROquel) 12.5 mg 0900,1200 PO 11/26/20 14:30 12/05/20 19:33 DC 12/05/20 12:28 Quetiapine Fumarate (SEROquel) 50 mg QHS PO 11/29/20 21:00 12/06/20 20:04 DC 12/05/20 20:23 Quetiapine Fumarate (SEROquel) 12.5 mg 0900,1300,1700 PO 12/06/20 09:00 12/13/20 17:32 Selenium Sulfide (Selsun) 1 kathi QODAY TP 12/07/20 09:00 12/13/20 08:49 Quetiapine Fumarate (SEROquel) 75 mg QHS PO 12/06/20 21:00 12/13/20 20:49 Sertraline HCl (Zoloft) 100 mg DAILY PO 12/10/20 09:00 12/13/20 08:47 Hydroxyzine HCl (Atarax) 25 mg PRN TID PRN PO ANXIETY / AGITATION 12/11/20 18:30 I have reviewed the current psychotropics carefully including drug interactions. Risk benefit ratio favors no change other than as noted in my dictated progress note. Diagnosis: Problems: (1) Impulse control disorder, unspecified (2) Anxiety disorder, unspecified (3) Dementia, vascular, with depression (4) Dementia, vascular, with delusions (5) Dementia in Alzheimer's disease with depression (6) Dementia in Alzheimer's disease with delusions (7) Dementia of the Alzheimer's type with early onset with behavioral disturbance (8) Major neurocognitive disorder KANDY WADE MD Dec 14, 2020 06:39
--- NOTE | 2020-12-14 06:59 | PDOC ---
Exam Note: Abdirashid Note: This note is a late entry for 12/13/2020overs elements not covered in my initial note. Subjective: The patient was seen individually in the evening of 12/13/2020with Erin DAILY, discussed and reviewed the chart. The patient slept 7 hours previous night. Review of Systems: No CV, , pulmonary, eye, ENT system symptoms on review. Reliability poor. Mental Status Exam: The patient is oriented to herself. Insight and judgment, recent and remote memory, attention and concentration is poor consistent with her diagnoses. Laboratory Data: Reviewed. Impression: Major depressive disorder with psychotic features versus major neurocognitive disorder, Alzheimer vascular with depression, delusions, behavioral disturbance versus psychotic disorder unspecified. Plan: No change from initial note. Assessment: Vital Signs/I&O: Vital Signs Date Time Temp Pulse Resp B/P (MAP) Pulse Ox O2 Delivery O2 Flow Rate FiO2 12/14/20 06:23 98.6 84 18 144/53 (83) 97 Room Air I & O 12/13/20 12/13/20 12/14/20 15:00 23:00 07:00 Intake Total 840 ml 120 ml Balance 840 ml 120 ml Current Medications: Meds: Current Medications Medications (Trade) Dose Ordered Sig/Rach Route PRN Reason Start Time Stop Time Status Last Admin Dose Admin Clotrimazole (Lotrimin) 1 kathi BID TP 11/10/20 21:00 12/08/20 06:03 DC 12/07/20 08:56 Cephalexin HCl (Keflex) 500 mg TID PO 11/10/20 21:00 11/13/20 22:00 DC 11/13/20 20:55 Acetaminophen (Tylenol) 650 mg PRN Q6HRS PRN PO MILD PAIN / TEMP > 100.3'F 11/10/20 15:30 11/15/20 06:37 Multi-Ingredient Ointment (Analgesic [place]) 1 kathi PRN QID PRN TP MUSCLE PAIN 11/10/20 15:30 Al Hydroxide/Mg Hydroxide (Mylanta Plus Xs) 15 ml PRN AFTMEALHC PRN PO DYSPEPSIA 11/10/20 15:30 Magnesium Hydroxide (Milk Of Magnesia) 2,400 mg PRN QHS PRN PO CONSTIPATION 11/10/20 15:30 Acetaminophen/ Hydrocodone Bitart (Lortab 5/325) 1 tab PRN Q6HRS PRN PO MOD-SEV PAIN 11/10/20 17:00 12/01/20 22:45 Olanzapine (ZyPREXA ZYDIS) 2.5 mg PRN Q2HR PRN PO PSYCHOSIS 11/10/20 17:15 12/12/20 13:19 Trazodone HCl (Desyrel) 50 mg QHS PRN PO INSOMNIA, MAY REPEAT X1 11/10/20 22:30 12/12/20 19:34 Mirtazapine (Remeron) 7.5 mg QHS PO 11/11/20 21:00 11/13/20 15:41 DC 11/12/20 19:21 Sertraline HCl (Zoloft) 25 mg DAILY PO 11/12/20 17:00 11/14/20 18:00 DC 11/14/20 08:44 Sertraline HCl (Zoloft) 50 mg DAILY PO 11/15/20 17:00 11/21/20 17:12 DC 11/21/20 08:38 Quetiapine Fumarate (SEROquel) 25 mg QHS PO 11/13/20 21:00 11/29/20 18:15 DC 11/28/20 20:07 Doxycycline Hyclate (Vibra-Tab) 100 mg BID PO 11/15/20 21:00 11/24/20 22:00 DC 11/24/20 19:47 Lactobacillus Rhamnosus (Culturelle) 1 cap BID PO 11/15/20 21:00 12/13/20 20:49 Sertraline HCl (Zoloft) 75 mg DAILY PO 11/22/20 09:00 12/09/20 16:54 DC 12/09/20 08:19 Quetiapine Fumarate (SEROquel) 12.5 mg DAILY PO 11/26/20 09:00 11/26/20 14:20 DC 11/26/20 07:30 Quetiapine Fumarate (SEROquel) 12.5 mg 0900,1200 PO 11/26/20 14:30 12/05/20 19:33 DC 12/05/20 12:28 Quetiapine Fumarate (SEROquel) 50 mg QHS PO 11/29/20 21:00 12/06/20 20:04 DC 7/21/21 20:23 Quetiapine Fumarate (SEROquel) 12.5 mg 0900,1300,1700 PO 12/06/20 09:00 12/13/20 17:32 Selenium Sulfide (Selsun) 1 kathi QODAY TP 12/07/20 09:00 12/13/20 08:49 Quetiapine Fumarate (SEROquel) 75 mg QHS PO 12/06/20 21:00 12/13/20 20:49 Sertraline HCl (Zoloft) 100 mg DAILY PO 12/10/20 09:00 12/13/20 08:47 Hydroxyzine HCl (Atarax) 25 mg PRN TID PRN PO ANXIETY / AGITATION 12/11/20 18:30 I have reviewed the current psychotropics carefully including drug interactions. Risk benefit ratio favors no change other than as noted in my dictated progress note. Diagnosis: Problems: (1) Impulse control disorder, unspecified (2) Anxiety disorder, unspecified (3) Dementia, vascular, with depression (4) Dementia, vascular, with delusions (5) Dementia in Alzheimer's disease with depression (6) Dementia in Alzheimer's disease with delusions (7) Dementia of the Alzheimer's type with early onset with behavioral disturbance (8) Major neurocognitive disorder KANDY WADE MD Dec 14, 2020 06:59
[2020-12-14] MEDS: SERTRALINE 100 MG TABLET. PO SCH (09:06)
[2020-12-14] MEDS: LACTOBACILLUS RHAMNOSUS GG 1 CAPSULE. PO SCH ×2 (09:06→21:23)
[2020-12-14] MEDS: QUEtiapine 25 MG TABLET. PO SCH ×3 (09:06→17:33)
--- NOTE | 2020-12-14 12:30 | NUR ---
MIK returned call to Roma at [facility] to answer a few questions about pt. Roma reports that they are going to take pt but would need to have the Care assessment and needs pt swabbed again before admission. MIK reports pt was swabbed on Thursday; they are asking for pt to be swabbed on Thursday or at least 48 hours prior to admission to them. MIK informed Roma that the pt has been exposed to Covid as three patients tested positive yesterday. She understood and noted how hard it is to quarantine Dementia patients. Pt dtr plans to pick pt up and will be in contact with final discharge plans.
[2020-12-14 15:56] VITALS: BP 138/81
--- NOTE | 2020-12-14 16:10 | NUR ---
MIK spoke with Janeen about [facility] being willing to take Cara. Pt dtr questioned if any other facilities have accepted pt. At this time, no other facilities have. Janeen questions if more facilities should have referrals sent in the surrounding areas with [facility] being on the back burner. With her work schedule, Janeen will not be able to pick Cara up until , which can work out for pt in that she will get her Covid swab for the facility completed. MIK will send out one more referrals to [facility] to see if they would be willing to look at pt. Janeen has asked to have SW call her for treatment team on Thursday.
[2020-12-14] MEDS: CIPROFLOXACIN HCL 500 MG TABLET PO SCH ×2 (16:47→21:24)
[2020-12-14 17:54] LABS: BASO # 0.1 x10^3/uL (0.0-0.2); BASO % 1 % (0-3); EOS # 0.3 x10^3/uL (0.0-0.7); EOS % 2 % (0-3); HEMATOCRIT 34.1 % (36.0-47.0); LYMPH # 1.8 x10^3/uL (1.0-4.8); LYMPH % 13 % (24-48); MEAN CORPUSCULAR HEMOGLOBIN 28 pg (25-35); MEAN CORPUSCULAR HGB CONC 32 g/dL (31-37); MEAN CORPUSCULAR VOLUME 86 fL (79-100); MONO # 1.2 x10^3/uL (0.0-1.1); MONO % 8 % (0-9); NEUT # 11.1 x10^3uL (1.8-7.7); NEUT % 77 % (31-73); PLATELET COUNT 467 x10^3/uL (140-400); RED BLOOD COUNT 3.99 x10^6/uL (3.50-5.40); RED CELL DISTRIBUTION WIDTH 14.8 % (11.5-14.5); WHITE BLOOD COUNT 14.5 x10^3/uL (4.0-11.0)
[2020-12-14 18:06] LABS: ALBUMIN 3.4 g/dL (3.4-5.0); ALBUMIN/GLOBULIN RATIO 1.1 (1.0-1.7); CALCIUM 9.4 mg/dL (8.5-10.1); CREATININE 1.2 mg/dL (0.6-1.0); GFR 43.7; POTASSIUM 5.3 mmol/L (3.5-5.1); TOTAL BILIRUBIN 0.2 mg/dL (0.2-1.0); TOTAL PROTEIN 6.5 g/dL (6.4-8.2)
[2020-12-14] MEDS: QUEtiapine 50 MG TABLET. PO SCH (21:23)
--- NOTE | 2020-12-14 22:11 | PDOC ---
Exam Note: Abdirashid Note: Please also refer to the separate dictated note~for this date of service dictated separately.~Patient seen individually. Discussed the patient with Nursing staff reviewed the chart.~Reviewed interim history and current functioning. Reviewed vital signs,~Labs/ Radiology~and current medications noted below. Continue current treatment with the changes noted in the dictated addendum note Assessment: Vital Signs/I&O: Vital Signs Date Time Temp Pulse Resp B/P (MAP) Pulse Ox O2 Delivery O2 Flow Rate FiO2 12/14/20 15:56 97.4 76 17 138/81 (100) 98 12/14/20 06:23 Room Air I & O 12/13/20 12/13/20 12/14/20 15:00 23:00 07:00 Intake Total 840 ml 120 ml Balance 840 ml 120 ml Labs: Laboratory Tests Test 12/14/20 16:46 White Blood Count 14.5 x10^3/uL (4.0-11.0) H Red Blood Count 3.99 x10^6/uL (3.50-5.40) Hemoglobin 11.0 g/dL (12.0-15.5) L Hematocrit 34.1 % (36.0-47.0) L Mean Corpuscular Volume 86 fL (79-100) Mean Corpuscular Hemoglobin 28 pg (25-35) Mean Corpuscular Hemoglobin Concent 32 g/dL (31-37) Red Cell Distribution Width 14.8 % (11.5-14.5) H Platelet Count 467 x10^3/uL (140-400) H Neutrophils (%) (Auto) 77 % (31-73) H Lymphocytes (%) (Auto) 13 % (24-48) L Monocytes (%) (Auto) 8 % (0-9) Eosinophils (%) (Auto) 2 % (0-3) Basophils (%) (Auto) 1 % (0-3) Neutrophils # (Auto) 11.1 x10^3uL (1.8-7.7) H Lymphocytes # (Auto) 1.8 x10^3/uL (1.0-4.8) Monocytes # (Auto) 1.2 x10^3/uL (0.0-1.1) H Eosinophils # (Auto) 0.3 x10^3/uL (0.0-0.7) Basophils # (Auto) 0.1 x10^3/uL (0.0-0.2) Sodium Level 142 mmol/L (136-145) Potassium Level 5.3 mmol/L (3.5-5.1) H Chloride Level 106 mmol/L (98-107) Carbon Dioxide Level 28 mmol/L (21-32) Anion Gap 8 (6-14) Blood Urea Nitrogen 39 mg/dL (7-20) H Creatinine 1.2 mg/dL (0.6-1.0) H Estimated GFR (Cockcroft-Gault) 43.7 BUN/Creatinine Ratio 33 (6-20) H Glucose Level 113 mg/dL (70-99) H Calcium Level 9.4 mg/dL (8.5-10.1) Total Bilirubin 0.2 mg/dL (0.2-1.0) Aspartate Amino Transferase (AST) 19 U/L (15-37) Alanine Aminotransferase (ALT) 24 U/L (14-59) Alkaline Phosphatase 78 U/L (46-116) Total Protein 6.5 g/dL (6.4-8.2) Albumin 3.4 g/dL (3.4-5.0) Albumin/Globulin Ratio 1.1 (1.0-1.7) Current Medications: Meds: Laboratory Tests Test 12/14/20 16:46 White Blood Count 14.5 x10^3/uL Red Blood Count 3.99 x10^6/uL Hemoglobin 11.0 g/dL Hematocrit 34.1 % Mean Corpuscular Volume 86 fL Mean Corpuscular Hemoglobin 28 pg Mean Corpuscular Hemoglobin Concent 32 g/dL Red Cell Distribution Width 14.8 % Platelet Count 467 x10^3/uL Neutrophils (%) (Auto) 77 % Lymphocytes (%) (Auto) 13 % Monocytes (%) (Auto) 8 % Eosinophils (%) (Auto) 2 % Basophils (%) (Auto) 1 % Neutrophils # (Auto) 11.1 x10^3uL Lymphocytes # (Auto) 1.8 x10^3/uL Monocytes # (Auto) 1.2 x10^3/uL Eosinophils # (Auto) 0.3 x10^3/uL Basophils # (Auto) 0.1 x10^3/uL Sodium Level 142 mmol/L Potassium Level 5.3 mmol/L Chloride Level 106 mmol/L Carbon Dioxide Level 28 mmol/L Anion Gap 8 Blood Urea Nitrogen 39 mg/dL Creatinine 1.2 mg/dL Estimated GFR (Cockcroft-Gault) 43.7 BUN/Creatinine Ratio 33 Glucose Level 113 mg/dL Calcium Level 9.4 mg/dL Total Bilirubin 0.2 mg/dL Aspartate Amino Transf (AST/SGOT) 19 U/L Alanine Aminotransferase (ALT/SGPT) 24 U/L Alkaline Phosphatase 78 U/L Total Protein 6.5 g/dL Albumin 3.4 g/dL Albumin/Globulin Ratio 1.1 Current Medications Medications (Trade) Dose Ordered Sig/Rach Route PRN Reason Start Time Stop Time Status Last Admin Dose Admin Clotrimazole (Lotrimin) 1 kathi BID TP 11/10/20 21:00 12/08/20 06:03 DC 12/07/20 08:56 Cephalexin HCl (Keflex) 500 mg TID PO 11/10/20 21:00 11/13/20 22:00 DC 11/13/20 20:55 Acetaminophen (Tylenol) 650 mg PRN Q6HRS PRN PO MILD PAIN / TEMP > 100.3'F 11/10/20 15:30 11/15/20 06:37 Multi-Ingredient Ointment (Analgesic [place]) 1 kathi PRN QID PRN TP MUSCLE PAIN 11/10/20 15:30 Al Hydroxide/Mg Hydroxide (Mylanta Plus Xs) 15 ml PRN AFTMEALHC PRN PO DYSPEPSIA 11/10/20 15:30 Magnesium Hydroxide (Milk Of Magnesia) 2,400 mg PRN QHS PRN PO CONSTIPATION 11/10/20 15:30 Acetaminophen/ Hydrocodone Bitart (Lortab 5/325) 1 tab PRN Q6HRS PRN PO MOD-SEV PAIN 11/10/20 17:00 12/01/20 22:45 Olanzapine (ZyPREXA ZYDIS) 2.5 mg PRN Q2HR PRN PO PSYCHOSIS 11/10/20 17:15 12/12/20 13:19 Trazodone HCl (Desyrel) 50 mg QHS PRN PO INSOMNIA, MAY REPEAT X1 11/10/20 22:30 12/12/20 19:34 Mirtazapine (Remeron) 7.5 mg QHS PO 11/11/20 21:00 11/13/20 15:41 DC 11/12/20 19:21 Sertraline HCl (Zoloft) 25 mg DAILY PO 11/12/20 17:00 11/14/20 18:00 DC 11/14/20 08:44 Sertraline HCl (Zoloft) 50 mg DAILY PO 11/15/20 17:00 11/21/20 17:12 DC 11/21/20 08:38 Quetiapine Fumarate (SEROquel) 25 mg QHS PO 11/13/20 21:00 11/29/20 18:15 DC 11/28/20 20:07 Doxycycline Hyclate (Vibra-Tab) 100 mg BID PO 11/15/20 21:00 11/24/20 22:00 DC 11/24/20 19:47 Lactobacillus Rhamnosus (Culturelle) 1 cap BID PO 11/15/20 21:00 12/14/20 21:23 Sertraline HCl (Zoloft) 75 mg DAILY PO 11/22/20 09:00 12/09/20 16:54 DC 12/09/20 08:19 Quetiapine Fumarate (SEROquel) 12.5 mg DAILY PO 11/26/20 09:00 11/26/20 14:20 DC 11/26/20 07:30 Quetiapine Fumarate (SEROquel) 12.5 mg 0900,1200 PO 11/26/20 14:30 12/05/20 19:33 DC 12/05/20 12:28 Quetiapine Fumarate (SEROquel) 50 mg QHS PO 11/29/20 21:00 12/06/20 20:04 DC 12/05/20 20:23 Quetiapine Fumarate (SEROquel) 12.5 mg 0900,1300,1700 PO 12/06/20 09:00 12/14/20 17:33 Selenium Sulfide (Selsun) 1 kathi QODAY TP 12/07/20 09:00 12/13/20 08:49 Quetiapine Fumarate (SEROquel) 75 mg QHS PO 12/06/20 21:00 12/14/20 21:23 Sertraline HCl (Zoloft) 100 mg DAILY PO 12/10/20 09:00 12/14/20 09:06 Hydroxyzine HCl (Atarax) 25 mg PRN TID PRN PO ANXIETY / AGITATION 12/11/20 18:30 Ciprofloxacin (Cipro) 500 mg BID PO 12/22/20 21:00 12/14/20 16:25 DC Ciprofloxacin (Cipro) 500 mg BID PO 12/14/20 16:30 12/14/20 21:24 Current Medications Medications (Trade) Dose Ordered Sig/Rach Route PRN Reason Start Time Stop Time Status Last Admin Dose Admin Ciprofloxacin (Cipro) 500 mg BID PO 12/14/20 16:30 12/14/20 21:24 I have reviewed the current psychotropics carefully including drug interactions. Risk benefit ratio favors no change other than as noted in my dictated progress note. Diagnosis: Problems: (1) Impulse control disorder, unspecified (2) Anxiety disorder, unspecified (3) Dementia, vascular, with depression (4) Dementia, vascular, with delusions (5) Dementia in Alzheimer's disease with depression (6) Dementia in Alzheimer's disease with delusions (7) Dementia of the Alzheimer's type with early onset with behavioral disturbance (8) Major neurocognitive disorder KANDY WADE MD Dec 14, 2020 22:11
--- NOTE | 2020-12-15 05:11 | NUR ---
Nursing Note The patient was calm and cooperative this shift. The patient was located in her room for her assessment and medication pass. The patient took her medication whole. The patient was alert to name only. The patient is currently located in the day room sleeping in a chair.
[2020-12-15 05:25] VITALS: BP 137/71
[2020-12-15 05:26] VITALS: BP 127/78
--- NOTE | 2020-12-15 05:37 | NUR ---
Patient vital signs entered at 0525 are incorrect. The vitals entered at 0526 are the correct vitals.
--- NOTE | 2020-12-15 07:09 | PDOC ---
Exam Note: Abdirashid Note: This note is a late entry for 12/14/2020overs elements not covered in my initial note. Subjective: The patient was seen on telehealth rounds in the evening of 12/14/2020 due to COVID-19 exposure on the unit with Erin DAILY, discussed and reviewed the chart. The patient slept 6-1/2 hours previous night. She does have UTI and has been started on Cipro for this. She is doing better, less tearful, still confused. As I met with her on telehealth rounds I told her I talked to her daughter Janeen and asked her if she knew how old Janeen was. She felt Janeen was in her late teenagers. Review of Systems: No CV, , pulmonary, eye, ENT system symptoms on review. Mental Status Exam: The patient is oriented to herself. Insight and judgment, recent and remote memory, attention and concentration is poor consistent with her diagnoses. Laboratory Data: Reviewed. The patient does have UTI and was started on Cipro. Impression: Major depressive disorder with psychotic features versus major neurocognitive disorder, Alzheimer vascular with depression, delusions, behav ioral disturbance versus psychotic disorder unspecified. Plan: Continue current psychotropics and treat the UTI. Make further adjustments as clinically indicated. Assessment: Vital Signs/I&O: Vital Signs Date Time Temp Pulse Resp B/P (MAP) Pulse Ox O2 Delivery O2 Flow Rate FiO2 12/15/20 05:26 97.6 85 14 127/78 (94) 98 12/14/20 06:23 Room Air I & O 12/14/20 12/14/20 12/15/20 15:00 23:00 07:00 Intake Total 560 ml 820 ml Balance 560 ml 820 ml Labs: Laboratory Tests Test 12/14/20 16:46 White Blood Count 14.5 x10^3/uL (4.0-11.0) H Red Blood Count 3.99 x10^6/uL (3.50-5.40) Hemoglobin 11.0 g/dL (12.0-15.5) L Hematocrit 34.1 % (36.0-47.0) L Mean Corpuscular Volume 86 fL (79-100) Mean Corpuscular Hemoglobin 28 pg (25-35) Mean Corpuscular Hemoglobin Concent 32 g/dL (31-37) Red Cell Distribution Width 14.8 % (11.5-14.5) H Platelet Count 467 x10^3/uL (140-400) H Neutrophils (%) (Auto) 77 % (31-73) H Lymphocytes (%) (Auto) 13 % (24-48) L Monocytes (%) (Auto) 8 % (0-9) Eosinophils (%) (Auto) 2 % (0-3) Basophils (%) (Auto) 1 % (0-3) Neutrophils # (Auto) 11.1 x10^3uL (1.8-7.7) H Lymphocytes # (Auto) 1.8 x10^3/uL (1.0-4.8) Monocytes # (Auto) 1.2 x10^3/uL (0.0-1.1) H Eosinophils # (Auto) 0.3 x10^3/uL (0.0-0.7) Basophils # (Auto) 0.1 x10^3/uL (0.0-0.2) Sodium Level 142 mmol/L (136-145) Potassium Level 5.3 mmol/L (3.5-5.1) H Chloride Level 106 mmol/L (98-107) Carbon Dioxide Level 28 mmol/L (21-32) Anion Gap 8 (6-14) Blood Urea Nitrogen 39 mg/dL (7-20) H Creatinine 1.2 mg/dL (0.6-1.0) H Estimated GFR (Cockcroft-Gault) 43.7 BUN/Creatinine Ratio 33 (6-20) H Glucose Level 113 mg/dL (70-99) H Calcium Level 9.4 mg/dL (8.5-10.1) Total Bilirubin 0.2 mg/dL (0.2-1.0) Aspartate Amino Transferase (AST) 19 U/L (15-37) Alanine Aminotransferase (ALT) 24 U/L (14-59) Alkaline Phosphatase 78 U/L (46-116) Total Protein 6.5 g/dL (6.4-8.2) Albumin 3.4 g/dL (3.4-5.0) Albumin/Globulin Ratio 1.1 (1.0-1.7) Current Medications: Meds: Laboratory Tests Test 12/14/20 16:46 White Blood Count 14.5 x10^3/uL Red Blood Count 3.99 x10^6/uL Hemoglobin 11.0 g/dL Hematocrit 34.1 % Mean Corpuscular Volume 86 fL Mean Corpuscular Hemoglobin 28 pg Mean Corpuscular Hemoglobin Concent 32 g/dL Red Cell Distribution Width 14.8 % Platelet Count 467 x10^3/uL Neutrophils (%) (Auto) 77 % Lymphocytes (%) (Auto) 13 % Monocytes (%) (Auto) 8 % Eosinophils (%) (Auto) 2 % Basophils (%) (Auto) 1 % Neutrophils # (Auto) 11.1 x10^3uL Lymphocytes # (Auto) 1.8 x10^3/uL Monocytes # (Auto) 1.2 x10^3/uL Eosinophils # (Auto) 0.3 x10^3/uL Basophils # (Auto) 0.1 x10^3/uL Sodium Level 142 mmol/L Potassium Level 5.3 mmol/L Chloride Level 106 mmol/L Carbon Dioxide Level 28 mmol/L Anion Gap 8 Blood Urea Nitrogen 39 mg/dL Creatinine 1.2 mg/dL Estimated GFR (Cockcroft-Gault) 43.7 BUN/Creatinine Ratio 33 Glucose Level 113 mg/dL Calcium Level 9.4 mg/dL Total Bilirubin 0.2 mg/dL Aspartate Amino Transf (AST/SGOT) 19 U/L Alanine Aminotransferase (ALT/SGPT) 24 U/L Alkaline Phosphatase 78 U/L Total Protein 6.5 g/dL Albumin 3.4 g/dL Albumin/Globulin Ratio 1.1 Current Medications Medications (Trade) Dose Ordered Sig/Rach Route PRN Reason Start Time Stop Time Status Last Admin Dose Admin Clotrimazole (Lotrimin) 1 kathi BID TP 11/10/20 21:00 12/08/20 06:03 DC 12/07/20 08:56 Cephalexin HCl (Keflex) 500 mg TID PO 11/10/20 21:00 11/13/20 22:00 DC 11/13/20 20:55 Acetaminophen (Tylenol) 650 mg PRN Q6HRS PRN PO MILD PAIN / TEMP > 100.3'F 11/10/20 15:30 11/15/20 06:37 Multi-Ingredient Ointment (Analgesic [place]) 1 kathi PRN QID PRN TP MUSCLE PAIN 11/10/20 15:30 Al Hydroxide/Mg Hydroxide (Mylanta Plus Xs) 15 ml PRN AFTMEALHC PRN PO DYSPEPSIA 11/10/20 15:30 Magnesium Hydroxide (Milk Of Magnesia) 2,400 mg PRN QHS PRN PO CONSTIPATION 11/10/20 15:30 Acetaminophen/ Hydrocodone Bitart (Lortab 5/325) 1 tab PRN Q6HRS PRN PO MOD-SEV PAIN 11/10/20 17:00 12/01/20 22:45 Olanzapine (ZyPREXA ZYDIS) 2.5 mg PRN Q2HR PRN PO PSYCHOSIS 11/10/20 17:15 12/12/20 13:19 Trazodone HCl (Desyrel) 50 mg QHS PRN PO INSOMNIA, MAY REPEAT X1 11/10/20 22:30 12/12/20 19:34 Mirtazapine (Remeron) 7.5 mg QHS PO 11/11/20 21:00 11/13/20 15:41 DC 11/12/20 19:21 Sertraline HCl (Zoloft) 25 mg DAILY PO 11/12/20 17:00 11/14/20 18:00 DC 11/14/20 08:44 Sertraline HCl (Zoloft) 50 mg DAILY PO 11/15/20 17:00 11/21/20 17:12 DC 11/21/20 08:38 Quetiapine Fumarate (SEROquel) 25 mg QHS PO 11/13/20 21:00 11/29/20 18:15 DC 11/28/20 20:07 Doxycycline Hyclate (Vibra-Tab) 100 mg BID PO 11/15/20 21:00 11/24/20 22:00 DC 11/24/20 19:47 Lactobacillus Rhamnosus (Culturelle) 1 cap BID PO 11/15/20 21:00 12/14/20 21:23 Sertraline HCl (Zoloft) 75 mg DAILY PO 11/22/20 09:00 12/09/20 16:54 DC 12/09/20 08:19 Quetiapine Fumarate (SEROquel) 12.5 mg DAILY PO 11/26/20 09:00 11/26/20 14:20 DC 11/26/20 07:30 Quetiapine Fumarate (SEROquel) 12.5 mg 0900,1200 PO 11/26/20 14:30 12/05/20 19:33 DC 12/05/20 12:28 Quetiapine Fumarate (SEROquel) 50 mg QHS PO 11/29/20 21:00 12/06/20 20:04 DC 12/05/20 20:23 Quetiapine Fumarate (SEROquel) 12.5 mg 0900,1300,1700 PO 12/06/20 09:00 12/14/20 17:33 Selenium Sulfide (Selsun) 1 kathi QODAY TP 12/07/20 09:00 12/13/20 08:49 Quetiapine Fumarate (SEROquel) 75 mg QHS PO 12/06/20 21:00 12/14/20 21:23 Sertraline HCl (Zoloft) 100 mg DAILY PO 12/10/20 09:00 12/14/20 09:06 Hydroxyzine HCl (Atarax) 25 mg PRN TID PRN PO ANXIETY / AGITATION 12/11/20 18:30 Ciprofloxacin (Cipro) 500 mg BID PO 12/22/20 21:00 12/14/20 16:25 DC Ciprofloxacin (Cipro) 500 mg BID PO 12/14/20 16:30 12/14/20 21:24 Current Medications Medications (Trade) Dose Ordered Sig/Rach Route PRN Reason Start Time Stop Time Status Last Admin Dose Admin Ciprofloxacin (Cipro) 500 mg BID PO 12/14/20 16:30 12/14/20 21:24 I have reviewed the current psychotropics carefully including drug interactions. Risk benefit ratio favors no change other than as noted in my dictated progress note. Diagnosis: Problems: (1) Impulse control disorder, unspecified (2) Anxiety disorder, unspecified (3) Dementia, vascular, with depression (4) Dementia, vascular, with delusions (5) Dementia in Alzheimer's disease with depression (6) Dementia in Alzheimer's disease with delusions (7) Dementia of the Alzheimer's type with early onset with behavioral disturbance (8) Major neurocognitive disorder KANDY WADE MD Dec 15, 2020 07:09
[2020-12-15] MEDS: SERTRALINE 100 MG TABLET. PO SCH (08:01)
[2020-12-15] MEDS: LACTOBACILLUS RHAMNOSUS GG 1 CAPSULE. PO SCH ×2 (08:01→20:30)
[2020-12-15] MEDS: CIPROFLOXACIN HCL 500 MG TABLET PO SCH ×2 (08:01→20:30)
[2020-12-15] MEDS: QUEtiapine 25 MG TABLET. PO SCH ×3 (08:01→17:20)
[2020-12-15] MEDS: SELENIUM SULFIDE 1% TOPICAL SHAMPOO 207ML BOTTLE. TP SCH (08:45)
--- NOTE | 2020-12-15 10:28 | NUR ---
Nurse Note Patient wanders, confused disorganized when interacting with other patients. Patient continues to ask about the children. She had a patient by the arm leading her forcefully down hallway. Patient was redirected but patient was verbally aggressive with staff. Patient received a Zydis PRN. Patient sitting in day room watching TV.
[2020-12-15 16:04] VITALS: BP 104/68
[2020-12-15] MEDS: hydrOXYzine HCL 25 MG TABLET PO PRN (16:08)
[2020-12-15] MEDS: ACETAMINOPHEN 325 MG TABLET PO PRN (16:08)
[2020-12-15] MEDS: QUEtiapine 50 MG TABLET. PO SCH (20:30)
[2020-12-15] MEDS: traZODone 50 MG TABLET. PO PRN (21:17)
--- NOTE | 2020-12-15 23:23 | NUR ---
Nursing Note The patient was calm and cooperative early in the shift until HS. The patient was compliant with HS medication and took them whole. The patient became irritable and restless @HS and was given PRN Trazodone per PRN order. The patient is alert to self only. The patient is currently sleeping in her room.
[2020-12-16 05:40] VITALS: BP 127/80
[2020-12-16] MEDS: SERTRALINE 100 MG TABLET. PO SCH (08:16)
[2020-12-16] MEDS: QUEtiapine 25 MG TABLET. PO SCH ×3 (08:16→17:26)
[2020-12-16] MEDS: LACTOBACILLUS RHAMNOSUS GG 1 CAPSULE. PO SCH ×2 (08:16→20:19)
[2020-12-16] MEDS: CIPROFLOXACIN HCL 500 MG TABLET PO SCH ×2 (08:17→20:21)
--- NOTE | 2020-12-16 12:49 | NUR ---
Patient verbally loud and argumentative with staff. Staff attempts redirection as patient continues to ask for parents and children. Patient does not follow redirection. Patient continues to grab other patients by arm to lead them when staff ask her to let them go she becomes loud and argumentative again. Patient received Zydis PRN at 1200.
[2020-12-16 15:48] VITALS: BP 120/73
[2020-12-16] MEDS: QUEtiapine 50 MG TABLET. PO SCH (20:18)
--- NOTE | 2020-12-16 22:04 | PDOC ---
Exam Note: Abdirashid Note: Please also refer to the separate dictated note~for this date of service dictated separately.~Patient seen individually. Discussed the patient with Nursing staff reviewed the chart.~Reviewed interim history and current functioning. Reviewed vital signs,~Labs/ Radiology~and current medications noted below. Continue current treatment with the changes noted in the dictated addendum note Assessment: Vital Signs/I&O: Vital Signs Date Time Temp Pulse Resp B/P (MAP) Pulse Ox O2 Delivery O2 Flow Rate FiO2 12/16/20 15:48 98.2 90 20 120/73 (89) 98 12/14/20 06:23 Room Air I & O 12/15/20 12/15/20 12/16/20 15:00 23:00 07:00 Intake Total 720 ml 600 ml Balance 720 ml 600 ml Current Medications: Meds: Current Medications Medications (Trade) Dose Ordered Sig/Rach Route PRN Reason Start Time Stop Time Status Last Admin Dose Admin Clotrimazole (Lotrimin) 1 kathi BID TP 11/10/20 21:00 12/08/20 06:03 DC 12/07/20 08:56 Cephalexin HCl (Keflex) 500 mg TID PO 11/10/20 21:00 11/13/20 22:00 DC 11/13/20 20:55 Acetaminophen (Tylenol) 650 mg PRN Q6HRS PRN PO MILD PAIN / TEMP > 100.3'F 11/10/20 15:30 12/15/20 16:08 Multi-Ingredient Ointment (Analgesic [place]) 1 kathi PRN QID PRN TP MUSCLE PAIN 11/10/20 15:30 Al Hydroxide/Mg Hydroxide (Mylanta Plus Xs) 15 ml PRN AFTMEALHC PRN PO DYSPEPSIA 11/10/20 15:30 Magnesium Hydroxide (Milk Of Magnesia) 2,400 mg PRN QHS PRN PO CONSTIPATION 11/10/20 15:30 Acetaminophen/ Hydrocodone Bitart (Lortab 5/325) 1 tab PRN Q6HRS PRN PO MOD-SEV PAIN 11/10/20 17:00 12/01/20 22:45 Olanzapine (ZyPREXA ZYDIS) 2.5 mg PRN Q2HR PRN PO PSYCHOSIS 11/10/20 17:15 12/16/20 15:42 Trazodone HCl (Desyrel) 50 mg QHS PRN PO INSOMNIA, MAY REPEAT X1 11/10/20 22:30 12/15/20 21:17 Mirtazapine (Remeron) 7.5 mg QHS PO 11/11/20 21:00 11/13/20 15:41 DC 11/12/20 19:21 Sertraline HCl (Zoloft) 25 mg DAILY PO 11/12/20 17:00 11/14/20 18:00 DC 11/14/20 08:44 Sertraline HCl (Zoloft) 50 mg DAILY PO 11/15/20 17:00 11/21/20 17:12 DC 11/21/20 08:38 Quetiapine Fumarate (SEROquel) 25 mg QHS PO 11/13/20 21:00 11/29/20 18:15 DC 11/28/20 20:07 Doxycycline Hyclate (Vibra-Tab) 100 mg BID PO 11/15/20 21:00 11/24/20 22:00 DC 11/24/20 19:47 Lactobacillus Rhamnosus (Culturelle) 1 cap BID PO 11/15/20 21:00 12/16/20 20:19 Sertraline HCl (Zoloft) 75 mg DAILY PO 11/22/20 09:00 12/09/20 16:54 DC 12/09/20 08:19 Quetiapine Fumarate (SEROquel) 12.5 mg DAILY PO 11/26/20 09:00 11/26/20 14:20 DC 11/26/20 07:30 Quetiapine Fumarate (SEROquel) 12.5 mg 0900,1200 PO 11/26/20 14:30 12/05/20 19:33 DC 12/05/20 12:28 Quetiapine Fumarate (SEROquel) 50 mg QHS PO 11/29/20 21:00 12/06/20 20:04 DC 12/05/20 20:23 Quetiapine Fumarate (SEROquel) 12.5 mg 0900,1300,1700 PO 12/06/20 09:00 12/16/20 17:26 Selenium Sulfide (Selsun) 1 kathi QODAY TP 12/07/20 09:00 12/15/20 08:45 Quetiapine Fumarate (SEROquel) 75 mg QHS PO 12/06/20 21:00 12/16/20 20:18 Sertraline HCl (Zoloft) 100 mg DAILY PO 12/10/20 09:00 12/16/20 08:16 Hydroxyzine HCl (Atarax) 25 mg PRN TID PRN PO ANXIETY / AGITATION 12/11/20 18:30 12/15/20 16:08 Ciprofloxacin (Cipro) 500 mg BID PO 12/22/20 21:00 12/14/20 16:25 DC Ciprofloxacin (Cipro) 500 mg BID PO 12/14/20 16:30 12/16/20 20:21 I have reviewed the current psychotropics carefully including drug interactions. Risk benefit ratio favors no change other than as noted in my dictated progress note. Diagnosis: Problems: (1) Impulse control disorder, unspecified (2) Anxiety disorder, unspecified (3) Dementia, vascular, with depression (4) Dementia, vascular, with delusions (5) Dementia in Alzheimer's disease with depression (6) Dementia in Alzheimer's disease with delusions (7) Dementia of the Alzheimer's type with early onset with behavioral disturbance (8) Major neurocognitive disorder KANDY WADE MD Dec 16, 2020 22:04
[2020-12-17] MEDS: hydrOXYzine HCL 25 MG TABLET PO PRN (00:45)
--- NOTE | 2020-12-17 00:45 | NUR ---
PRN Trazodone and Atarax given. Pt has not been sleeping tonight and is starting to become anxious and wanting to leave. Last evenin she sat in the day room and was social with peers.
[2020-12-17] MEDS: traZODone 50 MG TABLET. PO PRN ×2 (00:46→20:00)
[2020-12-17 06:24] VITALS: BP 131/72
[2020-12-17 06:50] LABS: CALCIUM 8.5 mg/dL (8.5-10.1); CREATININE 0.8 mg/dL (0.6-1.0); GFR 69.7; POTASSIUM 4.1 mmol/L (3.5-5.1)
[2020-12-17] MEDS: SELENIUM SULFIDE 1% TOPICAL SHAMPOO 207ML BOTTLE. TP SCH (09:00)
[2020-12-17] MEDS: LACTOBACILLUS RHAMNOSUS GG 1 CAPSULE. PO SCH ×2 (09:04→19:59)
[2020-12-17] MEDS: SERTRALINE 100 MG TABLET. PO SCH (09:04)
[2020-12-17] MEDS: CIPROFLOXACIN HCL 500 MG TABLET PO SCH ×2 (09:04→19:59)
[2020-12-17] MEDS: QUEtiapine 25 MG TABLET. PO SCH ×3 (09:05→17:18)
--- NOTE | 2020-12-17 11:50 | NUR ---
Treatment team update: Pt dtr, Janeen, participated in team via telephone. Pt is eating 100% of meals and sleeping on average 6 hours per night. Pt continues to be disorganized and confused; however, appears less tearful and less delusional in looking for her parents and children. Pt does have a UTI and was started on Cipro. Pt attends all groups and is very pleasant and social with her peers. Pt dtr reports talking to pt on the phone and she was very calm and appeared to have a very lucid moment with her. Pt dtr is questioning if pt would be appropriate to be at home with her in the event that we are seeing more stable behaviors from her. SW and pt dtr can talk about this further later today or tomorrow. Pt was approved for placement at [facility].
--- NOTE | 2020-12-17 13:05 | NUR ---
WEEKLY ACTIVITY THERAPY NOTE Date of Admission: 11/10/20 Date of AT Assessment: 11/13 Precipitating behaviors that initiated intake and admission: AMS, hallucinating, asking for parents, repetitive, STM defect, taking off clothes, incontinent, smearing feces on wall, attempting to leave house at night, poor hygiene Goal aimed: increase engagement and socialization Initial Goal: Pt will participate in at least three individual or group Activity Therapy sessions per week Goal changed 11/20: Pt will participate in at least five individual or group Activity Therapy sessions per week Goal changed 11/26:Pt will participate in at all Activity Therapy groups per week. Weekly progress towards goal: achieved, 12/23 Group participation level: 2 min, 4 mod, 2 full Weekly highlights: danced and clapped Thursday, gardening and watering plants Thursday, encouraged peers to dance with her Thursday morning Behaviors observed: pleasant and calm, encouraging peers Plan: change to goal: Pt will participate in at least three group Activity Therapy a sessions fully per week. Beneficial adaptations: music, socialization
[2020-12-17 16:01] VITALS: BP 114/68
--- NOTE | 2020-12-17 16:44 | NUR ---
Nursing note: Patient in day room for morning medications & assessment, takes pills whole. She denies pain or discomfort at this time. Patient oriented to self only, she walks independently through halls. She is easily agitated, needs several redirects for not following directions and is looking for her parents. She is currently sitting in her room. Plan of care continues, will continue to monitor.
[2020-12-17] MEDS: QUEtiapine 50 MG TABLET. PO SCH (20:00)
--- NOTE | 2020-12-17 21:54 | PDOC ---
Exam Note: Abdirashid Note: Please also refer to the separate dictated note~for this date of service dictated separately.~Patient seen individually. Discussed the patient with Nursing staff reviewed the chart.~Reviewed interim history and current functioning. Reviewed vital signs,~Labs/ Radiology~and current medications noted below. Continue current treatment with the changes noted in the dictated addendum note Assessment: Vital Signs/I&O: Vital Signs Date Time Temp Pulse Resp B/P (MAP) Pulse Ox O2 Delivery O2 Flow Rate FiO2 12/17/20 16:01 98.8 103 20 114/68 (83) 97 12/14/20 06:23 Room Air I & O 12/16/20 12/16/20 12/17/20 15:00 23:00 07:00 Intake Total 840 ml 1080 ml Balance 840 ml 1080 ml Labs: Laboratory Tests Test 12/17/20 06:22 12/17/20 11:15 Sodium Level 143 mmol/L (136-145) Potassium Level 4.1 mmol/L (3.5-5.1) Chloride Level 107 mmol/L (98-107) Carbon Dioxide Level 31 mmol/L (21-32) Anion Gap 5 (6-14) L Blood Urea Nitrogen 21 mg/dL (7-20) H Creatinine 0.8 mg/dL (0.6-1.0) Estimated GFR (Cockcroft-Gault) 69.7 Glucose Level 93 mg/dL (70-99) Calcium Level 8.5 mg/dL (8.5-10.1) SARS-CoV-2 (PCR) Negative (NEGATIVE) Current Medications: Meds: Laboratory Tests Test 12/17/20 06:22 12/17/20 11:15 Sodium Level 143 mmol/L Potassium Level 4.1 mmol/L Chloride Level 107 mmol/L Carbon Dioxide Level 31 mmol/L Anion Gap 5 Blood Urea Nitrogen 21 mg/dL Creatinine 0.8 mg/dL Estimated GFR (Cockcroft-Gault) 69.7 Glucose Level 93 mg/dL Calcium Level 8.5 mg/dL Coronavirus (COVID-19)(PCR) Negative Current Medications Medications (Trade) Dose Ordered Sig/Rach Route PRN Reason Start Time Stop Time Status Last Admin Dose Admin Clotrimazole (Lotrimin) 1 kathi BID TP 11/10/20 21:00 12/08/20 06:03 DC 12/07/20 08:56 Cephalexin HCl (Keflex) 500 mg TID PO 11/10/20 21:00 11/13/20 22:00 DC 11/13/20 20:55 Acetaminophen (Tylenol) 650 mg PRN Q6HRS PRN PO MILD PAIN / TEMP > 100.3'F 11/10/20 15:30 12/15/20 16:08 Multi-Ingredient Ointment (Analgesic [place]) 1 kathi PRN QID PRN TP MUSCLE PAIN 11/10/20 15:30 Al Hydroxide/Mg Hydroxide (Mylanta Plus Xs) 15 ml PRN AFTMEALHC PRN PO DYSPEPSIA 11/10/20 15:30 Magnesium Hydroxide (Milk Of Magnesia) 2,400 mg PRN QHS PRN PO CONSTIPATION 11/10/20 15:30 Acetaminophen/ Hydrocodone Bitart (Lortab 5/325) 1 tab PRN Q6HRS PRN PO MOD-SEV PAIN 11/10/20 17:00 12/01/20 22:45 Olanzapine (ZyPREXA ZYDIS) 2.5 mg PRN Q2HR PRN PO PSYCHOSIS 11/10/20 17:15 12/17/20 14:13 Trazodone HCl (Desyrel) 50 mg QHS PRN PO INSOMNIA, MAY REPEAT X1 11/10/20 22:30 12/17/20 20:00 Mirtazapine (Remeron) 7.5 mg QHS PO 11/11/20 21:00 11/13/20 15:41 DC 11/12/20 19:21 Sertraline HCl (Zoloft) 25 mg DAILY PO 11/12/20 17:00 11/14/20 18:00 DC 11/14/20 08:44 Sertraline HCl (Zoloft) 50 mg DAILY PO 11/15/20 17:00 11/21/20 17:12 DC 11/21/20 08:38 Quetiapine Fumarate (SEROquel) 25 mg QHS PO 11/13/20 21:00 11/29/20 18:15 DC 11/28/20 20:07 Doxycycline Hyclate (Vibra-Tab) 100 mg BID PO 11/15/20 21:00 11/24/20 22:00 DC 11/24/20 19:47 Lactobacillus Rhamnosus (Culturelle) 1 cap BID PO 11/15/20 21:00 12/17/20 19:59 Sertraline HCl (Zoloft) 75 mg DAILY PO 11/22/20 09:00 12/09/20 16:54 DC 12/09/20 08:19 Quetiapine Fumarate (SEROquel) 12.5 mg DAILY PO 11/26/20 09:00 11/26/20 14:20 DC 11/26/20 07:30 Quetiapine Fumarate (SEROquel) 12.5 mg 0900,1200 PO 11/26/20 14:30 12/05/20 19:33 DC 12/05/20 12:28 Quetiapine Fumarate (SEROquel) 50 mg QHS PO 11/29/20 21:00 12/06/20 20:04 DC 12/05/20 20:23 Quetiapine Fumarate (SEROquel) 12.5 mg 0900,1300,1700 PO 12/06/20 09:00 12/17/20 17:18 Selenium Sulfide (Selsun) 1 kathi QODAY TP 12/07/20 09:00 12/17/20 09:00 Quetiapine Fumarate (SEROquel) 75 mg QHS PO 12/06/20 21:00 12/17/20 20:00 Sertraline HCl (Zoloft) 100 mg DAILY PO 12/10/20 09:00 12/17/20 09:04 Hydroxyzine HCl (Atarax) 25 mg PRN TID PRN PO ANXIETY / AGITATION 12/11/20 18:30 12/17/20 00:45 Ciprofloxacin (Cipro) 500 mg BID PO 12/22/20 21:00 12/14/20 16:25 DC Ciprofloxacin (Cipro) 500 mg BID PO 12/14/20 16:30 12/17/20 19:59 I have reviewed the current psychotropics carefully including drug interactions. Risk benefit ratio favors no change other than as noted in my dictated progress note. Diagnosis: Problems: (1) Impulse control disorder, unspecified (2) Anxiety disorder, unspecified (3) Dementia, vascular, with depression (4) Dementia, vascular, with delusions (5) Dementia in Alzheimer's disease with depression (6) Dementia in Alzheimer's disease with delusions (7) Dementia of the Alzheimer's type with early onset with behavioral disturbance (8) Major neurocognitive disorder KANDY WADE MD Dec 17, 2020 21:54
--- NOTE | 2020-12-18 01:03 | NUR ---
Last evening pt sat in the hallway for a long time visiting with peers. She has been pleasant and cooperative tonight with no behaviors. She took meds whole and PRN trazodone was given as she did not sleep well last night. Since shortly after going to bed she has been sleeping.
[2020-12-18 05:52] VITALS: BP 125/71
--- NOTE | 2020-12-18 07:35 | PDOC ---
Exam Note: Abdirashid Note: This note is a late entry for 12/16/2020overs elements not covered in my initial note. Subjective: The patient was seen on telehealth rounds in the evening of 12/16/2020 due to COVID-19 exposure on the unit with Nydia DAILY, discussed and reviewed the chart. The patient slept 7-3/4 hours previous night. She is irritable at times, talking about her children, gets a little paranoid in the evening, agitated. Received Zyprexa x2. She remains on antibiotics for UTI. Review of Systems: No CV, , pulmonary, eye, ENT system symptoms on review. Mental Status Exam: The patient is oriented to herself. Insight and judgment, recent and remote memory, attention and concentration is poor consistent with her diagnoses. Laboratory Data: Reviewed. The patient does have UTI and was started on Cipro. Impression: Major depressive disorder with psychotic features versus major neurocognitive disorder, Alzheimer vascular with depression, delusions, behavioral disturbance versus psychotic disorder unspecified. Plan: Continue current psychotropics and remains on antibiotics for UTI. Assessment: Vital Signs/I&O: Vital Signs Date Time Temp Pulse Resp B/P (MAP) Pulse Ox O2 Delivery O2 Flow Rate FiO2 12/18/20 05:52 98.1 86 22 125/71 (89) 97 Room Air I & O 12/17/20 12/17/20 12/18/20 14:59 22:59 06:59 Intake Total 720 ml 1080 ml Balance 720 ml 1080 ml Labs: Laboratory Tests Test 12/17/20 11:15 SARS-CoV-2 (PCR) Negative (NEGATIVE) Current Medications: Meds: Laboratory Tests Test 12/17/20 11:15 Coronavirus (COVID-19)(PCR) Negative Current Medications Medications (Trade) Dose Ordered Sig/Rach Route PRN Reason Start Time Stop Time Status Last Admin Dose Admin Clotrimazole (Lotrimin) 1 kathi BID TP 11/10/20 21:00 12/08/20 06:03 DC 12/07/20 08:56 Cephalexin HCl (Keflex) 500 mg TID PO 11/10/20 21:00 11/13/20 22:00 DC 11/13/20 20:55 Acetaminophen (Tylenol) 650 mg PRN Q6HRS PRN PO MILD PAIN / TEMP > 100.3'F 11/10/20 15:30 12/15/20 16:08 Multi-Ingredient Ointment (Analgesic [place]) 1 kathi PRN QID PRN TP MUSCLE PAIN 11/10/20 15:30 Al Hydroxide/Mg Hydroxide (Mylanta Plus Xs) 15 ml PRN AFTMEALHC PRN PO DYSPEPSIA 11/10/20 15:30 Magnesium Hydroxide (Milk Of Magnesia) 2,400 mg PRN QHS PRN PO CONSTIPATION 11/10/20 15:30 Acetaminophen/ Hydrocodone Bitart (Lortab 5/325) 1 tab PRN Q6HRS PRN PO MOD-SEV PAIN 11/10/20 17:00 12/01/20 22:45 Olanzapine (ZyPREXA ZYDIS) 2.5 mg PRN Q2HR PRN PO PSYCHOSIS 11/10/20 17:15 12/17/20 14:13 Trazodone HCl (Desyrel) 50 mg QHS PRN PO INSOMNIA, MAY REPEAT X1 11/10/20 22:30 12/17/20 20:00 Mirtazapine (Remeron) 7.5 mg QHS PO 11/11/20 21:00 11/13/20 15:41 DC 11/12/20 19:21 Sertraline HCl (Zoloft) 25 mg DAILY PO 11/12/20 17:00 11/14/20 18:00 DC 11/14/20 08:44 Sertraline HCl (Zoloft) 50 mg DAILY PO 11/15/20 17:00 11/21/20 17:12 DC 11/21/20 08:38 Quetiapine Fumarate (SEROquel) 25 mg QHS PO 11/13/20 21:00 11/29/20 18:15 DC 11/28/20 20:07 Doxycycline Hyclate (Vibra-Tab) 100 mg BID PO 11/15/20 21:00 11/24/20 22:00 DC 11/24/20 19:47 Lactobacillus Rhamnosus (Culturelle) 1 cap BID PO 11/15/20 21:00 12/17/20 19:59 Sertraline HCl (Zoloft) 75 mg DAILY PO 11/22/20 09:00 12/09/20 16:54 DC 12/09/20 08:19 Quetiapine Fumarate (SEROquel) 12.5 mg DAILY PO 11/26/20 09:00 11/26/20 14:20 DC 11/26/20 07:30 Quetiapine Fumarate (SEROquel) 12.5 mg 0900,1200 PO 11/26/20 14:30 12/05/20 19:33 DC 12/05/20 12:28 Quetiapine Fumarate (SEROquel) 50 mg QHS PO 11/29/20 21:00 12/06/20 20:04 DC 12/05/20 20:23 Quetiapine Fumarate (SEROquel) 12.5 mg 0900,1300,1700 PO 12/06/20 09:00 12/17/20 17:18 Selenium Sulfide (Selsun) 1 kathi QODAY TP 12/07/20 09:00 12/17/20 09:00 Quetiapine Fumarate (SEROquel) 75 mg QHS PO 12/06/20 21:00 12/17/20 20:00 Sertraline HCl (Zoloft) 100 mg DAILY PO 12/10/20 09:00 12/17/20 09:04 Hydroxyzine HCl (Atarax) 25 mg PRN TID PRN PO ANXIETY / AGITATION 12/11/20 18:30 12/17/20 00:45 Ciprofloxacin (Cipro) 500 mg BID PO 12/22/20 21:00 12/14/20 16:25 DC Ciprofloxacin (Cipro) 500 mg BID PO 12/14/20 16:30 12/17/20 19:59 I have reviewed the current psychotropics carefully including drug interactions. Risk benefit ratio favors no change other than as noted in my dictated progress note. Diagnosis: Problems: (1) Impulse control disorder, unspecified (2) Anxiety disorder, unspecified (3) Dementia, vascular, with depression (4) Dementia, vascular, with delusions (5) Dementia in Alzheimer's disease with depression (6) Dementia in Alzheimer's disease with delusions (7) Dementia of the Alzheimer's type with early onset with behavioral disturbance (8) Major neurocognitive disorder KANDY WADE MD Dec 18, 2020 07:35
--- NOTE | 2020-12-18 07:48 | PDOC ---
Exam Note: Abdirashid Note: This note is a late entry for 12/17/2020overs elements not covered in my initial note. Subjective: The patient was reviewed at treatment team meeting on telehealth rounds in the morning on 12/17/2020 with Steph Myers, Cyndi Manuel (social work therapist), Anamaria, activity therapy and Casandra DAILY, discussed and reviewed the chart. The patient slept 1-1/2 hours previous night. The patients daughter Janeen attended this meeting. She has had recurrent headaches. Her COVID swab has been done. I will defer to Dr. Graham. During the meeting we had a discussion about the patients progress, diagnoses, response to treatment, discharge plans. The daughter is wondering whether the patient could come home rather than going to a nursing facility and she will discuss this further with social service staff. Review of Systems: No CV, , pulmonary, eye, ENT system symptoms on review. Mental Status Exam: The patient is oriented to herself. Insight and judgment, recent and remote memory, attention and concentration is poor consistent with her diagnoses. Laboratory Data: Reviewed. Impression: Major depressive disorder with psychotic features versus major neurocognitive disorder, Alzheimer vascular with depression, delusions, behavioral disturbance versus psychotic disorder unspecified. Plan: Continue current psychotropics. Tentative discharge plans for this . Assessment: Vital Signs/I&O: Vital Signs Date Time Temp Pulse Resp B/P (MAP) Pulse Ox O2 Delivery O2 Flow Rate FiO2 12/18/20 05:52 98.1 86 22 125/71 (89) 97 Room Air I & O 12/17/20 12/17/20 12/18/20 15:00 23:00 07:00 Intake Total 720 ml 1080 ml Balance 720 ml 1080 ml Labs: Laboratory Tests Test 12/17/20 11:15 SARS-CoV-2 (PCR) Negative (NEGATIVE) Current Medications: Meds: Laboratory Tests Test 12/17/20 11:15 Coronavirus (COVID-19)(PCR) Negative Current Medications Medications (Trade) Dose Ordered Sig/Rach Route PRN Reason Start Time Stop Time Status Last Admin Dose Admin Clotrimazole (Lotrimin) 1 kathi BID TP 11/10/20 21:00 12/08/20 06:03 DC 12/07/20 08:56 Cephalexin HCl (Keflex) 500 mg TID PO 11/10/20 21:00 11/13/20 22:00 DC 11/13/20 20:55 Acetaminophen (Tylenol) 650 mg PRN Q6HRS PRN PO MILD PAIN / TEMP > 100.3'F 11/10/20 15:30 12/15/20 16:08 Multi-Ingredient Ointment (Analgesic [place]) 1 kathi PRN QID PRN TP MUSCLE PAIN 11/10/20 15:30 Al Hydroxide/Mg Hydroxide (Mylanta Plus Xs) 15 ml PRN AFTMEALHC PRN PO DYSPEPSIA 11/10/20 15:30 Magnesium Hydroxide (Milk Of Magnesia) 2,400 mg PRN QHS PRN PO CONSTIPATION 11/10/20 15:30 Acetaminophen/ Hydrocodone Bitart (Lortab 5/325) 1 tab PRN Q6HRS PRN PO MOD-SEV PAIN 11/10/20 17:00 12/01/20 22:45 Olanzapine (ZyPREXA ZYDIS) 2.5 mg PRN Q2HR PRN PO PSYCHOSIS 11/10/20 17:15 12/17/20 14:13 Trazodone HCl (Desyrel) 50 mg QHS PRN PO INSOMNIA, MAY REPEAT X1 11/10/20 22:30 12/17/20 20:00 Mirtazapine (Remeron) 7.5 mg QHS PO 11/11/20 21:00 11/13/20 15:41 DC 11/12/20 19:21 Sertraline HCl (Zoloft) 25 mg DAILY PO 11/12/20 17:00 11/14/20 18:00 DC 11/14/20 08:44 Sertraline HCl (Zoloft) 50 mg DAILY PO 11/15/20 17:00 11/21/20 17:12 DC 11/21/20 08:38 Quetiapine Fumarate (SEROquel) 25 mg QHS PO 11/13/20 21:00 11/29/20 18:15 DC 11/28/20 20:07 Doxycycline Hyclate (Vibra-Tab) 100 mg BID PO 11/15/20 21:00 11/24/20 22:00 DC 11/24/20 19:47 Lactobacillus Rhamnosus (Culturelle) 1 cap BID PO 11/15/20 21:00 12/17/20 19:59 Sertraline HCl (Zoloft) 75 mg DAILY PO 11/22/20 09:00 12/09/20 16:54 DC 12/09/20 08:19 Quetiapine Fumarate (SEROquel) 12.5 mg DAILY PO 11/26/20 09:00 11/26/20 14:20 DC 11/26/20 07:30 Quetiapine Fumarate (SEROquel) 12.5 mg 0900,1200 PO 11/26/20 14:30 12/05/20 19:33 DC 12/05/20 12:28 Quetiapine Fumarate (SEROquel) 50 mg QHS PO 11/29/20 21:00 12/06/20 20:04 DC 12/05/20 20:23 Quetiapine Fumarate (SEROquel) 12.5 mg 0900,1300,1700 PO 12/06/20 09:00 12/17/20 17:18 Selenium Sulfide (Selsun) 1 kathi QODAY TP 12/07/20 09:00 12/17/20 09:00 Quetiapine Fumarate (SEROquel) 75 mg QHS PO 12/06/20 21:00 12/17/20 20:00 Sertraline HCl (Zoloft) 100 mg DAILY PO 12/10/20 09:00 12/17/20 09:04 Hydroxyzine HCl (Atarax) 25 mg PRN TID PRN PO ANXIETY / AGITATION 12/11/20 18:30 12/17/20 00:45 Ciprofloxacin (Cipro) 500 mg BID PO 12/22/20 21:00 12/14/20 16:25 DC Ciprofloxacin (Cipro) 500 mg BID PO 12/14/20 16:30 12/17/20 19:59 I have reviewed the current psychotropics carefully including drug interactions. Risk benefit ratio favors no change other than as noted in my dictated progress note. Diagnosis: Problems: (1) Impulse control disorder, unspecified (2) Anxiety disorder, unspecified (3) Dementia, vascular, with depression (4) Dementia, vascular, with delusions (5) Dementia in Alzheimer's disease with depression (6) Dementia in Alzheimer's disease with delusions (7) Dementia of the Alzheimer's type with early onset with behavioral disturbance (8) Major neurocognitive disorder KANDY WADE MD Dec 18, 2020 07:48
[2020-12-18] MEDS: CIPROFLOXACIN HCL 500 MG TABLET PO SCH ×2 (08:37→19:47)
[2020-12-18] MEDS: hydrOXYzine HCL 25 MG TABLET PO PRN (08:37)
[2020-12-18] MEDS: QUEtiapine 25 MG TABLET. PO SCH ×3 (08:37→16:10)
[2020-12-18] MEDS: HYDROcodone/APAP 5/325MG 1 TAB TABLET PO PRN (08:37)
[2020-12-18] MEDS: LACTOBACILLUS RHAMNOSUS GG 1 CAPSULE. PO SCH ×2 (08:37→19:47)
[2020-12-18] MEDS: SERTRALINE 100 MG TABLET. PO SCH (08:37)
--- NOTE | 2020-12-18 11:09 | TX PLAN ---
Interdisciplinary Tx Plan Admission Information Nov 10, 2020 at 14:40 Legal Status (on Admission): Voluntary DPOA/Guardian Name: Janeen Lovelace Contact Other Contact Name: Janeen Lovelace Other Contact Verified Code Status: Full Code Allergies: Coded Allergies: No Known Drug Allergies (Unverified , 11/10/20) Diagnoses Primary Diagnosis: Dementia with BD Reasons for Admission: Hallucinations, Confusion/Disoriented, Poor impulse control, Other Problem in Patient's Words: Assuming this is the UTI because this has all happened so sudden Additional Admission Comments: According to the intake, pt is hallucinating, asking to see her parents, repetitive, altered mental status (displaying STM deficits), taking off her clothes, smearing feces on the wall, tried to leave the house at night and poor hygeine. Problems Active Problems: delusional restless/anxious hallucinating Inactive Problems: medication compliant Pt Strengths/Limitations Ability for [place]: Poor Cognitive Functioning/Ability: Fair Communication Skills/Ability: Fair Financial Resources: Fair Insight/Judgement: Poor Intellectual Ability: Fair Physical Health: Fair Social Skills: Fair Stability in Family: Good Stability in School/Work: Poor Verbal Skills: Fair Discharge Criteria Discharge Criteria: No need for close observ., Adequate arrangements @DC, Impr mary behavior, Improved mood/thought Preliminary Discharge Plan Preliminary DC Plan: Current Living Arrange. Special Precautions Fall Risk: Low Initial D/C Plan Pt will plan to discharge back home with family. Identified Discharge Needs: Resources for continued mental health services Currently Utilized Resources Currently Utilized Resources/P: Primary care physician Referrals Community Resources: referrals for psychiatry Identified Problems/Hx/Goals Objectives/Short-Term Goals Short Term Goals: Control abnormal behavior, Dec. Hallucination/Delus, Medication Stabilization, Promote Coping Skill Short Term Goals in Patient's: N/a Interventions/Frequency Staff Interventions/Frequency&: Psychiatrist to assess pt at least 3x per week for medication management. Social Work to assess pt at least 2x per week to identify barriers to care and discharge planning. Nursing to assess medication effects, behavior modification and completion of 15 minute checks daily. Encourage participation in group activities (if applicable) or 1:1 engagement based off activity dept goals. 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 Pt does have an associates degree Community Follow-up PCP psychiatry referral Community Provider/Family Inpu: She has never been diagnosed with anything and I worry about a Dementia diagnosis as this is a sudden onset and she had not issues until this month or <6 weeks ago. 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 Pt is eating 100% of meals and sleeping on average 6 hours per night. Pt continues to be disorganized and confused; however, appears less tearful and less delusional in looking for her parents and children. Pt does have a UTI and was started on Cipro. Pt attends all groups and is very pleasant and social with her peers. Pt dtr reports talking to pt on the phone and she was very calm and appeared to have a very lucid moment with her. Pt dtr is questioning if pt would be appropriate to be at home with her in the event that we are seeing more stable behaviors from her. SW and pt dtr can talk about this further later today or tomorrow. Pt was approved for placement at [facility]. ONUR RAMOS Dec 18, 2020 11:09
[2020-12-18 16:13] VITALS: BP 101/62
[2020-12-18] MEDS: QUEtiapine 50 MG TABLET. PO SCH (19:48)
[2020-12-18] MEDS: traZODone 50 MG TABLET. PO PRN (19:48)
--- NOTE | 2020-12-18 21:57 | PDOC ---
Exam Note: Abdirashid Note: Please also refer to the separate dictated note~for this date of service dictated separately.~Patient seen individually. Discussed the patient with Nursing staff reviewed the chart.~Reviewed interim history and current functioning. Reviewed vital signs,~Labs/ Radiology~and current medications noted below. Continue current treatment with the changes noted in the dictated addendum note Assessment: Vital Signs/I&O: Vital Signs Date Time Temp Pulse Resp B/P (MAP) Pulse Ox O2 Delivery O2 Flow Rate FiO2 12/18/20 16:13 98.7 86 15 101/62 (75) 95 12/18/20 05:52 Room Air I & O 12/17/20 12/17/20 12/18/20 15:00 23:00 07:00 Intake Total 720 ml 1080 ml Balance 720 ml 1080 ml Current Medications: Meds: Current Medications Medications (Trade) Dose Ordered Sig/Rach Route PRN Reason Start Time Stop Time Status Last Admin Dose Admin Clotrimazole (Lotrimin) 1 kathi BID TP 11/10/20 21:00 12/08/20 06:03 DC 12/07/20 08:56 Cephalexin HCl (Keflex) 500 mg TID PO 11/10/20 21:00 11/13/20 22:00 DC 11/13/20 20:55 Acetaminophen (Tylenol) 650 mg PRN Q6HRS PRN PO MILD PAIN / TEMP > 100.3'F 11/10/20 15:30 12/15/20 16:08 Multi-Ingredient Ointment (Analgesic [place]) 1 kathi PRN QID PRN TP MUSCLE PAIN 11/10/20 15:30 Al Hydroxide/Mg Hydroxide (Mylanta Plus Xs) 15 ml PRN AFTMEALHC PRN PO DYSPEPSIA 11/10/20 15:30 Magnesium Hydroxide (Milk Of Magnesia) 2,400 mg PRN QHS PRN PO CONSTIPATION 11/10/20 15:30 Acetaminophen/ Hydrocodone Bitart (Lortab 5/325) 1 tab PRN Q6HRS PRN PO MOD-SEV PAIN 11/10/20 17:00 12/18/20 08:37 Olanzapine (ZyPREXA ZYDIS) 2.5 mg PRN Q2HR PRN PO PSYCHOSIS 11/10/20 17:15 12/18/20 08:38 Trazodone HCl (Desyrel) 50 mg QHS PRN PO INSOMNIA, MAY REPEAT X1 11/10/20 22:30 12/18/20 19:48 Mirtazapine (Remeron) 7.5 mg QHS PO 11/11/20 21:00 11/13/20 15:41 DC 11/12/20 19:21 Sertraline HCl (Zoloft) 25 mg DAILY PO 11/12/20 17:00 11/14/20 18:00 DC 11/14/20 08:44 Sertraline HCl (Zoloft) 50 mg DAILY PO 11/15/20 17:00 11/21/20 17:12 DC 11/21/20 08:38 Quetiapine Fumarate (SEROquel) 25 mg QHS PO 11/13/20 21:00 11/29/20 18:15 DC 11/28/20 20:07 Doxycycline Hyclate (Vibra-Tab) 100 mg BID PO 11/15/20 21:00 11/24/20 22:00 DC 11/24/20 19:47 Lactobacillus Rhamnosus (Culturelle) 1 cap BID PO 11/15/20 21:00 12/18/20 19:47 Sertraline HCl (Zoloft) 75 mg DAILY PO 11/22/20 09:00 12/09/20 16:54 DC 12/09/20 08:19 Quetiapine Fumarate (SEROquel) 12.5 mg DAILY PO 11/26/20 09:00 11/26/20 14:20 DC 11/26/20 07:30 Quetiapine Fumarate (SEROquel) 12.5 mg 0900,1200 PO 11/26/20 14:30 12/05/20 19:33 DC 12/05/20 12:28 Quetiapine Fumarate (SEROquel) 50 mg QHS PO 11/29/20 21:00 12/06/20 20:04 DC 12/05/20 20:23 Quetiapine Fumarate (SEROquel) 12.5 mg 0900,1300,1700 PO 12/06/20 09:00 12/18/20 16:10 Selenium Sulfide (Selsun) 1 kathi QODAY TP 12/07/20 09:00 12/17/20 09:00 Quetiapine Fumarate (SEROquel) 75 mg QHS PO 12/06/20 21:00 12/18/20 19:48 Sertraline HCl (Zoloft) 100 mg DAILY PO 12/10/20 09:00 12/18/20 08:37 Hydroxyzine HCl (Atarax) 25 mg PRN TID PRN PO ANXIETY / AGITATION 12/11/20 18:30 12/18/20 08:37 Ciprofloxacin (Cipro) 500 mg BID PO 12/22/20 21:00 12/14/20 16:25 DC Ciprofloxacin (Cipro) 500 mg BID PO 12/14/20 16:30 12/18/20 19:47 I have reviewed the current psychotropics carefully including drug interactions. Risk benefit ratio favors no change other than as noted in my dictated progress note. Diagnosis: Problems: (1) Impulse control disorder, unspecified (2) Anxiety disorder, unspecified (3) Dementia, vascular, with depression (4) Dementia, vascular, with delusions (5) Dementia in Alzheimer's disease with depression (6) Dementia in Alzheimer's disease with delusions (7) Dementia of the Alzheimer's type with early onset with behavioral disturbance (8) Major neurocognitive disorder KANDY WADE MD Dec 18, 2020 21:57
[2020-12-19 05:42] VITALS: BP 134/89
--- NOTE | 2020-12-19 06:50 | PDOC ---
Exam Note: Abdirashid Note: This note is a late entry for 12/18/2020overs elements not covered in my initial note. Subjective: The patient was seen face to face in the evening of 12/18/2020 with Casandra DAILY, discussed and reviewed the chart. The patient slept 6-1/2 hours previous night. She remains confused, but less agitated. I met with her in her dayroom. Review of Systems: No CV, , pulmonary, eye, ENT system symptoms on review. Mental Status Exam: The patient is oriented to herself. She is confused, forgetful but more pleasant, less anxious. Insight and judgment, recent and re mote memory, attention and concentration is poor consistent with her diagnoses. Laboratory Data: Reviewed. Impression: Major depressive disorder with psychotic features versus major neurocognitive disorder, Alzheimer vascular with depression, delusions, behavioral disturbance versus psychotic disorder unspecified. Plan: Continue current psychotropics. Assessment: Vital Signs/I&O: Vital Signs Date Time Temp Pulse Resp B/P (MAP) Pulse Ox O2 Delivery O2 Flow Rate FiO2 12/19/20 05:42 97.9 84 18 134/89 (104) 97 Room Air I & O 12/18/20 12/18/20 12/19/20 15:00 23:00 07:00 Intake Total 1500 ml 600 ml Balance 1500 ml 600 ml Current Medications: Meds: Current Medications Medications (Trade) Dose Ordered Sig/Rach Route PRN Reason Start Time Stop Time Status Last Admin Dose Admin Clotrimazole (Lotrimin) 1 kathi BID TP 11/10/20 21:00 12/08/20 06:03 DC 12/07/20 08:56 Cephalexin HCl (Keflex) 500 mg TID PO 11/10/20 21:00 11/13/20 22:00 DC 11/13/20 20:55 Acetaminophen (Tylenol) 650 mg PRN Q6HRS PRN PO MILD PAIN / TEMP > 100.3'F 11/10/20 15:30 12/15/20 16:08 Multi-Ingredient Ointment (Analgesic [place]) 1 kathi PRN QID PRN TP MUSCLE PAIN 11/10/20 15:30 Al Hydroxide/Mg Hydroxide (Mylanta Plus Xs) 15 ml PRN AFTMEALHC PRN PO DYSPEPSIA 11/10/20 15:30 Magnesium Hydroxide (Milk Of Magnesia) 2,400 mg PRN QHS PRN PO CONSTIPATION 11/10/20 15:30 Acetaminophen/ Hydrocodone Bitart (Lortab 5/325) 1 tab PRN Q6HRS PRN PO MOD-SEV PAIN 11/10/20 17:00 12/18/20 08:37 Olanzapine (ZyPREXA ZYDIS) 2.5 mg PRN Q2HR PRN PO PSYCHOSIS 11/10/20 17:15 12/18/20 08:38 Trazodone HCl (Desyrel) 50 mg QHS PRN PO INSOMNIA, MAY REPEAT X1 11/10/20 22:30 12/18/20 19:48 Mirtazapine (Remeron) 7.5 mg QHS PO 11/11/20 21:00 11/13/20 15:41 DC 11/12/20 19:21 Sertraline HCl (Zoloft) 25 mg DAILY PO 11/12/20 17:00 11/14/20 18:00 DC 11/14/20 08:44 Sertraline HCl (Zoloft) 50 mg DAILY PO 11/15/20 17:00 11/21/20 17:12 DC 11/21/20 08:38 Quetiapine Fumarate (SEROquel) 25 mg QHS PO 11/13/20 21:00 11/29/20 18:15 DC 11/28/20 20:07 Doxycycline Hyclate (Vibra-Tab) 100 mg BID PO 11/15/20 21:00 11/24/20 22:00 DC 11/24/20 19:47 Lactobacillus Rhamnosus (Culturelle) 1 cap BID PO 11/15/20 21:00 12/18/20 19:47 Sertraline HCl (Zoloft) 75 mg DAILY PO 11/22/20 09:00 12/09/20 16:54 DC 12/09/20 08:19 Quetiapine Fumarate (SEROquel) 12.5 mg DAILY PO 11/26/20 09:00 11/26/20 14:20 DC 11/26/20 07:30 Quetiapine Fumarate (SEROquel) 12.5 mg 0900,1200 PO 11/26/20 14:30 12/05/20 19:33 DC 12/05/20 12:28 Quetiapine Fumarate (SEROquel) 50 mg QHS PO 11/29/20 21:00 12/06/20 20:04 DC 12/05/20 20:23 Quetiapine Fumarate (SEROquel) 12.5 mg 0900,1300,1700 PO 12/06/20 09:00 12/18/20 16:10 Selenium Sulfide (Selsun) 1 kathi QODAY TP 12/07/20 09:00 12/17/20 09:00 Quetiapine Fumarate (SEROquel) 75 mg QHS PO 12/06/20 21:00 12/18/20 19:48 Sertraline HCl (Zoloft) 100 mg DAILY PO 12/10/20 09:00 12/18/20 08:37 Hydroxyzine HCl (Atarax) 25 mg PRN TID PRN PO ANXIETY / AGITATION 12/11/20 18:30 12/18/20 08:37 Ciprofloxacin (Cipro) 500 mg BID PO 12/22/20 21:00 12/14/20 16:25 DC Ciprofloxacin (Cipro) 500 mg BID PO 12/14/20 16:30 12/18/20 19:47 I have reviewed the current psychotropics carefully including drug interactions. Risk benefit ratio favors no change other than as noted in my dictated progress note. Diagnosis: Problems: (1) Impulse control disorder, unspecified (2) Anxiety disorder, unspecified (3) Dementia, vascular, with depression (4) Dementia, vascular, with delusions (5) Dementia in Alzheimer's disease with depression (6) Dementia in Alzheimer's disease with delusions (7) Dementia of the Alzheimer's type with early onset with behavioral disturbance (8) Major neurocognitive disorder KANDY WADE MD Dec 19, 2020 06:50
[2020-12-19] MEDS: SERTRALINE 100 MG TABLET. PO SCH (08:59)
[2020-12-19] MEDS: LACTOBACILLUS RHAMNOSUS GG 1 CAPSULE. PO SCH ×2 (08:59→20:13)
[2020-12-19] MEDS: QUEtiapine 25 MG TABLET. PO SCH ×3 (08:59→17:18)
[2020-12-19] MEDS: CIPROFLOXACIN HCL 500 MG TABLET PO SCH ×2 (08:59→20:13)
[2020-12-19] MEDS: SELENIUM SULFIDE 1% TOPICAL SHAMPOO 207ML BOTTLE. TP SCH (09:00)
--- NOTE | 2020-12-19 12:43 | NUR ---
MIK returned call to Janeen, pt dtr/ DPOA, who wanted to finalize plans for tomorrow and Janeen wanted opinions/justification on if Janeen is doing the right thing. MIK explained to Janeen that sending pt to [facility] is the right thing at the moment. MIK is very concerned about pt coming home as Janeen and her work and having the kids around with school and sporting events, pt would need a lot of physical care and 24/7 as she does continue to wander and also can have behaviors surrounding cares. MIK explained that if she considers taking pt home after [facility], she will really need to make sure she has as many supports in place as possible to ensure safety for everyone. Pt dtr understands and discussed options such as home health, private duty, adult daycares and last resort, leaving pt at [facility] until she can sort out pt financials. Janeen will plan to pick pt up shortly after lunch. She reports talking to XENIA Olivares at [facility], who wanted to makes sure that the medication list was sent over [facility] so that they can make sure her medications are filled by their local pharmacy.
--- NOTE | 2020-12-19 14:35 | NUR ---
Nursing Note Patient has been pleasant during interactions today. Took medications without difficulty. Patient has been up in day room majority of shift.
[2020-12-19 16:07] VITALS: BP 121/68
--- NOTE | 2020-12-19 16:46 | NUR ---
[facility] Social Work Discharge Planning Form Patient Name SHAKA LOFTON Admit Date: 10 November 2020 DISCHARGE PLAN Discharge Destination: Pt to discharge to [facility]. Care Assessment: Completed 12/19/2020 Level II Assessment: N/A Transportation: Pt alexeirJaneen, to pick pt up after lunch around 1300. Special Instructions/Notes: Please fax discharge orders, discharge medications and discharge summary to the fax number listed below. DISCHARGE TO FACILITY Facility: [facility] Address: [address] [place] [address]; [place] [address] Contact Name: Marshall Lockett, [employer] Supervisor: Contact Name: Please call in report to the nurse caring for pt upon admission. PCP: To see the physician at [place]
[2020-12-19] MEDS: QUEtiapine 50 MG TABLET. PO SCH (20:12)
[2020-12-19] MEDS: traZODone 50 MG TABLET. PO PRN (20:13)
--- NOTE | 2020-12-19 21:57 | PDOC ---
Exam Note: Abdirashid Note: Please also refer to the separate dictated note~for this date of service dictated separately.~Patient seen individually. Discussed the patient with Nursing staff reviewed the chart.~Reviewed interim history and current functioning. Reviewed vital signs,~Labs/ Radiology~and current medications noted below. Continue current treatment with the changes noted in the dictated addendum note Assessment: Vital Signs/I&O: Vital Signs Date Time Temp Pulse Resp B/P (MAP) Pulse Ox O2 Delivery O2 Flow Rate FiO2 12/19/20 16:07 97.5 76 18 121/68 (85) 99 12/19/20 05:42 Room Air I & O 12/18/20 12/18/20 12/19/20 15:00 23:00 07:00 Intake Total 1500 ml 600 ml Balance 1500 ml 600 ml Current Medications: Meds: Current Medications Medications (Trade) Dose Ordered Sig/Rach Route PRN Reason Start Time Stop Time Status Last Admin Dose Admin Clotrimazole (Lotrimin) 1 kathi BID TP 11/10/20 21:00 12/08/20 06:03 DC 12/07/20 08:56 Cephalexin HCl (Keflex) 500 mg TID PO 11/10/20 21:00 11/13/20 22:00 DC 11/13/20 20:55 Acetaminophen (Tylenol) 650 mg PRN Q6HRS PRN PO MILD PAIN / TEMP > 100.3'F 11/10/20 15:30 12/15/20 16:08 Multi-Ingredient Ointment (Analgesic [place]) 1 kathi PRN QID PRN TP MUSCLE PAIN 11/10/20 15:30 Al Hydroxide/Mg Hydroxide (Mylanta Plus Xs) 15 ml PRN AFTMEALHC PRN PO DYSPEPSIA 11/10/20 15:30 Magnesium Hydroxide (Milk Of Magnesia) 2,400 mg PRN QHS PRN PO CONSTIPATION 11/10/20 15:30 Acetaminophen/ Hydrocodone Bitart (Lortab 5/325) 1 tab PRN Q6HRS PRN PO MOD-SEV PAIN 11/10/20 17:00 12/18/20 08:37 Olanzapine (ZyPREXA ZYDIS) 2.5 mg PRN Q2HR PRN PO PSYCHOSIS 11/10/20 17:15 12/18/20 08:38 Trazodone HCl (Desyrel) 50 mg QHS PRN PO INSOMNIA, MAY REPEAT X1 11/10/20 22:30 12/19/20 20:13 Mirtazapine (Remeron) 7.5 mg QHS PO 11/11/20 21:00 11/13/20 15:41 DC 11/12/20 19:21 Sertraline HCl (Zoloft) 25 mg DAILY PO 11/12/20 17:00 11/14/20 18:00 DC 11/14/20 08:44 Sertraline HCl (Zoloft) 50 mg DAILY PO 11/15/20 17:00 11/21/20 17:12 DC 11/21/20 08:38 Quetiapine Fumarate (SEROquel) 25 mg QHS PO 11/13/20 21:00 11/29/20 18:15 DC 11/28/20 20:07 Doxycycline Hyclate (Vibra-Tab) 100 mg BID PO 11/15/20 21:00 11/24/20 22:00 DC 11/24/20 19:47 Lactobacillus Rhamnosus (Culturelle) 1 cap BID PO 11/15/20 21:00 12/19/20 20:13 Sertraline HCl (Zoloft) 75 mg DAILY PO 11/22/20 09:00 12/09/20 16:54 DC 12/09/20 08:19 Quetiapine Fumarate (SEROquel) 12.5 mg DAILY PO 11/26/20 09:00 11/26/20 14:20 DC 11/26/20 07:30 Quetiapine Fumarate (SEROquel) 12.5 mg 0900,1200 PO 11/26/20 14:30 12/05/20 19:33 DC 12/05/20 12:28 Quetiapine Fumarate (SEROquel) 50 mg QHS PO 11/29/20 21:00 12/06/20 20:04 DC 12/05/20 20:23 Quetiapine Fumarate (SEROquel) 12.5 mg 0900,1300,1700 PO 12/06/20 09:00 12/19/20 17:18 Selenium Sulfide (Selsun) 1 kathi QODAY TP 12/07/20 09:00 12/19/20 09:00 Quetiapine Fumarate (SEROquel) 75 mg QHS PO 12/06/20 21:00 12/19/20 20:12 Sertraline HCl (Zoloft) 100 mg DAILY PO 12/10/20 09:00 12/19/20 08:59 Hydroxyzine HCl (Atarax) 25 mg PRN TID PRN PO ANXIETY / AGITATION 12/11/20 18:30 12/18/20 08:37 Ciprofloxacin (Cipro) 500 mg BID PO 12/22/20 21:00 12/14/20 16:25 DC Ciprofloxacin (Cipro) 500 mg BID PO 12/14/20 16:30 12/19/20 20:13 I have reviewed the current psychotropics carefully including drug interactions. Risk benefit ratio favors no change other than as noted in my dictated progress note. Diagnosis: Problems: (1) Impulse control disorder, unspecified (2) Anxiety disorder, unspecified (3) Dementia, vascular, with depression (4) Dementia, vascular, with delusions (5) Dementia in Alzheimer's disease with depression (6) Dementia in Alzheimer's disease with delusions (7) Dementia of the Alzheimer's type with early onset with behavioral disturbance (8) Major neurocognitive disorder KANDY WADE MD Dec 19, 2020 21:57
[2020-12-19] MEDS ORDERED: CIPR500T94 PO (23:31)
[2020-12-19] MEDS ORDERED: SERT100T PO (23:33)
[2020-12-19] MEDS ORDERED: TRAZ-120 PO (23:33)
[2020-12-19] MEDS ORDERED: OLAN2.5T3 PO (23:34)
[2020-12-19] MEDS ORDERED: QUET50TA5 PO (23:36)
[2020-12-19] MEDS ORDERED: QUET25TA5 PO (23:37)
[2020-12-19] MEDS ORDERED: HYDR25TA PO (23:39)
[2020-12-19] MEDS ORDERED: METH57CR17 TP (23:48)
[2020-12-19] MEDS ORDERED: MAG-124 PO (23:49)
[2020-12-19] MEDS ORDERED: MAGN24003 PO (23:51)
[2020-12-19] MEDS ORDERED: LACT1CAP19 PO (23:51)
[2020-12-19] MEDS ORDERED: SELE120S2 TP (23:52)
--- NOTE | 2020-12-20 06:04 | NUR ---
Nursing Note Pt found to have supplies and trash stuck in her pillow, pt ripped open the corner of her pillow during the night. Pt also had mouthwash bottle in her vagina, with large amounts of toilet paper in her pants. Instructed staff to clear he room, and also lock any and all supplies in and around the unit.
[2020-12-20 07:02] VITALS: BP 156/76
[2020-12-20] MEDS: CIPROFLOXACIN HCL 500 MG TABLET PO SCH (08:04)
[2020-12-20] MEDS: LACTOBACILLUS RHAMNOSUS GG 1 CAPSULE. PO SCH (08:04)
[2020-12-20] MEDS: SERTRALINE 100 MG TABLET. PO SCH (08:04)
[2020-12-20] MEDS: QUEtiapine 25 MG TABLET. PO SCH ×2 (08:05→13:00)
--- NOTE | 2020-12-20 11:24 | NUR ---
Pt has been present and visible on the unit. She is disorganized and confused, A&O to name. Her interactions with others are appropriate, no verbal/physical aggression noted. Absent of SI/HI/VH/AH/delusions at this time. She denies pain when asked. She is compliant with whole medications. Plan of care continues, preparing for d/c
--- NOTE | 2020-12-20 14:15 | NUR ---
MIK contacted pt dtr who has not been here yet to pick pt up. Janeen is on her way to the hospital and reports concern about pt facility not doing all the appropriate steps for [employer] to approve her SNF days. Janeen is working with the insurance [employer] in the meantime. MIK will meet with Janeen when she gets in so that she may be able to help SW sign her PASSR for placement. Janeen reports that she just turned onto [address].
--- NOTE | 2020-12-20 16:22 | NUR ---
Transition Record was faxed to follow-up provider with the following elements: Reason for admission, procedures, tests, principal diagnosis, pending studies, patient instructions, 08/12 contact information for unit, phone number to obtain pending test results, plan for follow-up care, physician follow-up, advanced directive information, and medication list with dose, duration and instructions. This information was included in the following documents: History and physical, lab results, study results, progress notes, social work planning form, DC instruction form, patient visit summary, and medication reconciliation form. Date & time record faxed: 12/20/20 0979 Record faxed to: [facility] (F [phone]) Record discussed with/ report given to: Eddie DAILY at [facility]
--- NOTE | 2020-12-20 22:17 | PDOC ---
Exam Note: Abdirashid Note: Please also refer to the separate dictated note~for this date of service dictated separately.~Patient seen individually. Discussed the patient with Nursing staff reviewed the chart.~Reviewed interim history and current functioning. Reviewed vital signs,~Labs/ Radiology~and current medications noted below. Continue current treatment with the changes noted in the dictated addendum note Assessment: Vital Signs/I&O: Vital Signs Date Time Temp Pulse Resp B/P (MAP) Pulse Ox O2 Delivery O2 Flow Rate FiO2 12/20/20 07:02 97.2 86 18 156/76 (102) 97 Room Air I & O 12/19/20 12/19/20 12/20/20 15:00 23:00 07:00 Intake Total 720 ml 600 ml Balance 720 ml 600 ml Current Medications: Meds: Current Medications Medications (Trade) Dose Ordered Sig/Rach Route PRN Reason Start Time Stop Time Status Last Admin Dose Admin Clotrimazole (Lotrimin) 1 kathi BID TP 11/10/20 21:00 12/08/20 06:03 DC 12/07/20 08:56 Cephalexin HCl (Keflex) 500 mg TID PO 11/10/20 21:00 11/13/20 22:00 DC 11/13/20 20:55 Acetaminophen (Tylenol) 650 mg PRN Q6HRS PRN PO MILD PAIN / TEMP > 100.3'F 11/10/20 15:30 12/20/20 16:28 DC 12/15/20 16:08 Multi-Ingredient Ointment (Analgesic [place]) 1 kathi PRN QID PRN TP MUSCLE PAIN 11/10/20 15:30 12/20/20 16:28 DC Al Hydroxide/Mg Hydroxide (Mylanta Plus Xs) 15 ml PRN AFTMEALHC PRN PO DYSPEPSIA 11/10/20 15:30 12/20/20 16:28 DC Magnesium Hydroxide (Milk Of Magnesia) 2,400 mg PRN QHS PRN PO CONSTIPATION 11/10/20 15:30 12/20/20 16:28 DC Acetaminophen/ Hydrocodone Bitart (Lortab 5/325) 1 tab PRN Q6HRS PRN PO MOD-SEV PAIN 11/10/20 17:00 12/20/20 16:28 DC 12/18/20 08:37 Olanzapine (ZyPREXA ZYDIS) 2.5 mg PRN Q2HR PRN PO PSYCHOSIS 11/10/20 17:15 12/20/20 16:28 DC 12/19/20 23:03 Trazodone HCl (Desyrel) 50 mg QHS PRN PO INSOMNIA, MAY REPEAT X1 11/10/20 22:30 12/20/20 16:28 DC 12/19/20 20:13 Mirtazapine (Remeron) 7.5 mg QHS PO 11/11/20 21:00 11/13/20 15:41 DC 11/12/20 19:21 Sertraline HCl (Zoloft) 25 mg DAILY PO 11/12/20 17:00 11/14/20 18:00 DC 11/14/20 08:44 Sertraline HCl (Zoloft) 50 mg DAILY PO 11/15/20 17:00 11/21/20 17:12 DC 11/21/20 08:38 Quetiapine Fumarate (SEROquel) 25 mg QHS PO 11/13/20 21:00 11/29/20 18:15 DC 11/28/20 20:07 Doxycycline Hyclate (Vibra-Tab) 100 mg BID PO 11/15/20 21:00 11/24/20 22:00 DC 11/24/20 19:47 Lactobacillus Rhamnosus (Culturelle) 1 cap BID PO 11/15/20 21:00 12/20/20 16:28 DC 12/20/20 08:04 Sertraline HCl (Zoloft) 75 mg DAILY PO 11/22/20 09:00 12/09/20 16:54 DC 12/09/20 08:19 Quetiapine Fumarate (SEROquel) 12.5 mg DAILY PO 11/26/20 09:00 11/26/20 14:20 DC 11/26/20 07:30 Quetiapine Fumarate (SEROquel) 12.5 mg 0900,1200 PO 11/26/20 14:30 12/05/20 19:33 DC 12/05/20 12:28 Quetiapine Fumarate (SEROquel) 50 mg QHS PO 11/29/20 21:00 12/06/20 20:04 DC 12/05/20 20:23 Quetiapine Fumarate (SEROquel) 12.5 mg 0900,1300,1700 PO 12/06/20 09:00 12/20/20 16:28 DC 12/20/20 13:00 Selenium Sulfide (Selsun) 1 kathi QODAY TP 12/07/20 09:00 12/20/20 16:28 DC 12/19/20 09:00 Quetiapine Fumarate (SEROquel) 75 mg QHS PO 12/06/20 21:00 12/20/20 16:28 DC 12/19/20 20:12 Sertraline HCl (Zoloft) 100 mg DAILY PO 12/10/20 09:00 12/20/20 16:28 DC 12/20/20 08:04 Hydroxyzine HCl (Atarax) 25 mg PRN TID PRN PO ANXIETY / AGITATION 12/11/20 18:30 12/20/20 16:28 DC 12/18/20 08:37 Ciprofloxacin (Cipro) 500 mg BID PO 12/22/20 21:00 12/14/20 16:25 DC Ciprofloxacin (Cipro) 500 mg BID PO 12/14/20 16:30 12/20/20 16:28 DC 12/20/20 08:04 I have reviewed the current psychotropics carefully including drug interactions. Risk benefit ratio favors no change other than as noted in my dictated progress note. Diagnosis: Problems: (1) Impulse control disorder, unspecified (2) Anxiety disorder, unspecified (3) Dementia, vascular, with depression (4) Dementia, vascular, with delusions (5) Dementia in Alzheimer's disease with depression (6) Dementia in Alzheimer's disease with delusions (7) Dementia of the Alzheimer's type with early onset with behavioral disturbance (8) Major neurocognitive disorder KANDY WADE MD Dec 20, 2020 22:17
--- NOTE | 2020-12-21 06:47 | PDOC ---
Exam Note: Abdirashid Note: This note is a late entry for 12/19/2020overs elements not covered in my initial note. Subjective: The patient was seen face to face in the evening of 12/19/2020 with Tee DAILY, discussed and reviewed the chart. The patient slept 5-1/2 hours previous night. She remains in treatment for her UTI and overall is doing better, less anxious, less paranoid, certainly remains confused. Review of Systems: No CV, , pulmonary, eye, ENT system symptoms on review. Mental Status Exam: The patient is oriented to herself. She is confused, less anxious, overall doing better. Insight and judgment, recent and remote memory, attention and concentration is poor consistent with her diagnoses. Laboratory Data: Reviewed. Impression: Major depressive disorder with psychotic features versus major neurocognitive disorder, Alzheimer vascular with depression, delusions, behavioral disturbance versus psychotic disorder unspecified. Plan: Continue current psychotropics. Discharge the patient on 12/20 depending on her progress. Assessment: Vital Signs/I&O: Vital Signs Date Time Temp Pulse Resp B/P (MAP) Pulse Ox O2 Delivery O2 Flow Rate FiO2 12/20/20 07:02 97.2 86 18 156/76 (102) 97 Room Air I & O 12/20/20 12/20/20 12/21/20 15:00 23:00 07:00 Intake Total 600 ml Balance 600 ml Current Medications: Meds: Current Medications Medications (Trade) Dose Ordered Sig/Rach Route PRN Reason Start Time Stop Time Status Last Admin Dose Admin Clotrimazole (Lotrimin) 1 kathi BID TP 11/10/20 21:00 12/08/20 06:03 DC 12/07/20 08:56 Cephalexin HCl (Keflex) 500 mg TID PO 11/10/20 21:00 11/13/20 22:00 DC 11/13/20 20:55 Acetaminophen (Tylenol) 650 mg PRN Q6HRS PRN PO MILD PAIN / TEMP > 100.3'F 11/10/20 15:30 12/20/20 16:28 DC 12/15/20 16:08 Multi-Ingredient Ointment (Analgesic [place]) 1 kathi PRN QID PRN TP MUSCLE PAIN 11/10/20 15:30 12/20/20 16:28 DC Al Hydroxide/Mg Hydroxide (Mylanta Plus Xs) 15 ml PRN AFTMEALHC PRN PO DYSPEPSIA 11/10/20 15:30 12/20/20 16:28 DC Magnesium Hydroxide (Milk Of Magnesia) 2,400 mg PRN QHS PRN PO CONSTIPATION 11/10/20 15:30 12/20/20 16:28 DC Acetaminophen/ Hydrocodone Bitart (Lortab 5/325) 1 tab PRN Q6HRS PRN PO MOD-SEV PAIN 11/10/20 17:00 12/20/20 16:28 DC 12/18/20 08:37 Olanzapine (ZyPREXA ZYDIS) 2.5 mg PRN Q2HR PRN PO PSYCHOSIS 11/10/20 17:15 12/20/20 16:28 DC 12/19/20 23:03 Trazodone HCl (Desyrel) 50 mg QHS PRN PO INSOMNIA, MAY REPEAT X1 11/10/20 22:30 12/20/20 16:28 DC 12/19/20 20:13 Mirtazapine (Remeron) 7.5 mg QHS PO 11/11/20 21:00 11/13/20 15:41 DC 11/12/20 19:21 Sertraline HCl (Zoloft) 25 mg DAILY PO 11/12/20 17:00 11/14/20 18:00 DC 11/14/20 08:44 Sertraline HCl (Zoloft) 50 mg DAILY PO 11/15/20 17:00 11/21/20 17:12 DC 11/21/20 08:38 Quetiapine Fumarate (SEROquel) 25 mg QHS PO 11/13/20 21:00 11/29/20 18:15 DC 11/28/20 20:07 Doxycycline Hyclate (Vibra-Tab) 100 mg BID PO 11/15/20 21:00 11/24/20 22:00 DC 11/24/20 19:47 Lactobacillus Rhamnosus (Culturelle) 1 cap BID PO 11/15/20 21:00 12/20/20 16:28 DC 12/20/20 08:04 Sertraline HCl (Zoloft) 75 mg DAILY PO 11/22/20 09:00 12/09/20 16:54 DC 12/09/20 08:19 Quetiapine Fumarate (SEROquel) 12.5 mg DAILY PO 11/26/20 09:00 11/26/20 14:20 DC 11/26/20 07:30 Quetiapine Fumarate (SEROquel) 12.5 mg 0900,1200 PO 11/26/20 14:30 12/05/20 19:33 DC 12/05/20 12:28 Quetiapine Fumarate (SEROquel) 50 mg QHS PO 11/29/20 21:00 12/06/20 20:04 DC 12/05/20 20:23 Quetiapine Fumarate (SEROquel) 12.5 mg 0900,1300,1700 PO 12/06/20 09:00 12/20/20 16:28 DC 12/20/20 13:00 Selenium Sulfide (Selsun) 1 kathi QODAY TP 12/07/20 09:00 12/20/20 16:28 DC 12/19/20 09:00 Quetiapine Fumarate (SEROquel) 75 mg QHS PO 12/06/20 21:00 12/20/20 16:28 DC 12/19/20 20:12 Sertraline HCl (Zoloft) 100 mg DAILY PO 12/10/20 09:00 12/20/20 16:28 DC 12/20/20 08:04 Hydroxyzine HCl (Atarax) 25 mg PRN TID PRN PO ANXIETY / AGITATION 12/11/20 18:30 12/20/20 16:28 DC 12/18/20 08:37 Ciprofloxacin (Cipro) 500 mg BID PO 12/22/20 21:00 12/14/20 16:25 DC Ciprofloxacin (Cipro) 500 mg BID PO 12/14/20 16:30 12/20/20 16:28 DC 12/20/20 08:04 I have reviewed the current psychotropics carefully including drug interactions. Risk benefit ratio favors no change other than as noted in my dictated progress note. Diagnosis: Problems: (1) Impulse control disorder, unspecified (2) Anxiety disorder, unspecified (3) Dementia, vascular, with depression (4) Dementia, vascular, with delusions (5) Dementia in Alzheimer's disease with depression (6) Dementia in Alzheimer's disease with delusions (7) Dementia of the Alzheimer's type with early onset with behavioral disturbance (8) Major neurocognitive disorder KANDY WADE MD Dec 21, 2020 06:47
[2020-12-22] MEDS ORDERED: CIPROFLOXACIN HCL 500 MG TABLET PO SCH (21:00)
--- NOTE | 2020-12-23 22:22 | DS ---
DATE OF DISCHARGE: 12/20/2020 DISCHARGE SUMMARY/PSYCHIATRIC PROGRESS NOTE This is a late entry, date of service on 12/20, covers elements not covered in my initial note, 12/20. REASON FOR ADMISSION: Please refer to the admission history for details. Briefly, the patient is a 75-year-old female referred to us from [facility] where she presented from home on account of worsening confusion, hallucinations, repeatedly asking to see her parents. She was extremely repetitive, having acute mental status changes with short-term memory deficits. She is taking off her clothes, incontinence, smearing feces on the wall. She tried to leave the house at night where she was living with her daughter. She had poor hygiene. Behaviors were deemed dangerous, unmanageable. She had failed outpatient psychiatric interventions resulting in this referral. The daughter stated in the past, her confusion would worsen with recurrent UTIs but that was not able to account for the current behaviors. SIGNIFICANT FINDINGS AND CLINICAL COURSE: Following admission, the patient was seen daily individually by myself from a psychiatric standpoint, medical followup with Dr. Graham/Dr. Macias. The patient was quite confused, oriented just to herself with worsening confusion in the evening, paranoia, mood lability, crying persistently asking for her parents. She does have a history of bladder prolapse and later UA was positive for UTI and she was treated for this. Despite this, she remained psychotic and was finally stabilized on a combination of Seroquel 12.5 mg at 0900, 1300, 1700, and 75 mg at bedtime; Zyprexa 2.5 mg q. 2 hours p.r.n. psychosis, agitation; hydroxyzine 25 mg t.i.d. p.r.n.; trazodone 50 mg at bedtime p.r.n., may repeat x1 for insomnia; and Zoloft 100 mg a day. REVIEW OF SYSTEMS: Prior to discharge on 12/20, no CV, , eye, ENT, pulmonary system symptoms on review. Reliability poor. MENTAL STATUS EXAMINATION: Oriented to herself. Insight, judgment, recent and remote memory, attention, concentration, fund of knowledge poor consistent with her diagnoses. FINAL DIAGNOSES: Major neurocognitive disorder, Alzheimer, vascular with delusion, depression, behavioral disturbance; anxiety disorder, unspecified; impulse control disorder, unspecified; status post urinary tract infection. Rest unchanged from admission. DISCHARGE MEDICATIONS: Please refer to the MRAD. DISCHARGE INSTRUCTIONS: Outpatient psychiatric and medical followup as arranged prior to discharge by social service staff. Time for discharge day management greater than [address]: Timur TID: [id number]
== END 2020-12-20 15:00 | DRG 57 ==
LOC: GEROPSY 14:40
PROVIDERS: ADMIT Psychiatry & Neurology Psychiatry; ATTEND Psychiatry & Neurology Psychiatry
DX: G30.9 Alzheimer's disease, unspecified (principal); F01.51 Vascular dementia, unspecified severity, with behavioral disturbance; F33.3 Major depressive disorder, recurrent, severe with psychotic symptoms; F02.81 Dementia in other diseases classified elsewhere, unspecified severity, with behavioral disturbance; L03.116 Cellulitis of left lower limb; N39.0 Urinary tract infection, site not specified; F41.9 Anxiety disorder, unspecified; F63.9 Impulse disorder, unspecified; Z86.19 Personal history of other infectious and parasitic diseases; G43.909 Migraine, unspecified, not intractable, without status migrainosus; G47.00 Insomnia, unspecified; Z79.899 Other long term (current) drug therapy; Z20.822 Contact with and (suspected) exposure to COVID-19
CPT/HCPCS: 36415; 70450; 80048; 80053; 81001; 84436; 85025; 85379; 86592; 87077; 87086; 87186; 93971; U0003; U0005; 97530